=== PATIENT | female | born 1965 | race American Indian/Alaskan Native ===

== ENCOUNTER 2019-11-02 06:59 | Inpatient (IN) | payer MEDICARE ==
[2019-11-02] MEDS ORDERED: ASPIRIN 325 MG TAB PO ONE (07:49)
[2019-11-02] MEDS ORDERED: NITROGLYCERIN 2% OINT 1 GM TP ONE ×3 (07:51→11:44)
[2019-11-02] MEDS ORDERED: MORPHINE 2 MG/1 ML INJ IV ONE (07:51)
[2019-11-02] MEDS ORDERED: hydrALAZINE 20 MG/1 ML INJ IV ONE ×2 (07:51→09:39)
[2019-11-02] MEDS ORDERED: ONDANSETRON 4 MG/2 ML INJ IV ONE (07:51)
--- NOTE | 2019-11-02 08:09 | Emergency Department Report ---
ED Chest Pain HPI - General Chief Complaint: Upper Respiratory Infection Stated Complaint: CHEST PAIN Time Seen by Provider: 11/02/19 07:40 Source: EMS Mode of arrival: Stretcher Limitations: No Limitations - History of Present Illness Initial Comments: This is a 53-year-old female with Vas-Cath and chronic dialysis in [place]. She presents for chest pain which she states has been present for over 2 weeks. She states it got worse yesterday and she decided to be evaluated here. She seems very reticent to provide a detailed history. She does admit to not taking her blood pressure medicine this morning. She presents with accelerated hypertension. She denies any problems with her heart. However later she does seem to indicate that she has been treated in the hospital for accelerated hypertension associated with CHF it would appear. She denies any history of known myocardial infarction or coronary artery disease. Patient describes her chest pain as a pressure in the substernal region. She states somewhat radiates to the right shoulder. She has a right chest Vas-Cath. MD Complaint: chest pain -: week(s) Onset: during rest Pain Location: substernal Pain Radiation: RUE Severity: moderate, severe Quality: heaviness Consistency: intermittent Improves With: nothing Worsens With: nothing Context: other (Accelerated hypertension) re: nausea, dyspnea Other Symptoms: cough Treatments Prior to Arrival: none Aspirin use within the Past 7 Days: (0) No - Related Data Allergies Allergy/AdvReac Type Severity Reaction Status Date / Time No Known Allergies Allergy Unverified 11/02/19 07:29 Heart Score - HEART Score History: Moderately suspicious EKG: Non-specific Age: 45-65 Risk factors: 1-2 risk factors Troponin: 1-3x normal limit HEART Score: 5 - Critical Actions Critical Actions: 4-6 pts:12-16.6% risk of adverse cardiac event. Should be admitted ED Review of Systems ROS: Stated complaint: CHEST PAIN Other details as noted in HPI Constitutional: denies: chills, fever Eyes: denies: eye pain, vision change ENT: denies: ear pain, throat pain Respiratory: cough, shortness of breath. denies: wheezing Cardiovascular: chest pain. denies: palpitations Endocrine: no symptoms reported Gastrointestinal: denies: abdominal pain, nausea Genitourinary: as per HPI (End-stage renal) Musculoskeletal: denies: back pain, arthralgia Skin: denies: rash, lesions Neurological: denies: headache, weakness, paresthesias Psychiatric: denies: anxiety, depression Hematological/Lymphatic: denies: easy bleeding, easy bruising ED Past Medical Hx - Past Medical History Previous Medical History?: Yes Hx Hypertension: Yes Hx Diabetes: No Hx Renal Disease: Yes Hx Arthritis: Yes Additional medical history: Dialysis in [facility] - Surgical History Past Surgical History?: Yes Additional Surgical History: L fistula - Social History Smoking Status: Never Smoker Substance Use Type: None ED Physical Exam - General Limitations: Physical Limitation General appearance: alert, in no apparent distress - Head Head exam: Present: atraumatic, normocephalic - Eye Eye exam: Present: normal appearance, EOMI. Absent: scleral icterus - ENT ENT exam: Present: mucous membranes moist - Neck Neck exam: Present: normal inspection. Absent: tenderness, meningismus - Respiratory Respiratory exam: Present: normal lung sounds bilaterally, other (Permacath right chest). Absent: respiratory distress - Cardiovascular Cardiovascular Exam: Present: regular rate, normal rhythm. Absent: systolic murmur, diastolic murmur, rubs, gallop - GI/Abdominal GI/Abdominal exam: Present: soft, normal bowel sounds. Absent: distended, tenderness - Extremities Exam Extremities exam: Present: normal inspection, normal capillary refill. Absent: calf tenderness - Back Exam Back exam: Present: normal inspection - Neurological Exam Neurological exam: Present: alert, oriented X3, CN II-XII intact. Absent: motor sensory deficit - Psychiatric Psychiatric exam: Present: normal affect, normal mood - Skin Skin exam: Present: warm, dry, intact, normal color. Absent: rash ED Course Vital Signs 11/02/19 11/02/19 11/02/19 07:45 07:47 08:41 Temperature 98.5 F Pulse Rate 68 61 Respiratory 24 Rate Blood Pressure 210/95 Blood Pressure 216/112 [Right] O2 Sat by Pulse 97 98 Oximetry - Reevaluation(s) Reevaluation #1: Chest x-ray interpretation as per radiologist CHF pleural fluid right lower lobe pneumonia. I do not know how definitive the reading of the right lower lobe pneumonia is. In any case the patient has a slightly elevated d-dimer. I believe CT angiogram will help us elucidate the differential diagnosis. Patient does need dialysis within 24 hours. I do believe she is stable to have a CTA. I have discussed the case with Dr. Hickman who will be seeing the patient in the emergency department. Further recommendations per Dr. Hickman. 11/02/19 09:49 11/02/19 09:53 KIRSTEN score - Kirsten Score Age > 65: (0) No Aspirin use within the Past 7 Days: (0) No 3 or more CAD Risk Factors: (0) No 2 or more Angina events in past 24 hrs: (0) No Known CAD with more than 50% Stenosis: (0) No Elevated Cardiac Markers: (1) Yes ST Deviation Greater than 0.5mm: (0) No KIRSTEN Score: 1 ED Medical Decision Making - Lab Data Result diagrams: 11/02/19 07:59 11/02/19 07:59 Laboratory Results - last 24 hr 11/02/19 11/02/19 11/02/19 07:59 07:59 07:59 WBC 7.0 RBC 3.10 L Hgb 10.1 Hct 30.8 MCV 99 H MCH 33 H MCHC 33 RDW 15.3 H Plt Count 262 Lymph % (Auto) 24.9 Burnett % (Auto) 9.1 H Eos % (Auto) 5.0 H Baso % (Auto) 1.8 Lymph # 1.7 Burnett # 0.6 Eos # 0.3 Baso # 0.1 Seg Neutrophils % 59.2 Seg Neutrophils # 4.2 PT 15.6 H INR 1.22 H APTT 35.2 D-Dimer 319.95 H Sodium 138 Potassium 4.0 Chloride 94.1 L Carbon Dioxide 27 Anion Gap 21 BUN 29 H Creatinine 8.2 H Estimated GFR 6 BUN/Creatinine Ratio 4 Glucose 87 Calcium 9.1 Phosphorus Magnesium Total Bilirubin Direct Bilirubin Indirect Bilirubin AST ALT Alkaline Phosphatase Total Creatine Kinase CK-MB (CK-2) CK-MB (CK-2) Rel Index Troponin T 0.071 H NT-Pro-B Natriuret Pep Total Protein Albumin Albumin/Globulin Ratio Triglycerides 83 Cholesterol 198 LDL Cholesterol Direct 64 11/02/19 07:59 WBC RBC Hgb Hct MCV MCH MCHC RDW Plt Count Lymph % (Auto) Burnett % (Auto) Eos % (Auto) Baso % (Auto) Lymph # Burnett # Eos # Baso # Seg Neutrophils % Seg Neutrophils # PT INR APTT D-Dimer Sodium Potassium Chloride Carbon Dioxide Anion Gap BUN Creatinine Estimated GFR BUN/Creatinine Ratio Glucose Calcium Phosphorus 5.60 H Magnesium 2.50 H Total Bilirubin 0.20 Direct Bilirubin < 0.2 Indirect Bilirubin 0.0 AST 18 ALT 8 Alkaline Phosphatase 101 Total Creatine Kinase 86 CK-MB (CK-2) 2.0 CK-MB (CK-2) Rel Index 2.3 Troponin T NT-Pro-B Natriuret Pep > 83074 H Total Protein 7.3 Albumin 4.2 Albumin/Globulin Ratio 1.4 Triglycerides Cholesterol LDL Cholesterol Direct Laboratory Results - last 24 hr 11/02/19 11/02/19 11/02/19 07:59 07:59 07:59 WBC 7.0 RBC 3.10 L Hgb 10.1 Hct 30.8 MCV 99 H MCH 33 H MCHC 33 RDW 15.3 H Plt Count 262 Lymph % (Auto) 24.9 Burnett % (Auto) 9.1 H Eos % (Auto) 5.0 H Baso % (Auto) 1.8 Lymph # 1.7 Burnett # 0.6 Eos # 0.3 Baso # 0.1 Seg Neutrophils % 59.2 Seg Neutrophils # 4.2 PT 15.6 H INR 1.22 H APTT 35.2 D-Dimer 319.95 H Sodium 138 Potassium 4.0 Chloride 94.1 L Carbon Dioxide 27 Anion Gap 21 BUN 29 H Creatinine 8.2 H Estimated GFR 6 BUN/Creatinine Ratio 4 Glucose 87 Calcium 9.1 Phosphorus Magnesium Total Bilirubin Direct Bilirubin Indirect Bilirubin AST ALT Alkaline Phosphatase Total Creatine Kinase CK-MB (CK-2) CK-MB (CK-2) Rel Index Troponin T 0.071 H NT-Pro-B Natriuret Pep Total Protein Albumin Albumin/Globulin Ratio Triglycerides 83 Cholesterol 198 LDL Cholesterol Direct 64 HDL Cholesterol 144 H Cholesterol/HDL Ratio 1.37 11/02/19 07:59 WBC RBC Hgb Hct MCV MCH MCHC RDW Plt Count Lymph % (Auto) Burnett % (Auto) Eos % (Auto) Baso % (Auto) Lymph # Burnett # Eos # Baso # Seg Neutrophils % Seg Neutrophils # PT INR APTT D-Dimer Sodium Potassium Chloride Carbon Dioxide Anion Gap BUN Creatinine Estimated GFR BUN/Creatinine Ratio Glucose Calcium Phosphorus 5.60 H Magnesium 2.50 H Total Bilirubin 0.20 Direct Bilirubin < 0.2 Indirect Bilirubin 0.0 AST 18 ALT 8 Alkaline Phosphatase 101 Total Creatine Kinase 86 CK-MB (CK-2) 2.0 CK-MB (CK-2) Rel Index 2.3 Troponin T NT-Pro-B Natriuret Pep > 05767 H Total Protein 7.3 Albumin 4.2 Albumin/Globulin Ratio 1.4 Triglycerides Cholesterol LDL Cholesterol Direct HDL Cholesterol Cholesterol/HDL Ratio - EKG Data -: EKG Interpreted by Me EKG shows normal: sinus rhythm Rate: normal - EKG Data Interpretation: no acute changes, nonspecific ST-T wave lis, LVH, other (Consider old anteroseptal/ant zone, left anterior fascicular block) - Radiology Data Radiology results: report reviewed Critical care attestation.: If time is entered above; I have spent that time in minutes in the direct care of this critically ill patient, excluding procedure time. ED Disposition Clinical Impression: Malignant hypertension, ESRD needing dialysis, Pulmonary infiltrate in right lung on CXR Congestive heart failure Qualifiers: Heart failure type: unspecified Heart failure chronicity: acute on chronic Qualified Code(s): I50.9 - Heart failure, unspecified Disposition: -09 OP ADMIT IP TO THIS HOSP Is pt being admited?: Yes Does the pt Need Aspirin: Yes Instructions: Hypertension (ED) Referrals: ARLYN SRIVASTAVA MD [Primary Care Provider] - 3-5 Days Time of Disposition: 09:55
[2019-11-02 08:17] LABS: Basophils # (Auto) 0.1 K/mm3 (0.0-0.1); Basophils % (Auto) 1.8 % (0.0-1.8); Eosinophils # (Auto) 0.3 K/mm3 (0.0-0.4); Hematocrit 30.8 % (30.3-42.9); Hemoglobin 10.1 gm/dl (10.1-14.3); Lymphocytes # (Auto) 1.7 K/mm3 (1.2-5.4); Lymphocytes % (Auto) 24.9 % (13.4-35.0); Mean Corpuscular HGB Conc 33 % (30-34); Mean Corpuscular Volume 99 fl (79-97); Monocytes # (Auto) 0.6 K/mm3 (0.0-0.8); Monocytes % (Auto) 9.1 % (0.0-7.3); Platelet Count 262 K/mm3 (140-440); Red Cell Distribution Width 15.3 % (13.2-15.2)
--- NOTE | 2019-11-02 08:30 | XRay Report ---
CHEST 1 VIEW INDICATION: Chest Pain. COMPARISON: None. FINDINGS: Support devices: Right IJ dialysis catheter in satisfactory position. Heart: Moderate cardiomegaly. Lungs/Pleura: Small left basilar effusion with associated volume loss and mild edema. Patchy right-si ded infiltrate greatest at the right base. Additional findings: None. IMPRESSION: Suspected combination of right-sided pneumonia and mild congestive changes. Signer Name: Tereso Agee MD Signed: 11/02/2019 8:26 AM Workstation Name: [id number]
[2019-11-02 08:35] LABS: INR 1.22 (0.87-1.13); Partial Thromboplastin Time 35.2 Sec. (24.2-36.6)
[2019-11-02 09:00] LABS: Calcium 9.1 mg/dL (8.4-10.2)
[2019-11-02 09:04] LABS: Alanine Aminotransferase 8 units/L (7-56); Albumin 4.2 g/dL (3.9-5)
[2019-11-02 09:13] LABS: Bilirubin,Direct < 0.2 mg/dL (0-0.2)
[2019-11-02] MEDS ORDERED: FUROSEMIDE 40 MG/4 ML INJ IV ONE (09:39)
[2019-11-02] MEDS ORDERED: CEFEPIME/NS 1 GM/100 ML 1 GM/100 ML BAG IV ONE ×3 (09:40→22:00)
[2019-11-02 09:44] LABS: Chol/HDL Ratio 1.37 %
--- NOTE | 2019-11-02 10:37 | Cat Scan Report ---
CT angio chest INDICATION / CLINICAL INFORMATION: Chest pain. Shortness of breath. TECHNIQUE: Axial CT images were obtained after injection of Omnipaque 350, 100 cc IV contrast using CTA protocol . 3 plane MIP / 3D reconstructions were produced. All CT scans at this location are performed using C T dose reduction for ALARA by means of automated exposure control. COMPARISON: Chest x-ray earlier the same day. FINDINGS: Small basilar effusions right greater than left. Both lungs demonstrate patchy infiltrates/groundglas s opacity. Negative for mediastinal mass or adenopathy. The heart is moderately enlarged. Imaging the upper abdomen demonstrates no significant abnormality. Soft tissue anasarca is noted. A small left lower lobe pulmonary embolus is seen medially. IMPRESSION: 1. Small left lower lobe pulmonary embolus. 2. Small pleural effusions. 3. Multifocal pneumonia. 4. Suspect mild edema. CRITICAL RESULT: Time of Discovery: 929 AM. Time of Communication: 931 AM Licensed Practitioner Receiving Report: Dr. eKndrick Read Back Performed: Yes. Signer Name: Tereso Agee MD Signed: 11/02/2019 10:33 AM Workstation Name: [id number]
--- NOTE | 2019-11-02 11:16 | Consultation ---
History of Present Illness - Reason for Consult Consult date: 11/02/19 end stage renal disease Requesting physician: MATTHEW PANDYA - History of Present Illness This is a 53-year-old female with Vas-Cath and chronic dialysis in [place]. She presents for chest pain which she states has been present for over 2 weeks. She states it got worse yesterday and she decided to be evaluated here. She seems very reticent to provide a detailed history. She does admit to not taking her blood pressure medicine this morning. She presents with accelerated hypertension. She denies any problems with her heart. However later she does seem to indicate that she has been treated in the hospital for accelerated hypertension associated with CHF it would appear. She denies any history of known myocardial infarction or coronary artery disease. Patient also does complain of some shortness of breath and a dry cough. She is also being ruled out for PE and just had a CT angiogram done. Past History Past Medical History: dialysis, hypertension Past Surgical History: Other (History of AV access placement.) Social history: no significant social history Family history: no significant family history Medications and Allergies Allergies Allergy/AdvReac Type Severity Reaction Status Date / Time No Known Allergies Allergy Unverified 11/02/19 07:29 Review of Systems All systems: negative (Except as noted above) Exam - Vital Signs Vital signs: Vital Signs Temp Pulse Resp BP Pulse Ox 98.5 F 68 24 216/112 97 11/02/19 07:45 11/02/19 07:45 11/02/19 07:45 11/02/19 07:45 11/02/19 07:45 - General Appearance General appearance: well-developed, well-nourished, appears stated age EENT: PERRL, mucous membranes moist Neck: Present: neck supple, trachea midline, Other (Right IJ PermCath in place). Absent: JVD/HJR, Masses Respiratory: Ronchi (Few scattered rhonchi) Heart: regular, normal heart rate, S1S2, no murmurs Gastrointestinal: Present: normal, normoactive bowel sounds Integumentary: no rash, other (No edema) Results - Lab Results 11/02/19 07:59 11/02/19 07:59 Most recent lab results Calcium 9.1 mg/dL (8.4-10.2) 03/15/20 07:59 Phosphorus 5.60 mg/dL (2.5-4.5) H 11/02/19 07:59 Magnesium 2.50 mg/dL (1.7-2.3) H 11/02/19 07:59 Assessment and Plan Impression * End-stage renal disease on maintenance hemodialysis * Shortness of breath * Accelerated hypertension * Volume overload Recommendations * Patient is clinically slightly volume overloaded and she also has accelerated hypertension * Patient just had a CT angiogram done as well. She would benefit from an addit ional dialysis treatment today * Spoke with on-call dialysis nurse * Avoid nephrotoxins * Adjust diet and meds for ESRD state * Binders with meals * Epogen after better blood pressure control * Patient undergoes dialysis under the care of Dr. Brandy Soler in [place] on [facility] schedule * Thank you very much for the consultation. Shall follow along with you
[2019-11-02] MEDS ORDERED: SODIUM CHLORIDE 0.9% 100 ML IV PRN ×2 (11:22→12:04)
[2019-11-02] MEDS ORDERED: FUROSEMIDE 20 MG/2 ML INJ ONE (11:43)
[2019-11-02] MEDS ORDERED: hydrALAZINE 20 MG/1 ML INJ ONE (11:45)
[2019-11-02] MEDS: hydrALAZINE 20 MG/1 ML INJ IV PRN (11:52)
[2019-11-02] MEDS ORDERED: LINACLOTIDE 72 MG PO PRN (12:38)
[2019-11-02] MEDS ORDERED: NON-FORMULARY EACH (Losartan [Cozaar] 100 MG) PO SCH (12:45)
[2019-11-02] MEDS ORDERED: NON-FORMULARY EACH (Omeprazole [Omeprazole] 40 MG) PO SCH (12:45)
[2019-11-02] MEDS ORDERED: HYDROcodone/ACETAMINOPHEN 5-325 MG TAB PO PRN (13:07)
--- NOTE | 2019-11-02 13:53 | History and Physical Report ---
History of Present Illness Date of examination: 11/02/19 Date of admission: 11/02/19 09:55 Chief complaint: Shortness of breath, Cough History of present illness: patient is 53 yo with ESRD on dialysis, hypertension, chronic resp failure on home Oxygen prn. She presents with chest pain x 2 weeks. Chest pain left sided, worse on exertion. workup revealed left pulmonary embolism, bilateral multifocal pneumonia. because of this, ED Physician considered COVID-19. This was discussed with OR Physician and survey form sent to [facility]. No known contact to patient with COVID 19. No travel to [place]. Past History Past Medical History: dialysis, ESRD, hypertension, other (Chronic resp failure on home oxygen) Past Surgical History: Other (History of AV access placement.) Social history: full code. denies: smoking Family history: no significant family history Medications and Allergies Allergies Allergy/AdvReac Type Severity Reaction Status Date / Time No Known Allergies Allergy Unverified 11/02/19 07:29 Home Medications Medication Instructions Recorded Confirmed Last Taken Type Cinacalcet HCl [Sensipar] 30 mg PO QDAY 11/02/19 11/02/19 11/01/19 History HYDROcodone/APAP 5-325 5 - 325 mg PO Q6H PRN 11/02/19 11/02/19 11/01/19 History Isosorbide Dinitrate [Isordil 20 mg PO BID 11/02/19 11/02/19 11/01/19 History Titradose] Linaclotide [Linzess] 72 mg PO PRN PRN 11/02/19 11/02/19 11/01/19 History Losartan [Cozaar] 100 mg PO QDAY 11/02/19 11/02/19 11/01/19 History Omeprazole 40 mg PO QDAY 11/02/19 11/02/19 11/01/19 History Temazepam [Restoril] 15 mg PO QHS 11/02/19 11/02/19 11/01/19 History Vit B Complx C/Folic Acid/Zinc 0.8 mg PO QDAY 11/02/19 11/02/19 11/01/19 History [Dialyvite 800-Zinc 15 mg Tab] allopurinoL [Zyloprim] 100 mg PO QDAY 11/02/19 11/02/19 11/01/19 History carvediloL [Coreg] 25 mg PO BID 11/02/19 11/02/19 11/01/19 History hydrALAZINE [Apresoline TAB] 100 mg PO TID 11/02/19 11/02/19 11/01/19 History rifAMPin [Rifadin] 300 mg PO BID 11/02/19 11/02/19 11/01/19 History Active Meds: Active Medications Acetaminophen/Hydrocodone Bitart (Jaffrey 5/325) 1 each PO Q6H PRN PRN Reason: Pain, Moderate (4-6) Allopurinol (Zyloprim) 100 mg PO QDAY [facility] Carvedilol (Coreg) 25 mg PO BID ELI Cinacalcet (Sensipar) 30 mg PO QDAY ELI Hydralazine HCl (Apresoline) 10 mg IV Q4HR PRN PRN Reason: SBP>170 or DBP>110 Last Admin: 11/02/19 11:52 Dose: 10 mg Documented by: Hydralazine HCl (Apresoline) 100 mg PO TID [facility] Sodium Chloride (Nacl 0.9%) 100 mls @ 999 mls/hr IV STEVIE PRN PRN Reason: Hypotension Sodium Chloride (Nacl 0.9%) 100 mls @ 999 mls/hr IV STEVIE PRN PRN Reason: Hypotension Isosorbide Dinitrate (Isordil Titradose) 20 mg PO BID [facility] Losartan Potassium (Cozaar) 100 mg PO QDAY [facility] Miscellaneous Medication (Vit B Complx C/Folic Acid/Zinc [Dialyvite 800-Zinc 15 Mg Tab]) 0.8 mg PO QDAY [facility] Miscellaneous Medication (Linaclotide [Linzess]) 72 mg PO PRN PRN PRN Reason: Constipation Pantoprazole Sodium (Protonix) 40 mg PO DAILY [facility] Rifampin (Rifadin) 300 mg PO BID ELI Temazepam (Restoril) 15 mg PO QHS [facility] Review of Systems All systems: negative (No fever, no diarrhea, no headache. All other systems reviewed and are negative.) Exam - Physical Exam Narrative exam: GEN: Not in acute distress, lying in bed HEENT: Normocephalic, atraumatic, Neck: supple, No JVD Lungs: Bilateral basal crackles, heart;S1 and S2 reg, tachy, no murmurs, rubs or gallop Abd:soft, non tender, non distended, normal bowel sounds Ext: No edema, no clubbing, no cyanosis, Neuro: AAO x 3. No focal neuro signs - Constitutional Vitals: Temp Pulse Resp BP Pulse Ox 98.5 F 69 14 197/104 100 11/02/19 07:45 11/02/19 12:30 11/02/19 12:30 11/02/19 12:30 11/02/19 12:30 Results - Labs CBC & Chem 7: 11/03/19 Unknown 11/03/19 Unknown Labs: Abnormal lab results 11/02/19 11/02/19 11/02/19 Range/Units 07:59 07:59 07:59 RBC 3.10 L (3.65-5.03) M/mm3 MCV 99 H (79-97) fl MCH 33 H (28-32) pg RDW 15.3 H (13.2-15.2) % Monroe % (Auto) 9.1 H (0.0-7.3) % Eos % (Auto) 5.0 H (0.0-4.3) % PT 15.6 H (12.2-14.9) Sec. INR 1.22 H (0.87-1.13) D-Dimer 319.95 H (0-234) ng/mlDDU Chloride 94.1 L (98-107) mmol/L BUN 29 H (7-17) mg/dL Creatinine 8.2 H (0.7-1.2) mg/dL Phosphorus (2.5-4.5) mg/dL Magnesium (1.7-2.3) mg/dL Troponin T 0.071 H (0.00-0.029) ng/mL NT-Pro-B Natriuret Pep (0-900) pg/mL HDL Cholesterol 144 H (40-59) mg/dL 11/02/19 Range/Units 07:59 RBC (3.65-5.03) M/mm3 MCV (79-97) fl MCH (28-32) pg RDW (13.2-15.2) % Monroe % (Auto) (0.0-7.3) % Eos % (Auto) (0.0-4.3) % PT (12.2-14.9) Sec. INR (0.87-1.13) D-Dimer (0-234) ng/mlDDU Chloride (98-107) mmol/L BUN (7-17) mg/dL Creatinine (0.7-1.2) mg/dL Phosphorus 5.60 H (2.5-4.5) mg/dL Magnesium 2.50 H (1.7-2.3) mg/dL Troponin T (0.00-0.029) ng/mL NT-Pro-B Natriuret Pep > 60087 H (0-900) pg/mL HDL Cholesterol (40-59) mg/dL Assessment and Plan Pulmonary embolism Admit to telemetry Start heparin drip consult Pulm Discussed with Dr. Hickman and he recommends Coumadin as best choice for ESRD dialysis pt. halfway Bilateral pneumonia To r/o COVID-[address] Kendrick and Dr. Franklin Will also consult Pulmonology ESRD on dialysis Dr. Hickman, Nephrology Hypertensive emergency BP 216/112mmhg Hydralazine iv Resume home meds Coreg, Cozaar, Nitrates Full code status Chronic resp failure Was on home Oxygen prn Full code status.
[2019-11-02] MEDS ORDERED: ONDANSETRON 4 MG/2 ML INJ IV PRN (14:31)
[2019-11-02] MEDS ORDERED: ACETAMINOPHEN 325 MG TAB PO PRN (14:31)
[2019-11-02] MEDS ORDERED: MORPHINE 2 MG/1 ML INJ IV PRN (14:31)
[2019-11-02 14:51] LABS: Hepatitis B Surface Antigen Non-Reactive (Negative); Hepatitis C Virus Antibody Non-Reactive (NonReactive)
[2019-11-02 14:56] LABS: Hematocrit 31.3 % (30.3-42.9); Hemoglobin 10.1 gm/dl (10.1-14.3)
[2019-11-02 15:15] LABS: INR 1.26 (0.87-1.13); Partial Thromboplastin Time 34.8 Sec. (24.2-36.6)
--- NOTE | 2019-11-02 15:29 | Consultation ---
History of Present Illness Consult date: 11/02/19 Requesting physician: TAMICA MATHUR Reason for consult: other (Acute Respiratory Failure; R/O COVID-19) History of present illness: PULMONARY/CCM CONSULT NOTE (Full dictation # [id number]) Please see dictated notes for full details Past History Past Medical History: dialysis, hypertension Past Surgical History: Other (History of AV access placement.) Social history: no significant social history Family history: no significant family history Medications and Allergies Allergies Allergy/AdvReac Type Severity Reaction Status Date / Time No Known Allergies Allergy Unverified 11/02/19 07:29 Home Medications Medication Instructions Recorded Confirmed Last Taken Type Cinacalcet HCl [Sensipar] 30 mg PO QDAY 11/02/19 11/02/19 11/01/19 History HYDROcodone/APAP 5-325 5 - 325 mg PO Q6H PRN 11/02/19 11/02/19 11/01/19 History Isosorbide Dinitrate [Isordil 20 mg PO BID 11/02/19 11/02/19 11/01/19 History Titradose] Linaclotide [Linzess] 72 mg PO PRN PRN 11/02/19 11/02/19 11/01/19 History Losartan [Cozaar] 100 mg PO QDAY 11/02/19 11/02/19 11/01/19 History Omeprazole 40 mg PO QDAY 11/02/19 11/02/19 11/01/19 History Temazepam [Restoril] 15 mg PO QHS 11/02/19 11/02/19 11/01/19 History Vit B Complx C/Folic Acid/Zinc 0.8 mg PO QDAY 11/02/19 11/02/19 11/01/19 History [Dialyvite 800-Zinc 15 mg Tab] allopurinoL [Zyloprim] 100 mg PO QDAY 11/02/19 11/02/19 11/01/19 History carvediloL [Coreg] 25 mg PO BID 11/02/19 11/02/19 11/01/19 History hydrALAZINE [Apresoline TAB] 100 mg PO TID 11/02/19 11/02/19 11/01/19 History rifAMPin [Rifadin] 300 mg PO BID 11/02/19 11/02/19 11/01/19 History Active Meds: Active Medications Acetaminophen (Tylenol) 650 mg PO Q4H PRN PRN Reason: Pain MILD(1-3)/Fever >100.5/TAVERA Acetaminophen/Hydrocodone Bitart ([place] 5/325) 1 each PO Q6H PRN PRN Reason: Pain, Moderate (4-6) Allopurinol (Zyloprim) 100 mg PO QDAY [facility] Carvedilol (Coreg) 25 mg PO BID [facility] Cinacalcet (Sensipar) 30 mg PO QDAY [facility] Hydralazine HCl (Apresoline) 10 mg IV Q4HR PRN PRN Reason: SBP>170 or DBP>110 Last Admin: 11/02/19 11:52 Dose: 10 mg Documented by: Hydralazine HCl (Apresoline) 100 mg PO TID [facility] Sodium Chloride (Nacl 0.9%) 100 mls @ 999 mls/hr IV STEVIE PRN PRN Reason: Hypotension Sodium Chloride (Nacl 0.9%) 100 mls @ 999 mls/hr IV STEVIE PRN PRN Reason: Hypotension Heparin Sodium/Sodium Chloride (Heparin/ 0.45% Nacl-25,000 Unit/500 Ml) 25,000 unit in 500 mls @ 24 mls/hr IV TITR ELI; Protocol Cefepime HCl (Cefepime/Ns 1 Gm/100 Ml) 1 gm in 100 mls @ 200 mls/hr IV Q8HR ELI; Protocol Isosorbide Dinitrate (Isordil Titradose) 20 mg PO BID [facility] Losartan Potassium (Cozaar) 100 mg PO QDAY [facility] Miscellaneous Medication (Vit B Complx C/Folic Acid/Zinc [Dialyvite 800-Zinc 15 Mg Tab]) 0.8 mg PO QDAY [facility] Miscellaneous Medication (Linaclotide [Linzess]) 72 mg PO PRN PRN PRN Reason: Constipation Morphine Sulfate (Morphine) 2 mg IV Q4H PRN PRN Reason: Pain, Moderate (4-6) Ondansetron HCl (Zofran) 4 mg IV Q8H PRN PRN Reason: Nausea And Vomiting Pantoprazole Sodium (Protonix) 40 mg PO DAILY [facility] Rifampin (Rifadin) 300 mg PO BID [facility] Sodium Chloride (Sodium Chloride Flush Syringe 10 Ml) 10 ml IV BID [facility] Sodium Chloride (Sodium Chloride Flush Syringe 10 Ml) 10 ml IV PRN PRN PRN Reason: LINE FLUSH Temazepam (Restoril) 15 mg PO QHS ELI Physical Examination Vital signs: Vital Signs BP 216/112 11/02/19 07:28 Results - Laboratory Findings CBC and BMP: 11/03/19 Unknown 11/03/19 Unknown PT/INR, D-dimer PT 16.0 Sec. (12.2-14.9) H 11/02/19 14:46 INR 1.26 (0.87-1.13) H 11/02/19 14:46 D-Dimer 319.95 ng/mlDDU (0-234) H 11/02/19 07:59 Abnormal lab findings: Abnormal Labs 11/02/19 11/02/19 11/02/19 07:59 07:59 07:59 RBC 3.10 L MCV 99 H MCH 33 H RDW 15.3 H [place] % (Auto) 9.1 H Eos % (Auto) 5.0 H PT 15.6 H INR 1.22 H D-Dimer 319.95 H Chloride 94.1 L BUN 29 H Creatinine 8.2 H Phosphorus Magnesium Troponin T 0.071 H NT-Pro-B Natriuret Pep HDL Cholesterol 144 H 11/02/19 11/02/19 11/02/19 07:59 14:09 14:46 RBC MCV MCH RDW [place] % (Auto) Eos % (Auto) PT 16.0 H INR 1.26 H D-Dimer Chloride BUN Creatinine Phosphorus 5.60 H Magnesium 2.50 H Troponin T 0.070 H NT-Pro-B Natriuret Pep > 68685 H HDL Cholesterol
[2019-11-02] MEDS: allopurinoL 100 MG TAB PO SCH (15:39)
[2019-11-02] MEDS: hydrALAZINE 100 MG TAB PO SCH ×2 (15:40→22:06)
[2019-11-02] MEDS: PANTOPRAZOLE 40 MG TAB PO SCH (15:40)
[2019-11-02] MEDS: LOSARTAN 50 MG TAB PO SCH (15:40)
[2019-11-02] MEDS: HEPARIN/ 0.45% NACL DRIP 25,000 UNIT/500 ML BAG IV SCH (15:41)
[2019-11-02] MEDS: carvediloL 25 MG TAB PO SCH (22:05)
[2019-11-02] MEDS: HYDROcodone/ACETAMINOPHEN 5-325 MG TAB PO PRN (22:05)
[2019-11-02] MEDS: TEMAZEPAM 15 MG CAP PO SCH (22:05)
[2019-11-02] MEDS: ISOSORBIDE DINITRATE 20 MG TAB PO SCH (22:06)
[2019-11-02] MEDS: rifAMPin 300 MG CAP PO SCH (22:08)
[2019-11-03 05:29] LABS: Basophils # (Auto) 0.1 K/mm3 (0.0-0.1); Basophils % (Auto) 1.2 % (0.0-1.8); Eosinophils # (Auto) 0.4 K/mm3 (0.0-0.4); Eosinophils % (Auto) 4.4 % (0.0-4.3); Hematocrit 30.6 % (30.3-42.9); Lymphocytes # (Auto) 1.4 K/mm3 (1.2-5.4); Lymphocytes % (Auto) 17.4 % (13.4-35.0); Mean Corpuscular HGB Conc 33 % (30-34); Mean Corpuscular Volume 99 fl (79-97); Monocytes # (Auto) 0.7 K/mm3 (0.0-0.8); Platelet Count 233 K/mm3 (140-440); Red Cell Distribution Width 14.8 % (13.2-15.2)
[2019-11-03 05:53] LABS: Calcium 9.4 mg/dL (8.4-10.2)
[2019-11-03] MEDS: carvediloL 25 MG TAB PO SCH ×2 (09:03→23:03)
[2019-11-03] MEDS: ISOSORBIDE DINITRATE 20 MG TAB PO SCH ×2 (09:04→23:03)
[2019-11-03] MEDS: hydrALAZINE 100 MG TAB PO SCH ×3 (09:05→20:56)
[2019-11-03] MEDS: PANTOPRAZOLE 40 MG TAB PO SCH (09:05)
[2019-11-03] MEDS: FOLIC ACID/VIT B COMP W-C 1 MG (RENAL CAPS) PO SCH (09:06)
[2019-11-03] MEDS: rifAMPin 300 MG CAP PO SCH ×2 (09:06→23:05)
[2019-11-03] MEDS: CINACALCET 30 MG TAB PO SCH (09:06)
[2019-11-03] MEDS: allopurinoL 100 MG TAB PO SCH (09:07)
[2019-11-03] MEDS: LOSARTAN 50 MG TAB PO SCH (09:32)
[2019-11-03] MEDS ORDERED: [UNRECOGNIZED DRUG - OTHER] PO SCH (10:00)
[2019-11-03] MEDS ORDERED: VIT B COMPLX C PO SCH (10:00)
[2019-11-03] MEDS ORDERED: FOLIC ACID PO SCH (10:00)
[2019-11-03] MEDS ORDERED: ZINC PO SCH (10:00)
--- NOTE | 2019-11-03 13:47 | Progress Note ---
Assessment and Plan Acute hypoxemic respiratory failure. Bilateral pneumonia r/om COVID-19 Acute pulmonary embolus involving the left lower lobe branches. End-stage renal disease, on dialysis. Hypertension with hypertensive emergency at presentation. Obesity. Gout. Cardiomegaly. Elevated serum D-dimer. Elevated serum troponins, probably secondary to demand. - supplemental oxygen to keep O2 sats > 90% - continue full antocoagulation witrh IV heparin - prn Bronchodilators (HERNESTO) with pulm hygiene per RT - follow COVID-19 results - continue airborne and contact precautions - continue to avoid nephrotoxins, renally dose all medications - continue HD/UF for toxin and volume control - continue mobility protocols to prevent pressure ulcers - prn analgesia per pain score - PT/OT as tolerated - accuchecks with glycemic control per SSI for target blood glucose < 180 mg/dL - home oxygen evaluation at discharge - GI & VTE prophylaxis - Flu & pneumovax per protocol - continue other care per attending / other consultants ... re-evaluate in am & prn Subjective Date of service: 11/03/19 Principal diagnosis: Ac hypoxemic resp failure; Perfecto PNA r/o COVID-19; Ac P.E.; HTNsive emergency Interval history: Patient is seen today for: Ac hypoxemic resp failure; Perfecto PNA r/o COVID-19; Acute pulmonary embolus involving the left lower lobe branches; End-stage renal disease, on dialysis; Hypertension with hypertensive emergency at presentation. Seen and examined at bedside; 24hour events reviewed; nursing and respiratory care staff consulted; no adverse overnight events reported to me; resting peacefylly in bed; awaiting COVID-19 results; denies acute chest pains; feels better post dialysis Objective Vital Signs - 12hr 11/03/19 11/03/19 11/03/19 04:00 07:31 09:03 Temperature 97.7 F Pulse Rate 82 63 63 Respiratory 18 Rate Blood Pressure 207/95 Blood Pressure 207/95 [Right] O2 Sat by Pulse 100 Oximetry 11/03/19 11/03/19 11/03/19 09:04 09:32 10:00 Temperature Pulse Rate 63 63 Respiratory Rate Blood Pressure 207/95 207/95 Blood Pressure [Right] O2 Sat by Pulse 96 Oximetry Constitutional: appears uncomfortable, other (middle aged obese AAF, normocephal;ic with mildly increased resp effort at rest) Eyes: non-icteric ENT: oropharynx moist, other (Mallampati 3) Neck: supple, no lymphadenopathy, no JVD Effort: mildly labored Ascultation: Bilateral: rhonchi Percussion: Bilateral: not dull Cardiovascular: regular rate and rhythm Gastrointestinal: normoactive bowel sounds, soft, non-tender, non-distended (protuberant) Integumentary: normal Extremities: no cyanosis, no edema, pulses normal, no ischemia or petechiae Neurologic: normal mental status, non-focal exam, pupils equal and round, CN II- XII normal Psychiatric: mood appropriate, affect normal CBC and BMP: 11/04/19 07:43 11/03/19 Unknown ABG, PT/INR, D-dimer: PT/INR, D-dimer PT 16.0 Sec. (12.2-14.9) H 11/02/19 14:46 INR 1.26 (0.87-1.13) H 11/02/19 14:46 D-Dimer 319.95 ng/mlDDU (0-234) H 11/02/19 07:59 Abnormal lab findings: Abnormal Labs 11/02/19 11/02/19 11/02/19 07:59 07:59 07:59 RBC 3.10 L Hgb MCV 99 H MCH 33 H RDW 15.3 H [place] % (Auto) 9.1 H Eos % (Auto) 5.0 H PT 15.6 H INR 1.22 H D-Dimer 319.95 H Heparin Anti-Xa Level Chloride 94.1 L Carbon Dioxide BUN 29 H Creatinine 8.2 H Phosphorus Magnesium Troponin T 0.071 H NT-Pro-B Natriuret Pep HDL Cholesterol 144 H 11/02/19 11/02/19 11/02/19 07:59 14:09 14:46 RBC Hgb MCV MCH RDW [place] % (Auto) Eos % (Auto) PT 16.0 H INR 1.26 H D-Dimer Heparin Anti-Xa Level Chloride Carbon Dioxide BUN Creatinine Phosphorus 5.60 H Magnesium 2.50 H Troponin T 0.070 H NT-Pro-B Natriuret Pep > 27990 H HDL Cholesterol 11/03/19 11/03/19 11/03/19 Unknown Unknown Unknown RBC 3.10 L Hgb 10.0 L MCV 99 H MCH RDW [place] % (Auto) 9.0 H Eos % (Auto) 4.4 H PT INR D-Dimer Heparin Anti-Xa Level 0.10 L Chloride 97.5 L Carbon Dioxide 31 H BUN Creatinine 5.4 H Phosphorus Magnesium Troponin T NT-Pro-B Natriuret Pep HDL Cholesterol Chest x-ray: other (none today) Allied health notes reviewed: nursing
--- NOTE | 2019-11-03 14:27 | Consultation ---
PULMONARY CONSULTATION CONSULTING PHYSICIAN: Dr. Kumari. REASON FOR CONSULTATION: Acute hypoxemic respiratory failure, rule out COVID-19 with bilateral pneumonia and pulmonary embolus. CHIEF COMPLAINT AND HISTORY OF PRESENT ILLNESS: As follows: The patient is a 53-year-old -[place] female with past medical history significant for diagnosis of end-stage renal disease, on chronic dialysis, came into the Emergency Room complaining of chest pain that have been going on for a couple of weeks. It got worse on the day of presentation and so she came in. She denies missing any dialysis sessions. She denies any gross or streaky hemoptysis. She denies fevers or chills. She denies any travel out of the country. Denies any contact with any known individual with COVID-19 of severe upper respiratory type symptoms. She denied rhinorrhea. She denied a sore throat. She denied any new rash on her body. She denied any new leg pain or swelling either unilaterally or bilaterally. She has been compliant with her medications. She was evaluated in the Emergency Room for chest pain and as part of the workup, CT angiogram of her chest was done. It did show filling defects in the left pulmonary artery trunk and I should say the basilar divisions and she was admitted for further treatment. We are asked to evaluate her further respiratory failure as well as the bilateral infiltrates, possible COVID-19 and the pulmonary emboli. When I stopped by to see her, she was getting dialyzed. She was feeling a little bit better, wondering when she will be allowed to go home. She denies any prior history of venous thromboembolic phenomenon. Denies any night sweats. This really is as much of the history of presentation as I have. I should say she denies tobacco use or abuse history, whatsoever. PAST MEDICAL HISTORY: End-stage renal disease, on dialysis. She is obese, history of hypertension. PAST SURGICAL HISTORY: She has had AV fistula placed in the past. MEDICATIONS: She was on at the time I stopped by to see her were reviewed. Pertinent medications included the following: Tylenol 650 mg p.o. q. 4 hours p.r.n. mild pain or fevers, Percocet 5/325 one tablet p.o. q. 6 hours p.r.n. moderate pain, allopurinol 100 mg p.o. daily, carvedilol 25 mg p.o. b.i.d., Sensipar 30 mg p.o. daily, p.r.n. hydralazine 10 mg IV q. 4 hours p.r.n. blood pressure greater than 170/110. She is also on hydralazine 100 mg p.o. t.i.d., IV heparin drip was going per PE protocol, cefepime 1 gram IV q. 8 hours, Imdur 20 mg p.o. b.i.d., Cozaar 100 mg p.o. daily, daily multivitamin. Morphine 2 mg IV q. 4 hours p.r.n. moderate pain, Zofran 4 mg IV q. 8 hours p.r.n. nausea and vomiting, Protonix 40 mg p.o. daily, rifampin 300 mg p.o. b.i.d. and temazepam 15 mg p.o. at bedtime. ALLERGIES: No known drug allergies. DIET: Obese lady. Denies acute weight loss or gain in the preceding few weeks to months. FAMILY AND SOCIAL HISTORY: Lives in the community. Denies alcohol, tobacco or illicit drug use or abuse. Denies any other significant family history. REVIEW OF SYSTEMS: No loss of consciousness. No new onset seizures. No new onset focal weakness. No gross hematochezia or melena. No gross hematuria or dysuria. She had the chest pain. She denies any hemoptysis. She denies orthopnea. Denies periods of unexplained sadness and/or elation as may be consistent with psychiatric type disorders. Denies polydipsia or polyuria. Denies heat or cold intolerance. Denies any arthralgias. Complete 13-system review of systems obtained. Pertinent positives and/or negatives as in body of history above, otherwise are noncontributory. PHYSICAL EXAMINATION: VITAL SIGNS: At presentation, she was afebrile, temperature 98.5 degrees Fahrenheit with a pulse of 68, respiratory rate was 24, blood pressure was 216/112, O2 sats were 99%, inspired oxygen concentration at that time was not recorded. Since she has been admitted, she has had a T-max of 99.8. When I saw her, O2 sats were 98% that was on 3 liters nasal cannula. GENERAL: She is a middle-aged obese -[place] female, normocephalic, atraumatic, talking to me in mostly full sentences, but with mildly increased respiratory effort at rest. HEAD, EYES, EARS, NOSE AND THROAT: She is anicteric. No conjunctival erythema. Oropharynx is moist. No gross jugular venous distention. No thyromegaly. Grossly, there were no palpable lymph nodes in the supraclavicular or submandibular lymph node chains. She has a right anterior chest wall Vas-Cath in place. No significant bleeding around the stoma site. LUNGS: Auscultation of both lung grubbs revealed bibasilar crackles. Diminished breath sounds. No wheezing. HEART: Heart sounds 1 and 2 are heard, regular rate and rhythm at the time of my evaluation without overt rubs or murmurs. ABDOMEN: Soft, full, protuberant. Bowel sounds are positive, nontender, no palpable hepatosplenomegaly. EXTREMITIES: Without overt digital clubbing or cyanosis and no pedal edema. Pedal pulses were 2+ bilaterally. NEUROLOGIC: Pupils are equal, round, about 4 mm, reactive to light. Extraocular muscle movements were intact. She moves all 4 extremities spontaneously. SKIN: Normal turgor without overt cellulitis or rash. Please see the wound care notes for full documentation of her skin. PSYCHIATRIC: Mood was normal. Affect was appropriate. LABORATORY DATA: From my review are as follows: Admission white cell count 7000, hemoglobin 10.1, hematocrit 30.8, platelet count 262. D-dimer 319, elevated. INR was 1.22. Serum sodium was 138, potassium 4.0, chloride 94, bicarbonate 27, BUN was 29, creatinine 8.2, glucose was 87. Liver function tests essentially within normal limits. Troponin was up at 0.071. Rapid influenza screens were negative. Hepatitis screen is negative. Two sets of blood cultures, no growth to date. Chest x-ray shows gross cardiomegaly, bilateral pulmonary infiltrates, right lung greater than left lung, right subclavian Vas-Cath tip is in the distal SVC/right atrial junction. There is mild hilar enlargement. The CT angio of the chest has also been reviewed. I have also reviewed the radiologist's interpretation. I do see a small filling defect in the basilar segment of the left lower lobe medially. The long windows on the CT scan do show patchy somewhat peripheral based infiltrates, some of them at the tip of blood vessels and involving the upper lobes almost metastatic in distribution. ASSESSMENT: 1. Acute hypoxemic respiratory failure. 2. Bilateral pneumonia. 3. End-stage renal disease, on dialysis. 4. Hypertension with hypertensive emergency at presentation. 5. Obesity. 6. Gout. 7. Cardiomegaly. 8. Elevated serum D-dimer. 9. Acute pulmonary embolus involving the left lower lobe branches. 10. Elevated serum troponins, probably secondary to demand. PLAN: She has been febrile. She has bilateral infiltrates. She has tested negative for the flu. Pulmonary emboli while it explains the chest pain does not explain the bilateral pulmonary infiltrates, especially which some of them seemingly at the tip of blood vessels. I think that one certainly does need to also evaluate for metastatic infectious dissemination. To watch this route, a 2D echocardiogram will be ordered to evaluate valvular structure and rule out bacterial endocarditis. Oxygen will be weaned to keep sats greater than or equal to about 90%. Blood cultures will be followed. We will continue empiric broad-spectrum antibiotic therapy as ordered. I will defer to the Infectious Disease physician who she will be consulted on this rule out COVID case for management of anti-infectives. Bilevel positive airway pressure ventilation therapy will be offered for increased work of breathing and shortness of breath. We will look to dialysis and ultrafiltration for toxin and volume clearance. She is on full anticoagulation. She will ultimately be converted to oral agent. She is also appropriately on GI prophylaxis. Flu and pneumonia vaccination will be addressed per protocol. Thank you very much for the consult Dr. Kumari. We will follow along and make further recommendations as picture progresses/becomes clearer. We await the COVID-19 test result. JOB# [id number] WILD/RUSTY TOM
--- NOTE | 2019-11-03 15:58 | Progress Note ---
Assessment and Plan Impression * End-stage renal disease on maintenance hemodialysis (Dr. Brandy Soler) * Accelerated hypertension * Shortness of breath * Volume overload * Anemia secondary to ESRD * Secondary hyperparathyroidism Recommendations * Patient is s/p HD yesterday - accelerated hypertension, SOB, fluid overload * Resume MWF schedule today * UF as tolerated * ID following. COVID 19 pending * BP remains uncontrolled - note order for Clonidine 0.2mg TID * Avoid nephrotoxins * Adjust diet and meds for ESRD state * Binders with meals * Epogen once BP controlled Subjective Date of service: 11/03/19 Interval history: Patient reports SOB improved. Continues to have dry cough. Objective - Vital Signs Vital signs: Vital Signs - 12hr 11/03/19 11/03/19 11/03/19 04:00 07:31 09:03 Temperature 97.7 F Pulse Rate 82 63 63 Respiratory 18 Rate Blood Pressure 207/95 Blood Pressure 207/95 [Right] O2 Sat by Pulse 100 Oximetry 11/03/19 11/03/19 11/03/19 09:04 09:32 10:00 Temperature Pulse Rate 63 63 Respiratory Rate Blood Pressure 207/95 207/95 Blood Pressure [Right] O2 Sat by Pulse 96 Oximetry - General Appearance General appearance: well-developed, well-nourished EENT: ATNC Respiratory: Present: Other (inspiratory crackles - left greater than right) Cardiology: regular, S1S2 Gastrointestinal: normal, no tenderness, no distended Integumentary: no rash, warm and dry Neurologic: alert and oriented x3 Musculoskeletal: other (no edema) Psychiatric: cooperative - Lab 11/03/19 Unknown 11/03/19 Unknown Most recent lab results Calcium 9.4 mg/dL (8.4-10.2) 11/03/19 Unknown Phosphorus 5.60 mg/dL (2.5-4.5) H 11/02/19 07:59 Magnesium 2.50 mg/dL (1.7-2.3) H 11/02/19 07:59 Medications & Allergies - Medications Allergies/Adverse Reactions: Allergies No Known Allergies Allergy (Unverified 11/02/19 07:29) Home Medications: Home Medications Medication Instructions Recorded Confirmed Last Taken Type Cinacalcet HCl [Sensipar] 30 mg PO QDAY 11/02/19 11/02/19 11/01/19 History HYDROcodone/APAP 5-325 5 - 325 mg PO Q6H PRN 11/02/19 11/02/19 11/01/19 History Isosorbide Dinitrate [Isordil 20 mg PO BID 11/02/19 11/02/19 11/01/19 History Titradose] Linaclotide [Linzess] 72 mg PO PRN PRN 11/02/19 11/02/19 11/01/19 History Losartan [Cozaar] 100 mg PO QDAY 11/02/19 11/02/19 11/01/19 History Omeprazole 40 mg PO QDAY 11/02/19 11/02/19 11/01/19 History Temazepam [Restoril] 15 mg PO QHS 11/02/19 11/02/19 11/01/19 History Vit B Complx C/Folic Acid/Zinc 0.8 mg PO QDAY 11/02/19 11/02/19 11/01/19 History [Dialyvite 800-Zinc 15 mg Tab] allopurinoL [Zyloprim] 100 mg PO QDAY 11/02/19 11/02/19 11/01/19 History carvediloL [Coreg] 25 mg PO BID 11/02/19 11/02/19 11/01/19 History hydrALAZINE [Apresoline TAB] 100 mg PO TID 11/02/19 11/02/19 11/01/19 History rifAMPin [Rifadin] 300 mg PO BID 11/02/19 11/02/19 11/01/19 History Active Medications: Generic Name Dose Route Start Last Admin Trade Name Freq PRN Reason Stop Dose Admin Acetaminophen 650 mg 11/02/19 14:31 Tylenol PO Q4H PRN Pain MILD(1-3)/Fever >100.5/TAVERA Acetaminophen/Hydrocodone Bitart 1 each 11/02/19 14:00 11/02/19 22:05 [place] 5/325 PO 1 each Q6H PRN Administration Pain, Moderate (4-6) Allopurinol 100 mg 11/02/19 13:00 11/03/19 09:07 Zyloprim PO 100 mg QDAY ELI Administration Carvedilol 25 mg 11/02/19 13:00 11/03/19 09:03 Coreg PO 25 mg BID ELI Administration Cinacalcet 30 mg 11/03/19 10:00 11/03/19 09:06 Sensipar PO 30 mg QDAY ELI Administration Hydralazine HCl 10 mg 11/02/19 11:43 11/02/19 11:52 Apresoline IV 10 mg Q4HR PRN Administration SBP>170 or DBP>110 Hydralazine HCl 100 mg 11/02/19 14:00 11/03/19 09:05 Apresoline PO 100 mg TID ELI Administration Sodium Chloride 100 mls @ 999 mls/hr 11/02/19 12:04 Nacl 0.9% IV STEVIE PRN Hypotension Heparin Sodium/Sodium Chloride 25,000 unit in 500 mls @ 24 mls/hr 11/02/19 15:00 11/03/19 06:45 Heparin/ 0.45% Nacl-25,000 Unit/500 Ml IV 1,350 units/hr TITR ELI 27 mls/hr Titration Protocol 1,200 UNITS/HR Cefepime HCl 1 gm in 100 mls @ 200 mls/hr 11/03/19 22:00 Cefepime/Ns 1 Gm/100 Ml IV Q24H ELI Sodium Chloride 100 mls @ 999 mls/hr 11/03/19 16:00 Nacl 0.9% IV STEVIE PRN Hypotension Isosorbide Dinitrate 20 mg 11/02/19 13:00 11/03/19 09:04 Isordil Titradose PO 20 mg BID ELI Administration Losartan Potassium 100 mg 11/02/19 14:00 11/03/19 09:32 Cozaar PO 100 mg QDAY ELI Administration Miscellaneous Medication 72 mg 11/02/19 12:38 Linaclotide [Linzess] PO PRN PRN Constipation Morphine Sulfate 2 mg 11/02/19 14:31 Morphine IV Q4H PRN Pain, Moderate (4-6) Multivit/Ca Carb/B Cmplx/FA/Prenat 1 cap 11/03/19 10:00 11/03/19 09:06 Renal Caps PO 1 cap QDAY ELI Administration Ondansetron HCl 4 mg 11/02/19 14:31 Zofran IV Q8H PRN Nausea And Vomiting Pantoprazole Sodium 40 mg 11/02/19 14:00 11/03/19 09:05 Protonix PO 40 mg DAILY ELI Administration Rifampin 300 mg 11/02/19 22:00 11/03/19 09:06 Rifadin PO 300 mg BID ELI Administration Sodium Chloride 10 ml 11/02/19 22:00 11/03/19 09:07 Sodium Chloride Flush Syringe 10 Ml IV 10 ml BID ELI Administration Sodium Chloride 10 ml 11/02/19 14:31 Sodium Chloride Flush Syringe 10 Ml IV PRN PRN LINE FLUSH Temazepam 15 mg 11/02/19 22:00 11/02/19 22:05 Restoril PO 15 mg QHS ELI Administration
[2019-11-03] MEDS ORDERED: SODIUM CHLORIDE 0.9% 100 ML IV PRN (16:00)
--- NOTE | 2019-11-03 16:08 | Progress Note ---
Assessment and Plan Assessment and plan: Pulmonary embolism Admitted to telemetry Cont heparin drip Pulmonology following Discussed with Dr. Hickman and he recommends Coumadin as best choice for ESRD dialysis pt. assisted Bilateral pneumonia To r/o COVID-[address] Kendrick and Dr. Franklin Pulmonology consulted Contact and Droplet precautions ESRD on dialysis Dr. Hickman, Nephrology Hypertensive emergency BP 216/112mmhg Hydralazine iv Resumed home meds Coreg, Cozaar, Nitrates BP still high . so add Clonidine Full code status Chronic resp failure Was on home Oxygen prn Full code status. History Interval history: Less chest pain No shortness of breath currently Hospitalist Physical - Physical exam Narrative exam: GEN: Not in acute distress, lying in bed HEENT: Normocephalic, atraumatic, Neck: supple, No JVD Lungs: Bilateral basal crackles, heart;S1 and S2 reg, tachy, no murmurs, rubs or gallop Abd:soft, non tender, non distended, normal bowel sounds Ext: No edema, no clubbing, no cyanosis, Neuro: AAO x 3. No focal neuro signs - Constitutional Vitals: Temp Pulse Resp BP Pulse Ox 97.7 F 63 18 207/95 96 11/03/19 07:31 11/03/19 09:32 11/03/19 07:31 11/03/19 09:32 11/03/19 10:00 KIRSTEN score - Kirsten Score Age > 65: (0) No Aspirin use within the Past 7 Days: (0) No 3 or more CAD Risk Factors: (0) No 2 or more Angina events in past 24 hrs: (0) No Known CAD with more than 50% Stenosis: (0) No Elevated Cardiac Markers: (1) Yes ST Deviation Greater than 0.5mm: (0) No KIRSTEN Score: 1 Results - Labs CBC & Chem 7: 11/03/19 Unknown 11/03/19 Unknown Labs: Laboratory Last Values WBC 8.0 K/mm3 (4.5-11.0) 11/03/19 Unknown RBC 3.10 M/mm3 (3.65-5.03) L 11/03/19 Unknown Hgb 10.0 gm/dl (10.1-14.3) L 11/03/19 Unknown Hct 30.6 % (30.3-42.9) 11/03/19 Unknown MCV 99 fl (79-97) H 11/03/19 Unknown MCH 32 pg (28-32) 11/03/19 Unknown MCHC 33 % (30-34) 11/03/19 Unknown RDW 14.8 % (13.2-15.2) 11/03/19 Unknown Plt Count 233 K/mm3 (140-440) 11/03/19 Unknown Lymph % (Auto) 17.4 % (13.4-35.0) 11/03/[address] [place] % (Auto) 9.0 % (0.0-7.3) H 11/03/19 Unknown Eos % (Auto) 4.4 % (0.0-4.3) H 11/03/19 Unknown Baso % (Auto) 1.2 % (0.0-1.8) 11/03/19 Unknown Lymph # 1.4 K/mm3 (1.2-5.4) 11/03/[address] [place] # 0.7 K/mm3 (0.0-0.8) 11/03/19 Unknown Eos # 0.4 K/mm3 (0.0-0.4) 11/03/19 Unknown Baso # 0.1 K/mm3 (0.0-0.1) 11/03/19 Unknown Seg Neutrophils % 68.0 % (40.0-70.0) 11/03/19 Unknown Seg Neutrophils # 5.5 K/mm3 (1.8-7.7) 11/03/19 Unknown PT 16.0 Sec. (12.2-14.9) H 11/02/19 14:46 INR 1.26 (0.87-1.13) H 11/02/19 14:46 APTT 34.8 Sec. (24.2-36.6) 11/02/19 14:46 D-Dimer 319.95 ng/mlDDU (0-234) H 11/02/19 07:59 Heparin Anti-Xa Level 0.10 U.I./ml (0.3-0.7) L 11/03/19 Unknown Sodium 143 mmol/L (137-145) 11/03/19 Unknown Potassium 3.9 mmol/L (3.6-5.0) 11/03/19 Unknown Chloride 97.5 mmol/L (98-107) L 11/03/19 Unknown Carbon Dioxide 31 mmol/L (22-30) H 11/03/19 Unknown Anion Gap 18 mmol/L 11/03/19 Unknown BUN 15 mg/dL (7-17) 11/03/19 Unknown Creatinine 5.4 mg/dL (0.7-1.2) H 11/03/19 Unknown Estimated GFR 10 ml/min 11/03/19 Unknown BUN/Creatinine Ratio 3 % 11/03/19 Unknown Glucose 91 mg/dL (65-100) 11/03/19 Unknown Calcium 9.4 mg/dL (8.4-10.2) 11/03/19 Unknown Phosphorus 5.60 mg/dL (2.5-4.5) H 11/02/19 07:59 Magnesium 2.50 mg/dL (1.7-2.3) H 11/02/19 07:59 Total Bilirubin 0.20 mg/dL (0.1-1.2) 11/02/19 07:59 Direct Bilirubin < 0.2 mg/dL (0-0.2) 11/02/19 07:59 Indirect Bilirubin 0.0 mg/dL 11/02/19 07:59 AST 18 units/L (5-40) 11/02/19 07:59 ALT 8 units/L (7-56) 11/02/19 07:59 Alkaline Phosphatase 101 units/L (35-129) 11/02/19 07:59 Total Creatine Kinase 86 units/L (30-135) 11/02/19 07:59 CK-MB (CK-2) 2.0 ng/mL (0.0-4.0) 11/02/19 07:59 CK-MB (CK-2) Rel Index 2.3 (0-4) 11/02/19 07:59 Troponin T 0.070 ng/mL (0.00-0.029) H 11/02/19 14:09 NT-Pro-B Natriuret Pep > 93835 pg/mL (0-900) H 11/02/19 07:59 Total Protein 7.3 g/dL (6.3-8.2) 11/02/19 07:59 Albumin 4.2 g/dL (3.9-5) 11/02/19 07:59 Albumin/Globulin Ratio 1.4 % 11/02/19 07:59 Triglycerides 83 mg/dL (2-149) 11/02/19 07:59 Cholesterol 198 mg/dL (50-199) 11/02/19 07:59 LDL Cholesterol Direct 64 mg/dL (50-130) 11/02/19 07:59 HDL Cholesterol 144 mg/dL (40-59) H 11/02/19 07:59 Cholesterol/HDL Ratio 1.37 % 11/02/19 07:59 Hepatitis A IgM Ab Non-reactive (NonReactive) 11/02/19 14:09 Hep Bs Antigen Non-reactive (Negative) 11/02/19 14:09 Hep B Core IgM Ab Non-reactive (NonReactive) 11/02/19 14:09 Hepatitis C Antibody Non-reactive (NonReactive) 11/02/19 14:09 Influenza A (Rapid) Negative (Negative) 11/02/19 11:03 Influenza B (Rapid) Negative (Negative) 11/02/19 11:03 [place]/IV: IV Catheter Type [Right INT / Saline Lock Internal Jugular] IV Catheter Type [Right INT / Saline Lock Antecubital] Active Medications - Current Medications Current Medications: Generic Name Dose Route Start Last Admin Trade Name Freq PRN Reason Stop Dose Admin Acetaminophen 650 mg 11/02/19 14:31 Tylenol PO Q4H PRN Pain MILD(1-3)/Fever >100.5/TAVERA Acetaminophen/Hydrocodone Bitart 1 each 11/02/19 14:00 11/02/19 22:05 [place] 5/325 PO 1 each Q6H PRN Administration Pain, Moderate (4-6) Allopurinol 100 mg 11/02/19 13:00 11/03/19 09:07 Zyloprim PO 100 mg QDAY ELI Administration Carvedilol 25 mg 11/02/19 13:00 11/03/19 09:03 Coreg PO 25 mg BID ELI Administration Cinacalcet 30 mg 11/03/19 10:00 11/03/19 09:06 Sensipar PO 30 mg QDAY ELI Administration Hydralazine HCl 10 mg 11/02/19 11:43 11/02/19 11:52 Apresoline IV 10 mg Q4HR PRN Administration SBP>170 or DBP>110 Hydralazine HCl 100 mg 11/02/19 14:00 11/03/19 09:05 Apresoline PO 100 mg TID ELI Administration Sodium Chloride 100 mls @ 999 mls/hr 11/02/19 12:04 Nacl 0.9% IV STEVIE PRN Hypotension Heparin Sodium/Sodium Chloride 25,000 unit in 500 mls @ 24 mls/hr 11/02/19 15:00 11/03/19 06:45 Heparin/ 0.45% Nacl-25,000 Unit/500 Ml IV 1,350 units/hr TITR ELI 27 mls/hr Titration Protocol 1,200 UNITS/HR Cefepime HCl 1 gm in 100 mls @ 200 mls/hr 11/03/19 22:00 Cefepime/Ns 1 Gm/100 Ml IV Q24H ELI Sodium Chloride 100 mls @ 999 mls/hr 11/03/19 16:00 Nacl 0.9% IV STEVIE PRN Hypotension Isosorbide Dinitrate 20 mg 11/02/19 13:00 11/03/19 09:04 Isordil Titradose PO 20 mg BID ELI Administration Losartan Potassium 100 mg 11/02/19 14:00 11/03/19 09:32 Cozaar PO 100 mg QDAY ELI Administration Miscellaneous Medication 72 mg 11/02/19 12:38 Linaclotide [Linzess] PO PRN PRN Constipation Morphine Sulfate 2 mg 11/02/19 14:31 Morphine IV Q4H PRN Pain, Moderate (4-6) Multivit/Ca Carb/B Cmplx/FA/Prenat 1 cap 11/03/19 10:00 11/03/19 09:06 Renal Caps PO 1 cap QDAY ELI Administration Ondansetron HCl 4 mg 11/02/19 14:31 Zofran IV Q8H PRN Nausea And Vomiting Pantoprazole Sodium 40 mg 11/02/19 14:00 11/03/19 09:05 Protonix PO 40 mg DAILY ELI Administration Rifampin 300 mg 11/02/19 22:00 11/03/19 09:06 Rifadin PO 300 mg BID ELI Administration Sodium Chloride 10 ml 11/02/19 22:00 11/03/19 09:07 Sodium Chloride Flush Syringe 10 Ml IV 10 ml BID ELI Administration Sodium Chloride 10 ml 11/02/19 14:31 Sodium Chloride Flush Syringe 10 Ml IV PRN PRN LINE FLUSH Temazepam 15 mg 11/02/19 22:00 11/02/19 22:05 Restoril PO 15 mg QHS ELI Administration
--- NOTE | 2019-11-03 16:23 | Vascular Lab Report ---
DUPLEX DOPPLER LOWER EXTREMITY VEINS, BILATERAL INDICATION: Pulmonary embolism. TECHNIQUE: Duplex doppler imaging was performed through the veins of both lower extremities using venous regulo [place] and other maneuvers. COMPARISON: No relevant prior imaging study available. FINDINGS: Right Common femoral vein: Negative. Right Superficial femoral vein: Negative. Right Popliteal vein: Negative. Right Calf veins: Negative. Left Common femoral vein: Negative. Left Superficial femoral vein: Negative. Left Popliteal vein: Negative. Left Calf veins: Negative. Additional findings: None.. IMPRESSION: 1. No sonographic evidence for DVT in either lower extremity. Signer Name: Duong Karimi MD Signed: 11/03/2019 4:19 PM Workstation Name: [id number]
--- NOTE | 2019-11-03 17:16 | Consultation ---
History of Present Illness - Reason for Consult Consult date: 11/03/19 - History of Present Illness 53-year-old female past medical history ESRD on HD, CHF, hypertension admitted to the hospital with chest pain. She notes her symptoms began approximately 2 weeks prior to admission, however she had acute worsening the day before admission. These complaints are well with her presentation to the hospital. She is a poor historian. Afebrile since admission with a normal white count of 8. She is currently receiving cefepime. Her blood cultures are no growth to date and her influenza is negative she has a right-sided Vas-Cath for her dialysis. Imaging personally reviewed: CT chest: Pulmonary embolism and multifocal pneumonia Review of Systems: Bold if positive, otherwise negative General: fevers, chills, rigors HEENT: visual disturbance, diplopia, eye pain Respiratory: cough, sputum, hemoptysis, shortness of breath Cardiovascular: chest pain, syncope Gastrointestinal: nausea, vomiting, diarrhea, abdominal pain Genitourinary: dysuria, hematuria, flank pain Musculoskeletal: neck pain, back pain, joint pain, edema Neurologic: headaches, seizures Hematologic: easy bruising or bleeding Endocrine: night sweats, acute weight loss Skin: rash, jaundice, redness Psychiatric: suicidal, homicidal ideation Past History Past Medical History: dialysis, hypertension Past Surgical History: Other (History of AV access placement.) Social history: no significant social history Family history: no significant family history Medications and Allergies Allergies Allergy/AdvReac Type Severity Reaction Status Date / Time No Known Allergies Allergy Unverified 11/02/19 07:29 Home Medications Medication Instructions Recorded Confirmed Last Taken Type Cinacalcet HCl [Sensipar] 30 mg PO QDAY 11/02/19 11/02/19 11/01/19 History HYDROcodone/APAP 5-325 5 - 325 mg PO Q6H PRN 11/02/19 11/02/19 11/01/19 History Isosorbide Dinitrate [Isordil 20 mg PO BID 11/02/19 11/02/19 11/01/19 History Titradose] Linaclotide [Linzess] 72 mg PO PRN PRN 11/02/19 11/02/19 11/01/19 History Losartan [Cozaar] 100 mg PO QDAY 11/02/19 11/02/19 11/01/19 History Omeprazole 40 mg PO QDAY 11/02/19 11/02/19 11/01/19 History Temazepam [Restoril] 15 mg PO QHS 11/02/19 11/02/19 11/01/19 History Vit B Complx C/Folic Acid/Zinc 0.8 mg PO QDAY 11/02/19 11/02/19 11/01/19 History [Dialyvite 800-Zinc 15 mg Tab] allopurinoL [Zyloprim] 100 mg PO QDAY 11/02/19 11/02/19 11/01/19 History carvediloL [Coreg] 25 mg PO BID 11/02/19 11/02/19 11/01/19 History hydrALAZINE [Apresoline TAB] 100 mg PO TID 11/02/19 11/02/19 11/01/19 History rifAMPin [Rifadin] 300 mg PO BID 11/02/19 11/02/19 11/01/19 History Active Meds: Active Medications Acetaminophen (Tylenol) 650 mg PO Q4H PRN PRN Reason: Pain MILD(1-3)/Fever >100.5/TAVERA Acetaminophen/Hydrocodone Bitart ([place] 5/325) 1 each PO Q6H PRN PRN Reason: Pain, Moderate (4-6) Last Admin: 11/02/19 22:05 Dose: 1 each Documented by: Allopurinol (Zyloprim) 100 mg PO QDAY [facility] Last Admin: 11/03/19 09:07 Dose: 100 mg Documented by: Carvedilol (Coreg) 25 mg PO BID [facility] Last Admin: 11/03/19 09:03 Dose: 25 mg Documented by: Cinacalcet (Sensipar) 30 mg PO QDAY [facility] Last Admin: 11/03/19 09:06 Dose: 30 mg Documented by: Hydralazine HCl (Apresoline) 10 mg IV Q4HR PRN PRN Reason: SBP>170 or DBP>110 Last Admin: 11/02/19 11:52 Dose: 10 mg Documented by: Hydralazine HCl (Apresoline) 100 mg PO TID [facility] Last Admin: 11/03/19 09:05 Dose: 100 mg Documented by: Sodium Chloride (Nacl 0.9%) 100 mls @ 999 mls/hr IV STEVIE PRN PRN Reason: Hypotension Heparin Sodium/Sodium Chloride (Heparin/ 0.45% Nacl-25,000 Unit/500 Ml) 25,000 unit in 500 mls @ 24 mls/hr IV TITR [facility]; Protocol Last Titration: 11/03/19 16:12 Dose: Infused Documented by: Cefepime HCl (Cefepime/Ns 1 Gm/100 Ml) 1 gm in 100 mls @ 200 mls/hr IV Q24H [facility] Sodium Chloride (Nacl 0.9%) 100 mls @ 999 mls/hr IV STEVIE PRN PRN Reason: Hypotension Isosorbide Dinitrate (Isordil Titradose) 20 mg PO BID [facility] Last Admin: 11/03/19 09:04 Dose: 20 mg Documented by: Losartan Potassium (Cozaar) 100 mg PO QDAY [facility] Last Admin: 11/03/19 09:32 Dose: 100 mg Documented by: Miscellaneous Medication (Linaclotide [Linzess]) 72 mg PO PRN PRN PRN Reason: Constipation Morphine Sulfate (Morphine) 2 mg IV Q4H PRN PRN Reason: Pain, Moderate (4-6) Multivit/Ca Carb/B Cmplx/FA/Prenat (Renal Caps) 1 cap PO QDAY [facility] Last Admin: 11/03/19 09:06 Dose: 1 cap Documented by: Ondansetron HCl (Zofran) 4 mg IV Q8H PRN PRN Reason: Nausea And Vomiting Pantoprazole Sodium (Protonix) 40 mg PO DAILY [facility] Last Admin: 11/03/19 09:05 Dose: 40 mg Documented by: Rifampin (Rifadin) 300 mg PO BID [facility] Last Admin: 11/03/19 09:06 Dose: 300 mg Documented by: Sodium Chloride (Sodium Chloride Flush Syringe 10 Ml) 10 ml IV BID [facility] Last Admin: 11/03/19 09:07 Dose: 10 ml Documented by: Sodium Chloride (Sodium Chloride Flush Syringe 10 Ml) 10 ml IV PRN PRN PRN Reason: LINE FLUSH Temazepam (Restoril) 15 mg PO QHS [facility] Last Admin: 11/02/19 22:05 Dose: 15 mg Documented by: Physical Examination - Physical Exam Narrative exam: Physical Exam: Constitutional: Alert, cooperative. No acute distress Head, Ears, Nose: Normocephalic, atraumatic. External ears, nose normal Eyes: Conjunctivae/corneas clear. No icterus. No ptosis. Neck: Supple, no meningeal signs Oral: dentition fair, no thrush Cardiovascular: S1, S2 normal. Right-sided Vas-Cath Respiratory: Good air entry, clear to auscultation bilaterally GI: Soft, non-tender; bowel sounds normal. No peritoneal signs. Musculoskeletal: 1 edema Skin: No rash or abscess Hem/Lymphatic: No palpable cervical or supraclavicular nodes. No lymphangitis Psych: Mood ok. Affect normal Neurological: Awake, alert, oriented. No gross abnormality - Constitutional Vitals: Vital Signs Temp Pulse Resp BP Pulse Ox 98.9 F 65 18 195/99 100 11/03/19 15:50 11/03/19 16:00 11/03/19 15:50 11/03/19 16:00 11/03/19 13:00 Temperature -Last 24 Hours Temperature 98.9 F Temperature 97.7 F Temperature 98.7 F Temperature 98.2 F Temperature 99.8 F Results - Labs CBC & Chem 7: 11/03/19 Unknown 11/03/19 Unknown Labs: Abnormal lab results 11/03/19 11/03/19 11/03/19 Range/Units 13:43 Unknown Unknown RBC 3.10 L (3.65-5.03) M/mm3 Hgb 10.0 L (10.1-14.3) gm/dl MCV 99 H (79-97) fl [place] % (Auto) 9.0 H (0.0-7.3) % Eos % (Auto) 4.4 H (0.0-4.3) % Heparin Anti-Xa Level < 0.10 L (0.3-0.7) U.I./ml Chloride 97.5 L (98-107) mmol/L Carbon Dioxide 31 H (22-30) mmol/L Creatinine 5.4 H (0.7-1.2) mg/dL 11/03/19 Range/Units Unknown RBC (3.65-5.03) M/mm3 Hgb (10.1-14.3) gm/dl MCV (79-97) fl [place] % (Auto) (0.0-7.3) % Eos % (Auto) (0.0-4.3) % Heparin Anti-Xa Level 0.10 L (0.3-0.7) U.I./ml Chloride (98-107) mmol/L Carbon Dioxide (22-30) mmol/L Creatinine (0.7-1.2) mg/dL Assessment and Plan Cultures: Blood culture 11/02/2019 no growth to date A/P: 53-year-old female past medical history hypertension, ESRD on HD, CHF admitted with complaints of chest pain, found to have pulmonary embolism and multifocal pneumonia #COVID-19 19 rule out: She has a bilateral pneumonia with a normal white count which makes me concerned for COVID-19. The survey form was filled out by the [facility] physician Dr. Kendrick, which I greatly appreciate. Awaiting test results regarding public health. Continue droplet and contact precautions. If patient leaves her room, she needs a mask. Will order procalcitonin for morning labs to better delineate viral versus bacterial etiology of multifocal pneumonia, though it can be falsely elevated in end-stage renal disease. #Multifocal pneumonia: Continue empiric cefepime for now, monitor for improvement. As frequent healthcare contact with her thrice weekly hemodialysis sessions #ESRD on HD: Renally dose antibiotics as appropriate #Pulmonary embolism: Anticoagulation as per primary team Recs: -Continue cefepime HD dosing -Follow-up [facility] test results for COVID-19 -Continue contact and droplet isolation -Ordered procalcitonin for morning labs Thank you for the consult, will continue to follow MD [facility] M: [phone] O: [phone] F: [phone]
[2019-11-03] MEDS: hydrALAZINE 20 MG/1 ML INJ IV PRN (18:04)
[2019-11-03] MEDS: cloNIDine 0.2 MG TAB PO SCH (19:49)
[2019-11-03] MEDS ORDERED: CEFEPIME/NS 1 GM/100 ML 1 GM/100 ML BAG IV SCH (22:00)
[2019-11-03] MEDS: HYDROcodone/ACETAMINOPHEN 5-325 MG TAB PO PRN (22:10)
[2019-11-03] MEDS: TEMAZEPAM 15 MG CAP PO SCH (23:05)
[2019-11-03] MEDS: HEPARIN/ 0.45% NACL DRIP 25,000 UNIT/500 ML BAG IV SCH (23:56)
[2019-11-04 07:59] LABS: Hematocrit 29.6 % (30.3-42.9); Hemoglobin 9.5 gm/dl (10.1-14.3)
[2019-11-04] MEDS: CINACALCET 30 MG TAB PO SCH (09:21)
[2019-11-04] MEDS: carvediloL 25 MG TAB PO SCH (09:30)
[2019-11-04] MEDS: ISOSORBIDE DINITRATE 20 MG TAB PO SCH (09:31)
[2019-11-04] MEDS: cloNIDine 0.2 MG TAB PO SCH (09:33)
[2019-11-04] MEDS: hydrALAZINE 100 MG TAB PO SCH ×2 (09:33→15:47)
[2019-11-04] MEDS: FOLIC ACID/VIT B COMP W-C 1 MG (RENAL CAPS) PO SCH (09:34)
[2019-11-04] MEDS: PANTOPRAZOLE 40 MG TAB PO SCH (09:34)
[2019-11-04] MEDS: allopurinoL 100 MG TAB PO SCH (09:35)
[2019-11-04] MEDS: rifAMPin 300 MG CAP PO SCH (09:35)
--- NOTE | 2019-11-04 10:05 | Progress Note ---
Assessment and Plan Impression * End-stage renal disease on maintenance hemodialysis (Dr. Brandy Soler) * Accelerated hypertension * Shortness of breath * Volume overload * Anemia secondary to ESRD * Secondary hyperparathyroidism Recommendations * Patient is s/p HD on Sunday and Sunday - accelerated hypertension, SOB, fluid overload * No acute need for HD today. Continue MWF schedule * UF as tolerated * BP remains uncontrolled - Increase clonidine to 0.3mg TID * ID following. COVID 19 pending * Avoid nephrotoxins * Adjust diet and meds for ESRD state * Binders with meals * Epogen once BP controlled Subjective Date of service: 11/04/19 Interval history: Patient reports that she is feeling better. Objective - Vital Signs Vital signs: Vital Signs - 12hr 11/04/19 11/04/19 11/04/19 01:00 04:00 07:27 Temperature 98.4 F Pulse Rate 66 63 Pulse Rate [ 66 From Monitor] Respiratory 20 18 Rate Blood Pressure Blood Pressure 195/95 [Right] O2 Sat by Pulse 97 97 Oximetry 11/04/19 11/04/19 11/04/19 09:20 09:30 09:31 Temperature Pulse Rate 63 64 Pulse Rate [ From Monitor] Respiratory Rate Blood Pressure 195/95 195/95 Blood Pressure [Right] O2 Sat by Pulse 99 Oximetry 11/04/19 09:33 Temperature Pulse Rate 64 Pulse Rate [ From Monitor] Respiratory Rate Blood Pressure 195/95 Blood Pressure [Right] O2 Sat by Pulse Oximetry - General Appearance General appearance: well-developed, well-nourished EENT: ATNC Respiratory: Present: Clear to Ascultation Cardiology: regular, S1S2 Gastrointestinal: normal, no tenderness, no distended Integumentary: no rash, warm and dry Neurologic: no focal deficit, alert and oriented x3 Psychiatric: cooperative - Lab 11/04/19 07:43 11/03/19 Unknown Most recent lab results Calcium 9.4 mg/dL (8.4-10.2) 11/03/19 Unknown Phosphorus 5.60 mg/dL (2.5-4.5) H 11/02/19 07:59 Magnesium 2.50 mg/dL (1.7-2.3) H 11/02/19 07:59 Medications & Allergies - Medications Allergies/Adverse Reactions: Allergies No Known Allergies Allergy (Unverified 11/02/19 07:29) Home Medications: Home Medications Medication Instructions Recorded Confirmed Last Taken Type Cinacalcet HCl [Sensipar] 30 mg PO QDAY 11/02/19 11/02/19 11/01/19 History HYDROcodone/APAP 5-325 5 - 325 mg PO Q6H PRN 11/02/19 11/02/19 11/01/19 History Isosorbide Dinitrate [Isordil 20 mg PO BID 11/02/19 11/02/19 11/01/19 History Titradose] Linaclotide [Linzess] 72 mg PO PRN PRN 11/02/19 11/02/19 11/01/19 History Losartan [Cozaar] 100 mg PO QDAY 11/02/19 11/02/19 11/01/19 History Omeprazole 40 mg PO QDAY 11/02/19 11/02/19 11/01/19 History Temazepam [Restoril] 15 mg PO QHS 11/02/19 11/02/19 11/01/19 History Vit B Complx C/Folic Acid/Zinc 0.8 mg PO QDAY 11/02/19 11/02/19 11/01/19 History [Dialyvite 800-Zinc 15 mg Tab] allopurinoL [Zyloprim] 100 mg PO QDAY 11/02/19 11/02/19 11/01/19 History carvediloL [Coreg] 25 mg PO BID 11/02/19 11/02/19 11/01/19 History hydrALAZINE [Apresoline TAB] 100 mg PO TID 11/02/19 11/02/19 11/01/19 History rifAMPin [Rifadin] 300 mg PO BID 11/02/19 11/02/19 11/01/19 History Active Medications: Generic Name Dose Route Start Last Admin Trade Name Freq PRN Reason Stop Dose Admin Acetaminophen 650 mg 11/02/19 14:31 Tylenol PO Q4H PRN Pain MILD(1-3)/Fever >100.5/TAVERA Acetaminophen/Hydrocodone Bitart 1 each 11/02/19 14:00 11/03/19 22:10 [place] 5/325 PO 1 each Q6H PRN Administration Pain, Moderate (4-6) Allopurinol 100 mg 11/02/19 13:00 11/04/19 09:35 Zyloprim PO 100 mg QDAY ELI Administration Carvedilol 25 mg 11/02/19 13:00 11/04/19 09:30 Coreg PO 25 mg BID ELI Administration Cinacalcet 30 mg 11/03/19 10:00 11/04/19 09:21 Sensipar PO 30 mg QDAY ELI Administration Clonidine HCl 0.2 mg 11/03/19 19:00 11/04/19 09:33 Catapres PO 0.2 mg Q12HR ELI Administration Hydralazine HCl 10 mg 11/02/19 11:43 11/03/19 18:04 Apresoline IV 10 mg Q4HR PRN Administration SBP>170 or DBP>110 Hydralazine HCl 100 mg 11/02/19 14:00 11/04/19 09:33 Apresoline PO 100 mg TID ELI Administration Heparin Sodium/Sodium Chloride 25,000 unit in 500 mls @ 24 mls/hr 11/02/19 15:00 11/03/19 23:56 Heparin/ 0.45% Nacl-25,000 Unit/500 Ml IV 1,550 units/hr TITR ELI 31 mls/hr Administration Protocol 1,200 UNITS/HR Cefepime HCl 1 gm in 100 mls @ 200 mls/hr 11/03/19 22:00 11/03/19 23:04 Cefepime/Ns 1 Gm/100 Ml IV 200 mls/hr Q24H ELI Administration Sodium Chloride 100 mls @ 999 mls/hr 11/03/19 16:00 Nacl 0.9% IV STEVIE PRN Hypotension Isosorbide Dinitrate 20 mg 11/02/19 13:00 11/04/19 09:31 Isordil Titradose PO 20 mg BID ELI Administration Losartan Potassium 100 mg 11/02/19 14:00 11/03/19 09:32 Cozaar PO 100 mg QDAY ELI Administration Miscellaneous Medication 72 mg 11/02/19 12:38 Linaclotide [Linzess] PO PRN PRN Constipation Morphine Sulfate 2 mg 11/02/19 14:31 Morphine IV Q4H PRN Pain, Moderate (4-6) Multivit/Ca Carb/B Cmplx/FA/Prenat 1 cap 11/03/19 10:00 11/04/19 09:34 Renal Caps PO 1 cap QDAY ELI Administration Ondansetron HCl 4 mg 11/02/19 14:31 Zofran IV Q8H PRN Nausea And Vomiting Pantoprazole Sodium 40 mg 11/02/19 14:00 11/04/19 09:34 Protonix PO 40 mg DAILY ELI Administration Rifampin 300 mg 11/02/19 22:00 11/04/19 09:35 Rifadin PO 300 mg BID ELI Administration Sodium Chloride 10 ml 11/02/19 22:00 11/04/19 09:37 Sodium Chloride Flush Syringe 10 Ml IV 10 ml BID ELI Administration Sodium Chloride 10 ml 11/02/19 14:31 Sodium Chloride Flush Syringe 10 Ml IV PRN PRN LINE FLUSH Temazepam 15 mg 11/02/19 22:00 11/03/19 23:05 Restoril PO 15 mg QHS ELI Administration
[2019-11-04] MEDS: LOSARTAN 50 MG TAB PO SCH (12:15)
[2019-11-04] MEDS: HEPARIN/ 0.45% NACL DRIP 25,000 UNIT/500 ML BAG IV SCH (12:19)
[2019-11-04] MEDS ORDERED: cloNIDine 0.2 MG TAB PO SCH (14:00)
--- NOTE | 2019-11-04 14:08 | Progress Note ---
Assessment and Plan Cultures: Blood culture 11/02/2019 no growth to date A/P: 53-year-old female past medical history hypertension, ESRD on HD, CHF admitted with complaints of chest pain, found to have pulmonary embolism and multifocal pneumonia #COVID-19 19 rule out: She has a bilateral pneumonia with a normal white count which makes me concerned for COVID-19. The survey form was filled out by the emergency room physician Dr. Kendrick, which I greatly appreciate. Awaiting test results regarding public health. Continue droplet and contact precautions. If patient leaves her room, she needs a mask. Will order procalcitonin for morning labs to better delineate viral versus bacterial etiology of multifocal pneumonia, though it can be falsely elevated in end-stage renal disease. #Multifocal pneumonia: Continue empiric cefepime for now, monitor for improvement. As frequent healthcare contact with her thrice weekly hemodialysis sessions #ESRD on HD: Renally dose antibiotics as appropriate #Pulmonary embolism: Anticoagulation as per primary team Recs: -Continue cefepime HD dosing -Follow-up Megan public health test results for COVID-19 -Continue contact and droplet isolation - Patient may be discharged when medically stable if testing swabs have been obtained. Upon discharge patient should self-quarantine at home until COVID testing returns. If negative, self-quarantine may end. If positive patient should self-quarantine for 14 days from symptom beginning. Public health and infection prevention will follow up with patients to notify them of their test results. Patients should return to hospital regardless if they have worsening fevers or respiratory status. -She is high risk for decompensation given her medical comorbidities and age. Would give careful thought to discharge prior to test returning. Thank you for the consult, will continue to follow Hayden Alexandre MD [facility] ([facility]) M: [phone] O: [phone] F: [phone] Subjective Date of service: 11/04/19 Interval history: Reports feeling better. Afebrile with a white count of 8. Receiving cefepime. Objective - Exam Narrative Exam: Physical Exam: Constitutional: Alert, cooperative. No acute distress Head, Ears, Nose: Normocephalic, atraumatic. External ears, nose normal Eyes: Conjunctivae/corneas clear. Neck: Supple, no meningeal signs Oral: dentition fair, no thrush Cardiovascular: S1, S2 normal. Right-sided Vas-Cath Respiratory: Good air entry, clear to auscultation bilaterally GI: Soft, non-tender; bowel sounds normal. No peritoneal signs. Musculoskeletal: 1 edema Skin: No rash or abscess Hem/Lymphatic: No palpable cervical or supraclavicular nodes. No lymphangitis Psych: Mood ok. Affect normal Neurological: Awake, alert, oriented. No gross abnormality - Constitutional Vitals: Vital Signs Temp Pulse Resp BP Pulse Ox 98.4 F 66 20 149/60 97 11/04/19 07:27 11/04/19 13:00 11/04/19 13:00 11/04/19 12:15 11/04/19 13:00 Temperature -Last 24 Hours Temperature 98.4 F Temperature 98.9 F Temperature 97.9 F Temperature 99.1 F Temperature 98.9 F - Labs CBC & Chem 7: 11/04/19 07:43 11/03/19 Unknown Labs: Abnormal lab results 11/03/19 11/03/19 11/04/19 Range/Units 13:43 Unknown 07:43 Hgb 9.5 L (10.1-14.3) gm/dl Hct 29.6 L (30.3-42.9) % Heparin Anti-Xa Level < 0.10 L 0.17 L (0.3-0.7) U.I./ml 11/04/19 Range/Units 07:43 Hgb (10.1-14.3) gm/dl Hct (30.3-42.9) % Heparin Anti-Xa Level 2.00 H (0.3-0.7) U.I./ml
--- NOTE | 2019-11-04 15:04 | Progress Note ---
Assessment and Plan Acute hypoxemic respiratory failure. Bilateral pneumonia r/om COVID-19 Acute pulmonary embolus involving the left lower lobe branches. End-stage renal disease, on dialysis. Hypertension with hypertensive emergency at presentation. Obesity. Gout. Cardiomegaly. Elevated serum D-dimer. Elevated serum troponins, probably secondary to demand. - supplemental oxygen to keep O2 sats > 90% - continue full antocoagulation witrh IV heparin - prn Bronchodilators (HERNESTO) with pulm hygiene per RT - follow COVID-19 results - continue airborne and contact precautions - continue to avoid nephrotoxins, renally dose all medications - continue HD/UF for toxin and volume control - continue mobility protocols to prevent pressure ulcers - prn analgesia per pain score - PT/OT as tolerated - accuchecks with glycemic control per SSI for target blood glucose < 180 mg/dL - home oxygen evaluation at discharge - GI & VTE prophylaxis - Flu & pneumovax per protocol - continue other care per attending / other consultants ... re-evaluate in am & prn Subjective Date of service: 11/04/19 Principal diagnosis: Ac hypoxemic resp failure; Perfecto PNA r/o COVID-19; Ac P.E.; HTNsive emergency Interval history: Patient is seen today for: Ac hypoxemic resp failure; Perfecto PNA r/o COVID-19; Acute pulmonary embolus involving the left lower lobe branches; End-stage renal disease, on dialysis; Hypertension with hypertensive emergency at presentation. Seen and examined at bedside; 24hour events reviewed; nursing and respiratory care staff consulted; no adverse overnight events reported to me; resting peacefylly in bed; Objective Vital Signs - 12hr 11/04/19 11/04/19 11/04/19 04:00 07:27 09:20 Temperature 98.4 F Pulse Rate 66 63 Pulse Rate [ From Monitor] Respiratory 18 Rate Blood Pressure Blood Pressure 195/95 [Right] O2 Sat by Pulse 97 99 Oximetry 11/04/19 11/04/19 11/04/19 09:30 09:31 09:33 Temperature Pulse Rate 63 64 64 Pulse Rate [ From Monitor] Respiratory Rate Blood Pressure 195/95 195/95 195/95 Blood Pressure [Right] O2 Sat by Pulse Oximetry 11/04/19 11/04/19 11/04/19 12:00 12:15 13:00 Temperature Pulse Rate 58 L 64 Pulse Rate [ 66 From Monitor] Respiratory 20 Rate Blood Pressure 149/60 Blood Pressure [Right] O2 Sat by Pulse 97 Oximetry Constitutional: appears uncomfortable, other (middle aged obese AAF, normocephal;ic with mildly increased resp effort at rest) Eyes: non-icteric ENT: oropharynx moist, other (Mallampati 3) Neck: supple, no lymphadenopathy, no JVD Effort: mildly labored Ascultation: Bilateral: rhonchi Percussion: Bilateral: not dull Cardiovascular: regular rate and rhythm Gastrointestinal: normoactive bowel sounds, soft, non-tender, non-distended (protuberant) Integumentary: normal Extremities: no cyanosis, no edema, pulses normal, no ischemia or petechiae Neurologic: normal mental status, non-focal exam, pupils equal and round, CN II- XII normal Psychiatric: mood appropriate, affect normal CBC and BMP: 11/04/19 07:43 11/03/19 Unknown ABG, PT/INR, D-dimer: PT/INR, D-dimer PT 16.0 Sec. (12.2-14.9) H 11/02/19 14:46 INR 1.26 (0.87-1.13) H 11/02/19 14:46 D-Dimer 319.95 ng/mlDDU (0-234) H 11/02/19 07:59 Abnormal lab findings: Abnormal Labs 11/02/19 11/02/19 11/02/19 07:59 07:59 07:59 RBC 3.10 L Hgb Hct MCV 99 H MCH 33 H RDW 15.3 H [place] % (Auto) 9.1 H Eos % (Auto) 5.0 H PT 15.6 H INR 1.22 H D-Dimer 319.95 H Heparin Anti-Xa Level Chloride 94.1 L Carbon Dioxide BUN 29 H Creatinine 8.2 H Phosphorus Magnesium Troponin T 0.071 H NT-Pro-B Natriuret Pep HDL Cholesterol 144 H 11/02/19 11/02/19 11/02/19 07:59 14:09 14:46 RBC Hgb Hct MCV MCH RDW [place] % (Auto) Eos % (Auto) PT 16.0 H INR 1.26 H D-Dimer Heparin Anti-Xa Level Chloride Carbon Dioxide BUN Creatinine Phosphorus 5.60 H Magnesium 2.50 H Troponin T 0.070 H NT-Pro-B Natriuret Pep > 24356 H HDL Cholesterol 11/03/19 11/03/19 11/03/19 13:43 Unknown Unknown RBC 3.10 L Hgb 10.0 L Hct MCV 99 H MCH RDW [place] % (Auto) 9.0 H Eos % (Auto) 4.4 H PT INR D-Dimer Heparin Anti-Xa Level < 0.10 L Chloride 97.5 L Carbon Dioxide 31 H BUN Creatinine 5.4 H Phosphorus Magnesium Troponin T NT-Pro-B Natriuret Pep HDL Cholesterol 11/03/19 11/03/19 11/04/19 Unknown Unknown 07:43 RBC Hgb 9.5 L Hct 29.6 L MCV MCH RDW [place] % (Auto) Eos % (Auto) PT INR D-Dimer Heparin Anti-Xa Level 0.10 L 0.17 L Chloride Carbon Dioxide BUN Creatinine Phosphorus Magnesium Troponin T NT-Pro-B Natriuret Pep HDL Cholesterol 11/04/19 07:43 RBC Hgb Hct MCV MCH RDW [place] % (Auto) Eos % (Auto) PT INR D-Dimer Heparin Anti-Xa Level 2.00 H Chloride Carbon Dioxide BUN Creatinine Phosphorus Magnesium Troponin T NT-Pro-B Natriuret Pep HDL Cholesterol Allied health notes reviewed: nursing
--- NOTE | 2019-11-04 15:35 | Discharge Summary ---
Providers - Providers Date of Admission: 11/02/19 09:55 Date of discharge: 11/04/19 Attending physician: STEFFANIE EASTON 11/02/19 09:43 Consult to Physician [CONS] Urgent Comment: Dr. Hickman saw patient @ 10:00am- [facility] Consulting Provider: DUDLEY MATSON Physician Instructions: Reason For Exam: ESRD needs D, etc 11/02/19 10:34 Consult to Physician [CONS] Urgent Comment: notified @ 10:34am- [facility] Consulting Provider: RAMON GILES Physician Instructions: Reason For Exam: multifocal pneumonia, small PE, dialysis 11/02/19 11:47 Consult to Physician [CONS] Routine Comment: Consulting Provider: HARPAL PÉREZ Physician Instructions: Reason For Exam: acute resp failure, r/o COVID-19, pulm embolism Primary care physician: ARLYN SRIVASTAVA Hospitalization Condition: Stable Hospital course: 53-year-old female past medical history ESRD on HD, CHF, hypertension admitted to the hospital with chest pain. She notes her symptoms began approximately 2 weeks prior to admission, however she had acute worsening the day before admission. Afebrile since admission with a normal white count of 8. She is currently receiving cefepime. Her blood cultures are no growth to date and her influenza is negative. CT chest obtained and showed Pulmonary embolism and multifocal pneumonia. She was placed on IV heparin drip, IV antibiotics and consulted ID. She was also tested to rule out COVID 19. Her test result was pending on discharge. As she was clinically improved she was discharged home in stable condition. She was given instruction to self-quarantine for 14 days from symptom beginning. Public health and infection prevention will follow up with patients to notify them of their test results. Patients should return to hospital regardless if they have worsening fevers or respiratory status. She was also placed on Eliquis and she was told to follow-up as an outpatient. Discharge diagnosis: / Acute Pulmonary embolism Admitted to telemetry, placed on heparin drip Pulmonology was following, Patient was discharged with eliquis BID / Bilateral pneumonia To r/o COVID-19- Contact and Droplet precautions provided Discussed with Dr. Kendrick and Dr. Franklin Test result was pending on discharge, she was tole to f/u outpt, informatiuon given. Patient was discharged home with Levaquin to complete total 7-day course. Upon discharge patient should self-quarantine at home until COVID testing returns. If negative, self-quarantine may end. If positive patient should self- quarantine for 14 days from symptom beginning. Public health and infection prevention will follow up with patients to notify them of their test results. Patients should return to hospital regardless if they have worsening fevers or respiratory status. /ESRD on dialysis Nephrology consulted /Hypertensive emergency BP 216/112mmhg on admission Resumed home meds Coreg, Cozaar, Nitrates, also added Clonidine /Chronic resp failure Was on home Oxygen prn /Chest pain due to pulmonary embolism and multifocal pneumonia Disposition: DC/TX-06 HOME UNDER HOME HL Time spent for discharge: 34 minutes Core Measure Documentation - Palliative Care Palliative Care/ Comfort Measures: Not Applicable - Core Measures Any of the following diagnoses?: none Exam - Physical Exam Narrative exam: GEN: Not in acute distress, lying in bed HEENT: Normocephalic, atraumatic, Neck: supple, No JVD Lungs: Bilateral basal crackles, heart;S1 and S2 reg, tachy, no murmurs, rubs or gallop Abd:soft, non tender, non distended, normal bowel sounds Ext: No edema, no clubbing, no cyanosis, Neuro: AAO x 3. No focal neuro signs - Constitutional Vitals: Temp Pulse Resp BP Pulse Ox 98.4 F 66 20 149/60 97 11/04/19 07:27 11/04/19 13:00 11/04/19 13:00 11/04/19 12:15 11/04/19 13:00 Plan Activity: advance as tolerated, fall precautions Weight Bearing Status: Weight Bear as Tolerated Diet: renal Special Instructions: restrict fluid intake to (1.2 L daily) Additional Inst[facility] [phone] for pending COVID19 result. Upon discharge patient should self-quarantine at home until COVID testing returns. If negative, self-quarantine may end. If positive patient should self-quarantine for 14 days from symptom beginning. Public health and infection prevention will follow up with patients to notify them of their test results. Patients should return to hospital regardless if they have worsening fevers or respiratory status. Follow up with: ARLYN SRIVASTAVA MD [Primary Care Provider] - 3-5 Days Prescriptions: cloNIDine [Catapres] 0.3 mg PO TID #90 tablet Apixaban [Eliquis] 5 mg PO Q12HR #60 tablet levoFLOXacin [Levaquin TAB] 250 mg PO Q24HR #4 tablet
[2019-11-04 15:43] VITALS: BP 172/92
[2019-11-04] MEDS: HYDROcodone/ACETAMINOPHEN 5-325 MG TAB PO PRN (15:48)
[2019-11-04] MEDS ORDERED: levoFLOXacin 750 MG TAB PO ONE (17:00)
[2019-11-04] MEDS ORDERED: APIXABAN 5 MG TAB PO SCH (17:00)
[2019-11-05] MEDS ORDERED: levoFLOXacin 500 MG TAB PO SCH (10:00)
[2019-11-06] MEDS ORDERED: levoFLOXacin 250 MG TAB PO SCH (10:00)
[2019-11-11] MEDS ORDERED: APIXABAN 5 MG TAB PO SCH (22:00)
== END 2019-11-04 17:40 | disposition home or self-care (01) | DRG 175 ==
LOC: ED 06:59 → 4A 09:55
PROVIDERS: ADMIT Internal Medicine; ATTEND Internal Medicine
PROC: 5A1D70Z Performance of Urinary Filtration, Intermittent, Less than 6 Hours Per Day (ICD-10-PCS; principal; 2019-11-02)
PROC: 5A1D70Z Performance of Urinary Filtration, Intermittent, Less than 6 Hours Per Day (ICD-10-PCS; 2019-11-03)
DX: I26.99 Other pulmonary embolism without acute cor pulmonale (principal); N18.6 End stage renal disease; J18.9 Pneumonia, unspecified organism; J96.21 Acute and chronic respiratory failure with hypoxia; I16.1 Hypertensive emergency; I13.2 Hypertensive heart and chronic kidney disease with heart failure and with stage 5 chronic kidney disease, or end stage renal disease; N25.81 Secondary hyperparathyroidism of renal origin; M10.9 Gout, unspecified; D63.1 Anemia in chronic kidney disease; E66.9 Obesity, unspecified; R91.8 Other nonspecific abnormal finding of lung field; I50.9 Heart failure, unspecified; E11.22 Type 2 diabetes mellitus with diabetic chronic kidney disease; Z99.81 Dependence on supplemental oxygen; Z79.899 Other long term (current) drug therapy; Z68.28 Body mass index [BMI] 28.0-28.9, adult; Z79.84 Long term (current) use of oral hypoglycemic drugs
CPT/HCPCS: 36415; 71045; 71275; 80048; 80061; 80074; 80076; 82550; 82553; 83735; 83880; 84100; 84145; 84484; 85014; 85018; 85025; 85049; 85379; 85520; 85610; 85730; 87040; 87400; 93005; 93010; 93306; 93970; 94760; 96374; 96375; G0378; J0360; J0692; J1644; J1940; J2270; J2405; Q9967

== ENCOUNTER 2019-11-19 04:10 | Emergency (ER) | payer MEDICARE ==
[2019-11-19] MEDS ORDERED: ACETAMINOPHEN 325 MG TAB ONE (04:32)
[2019-11-19] MEDS ORDERED: ACETAMINOPHEN 325 MG TAB PO ONE (04:45)
[2019-11-19 04:59] VITALS: BP 162/105
--- NOTE | 2019-11-19 05:11 | XRay Report ---
CHEST 1 VIEW INDICATION / CLINICAL INFORMATION: SOB. COMPARISON: 11/06/2019 FINDINGS: SUPPORT DEVICES: Right central venous line HEART / MEDIASTINUM: Cardiomegaly LUNGS / PLEURA: Diffuse interstitial pulmonary edema No pneumothorax. ADDITIONAL FINDINGS: No significant additional findings. IMPRESSION: Cardiomegaly with diffuse interstitial pulmonary edema Signer Name: Urban Bower MD FACR Signed: 11/19/2019 5:07 AM Workstation Name: [id number]
[2019-11-19 08:11] LABS: Basophils # (Auto) 0.1 K/mm3 (0.0-0.1); Basophils % (Auto) 1.9 % (0.0-1.8); Eosinophils # (Auto) 0.3 K/mm3 (0.0-0.4); Eosinophils % (Auto) 4.6 % (0.0-4.3); Hematocrit 35.8 % (30.3-42.9); Hemoglobin 11.8 gm/dl (10.1-14.3); Lymphocytes # (Auto) 1.5 K/mm3 (1.2-5.4); Lymphocytes % (Auto) 21.3 % (13.4-35.0); Mean Corpuscular HGB Conc 33 % (30-34); Mean Corpuscular Volume 98 fl (79-97); Monocytes # (Auto) 0.8 K/mm3 (0.0-0.8); Monocytes % (Auto) 11.2 % (0.0-7.3); Platelet Count 276 K/mm3 (140-440); Red Blood Count 3.66 M/mm3 (3.65-5.03); Red Cell Distribution Width 14.9 % (13.2-15.2)
[2019-11-19 08:21] LABS: INR 1.67 (0.87-1.13)
[2019-11-19 08:22] LABS: Partial Thromboplastin Time 44.9 Sec. (24.2-36.6)
[2019-11-19 08:34] LABS: Albumin 3.8 g/dL (3.9-5); Calcium 8.6 mg/dL (8.4-10.2)
== END 2019-11-19 10:00 ==
LOC: ED 04:10
DX: R06.02 Shortness of breath (principal); Z53.21 Procedure and treatment not carried out due to patient leaving prior to being seen by health care provider
CPT/HCPCS: 36415; 71045; 80053; 85025; 85610; 85730; 93005; 93010

== ENCOUNTER 2021-01-13 12:19 | Emergency (ER) | payer MEDICARE ==
[2021-01-13 12:30] VITALS: BP 172/88
--- NOTE | 2021-01-13 12:37 | Event Note ---
ED Screening Note Date of service: 01/13/21 Time: 12:37 ED Screening Note: Patient diagnosed with pneumonia yesterday at a different hospital and discharged with outpatient treatment Dialysis patient States chest pain or shortness of breath worsening This initial assessment/diagnostic orders/clinical plan/treatment(s) is/are subject to change based on patients health status, clinical progression and re- assessment by fellow clinical providers in the ED. Further treatment and workup at subsequent clinical providers discretion. Patient/guardian urged not to elope from the ED as their condition may be serious if not clinically assessed and managed. Initial orders include: Labs Chest x-ray
--- NOTE | 2021-01-13 13:07 | XRay Report ---
CHEST 2 VIEWS INDICATION / CLINICAL INFORMATION: shortness of breath, recent dx w/pneumonia. COMPARISON: 11/15/2020 FINDINGS: SUPPORT DEVICES: Stable position of right IJ central venous catheter. HEART / MEDIASTINUM: Stable moderate cardiomegaly. LUNGS / PLEURA: Stable small right pleural effusion and right lung base atelectasis. ADDITIONAL FINDINGS: No significant additional findings. IMPRESSION: 1. Appearance of the lungs is not significantly changed from 11/16/2020. Signer Name: Cezar Beckford MD Signed: 01/13/2021 1:02 PM Workstation Name: [id number]
[2021-01-13 13:25] LABS: Basophils # (Auto) 0.1 K/mm3 (0.0-0.1); Basophils % (Auto) 0.5 % (0.0-1.8); Eosinophils # (Auto) 0.1 K/mm3 (0.0-0.4); Eosinophils % (Auto) 1.1 % (0.0-4.3); Hematocrit 25.8 % (30.3-42.9); Hemoglobin 8.4 gm/dl (10.1-14.3); Lymphocytes # (Auto) 0.5 K/mm3 (1.2-5.4); Lymphocytes % (Auto) 4.9 % (13.4-35.0); Mean Corpuscular HGB Conc 33 % (30-34); Mean Corpuscular Volume 94 fl (79-97); Monocytes # (Auto) 0.8 K/mm3 (0.0-0.8); Monocytes % (Auto) 7.7 % (0.0-7.3); Platelet Count 326 K/mm3 (140-440); Red Blood Count 2.74 M/mm3 (3.65-5.03); Red Cell Distribution Width 17.2 % (13.2-15.2)
[2021-01-13 13:39] LABS: Calcium 8.9 mg/dL (8.4-10.2)
--- NOTE | 2021-01-14 13:33 | Electrocardiograph Report ---
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
== END 2021-01-13 14:00 ==
LOC: ED 12:19
DX: R07.89 Other chest pain (principal); R06.02 Shortness of breath; Z53.21 Procedure and treatment not carried out due to patient leaving prior to being seen by health care provider
CPT/HCPCS: 36415; 71046; 80053; 85025; 93005

== ENCOUNTER 2021-01-18 04:07 | Inpatient (IN) | payer MEDICARE ==
[2021-01-18] MEDS ORDERED: ALBUTEROL 2.5 MG/3 ML NEBU IH ONE (04:27)
[2021-01-18] MEDS ORDERED: ACETAMINOPHEN 325 MG TAB PO STA (04:27)
--- NOTE | 2021-01-18 04:29 | Emergency Department Report ---
ED General Adult HPI - General Chief complaint: Weakness Stated complaint: weakness PUI?: No Time Seen by Provider: 01/18/21 04:18 Source: patient, EMS, RN notes reviewed, old records reviewed Limitations: Physical Limitation - History of Present Illness Initial comments: The patient was evaluated in the emergency department for symptoms described in the history of present illness. He/she was evaluated in the context of the global COVID-19 pandemic, which necessitated consideration that the patient might be at risk for infection with the virus that causes COVID-19. Institutional protocols and algorithms that pertain to the evaluation of patients at risk for COVID-19 are in a state of rapid change based on information released by regulatory bodies including the CDC and federal and state organizations. These policies and algorithms were followed during the patient's care in the emergency department. Please note that these policies, procedures and recommendations changed on a rapid basis. Nephrology: Dr. Ilana Soler This is a 55-year-old female. This patient has a past medical history of esophageal cancer, status post resection, with stent placement, hypertension, with end-stage renal disease. She was recently admitted to this hospital for shortness of breath with hypoxemia. While in the hospital, it was felt that her shortness of breath was secondary to fluid overload. As she is on home oxygen, at 2 L. She presents today via EMS, with a complaint of cough, chest wall tightness, shortness of breath, mucus production, fatigue. No loss of taste or smell. Has completed her COVID-19 vaccination series. Patient missed her last hemodialysis session; she was last dialyzed on Sunday, it is currently Sunday morning. She complains of generalized malaise and weakness, as well as body aches. -: Gradual, days(s) Location: chest, back, left, right, lower extremity Quality: aching Consistency: constant Improves with: rest Worsens with: movement - Related Data Home Medications Medication Instructions Recorded Confirmed Last Taken rifAMPin [Rifadin] 300 mg PO BID 11/02/19 01/19/21 11/01/19 Previous Rx's Medication Instructions Recorded Last Taken Type levoFLOXacin [Levaquin TAB] 750 mg PO QDAY #3 tablet 04/24/20 Unknown Rx oxyCODONE /ACETAMINOPHEN [Percocet 1 tab PO Q8HR PRN #15 tablet 04/24/20 Unknown Rx 5/325 mg] Apixaban [Eliquis] 2.5 mg PO BID #60 tablet 11/16/20 Unknown Rx Cinacalcet HCl [Sensipar] 30 mg PO QDAY #60 11/16/20 Unknown Rx Isosorbide Dinitrate [Isordil] 20 mg PO BID #60 11/16/20 Unknown Rx Linaclotide [Linzess] 72 mg PO PRN PRN #10 cap 11/16/20 Unknown Rx Omeprazole 40 mg PO QDAY #30 11/16/20 Unknown Rx Temazepam [Restoril] 15 mg PO QHS #30 cap 11/16/20 Unknown Rx Vit B Complx C/Folic Acid/Zinc 0.8 mg PO QDAY #30 11/16/20 Unknown Rx [Dialyvite 800-Zinc 15 mg Tab] allopurinoL [Zyloprim] 100 mg PO QDAY #30 11/16/20 Unknown Rx carvediloL [Coreg] 25 mg PO BID #60 11/16/20 Unknown Rx cloNIDine [Catapres] 0.3 mg PO TID #90 tablet 11/16/20 Unknown Rx guaiFENesin DM [Guaifenesin Dm 10 ml PO Q4H PRN 10 Days oral.liqd 11/16/20 Unknown Rx Syrup] hydrALAZINE [Apresoline TAB] 100 mg PO TID #90 tab 11/16/20 Unknown Rx Allergies Allergy/AdvReac Type Severity Reaction Status Date / Time No Known Allergies Allergy Verified 01/18/21 04:31 ED Review of Systems ROS: Stated complaint: JOSEF Other details as noted in HPI Constitutional: malaise, weakness Eyes: denies: eye discharge ENT: congestion Respiratory: cough, shortness of breath Cardiovascular: chest pain (Chest wall pain) Gastrointestinal: denies: nausea Musculoskeletal: back pain, arthralgia, myalgia Neurological: weakness ED Past Medical Hx - Past Medical History Hx Hypertension: Yes Hx Congestive Heart Failure: Yes Hx Diabetes: No Hx Renal Disease: Yes (dialysis --) Hx Arthritis: Yes Hx Asthma: Yes Hx COPD: Yes (home O2) Additional medical history: Dialysis in [facility] - Surgical History Additional Surgical History: L fistula, vas cath to right chest wall - Social History Smoking Status: Never Smoker - Medications Home Medications: Home Medications Medication Instructions Recorded Confirmed Last Taken Type rifAMPin [Rifadin] 300 mg PO BID 03/15/20 06/02/21 03/14/20 History levoFLOXacin [Levaquin TAB] 750 mg PO QDAY #3 tablet 04/24/20 01/19/21 Unknown Rx oxyCODONE /ACETAMINOPHEN [Percocet 1 tab PO Q8HR PRN #15 tablet 04/24/20 01/19/21 Unknown Rx 5/325 mg] Apixaban [Eliquis] 2.5 mg PO BID #60 tablet 11/16/20 01/19/21 Unknown Rx Cinacalcet HCl [Sensipar] 30 mg PO QDAY #60 11/16/20 01/19/21 Unknown Rx Isosorbide Dinitrate [Isordil] 20 mg PO BID #60 11/16/20 01/19/21 Unknown Rx Linaclotide [Linzess] 72 mg PO PRN PRN #10 cap 11/16/20 01/19/21 Unknown Rx Omeprazole 40 mg PO QDAY #30 11/16/20 01/19/21 Unknown Rx Temazepam [Restoril] 15 mg PO QHS #30 cap 11/16/20 01/19/21 Unknown Rx Vit B Complx C/Folic Acid/Zinc 0.8 mg PO QDAY #30 11/16/20 01/19/21 Unknown Rx [Dialyvite 800-Zinc 15 mg Tab] allopurinoL [Zyloprim] 100 mg PO QDAY #30 11/16/20 01/19/21 Unknown Rx carvediloL [Coreg] 25 mg PO BID #60 11/16/20 01/19/21 Unknown Rx cloNIDine [Catapres] 0.3 mg PO TID #90 tablet 11/16/20 01/19/21 Unknown Rx guaiFENesin DM [Guaifenesin Dm 10 ml PO Q4H PRN 10 Days oral.liqd 11/16/20 01/19/21 Unknown Rx Syrup] hydrALAZINE [Apresoline TAB] 100 mg PO TID #90 tab 11/16/20 01/19/21 Unknown Rx ED Physical Exam - General Limitations: Physical Limitation General appearance: alert, anxious, in distress - Head Head exam: Present: atraumatic, normocephalic - Eye Eye exam: Present: normal appearance, EOMI, nystagmus - ENT ENT exam: Present: normal exam, normal orophraynx, mucous membranes moist, normal external ear exam - Neck Neck exam: Present: normal inspection, full ROM. Absent: tenderness, meningismus - Respiratory Respiratory exam: Present: respiratory distress, wheezes, rhonchi, chest wall tenderness, accessory muscle use - Cardiovascular Cardiovascular Exam: Present: regular rate, normal rhythm, normal heart sounds. Absent: bradycardia, tachycardia, irregular rhythm, systolic murmur, diastolic murmur, rubs, gallop - GI/Abdominal GI/Abdominal exam: Present: soft. Absent: distended, tenderness, guarding, rebound, rigid, pulsatile mass - Extremities Exam Extremities exam: Present: full ROM, tenderness, pedal edema (1+ edema in the bilateral lower extremities), other (2+ pulses noted in the bilateral upper and lower extremities. There is diffuse bony tenderness. The muscular compartments are soft.) - Back Exam Back exam: Present: normal inspection. Absent: tenderness, CVA tenderness (R), CVA tenderness (L), paraspinal tenderness, vertebral tenderness - Neurological Exam Neurological exam: Present: alert, other (No facial droop. Tongue midline. E xtraocular movements intact bilaterally. Facial sensation intact to light touch in V1, V2, V3 distribution bilaterally. 5 and a 5 strength in 4 extremities. Sensation intact to light touch in 4 extremities.) - Psychiatric Psychiatric exam: Present: anxious - Skin Skin exam: Present: warm, dry, intact, normal color. Absent: rash ED Course Vital Signs 01/18/21 01/18/21 01/18/21 04:20 04:44 04:46 Temperature 97.8 F Pulse Rate 85 102 H Pulse Rate [ 91 H Anterior Bilateral Throughout] Pulse Rate [ Apical] Respiratory 15 17 Rate Respiratory 19 Rate [Anterior Bilateral Throughout] Blood Pressure 171/93 Blood Pressure 178/102 [Left] O2 Sat by Pulse 97 98 Oximetry O2 Sat by Pulse Oximetry [ Anterior Bilateral Throughout] 01/18/21 01/18/21 01/18/21 05:00 05:16 05:30 Temperature Pulse Rate 86 85 83 Pulse Rate [ Anterior Bilateral Throughout] Pulse Rate [ Apical] Respiratory 18 18 17 Rate Respiratory Rate [Anterior Bilateral Throughout] Blood Pressure 174/99 169/89 162/89 Blood Pressure [Left] O2 Sat by Pulse 96 99 96 Oximetry O2 Sat by Pulse Oximetry [ Anterior Bilateral Throughout] 01/18/21 01/18/21 01/18/21 05:44 05:46 06:00 Temperature Pulse Rate 87 86 Pulse Rate [ Anterior Bilateral Throughout] Pulse Rate [ Apical] Respiratory 18 13 18 Rate Respiratory Rate [Anterior Bilateral Throughout] Blood Pressure 170/95 171/89 Blood Pressure [Left] O2 Sat by Pulse 97 98 Oximetry O2 Sat by Pulse Oximetry [ Anterior Bilateral Throughout] 01/18/21 01/18/21 01/18/21 06:16 06:30 06:44 Temperature Pulse Rate 85 86 Pulse Rate [ Anterior Bilateral Throughout] Pulse Rate [ Apical] Respiratory 17 10 L 18 Rate Respiratory Rate [Anterior Bilateral Throughout] Blood Pressure 169/90 161/83 Blood Pressure [Left] O2 Sat by Pulse 98 98 Oximetry O2 Sat by Pulse Oximetry [ Anterior Bilateral Throughout] 01/18/21 01/18/21 01/18/21 06:46 07:00 07:04 Temperature Pulse Rate 90 90 89 Pulse Rate [ Anterior Bilateral Throughout] Pulse Rate [ Apical] Respiratory 16 18 18 Rate Respiratory Rate [Anterior Bilateral Throughout] Blood Pressure 172/82 179/93 179/93 Blood Pressure [Left] O2 Sat by Pulse 98 97 Oximetry O2 Sat by Pulse Oximetry [ Anterior Bilateral Throughout] 01/18/21 01/18/21 01/18/21 07:16 07:30 07:45 Temperature Pulse Rate 88 88 89 Pulse Rate [ Anterior Bilateral Throughout] Pulse Rate [ Apical] Respiratory 15 15 16 Rate Respiratory Rate [Anterior Bilateral Throughout] Blood Pressure 168/90 163/81 161/81 Blood Pressure [Left] O2 Sat by Pulse 96 97 97 Oximetry O2 Sat by Pulse Oximetry [ Anterior Bilateral Throughout] 01/18/21 01/18/21 01/18/21 08:00 08:15 08:30 Temperature Pulse Rate 89 90 91 H Pulse Rate [ Anterior Bilateral Throughout] Pulse Rate [ Apical] Respiratory 15 14 20 Rate Respiratory Rate [Anterior Bilateral Throughout] Blood Pressure 155/89 158/87 166/83 Blood Pressure [Left] O2 Sat by Pulse 96 97 97 Oximetry O2 Sat by Pulse Oximetry [ Anterior Bilateral Throughout] 01/18/21 01/18/21 01/18/21 08:46 09:00 09:25 Temperature 97.9 F Pulse Rate 92 H 90 88 Pulse Rate [ Anterior Bilateral Throughout] Pulse Rate [ Apical] Respiratory 13 21 22 Rate Respiratory Rate [Anterior Bilateral Throughout] Blood Pressure 158/87 150/81 174/86 Blood Pressure [Left] O2 Sat by Pulse 97 96 Oximetry O2 Sat by Pulse 100 Oximetry [ Anterior Bilateral Throughout] 01/18/21 01/18/21 01/18/21 09:30 09:45 10:00 Temperature Pulse Rate 90 86 88 Pulse Rate [ Anterior Bilateral Throughout] Pulse Rate [ Apical] Respiratory Rate Respiratory Rate [Anterior Bilateral Throughout] Blood Pressure 160/90 167/88 176/90 Blood Pressure [Left] O2 Sat by Pulse Oximetry O2 Sat by Pulse Oximetry [ Anterior Bilateral Throughout] 01/18/21 01/18/21 01/18/21 10:15 10:30 10:45 Temperature Pulse Rate 88 87 86 Pulse Rate [ Anterior Bilateral Throughout] Pulse Rate [ Apical] Respiratory Rate Respiratory Rate [Anterior Bilateral Throughout] Blood Pressure 164/93 167/94 171/96 Blood Pressure [Left] O2 Sat by Pulse Oximetry O2 Sat by Pulse Oximetry [ Anterior Bilateral Throughout] 01/18/21 01/18/21 01/18/21 11:00 11:15 11:30 Temperature Pulse Rate 87 87 84 Pulse Rate [ Anterior Bilateral Throughout] Pulse Rate [ Apical] Respiratory Rate Respiratory Rate [Anterior Bilateral Throughout] Blood Pressure 175/101 178/96 167/90 Blood Pressure [Left] O2 Sat by Pulse Oximetry O2 Sat by Pulse Oximetry [ Anterior Bilateral Throughout] 01/18/21 01/18/21 01/18/21 11:45 12:00 12:15 Temperature Pulse Rate 85 86 87 Pulse Rate [ Anterior Bilateral Throughout] Pulse Rate [ Apical] Respiratory Rate Respiratory Rate [Anterior Bilateral Throughout] Blood Pressure 178/99 172/93 166/90 Blood Pressure [Left] O2 Sat by Pulse Oximetry O2 Sat by Pulse Oximetry [ Anterior Bilateral Throughout] 01/18/21 01/18/21 01/18/21 12:30 12:45 12:57 Temperature Pulse Rate 87 86 86 Pulse Rate [ Anterior Bilateral Throughout] Pulse Rate [ Apical] Respiratory Rate Respiratory Rate [Anterior Bilateral Throughout] Blood Pressure 167/94 170/88 167/92 Blood Pressure [Left] O2 Sat by Pulse Oximetry O2 Sat by Pulse Oximetry [ Anterior Bilateral Throughout] 01/18/21 01/18/21 01/18/21 13:05 13:36 14:00 Temperature 97.9 F Pulse Rate 87 89 Pulse Rate [ Anterior Bilateral Throughout] Pulse Rate [ 89 Apical] Respiratory 20 20 20 Rate Respiratory Rate [Anterior Bilateral Throughout] Blood Pressure 168/94 159/89 Blood Pressure [Left] O2 Sat by Pulse 99 99 Oximetry O2 Sat by Pulse Oximetry [ Anterior Bilateral Throughout] 01/18/21 14:12 Temperature Pulse Rate 89 Pulse Rate [ Anterior Bilateral Throughout] Pulse Rate [ Apical] Respiratory Rate Respiratory Rate [Anterior Bilateral Throughout] Blood Pressure Blood Pressure [Left] O2 Sat by Pulse Oximetry O2 Sat by Pulse Oximetry [ Anterior Bilateral Throughout] - Reevaluation(s) Reevaluation #1: 01/18/21 04:50 Differential diagnosis, including but not limited to: CHF, fluid overload, bronchitis, pneumonia, costochondritis, pneumothorax Assessment and plan: 55-year-old female, with probable CHF/fluid overload exacerbation, up-to-date with COVID-19 vaccination series. She does have reproducible chest wall tenderness and muscular tenderness. Place patient on cardiac technician, obtain x-ray of the chest, EKG, and appropriate laboratory studies. Patient offered acetaminophen for pain. So far, she has declined it. Because of her complex past medical history, chronic respiratory failure, overall clinical picture, risks of narcotics are outweighed by benefits. Would not administer narcotic therapy at this time. 01/18/21 06:07 Laboratory studies reviewed and appreciated. Contacted nephrology on-call, Dr. Hurtado. He will arrange for dialysis. Antibiotics, antihypertensive therapy ordered. Care to be transferred to the oncoming ER physician, Dr Colt Maldonado, to contact morning hospitalist, to arrange admission, as the current nocturnal hospitalist is no longer accepting admissions as he is capped. ED Medical Decision Making - Lab Data Result diagrams: 01/18/21 04:58 01/18/21 04:58 Vital Signs 01/18/21 01/18/21 04:20 04:44 Temperature 97.8 F Pulse Rate 85 Pulse Rate [ 91 H Anterior Bilateral Throughout] Respiratory 15 Rate Respiratory 19 Rate [Anterior Bilateral Throughout] Blood Pressure 178/102 [Left] O2 Sat by Pulse 97 Oximetry Lab Results 01/18/21 Range/Units 04:58 WBC 12.7 H (4.5-11.0) K/mm3 RBC 2.60 L (3.65-5.03) M/mm3 Hgb 8.0 L (10.1-14.3) gm/dl Hct 25.2 L (30.3-42.9) % MCV 97 (79-97) fl MCH 31 (28-32) pg MCHC 32 (30-34) % RDW 17.6 H (13.2-15.2) % Plt Count 372 (140-440) K/mm3 Lymph % (Auto) 7.1 L (13.4-35.0) % [place] % (Auto) 8.8 H (0.0-7.3) % Eos % (Auto) 1.6 (0.0-4.3) % Baso % (Auto) 0.8 (0.0-1.8) % Lymph # (Auto) 0.9 L (1.2-5.4) K/mm3 [place] # (Auto) 1.1 H (0.0-0.8) K/mm3 Eos # (Auto) 0.2 (0.0-0.4) K/mm3 Baso # (Auto) 0.1 (0.0-0.1) K/mm3 Seg Neutrophils % 81.7 H (40.0-70.0) % Seg Neutrophils # 10.4 H (1.8-7.7) K/mm3 - EKG Data -: EKG Interpreted by Ak EKG shows normal: sinus rhythm Rate: normal - EKG Data When compared to previous EKG there are: no significant change 01/18/21 04:51 EKG interpreted at 04: 44 EKG today is unchanged from prior EKG from 05: 27: 21 Sinus rhythm, 84 bpm. Left axis deviation. Poor R wave progression. First- degree AV block. QTC is prolonged. This is an abnormal EKG. This is not a STEMI. - Radiology Data Radiology results: pending, report reviewed, image reviewed [facility] [address] [place] [address] XRay Report Signed Patient: JAKE COLLINS MR#: [id number] : 1965 Acct:[id number] Age/Sex: 55 / F ADM Date: 01/18/21 Loc: ED Attending Dr: Ordering Physician: TAMICA WALLS MD Date of Service: 01/18/21 Procedure(s): XR chest 1V ap Accession Number(s): [id number] cc: TAMICA WALLS MD Fluoro Time In Minutes: CHEST 1 VIEW INDICATION: Dyspnea COMPARISON: 01/13/2021 FINDINGS: SUPPORT DEVICES: Central venous lines tip in superior vena cava. HEART / MEDIASTINUM: No significant abnormality. LUNGS / PLEURA: Again identified is diffuse increased interstitium throughout both lungs. Patchy airspace process noted right lower lobe with a small right pleural effusion. No pneumothorax. ADDITIONAL FINDINGS: IMPRESSION: 1. No interval changes compared to previous exam Signer Name: Robert Nieves MD Signed: 01/18/2021 5:09 AM Workstation Name: [id number] Transcribed By: RENY Dictated By: Robert Nieves MD Electronically Authenticated By: Robert Nieves MD Signed Date/Time: 01/18/21508 DD/ 7 Critical care attestation.: If time is entered above; I have spent that time in minutes in the direct care of this critically ill patient, excluding procedure time. ED Disposition Clinical Impression: ESRD needing dialysis, Pulmonary infiltrate in right lung on CXR, Congestive heart failure Disposition: OP ADMIT IP TO THIS HOSP Is pt being admited?: Yes Does the pt Need Aspirin: Yes Condition: Good
--- NOTE | 2021-01-18 05:13 | XRay Report ---
CHEST 1 VIEW INDICATION: Dyspnea COMPARISON: 01/13/2021 FINDINGS: SUPPORT DEVICES: Central venous lines tip in superior vena cava. HEART / MEDIASTINUM: No significant abnormality. LUNGS / PLEURA: Again identified is diffuse increased interstitium throughout both lungs. Patchy airs pace process noted right lower lobe with a small right pleural effusion. No pneumothorax. ADDITIONAL FINDINGS: IMPRESSION: 1. No interval changes compared to previous exam Signer Name: Robert Nieves MD Signed: 01/18/2021 5:09 AM Workstation Name: [id number]
[2021-01-18 05:28] LABS: Basophils # (Auto) 0.1 K/mm3 (0.0-0.1); Basophils % (Auto) 0.8 % (0.0-1.8); Eosinophils # (Auto) 0.2 K/mm3 (0.0-0.4); Eosinophils % (Auto) 1.6 % (0.0-4.3); Hematocrit 25.2 % (30.3-42.9); Lymphocytes # (Auto) 0.9 K/mm3 (1.2-5.4); Lymphocytes % (Auto) 7.1 % (13.4-35.0); Mean Corpuscular HGB Conc 32 % (30-34); Mean Corpuscular Volume 97 fl (79-97); Monocytes # (Auto) 1.1 K/mm3 (0.0-0.8); Platelet Count 372 K/mm3 (140-440); Red Cell Distribution Width 17.6 % (13.2-15.2)
[2021-01-18 05:30] LABS: Monocytes % (Auto) 8.8 % (0.0-7.3)
[2021-01-18 05:35] LABS: INR 1.26 (0.87-1.13)
[2021-01-18 05:44] LABS: Albumin 3.2 g/dL (3.9-5); Calcium 8.1 mg/dL (8.4-10.2)
[2021-01-18] MEDS ORDERED: hydrALAZINE 20 MG/1 ML INJ IV ONE (06:03)
[2021-01-18] MEDS ORDERED: cefTRIAXone/NS 1 GM/50 ML 1 GM/50 ML BAG IV ONE (06:03)
[2021-01-18] MEDS ORDERED: AZITHROMYCIN/NS 500 MG/250 ML 500 MG/250 ML BAG IV ONE (06:03)
[2021-01-18] MEDS ORDERED: fentaNYL 100 MCG/2 ML INJ IV ONE (06:03)
[2021-01-18] MEDS ORDERED: ASPIRIN 81 MG TAB CHEW PO ONE (06:09)
[2021-01-18 06:25] LABS: Chol/HDL Ratio 1.65 %
[2021-01-18] MEDS ORDERED: SODIUM CHLORIDE 0.9% 100 ML IV PRN (08:00)
[2021-01-18 10:12] LABS: Hepatitis B Surface Antigen Non-Reactive (Negative); Hepatitis C Virus Antibody Non-Reactive (NonReactive)
[2021-01-18] MEDS ORDERED: oxyCODONE /ACETAMINOPHEN 5-325MG TAB PO PRN (10:45)
--- NOTE | 2021-01-18 10:45 | History and Physical Report ---
History of Present Illness Date of examination: 01/18/21 Date of admission: 01/18/21 07:29 Chief complaint: Worsening shortness of breath/fluid overload History of present illness: 55-year-old -[place] female patient with significant past medical history of esophageal cancer s/p resection, with stent placement, hypertension, end-stage renal disease on hemodialysis, chronic pain syndrome presented to the emergency room with worsening shortness of breath cough chest tightness and generalized weakness of 3 to 4 days duration. Patient has had dialysis MWF her last diagnosis was on Sunday 4 days ago Patient missed 1 dialysis, patient pro BNP is 78,000 Patient denies any chest pain or palpitation, complains of shortness of breath and cough productive No history of fever, patient reports that she felt sick and was admitted briefly at [facility]. Denies headache dizziness weakness or numbness Patient has 2 L of nasal cannula home oxygen. Patient denies any history of COVID-19 infection or close contacts with infected people Patient reports that she has finished vaccination series recently Past History Past Medical History: arthritis, COPD, ESRD, heart failure, hypertension, hyperlipidemia, renal failure, other (PE) Past Surgical History: Other Social history: denies: smoking, alcohol abuse, prescription drug abuse Family history: no significant family history Medications and Allergies Allergies Allergy/AdvReac Type Severity Reaction Status Date / Time No Known Allergies Allergy Verified 01/18/21 04:31 Home Medications Medication Instructions Recorded Confirmed Last Taken Type rifAMPin [Rifadin] 300 mg PO BID 11/02/19 11/13/20 11/01/19 History levoFLOXacin [Levaquin TAB] 750 mg PO QDAY #3 tablet 04/24/20 11/13/20 Unknown Rx oxyCODONE /ACETAMINOPHEN [Percocet 1 tab PO Q8HR PRN #15 tablet 04/24/20 11/13/20 Unknown Rx 5/325 mg] Apixaban [Eliquis] 2.5 mg PO BID #60 tablet 11/16/20 Unknown Rx Cinacalcet HCl [Sensipar] 30 mg PO QDAY #60 11/16/20 Unknown Rx Isosorbide Dinitrate [Isordil] 20 mg PO BID #60 11/16/20 Unknown Rx Linaclotide [Linzess] 72 mg PO PRN PRN #10 cap 11/16/20 Unknown Rx Omeprazole 40 mg PO QDAY #30 11/16/20 Unknown Rx Temazepam [Restoril] 15 mg PO QHS #30 cap 11/16/20 Unknown Rx Vit B Complx C/Folic Acid/Zinc 0.8 mg PO QDAY #30 11/16/20 Unknown Rx [Dialyvite 800-Zinc 15 mg Tab] allopurinoL [Zyloprim] 100 mg PO QDAY #30 11/16/20 Unknown Rx carvediloL [Coreg] 25 mg PO BID #60 11/16/20 Unknown Rx cloNIDine [Catapres] 0.3 mg PO TID #90 tablet 11/16/20 Unknown Rx guaiFENesin DM [Guaifenesin Dm 10 ml PO Q4H PRN 10 Days oral.liqd 11/16/20 Unk nown Rx Syrup] hydrALAZINE [Apresoline TAB] 100 mg PO TID #90 tab 11/16/20 Unknown Rx Active Meds: Active Medications Sodium Chloride (Nacl 0.9%) 100 mls @ 999 mls/hr IV STEVIE PRN PRN Reason: Hypotension Review of Systems Constitutional: fatigue, weakness, no weight loss, no weight gain Ears, nose, mouth and throat: no nasal congestion, no nasal discharge Cardiovascular: no chest pain, no orthopnea, no palpitations, no syncope Respiratory: no cough with sputum, no dyspnea on exertion Gastrointestinal: no nausea, no vomiting, no diarrhea Genitourinary Female: no dysuria, no hematuria Musculoskeletal: no myalgias, no arthritis Integumentary: no rash, no lesions Neurological: no seizures, no syncope Psychiatric: no anxiety, no depression Endocrine: no cold intolerance, no heat intolerance, no polyphagia, no excessive thirst Hematologic/Lymphatic: no easy bruising, no easy bleeding Allergic/Immunologic: no urticaria, no allergic rhinitis Exam - Constitutional Vitals: Temp Pulse Resp BP Pulse Ox 97.9 F 87 22 167/94 100 01/18/21 09:25 01/18/21 10:30 01/18/21 09:25 01/18/21 10:30 01/18/21 09:25 General appearance: Present: no acute distress, well-nourished - EENT Eyes: Present: PERRL, EOM intact - Neck Neck: Present: supple, normal ROM - Respiratory Respiratory effort: normal Respiratory: bilateral: diminished, rales, negative: rhonchi, wheezing - Cardiovascular Rhythm: regular Heart Sounds: Present: S1 & S2 - Extremities Extremities: no ischemia, No edema - Abdominal General gastrointestinal: Present: soft, non-tender, non-distended, normal bowel sounds - Integumentary Integumentary: Present: clear, warm - Musculoskeletal Musculoskeletal: strength equal bilaterally, generalized weakness - Psychiatric Psychiatric: appropriate mood/affect, memory intact - Neurologic Neurologic: CNII-XII intact, moves all extremities HEART Score - HEART Score Troponin: Troponin T 0.081 ng/mL (0.00-0.029) H 01/18/21 04:58 Results - Labs CBC & Chem 7: 01/18/21 04:58 01/18/21 04:58 Labs: Abnormal lab results 01/18/21 01/18/21 01/18/21 Range/Units 04:58 04:58 04:58 WBC 12.7 H (4.5-11.0) K/mm3 RBC 2.60 L (3.65-5.03) M/mm3 Hgb 8.0 L (10.1-14.3) gm/dl Hct 25.2 L (30.3-42.9) % RDW 17.6 H (13.2-15.2) % Lymph % (Auto) 7.1 L (13.4-35.0) % Carbon % (Auto) 8.8 H (0.0-7.3) % Lymph # (Auto) 0.9 L (1.2-5.4) K/mm3 Carbon # (Auto) 1.1 H (0.0-0.8) K/mm3 Seg Neutrophils % 81.7 H (40.0-70.0) % Seg Neutrophils # 10.4 H (1.8-7.7) K/mm3 PT 15.8 H (12.2-14.9) Sec. INR 1.26 H (0.87-1.13) Chloride 97.4 L (98-107) mmol/L BUN 57 H (7-17) mg/dL Creatinine 8.3 H (0.6-1.2) mg/dL Calcium 8.1 L (8.4-10.2) mg/dL ALT 6 L (7-56) units/L Alkaline Phosphatase 132 H (35-129) units/L Troponin T 0.081 H (0.00-0.029) ng/mL NT-Pro-B Natriuret Pep (0-900) pg/mL Albumin 3.2 L (3.9-5) g/dL HDL Cholesterol 90 H (40-59) mg/dL 01/18/21 Range/Units 04:58 WBC (4.5-11.0) K/mm3 RBC (3.65-5.03) M/mm3 Hgb (10.1-14.3) gm/dl Hct (30.3-42.9) % RDW (13.2-15.2) % Lymph % (Auto) (13.4-35.0) % Carbon % (Auto) (0.0-7.3) % Lymph # (Auto) (1.2-5.4) K/mm3 Carbon # (Auto) (0.0-0.8) K/mm3 Seg Neutrophils % (40.0-70.0) % Seg Neutrophils # (1.8-7.7) K/mm3 PT (12.2-14.9) Sec. INR (0.87-1.13) Chloride (98-107) mmol/L BUN (7-17) mg/dL Creatinine (0.6-1.2) mg/dL Calcium (8.4-10.2) mg/dL ALT (7-56) units/L Alkaline Phosphatase (35-129) units/L Troponin T (0.00-0.029) ng/mL NT-Pro-B Natriuret Pep 35991 H (0-900) pg/mL Albumin (3.9-5) g/dL HDL Cholesterol (40-59) mg/dL Assessment and Plan --Acute respiratory distress; secondary to fluid overload Due to end-stage renal disease on hemodialysis HD per schedule, fluid restriction, low-sodium diet --End-stage renal disease on hemodialysis Nephrology evaluated the patient HD per schedule MWF Procrit during dialysis --Hypertension; moderate control Continue current antihypertensives, as needed medications --Leukocytosis; SIRS --Acute bronchitis/URI Empiric antibiotics Rocephin and Zithromax Follow cultures, cough medicine as needed --Anemia of ESRD; closely monitor H&H Procrit during dialysis, transfuse as needed --DVT prophylaxis; Lovenox We will closely monitor patient and adjust management as needed Plan of care reviewed with the patient and her nurse Nephrology consult and recommendations noted and appreciated DC planning per case management Confirmed with outpatient HD dialysis center and scheduled prior to DC
[2021-01-18] MEDS ORDERED: ONDANSETRON 4 MG/2 ML INJ IV ONE (12:24)
[2021-01-18] MEDS ORDERED: MORPHINE 2 MG/1 ML INJ IV ONE (15:08)
--- NOTE | 2021-01-18 15:23 | Consultation ---
History of Present Illness - Reason for Consult Consult date: 01/18/21 end stage renal disease - History of Present Illness This is a 55-year-old woman with end-stage renal disease on hemodialysis, hypertension, history of esophageal cancer, status post resection and stent placement who presented with shortness of breath, fatigue, malaise, cough and "chest tightness". She is on MWF schedule and last had dialysis on Sunday. She missed her last session. Nephrology was consulted for ESRD management. Patient denies fever, chills, presyncope and syncope. Medications and Allergies Allergies Allergy/AdvReac Type Severity Reaction Status Date / Time No Known Allergies Allergy Verified 01/18/21 04:31 Home Medications Medication Instructions Recorded Confirmed Last Taken Type rifAMPin [Rifadin] 300 mg PO BID 11/02/19 11/13/20 11/01/19 History levoFLOXacin [Levaquin TAB] 750 mg PO QDAY #3 tablet 04/24/20 11/13/20 Unknown Rx oxyCODONE /ACETAMINOPHEN [Percocet 1 tab PO Q8HR PRN #15 tablet 04/24/20 11/13/20 Unknown Rx 5/325 mg] Apixaban [Eliquis] 2.5 mg PO BID #60 tablet 11/16/20 Unknown Rx Cinacalcet HCl [Sensipar] 30 mg PO QDAY #60 11/16/20 Unknown Rx Isosorbide Dinitrate [Isordil] 20 mg PO BID #60 11/16/20 Unknown Rx Linaclotide [Linzess] 72 mg PO PRN PRN #10 cap 11/16/20 Unknown Rx Omeprazole 40 mg PO QDAY #30 11/16/20 Unknown Rx Temazepam [Restoril] 15 mg PO QHS #30 cap 11/16/20 Unknown Rx Vit B Complx C/Folic Acid/Zinc 0.8 mg PO QDAY #30 11/16/20 Unknown Rx [Dialyvite 800-Zinc 15 mg Tab] allopurinoL [Zyloprim] 100 mg PO QDAY #30 11/16/20 Unknown Rx carvediloL [Coreg] 25 mg PO BID #60 11/16/20 Unknown Rx cloNIDine [Catapres] 0.3 mg PO TID #90 tablet 11/16/20 Unknown Rx guaiFENesin DM [Guaifenesin Dm 10 ml PO Q4H PRN 10 Days oral.liqd 11/16/20 Unknown Rx Syrup] hydrALAZINE [Apresoline TAB] 100 mg PO TID #90 tab 11/16/20 Unknown Rx Active Meds: Active Medications Allopurinol (Allopurinol 100 Mg Tab) 100 mg PO QDAY ELI Apixaban (Apixaban 2.5 Mg Tab) 2.5 mg PO BID ELI Carvedilol (Carvedilol 25 Mg Tab) 25 mg PO BID ELI Cinacalcet (Cinacalcet 30 Mg Tab) 30 mg PO QDAY ELI Clonidine HCl (Clonidine 0.1 Mg Tab) 0.3 mg PO Q8HR ELI Hydralazine HCl (Hydralazine 100 Mg Tab) 100 mg PO TID ELI Sodium Chloride (Nacl 0.9%) 100 mls @ 999 mls/hr IV STEVIE PRN PRN Reason: Hypotension Isosorbide Dinitrate (Isosorbide Dinitrate 20 Mg Tab) 20 mg PO BID [facility] Oxycodone/Acetaminophen (Oxycodone /Acetaminophen 5-325mg Tab) 1 tab PO Q8HR PRN PRN Reason: Pain, Moderate (4-6) Last Admin: 01/18/21 14:15 Dose: 1 tab Documented by: Rifampin (Rifampin 300 Mg Cap) 300 mg PO BID [facility] Review of Systems Constitutional: fatigue, weakness, no fever, no chills Ears, nose, mouth and throat: no nasal congestion, no nasal discharge Cardiovascular: edema, shortness of breath Respiratory: cough Gastrointestinal: no nausea, no vomiting Musculoskeletal: no muscle weakness, no muscle cramps Integumentary: no rash, no redness Neurological: no parathesias, no numbness Psychiatric: no confusion, no irritability Endocrine: no excessive thirst, no excessive sweating, no flushing Hematologic/Lymphatic: no easy bruising, no easy bleeding Allergic/Immunologic: no urticaria Exam - Vital Signs Vital signs: Vital Signs Temp Pulse Resp BP Pulse Ox 97.8 F 85 15 178/102 97 01/18/21 04:20 01/18/21 04:20 01/18/21 04:20 01/18/21 04:20 01/18/21 04:20 - Physical Exam Narrative exam: General: No acute distress HEENT: Oral mucosa moist Neck: Supple, no JVD Chest: Decreased bibasilar breath sounds Heart: RRR, S1 and S2, no pericardial rub Abdomen: Soft, nontender, no renal bruit Extremity: No peripheral cyanosis, b/l LE edema Neurological: Alert, awake, no asterixis Dermatology: No skin rash Psych: No agitation Musculoskeletal: No joint effusion Results - Lab Results 01/18/21 04:58 01/18/21 04:58 Most recent lab results Calcium 8.1 mg/dL (8.4-10.2) L 01/18/21 04:58 Magnesium 2.20 mg/dL (1.7-2.3) 01/18/21 04:58 Assessment and Plan Assessment - End-stage renal disease on hemodialysis - Hypertension - Anemia of ESRD - Hyperparathyroidism - Leukocytosis Recommendations - Plan for HD today - Monitor labs and volume status daily and assess need for additional dialysis session - Consider sepsis w/u given leukocytosis - Continue home antihypertensives - Hold antihypertensives on hemodialysis days for systolics less than 160 - Epogen with HD once bp is better controlled - Continue sensipar - Continue phosphorus binders - ESRD diet with 1.4 g/kg per day protein - Renally dose medication for creatinine clearance less than 15 cc/min
[2021-01-18] MEDS: cloNIDine 0.1 MG TAB PO SCH ×2 (15:48→21:56)
[2021-01-18] MEDS: hydrALAZINE 100 MG TAB PO SCH ×2 (15:49→21:57)
[2021-01-18] MEDS ORDERED: AZITHROMYCIN/NS 500 MG/250 ML 500 MG/250 ML BAG IV SCH (18:30)
[2021-01-18] MEDS: APIXABAN 2.5 MG TAB PO SCH (21:56)
[2021-01-18] MEDS: rifAMPin 300 MG CAP PO SCH (21:57)
[2021-01-18] MEDS: ISOSORBIDE DINITRATE 20 MG TAB PO SCH (21:57)
[2021-01-18] MEDS: carvediloL 25 MG TAB PO SCH (21:58)
[2021-01-18] MEDS ORDERED: NON-FORMULARY EACH (Apixaban 2.5 MG Tablet) PO SCH (22:00)
[2021-01-18] MEDS: oxyCODONE /ACETAMINOPHEN 5-325MG TAB PO PRN (22:52)
[2021-01-19] MEDS: cloNIDine 0.1 MG TAB PO SCH ×3 (05:32→21:37)
[2021-01-19] MEDS: guaiFENesin DM 200/20 MG ORAL LIQD 10 ML PO PRN ×3 (05:33→23:53)
[2021-01-19] MEDS: oxyCODONE /ACETAMINOPHEN 5-325MG TAB PO PRN ×3 (08:46→21:37)
--- NOTE | 2021-01-19 10:13 | Electrocardiograph Report ---
[facility] Test Date: 2021-01-18 Test Time: 04:44:35 Pat Name: JAKE COLLINS Department: Room: A486 Gender: F Claim Auditor: BEENA : 1965 Requested By: TAMICA WALLS Order Number: [id number] Reading MD: Enio Jackson Measurements Intervals [place] Rate: 84 P: 22 MN: 209 QRS: -49 QRSD: 94 T: 34 QT: 378 QTc: 447 Interpretive Statements Sinus rhythm Borderline prolonged MN interval Inferior infarct, old Anterior infarct, old Compared to ECG 01/13/2021 12:35:24 Left-axis deviation no longer present Myocardial infarct finding still present Electronically Signed On 01-19-2021 10:13:14 EDT by Enio Jackson
[2021-01-19] MEDS: APIXABAN 2.5 MG TAB PO SCH ×2 (10:56→21:36)
[2021-01-19] MEDS: AZITHROMYCIN 250 MG TAB PO SCH (10:56)
[2021-01-19] MEDS: rifAMPin 300 MG CAP PO SCH ×2 (10:56→21:36)
[2021-01-19] MEDS: carvediloL 25 MG TAB PO SCH ×2 (10:56→21:36)
[2021-01-19] MEDS: ISOSORBIDE DINITRATE 20 MG TAB PO SCH ×2 (10:56→21:36)
[2021-01-19] MEDS: allopurinoL 100 MG TAB PO SCH (10:56)
[2021-01-19] MEDS: CINACALCET 30 MG TAB PO SCH (10:56)
[2021-01-19] MEDS: cefTRIAXone/NS 1 GM/50 ML 1 GM/50 ML BAG IV SCH (11:00)
[2021-01-19] MEDS: hydrALAZINE 100 MG TAB PO SCH ×3 (11:00→21:36)
--- NOTE | 2021-01-19 15:47 | Progress Note ---
Assessment and Plan Assessment and plan: --Brief episode of severe nausea vomiting this morning; Resolved with antiemetics and supportive care Closely monitor --Acute respiratory distress; secondary to fluid overload Due to end-stage renal disease on hemodialysis HD per schedule, fluid restriction, low-sodium diet --End-stage renal disease on hemodialysis Nephrology evaluated the patient HD per schedule MWF , Procrit during dialysis --Hypertension; moderate control Continue current antihypertensives, as needed medications --Leukocytosis; SIRS --Acute bronchitis/URI Empiric antibiotics Rocephin and Zithromax Follow cultures, cough medicine as needed --Anemia of ESRD; closely monitor H&H Procrit during dialysis, transfuse as needed --DVT prophylaxis; Lovenox We will closely monitor patient and adjust management as needed Plan of care reviewed with the patient and her nurse Nephrology consult and recommendations noted and appreciated DC planning per case management Confirmed with outpatient HD dialysis center and scheduled prior to DC Stable discharge home after dialysis tomorrow if stable 01/19/2021; patient had an episode of nausea vomiting which resolved after antiemetics and supportive care Close monitoring, receiving hemodialysis tomorrow, patient may be discharged if stable after HD History Interval history: I have seen and examined the patient at the bedside this afternoon Patient has intractable nausea vomiting and retching at the time of my evaluation Patient complains of some vague abdominal pain Patient is mild distress Vital signs noted Hospitalist Physical - Constitutional Vitals: Temp Pulse Resp BP Pulse Ox 98.2 F 76 20 112/69 97 01/19/21 08:12 01/19/21 14:00 01/19/21 08:12 01/19/21 08:12 01/19/21 08:12 General appearance: Present: no acute distress, well-nourished - EENT Eyes: Present: PERRL, EOM intact - Neck Neck: Present: supple, normal ROM - Respiratory Respiratory effort: normal Respiratory: bilateral: diminished, negative: rales, rhonchi, wheezing - Cardiovascular Rhythm: regular Heart Sounds: Present: S1 & S2 - Extremities Extremities: no ischemia, No edema - Abdominal General gastrointestinal: soft, non-tender, non-distended, normal bowel sounds - Integumentary Integumentary: Present: clear, warm - Psychiatric Psychiatric: appropriate mood/affect, cooperative - Neurologic Neurologic: CNII-XII intact, moves all extremities HEART Score - HEART Score Troponin: Troponin T 0.081 ng/mL (0.00-0.029) H 01/18/21 04:58 Results - Labs CBC & Chem 7: 01/18/21 04:58 01/18/21 04:58 Labs: Laboratory Last Values WBC 12.7 K/mm3 (4.5-11.0) H 01/18/21 04:58 RBC 2.60 M/mm3 (3.65-5.03) L 01/18/21 04:58 Hgb 8.0 gm/dl (10.1-14.3) L 01/18/21 04:58 Hct 25.2 % (30.3-42.9) L 01/18/21 04:58 MCV 97 fl (79-97) 01/18/21 04:58 MCH 31 pg (28-32) 01/18/21 04:58 MCHC 32 % (30-34) 01/18/21 04:58 RDW 17.6 % (13.2-15.2) H 01/18/21 04:58 Plt Count 372 K/mm3 (140-440) 01/18/21 04:58 Lymph % (Auto) 7.1 % (13.4-35.0) L 01/18/21 04:58 Ward % (Auto) 8.8 % (0.0-7.3) H 01/18/21 04:58 Eos % (Auto) 1.6 % (0.0-4.3) 01/18/21 04:58 Baso % (Auto) 0.8 % (0.0-1.8) 01/18/21 04:58 Lymph # (Auto) 0.9 K/mm3 (1.2-5.4) L 01/18/21 04:58 Ward # (Auto) 1.1 K/mm3 (0.0-0.8) H 01/18/21 04:58 Eos # (Auto) 0.2 K/mm3 (0.0-0.4) 01/18/21 04:58 Baso # (Auto) 0.1 K/mm3 (0.0-0.1) 01/18/21 04:58 Seg Neutrophils % 81.7 % (40.0-70.0) H 01/18/21 04:58 Seg Neutrophils # 10.4 K/mm3 (1.8-7.7) H 01/18/21 04:58 PT 15.8 Sec. (12.2-14.9) H 01/18/21 04:58 INR 1.26 (0.87-1.13) H 01/18/21 04:58 Sodium 140 mmol/L (137-145) 01/18/21 04:58 Potassium 4.4 mmol/L (3.6-5.0) 01/18/21 04:58 Chloride 97.4 mmol/L (98-107) L 01/18/21 04:58 Carbon Dioxide 26 mmol/L (22-30) 01/18/21 04:58 Anion Gap 21 mmol/L 01/18/21 04:58 BUN 57 mg/dL (7-17) H 01/18/21 04:58 Creatinine 8.3 mg/dL (0.6-1.2) H 01/18/21 04:58 Estimated GFR 6 ml/min 01/18/21 04:58 BUN/Creatinine Ratio 7 % 01/18/21 04:58 Glucose 88 mg/dL (65-100) 01/18/21 04:58 Lactic Acid 1.00 mmol/L (0.7-2.0) 01/18/21 04:58 Calcium 8.1 mg/dL (8.4-10.2) L 01/18/21 04:58 Magnesium 2.20 mg/dL (1.7-2.3) 01/18/21 04:58 Total Bilirubin 0.30 mg/dL (0.1-1.2) 01/18/21 04:58 AST 12 units/L (5-40) 01/18/21 04:58 ALT 6 units/L (7-56) L 01/18/21 04:58 Alkaline Phosphatase 132 units/L (35-129) H 01/18/21 04:58 Total Creatine Kinase 42 units/L (30-135) 01/18/21 04:58 Troponin T 0.081 ng/mL (0.00-0.029) H 01/18/21 04:58 NT-Pro-B Natriuret Pep 11454 pg/mL (0-900) H 01/18/21 04:58 Total Protein 7.7 g/dL (6.3-8.2) 01/18/21 04:58 Albumin 3.2 g/dL (3.9-5) L 01/18/21 04:58 Albumin/Globulin Ratio 0.7 % 01/18/21 04:58 Triglycerides 57 mg/dL (2-149) 01/18/21 04:58 Cholesterol 149 mg/dL (50-199) 01/18/21 04:58 LDL Cholesterol Direct 53 mg/dL (50-130) 01/18/21 04:58 HDL Cholesterol 90 mg/dL (40-59) H 01/18/21 04:58 Cholesterol/HDL Ratio 1.65 % 01/18/21 04:58 Hepatitis A IgM Ab Non-reactive (NonReactive) 01/18/21 09:27 Hep Bs Antigen Non-reactive (Negative) 01/18/21 09:27 Hep B Core IgM Ab Non-reactive (NonReactive) 01/18/21 09:27 Hepatitis C Antibody Non-reactive (NonReactive) 01/18/21 09:27 Microbiology: Microbiology 01/18/21 04:58 Peripheral/Venous Blood Culture - Preliminary NO GROWTH AFTER 24 HOURS 01/18/21 04:49 Peripheral/Venous Blood Culture - Preliminary NO GROWTH AFTER 24 HOURS Active Medications - Current Medications Current Medications: Generic Name Dose Route Start Last Admin Trade Name Cruz PRN Reason Stop Dose Admin Allopurinol 100 mg 01/19/21 10:00 01/19/21 10:56 Allopurinol 100 Mg Tab PO 100 mg QDAY ELI Administration Apixaban 2.5 mg 01/18/21 22:00 01/19/21 10:56 Apixaban 2.5 Mg Tab PO 2.5 mg BID ELI Administration Azithromycin 500 mg 01/19/21 10:00 01/19/21 10:56 Azithromycin 250 Mg Tab PO 01/22/21 10:01 500 mg QDAY ELI Administration Protocol Carvedilol 25 mg 01/18/21 22:00 01/19/21 10:56 Carvedilol 25 Mg Tab PO 25 mg BID ELI Administration Cinacalcet 30 mg 01/19/21 10:00 01/19/21 10:56 Cinacalcet 30 Mg Tab PO 30 mg QDAY ELI Administration Clonidine HCl 0.3 mg 01/18/21 14:00 01/19/21 14:40 Clonidine 0.1 Mg Tab PO 0.3 mg Q8HR ELI Administration Guaifenesin 10 ml 01/19/21 05:17 01/19/21 14:40 Guaifenesin Dm 200/20 Mg Oral Liqd 10 Ml PO 10 ml Q4H PRN Administration Cough Hydralazine HCl 100 mg 01/18/21 14:00 01/19/21 14:40 Hydralazine 100 Mg Tab PO 100 mg TID ELI Administration Sodium Chloride 100 mls @ 999 mls/hr 01/18/21 08:00 Nacl 0.9% IV STEVIE PRN Hypotension Ceftriaxone Sodium 1 gm in 50 mls @ 100 mls/hr 01/19/21 10:00 01/19/21 11:00 Rocephin/Ns 1 Gm/50 Ml IV 01/23/21 10:29 100 mls/hr Q24H ELI Administration Protocol Isosorbide Dinitrate 20 mg 01/18/21 22:00 01/19/21 10:56 Isosorbide Dinitrate 20 Mg Tab PO 20 mg BID ELI Administration Morphine Sulfate 2 mg 01/18/21 17:38 Morphine 2 Mg/1 Ml Inj IV Q8H PRN Pain, Moderate (4-6) Oxycodone/Acetaminophen 1 tab 01/18/21 17:27 01/19/21 14:40 Oxycodone /Acetaminophen 5-325mg Tab PO 1 tab Q6H PRN Administration Pain, Moderate (4-6) Rifampin 300 mg 01/18/21 22:00 01/19/21 10:56 Rifampin 300 Mg Cap PO 300 mg BID ELI Administration
--- NOTE | 2021-01-19 16:45 | Progress Note ---
Assessment and Plan Assessment - End-stage renal disease on hemodialysis - Hypertension - Anemia of ESRD - Hyperparathyroidism - Leukocytosis Recommendations - Plan for HD tomorrow - Monitor labs and volume status daily and assess need for additional dialysis session - Leukocytosis w/u as per primary - Agree with antibiotics - Continue home antihypertensives - Hold antihypertensives on hemodialysis days for systolics less than 160 - Epogen with HD - Continue sensipar - Continue phosphorus binders - ESRD diet with 1.4 g/kg per day protein - Renally dose medication for creatinine clearance less than 15 cc/min Subjective Date of service: 01/19/21 Principal diagnosis: Shortness of breath Interval history: Feels better this morning. On 2 L oxygen Objective - Exam Narrative Exam: General: No acute distress HEENT: Oral mucosa moist Neck: Supple, no JVD Chest: Decreased bibasilar breath sounds Heart: RRR, S1 and S2, no pericardial rub Abdomen: Soft, nontender, no renal bruit Extremity: No peripheral cyanosis, b/l LE edema Neurological: Alert, awake, no asterixis Dermatology: No skin rash Psych: No agitation Musculoskeletal: No joint effusion - Vital Signs Vital signs: Vital Signs - 12hr 01/19/21 01/19/21 01/19/21 05:32 08:12 14:00 Temperature 98.2 F Pulse Rate 85 76 76 Respiratory 20 Rate Blood Pressure 133/84 112/69 O2 Sat by Pulse 97 Oximetry 01/19/21 16:04 Temperature 97.9 F Pulse Rate 70 Respiratory 20 Rate Blood Pressure 108/63 O2 Sat by Pulse 97 Oximetry - Lab 01/18/21 04:58 01/18/21 04:58 Most recent lab results Calcium 8.1 mg/dL (8.4-10.2) L 01/18/21 04:58 Magnesium 2.20 mg/dL (1.7-2.3) 01/18/21 04:58 Medications & Allergies - Medications Allergies/Adverse Reactions: Allergies No Known Allergies Allergy (Verified 01/18/21 04:31) Home Medications: Home Medications Medication Instructions Recorded Confirmed Last Taken Type rifAMPin [Rifadin] 300 mg PO BID 11/02/19 01/19/21 11/01/19 History levoFLOXacin [Levaquin TAB] 750 mg PO QDAY #3 tablet 04/24/20 01/19/21 Unknown Rx oxyCODONE /ACETAMINOPHEN [Percocet 1 tab PO Q8HR PRN #15 tablet 04/24/20 01/19/21 Unknown Rx 5/325 mg] Apixaban [Eliquis] 2.5 mg PO BID #60 tablet 11/16/20 01/19/21 Unknown Rx Cinacalcet HCl [Sensipar] 30 mg PO QDAY #60 11/16/20 01/19/21 Unknown Rx Isosorbide Dinitrate [Isordil] 20 mg PO BID #60 11/16/20 01/19/21 Unknown Rx Linaclotide [Linzess] 72 mg PO PRN PRN #10 cap 11/16/20 01/19/21 Unknown Rx Omeprazole 40 mg PO QDAY #30 11/16/20 01/19/21 Unknown Rx Temazepam [Restoril] 15 mg PO QHS #30 cap 11/16/20 01/19/21 Unknown Rx Vit B Complx C/Folic Acid/Zinc 0.8 mg PO QDAY #30 11/16/20 01/19/21 Unknown Rx [Dialyvite 800-Zinc 15 mg Tab] allopurinoL [Zyloprim] 100 mg PO QDAY #30 11/16/20 01/19/21 Unknown Rx carvediloL [Coreg] 25 mg PO BID #60 11/16/20 01/19/21 Unknown Rx cloNIDine [Catapres] 0.3 mg PO TID #90 tablet 11/16/20 01/19/21 Unknown Rx guaiFENesin DM [Guaifenesin Dm 10 ml PO Q4H PRN 10 Days oral.liqd 11/16/20 01/19/21 Unknown Rx Syrup] hydrALAZINE [Apresoline TAB] 100 mg PO TID #90 tab 11/16/20 01/19/21 Unknown Rx Active Medications: Generic Name Dose Route Start Last Admin Trade Name Freq PRN Reason Stop Dose Admin Allopurinol 100 mg 01/19/21 10:01/19/21 10:56 Allopurinol 100 Mg Tab PO 100 mg QDAY ELI Administration Apixaban 2.5 mg 01/18/21 22:00 01/19/21 10:56 Apixaban 2.5 Mg Tab PO 2.5 mg BID ELI Administration Azithromycin 500 mg 01/19/21 10:00 01/19/21 10:56 Azithromycin 250 Mg Tab PO 01/22/21 10:01 500 mg QDAY ELI Administration Protocol Carvedilol 25 mg 01/18/21 22:00 01/19/21 10:56 Carvedilol 25 Mg Tab PO 25 mg BID ELI Administration Cinacalcet 30 mg 01/19/21 10:00 01/19/21 10:56 Cinacalcet 30 Mg Tab PO 30 mg QDAY ELI Administration Clonidine HCl 0.3 mg 01/18/21 14:00 01/19/21 14:40 Clonidine 0.1 Mg Tab PO 0.3 mg Q8HR ELI Administration Guaifenesin 10 ml 01/19/21 05:17 01/19/21 14:40 Guaifenesin Dm 200/20 Mg Oral Liqd 10 Ml PO 10 ml Q4H PRN Administration Cough Hydralazine HCl 100 mg 01/18/21 14:00 01/19/21 14:40 Hydralazine 100 Mg Tab PO 100 mg TID ELI Administration Sodium Chloride 100 mls @ 999 mls/hr 01/18/21 08:00 Nacl 0.9% IV STEVIE PRN Hypotension Ceftriaxone Sodium 1 gm in 50 mls @ 100 mls/hr 01/19/21 10:00 01/19/21 11:00 Rocephin/Ns 1 Gm/50 Ml IV 01/23/21 10:29 100 mls/hr Q24H ELI Administration Protocol Isosorbide Dinitrate 20 mg 01/18/21 22:00 01/19/21 10:56 Isosorbide Dinitrate 20 Mg Tab PO 20 mg BID ELI Administration Morphine Sulfate 2 mg 01/18/21 17:38 Morphine 2 Mg/1 Ml Inj IV Q8H PRN Pain, Moderate (4-6) Oxycodone/Acetaminophen 1 tab 01/18/21 17:27 01/19/21 14:40 Oxycodone /Acetaminophen 5-325mg Tab PO 1 tab Q6H PRN Administration Pain, Moderate (4-6) Rifampin 300 mg 01/18/21 22:00 01/19/21 10:56 Rifampin 300 Mg Cap PO 300 mg BID ELI Administration
[2021-01-20] MEDS ORDERED: ONDANSETRON 4 MG/2 ML INJ IV ONE (00:36)
[2021-01-20] MEDS: cloNIDine 0.1 MG TAB PO SCH ×2 (07:23→13:47)
[2021-01-20 07:45] LABS: Basophils % (Auto) 0.5 % (0.0-1.8); Eosinophils # (Auto) 0.1 K/mm3 (0.0-0.4); Eosinophils % (Auto) 1.2 % (0.0-4.3); Hematocrit 22.9 % (30.3-42.9); Hemoglobin 7.4 gm/dl (10.1-14.3); Lymphocytes # (Auto) 0.7 K/mm3 (1.2-5.4); Lymphocytes % (Auto) 8.2 % (13.4-35.0); Mean Corpuscular HGB Conc 33 % (30-34); Mean Corpuscular Volume 96 fl (79-97); Monocytes # (Auto) 0.8 K/mm3 (0.0-0.8); Monocytes % (Auto) 9.4 % (0.0-7.3); Platelet Count 323 K/mm3 (140-440); Red Blood Count 2.38 M/mm3 (3.65-5.03); Red Cell Distribution Width 17.6 % (13.2-15.2)
[2021-01-20 08:03] LABS: Calcium 7.6 mg/dL (8.4-10.2)
[2021-01-20] MEDS: hydrALAZINE 100 MG TAB PO SCH ×3 (08:22→22:49)
[2021-01-20] MEDS: CINACALCET 30 MG TAB PO SCH (10:01)
[2021-01-20] MEDS: AZITHROMYCIN 250 MG TAB PO SCH (10:01)
[2021-01-20] MEDS: allopurinoL 100 MG TAB PO SCH (10:01)
[2021-01-20] MEDS: APIXABAN 2.5 MG TAB PO SCH ×2 (10:02→22:49)
[2021-01-20] MEDS: rifAMPin 300 MG CAP PO SCH ×2 (10:02→22:49)
[2021-01-20] MEDS: MIDODRINE 5 MG TAB PO SCH ×3 (10:03→15:15)
[2021-01-20] MEDS: cefTRIAXone/NS 1 GM/50 ML 1 GM/50 ML BAG IV SCH (10:03)
[2021-01-20] MEDS: carvediloL 25 MG TAB PO SCH ×2 (10:13→22:50)
[2021-01-20] MEDS: ISOSORBIDE DINITRATE 20 MG TAB PO SCH (10:13)
[2021-01-20] MEDS: MORPHINE 2 MG/1 ML INJ IV PRN ×2 (12:24→20:30)
--- NOTE | 2021-01-20 12:29 | Progress Note ---
Assessment and Plan Assessment and plan: --Hypertension; patient has been having some low blood pressures this morning With systolic blood pressures 90s diastolic 50 to 60s; unable to give fluid bolus due to ESRD Start midodrine 5 mg 3 times a day with significant improvement Closely monitor blood pressures --Brief episode of severe nausea vomiting this morning; Resolved with antiemetics and supportive care No nausea vomiting today --Acute respiratory distress; secondary to fluid overload Due to end-stage renal disease on hemodialysis HD per schedule, fluid restriction, low-sodium diet --End-stage renal disease on hemodialysis Nephrology evaluated the patient HD per schedule MWF , Procrit during dialysis --Leukocytosis; SIRS --Acute bronchitis/URI Empiric antibiotics Rocephin and Zithromax Follow cultures, cough medicine as needed --Anemia of ESRD; closely monitor H&H Procrit during dialysis, transfuse as needed --DVT prophylaxis; Lovenox We will closely monitor patient and adjust management as needed Plan of care reviewed with the patient and her nurse Nephrology consult and recommendations noted and appreciated DC planning per case management Confirmed with outpatient HD dialysis center and scheduled prior to DC Possible discharge in 1 to 2 days if stable Brief history; 55-year-old -[place] female patient with multiple medical problems was admitted through emergency room with worsening shortness of breath Cough, patient missed her dialysis and initial work-up is consistent with fluid overload, nephrology evaluated received hemodialysis with significant improvement Patient continues to have mild cough, brief episode of hypotension today, continue current management. Possible discharge home tomorrow if stable 01/19/2021; patient had an episode of nausea vomiting which resolved after antiemetics and supportive care Close monitoring, receiving hemodialysis tomorrow, patient may be discharged if stable after HD 01/20/2021; added midodrine to the regimen, with significant improvement of blood pressures, patient received HD today Continue current management, monitor blood pressures Disposition; discharge when medically stable and cleared by nephrology History Interval history: I have seen and examined the patient at the bedside Patient's chart and medications reviewed Complains of mild cough, concerned about the low blood pressures Vital signs noted Hospitalist Physical - Constitutional Vitals: Temp Pulse Resp BP Pulse Ox 98.8 F 111 H 18 78/55 100 01/20/21 08:12 01/20/21 08:12 01/20/21 08:12 01/20/21 08:12 01/20/21 08:12 General appearance: Present: no acute distress, well-nourished - EENT Eyes: Present: PERRL, EOM intact - Neck Neck: Present: supple, normal ROM - Respiratory Respiratory effort: normal Respiratory: bilateral: diminished, rhonchi, negative: rales, wheezing - Cardiovascular Rhythm: regular Heart Sounds: Present: S1 & S2 - Extremities Extremities: no ischemia, No edema - Abdominal General gastrointestinal: soft, non-tender, non-distended, normal bowel sounds - Integumentary Integumentary: Present: clear, warm - Psychiatric Psychiatric: appropriate mood/affect, cooperative - Neurologic Neurologic: moves all extremities HEART Score - HEART Score Troponin: Troponin T 0.081 ng/mL (0.00-0.029) H 01/18/21 04:58 Results - Labs CBC & Chem 7: 01/20/21 06:59 01/20/21 06:59 Labs: Laboratory Last Values WBC 9.0 K/mm3 (4.5-11.0) 01/20/21 06:59 RBC 2.38 M/mm3 (3.65-5.03) L 01/20/21 06:59 Hgb 7.4 gm/dl (10.1-14.3) L 01/20/21 06:59 Hct 22.9 % (30.3-42.9) L 01/20/21 06:59 MCV 96 fl (79-97) 01/20/21 06:59 MCH 31 pg (28-32) 01/20/21 06:59 MCHC 33 % (30-34) 01/20/21 06:59 RDW 17.6 % (13.2-15.2) H 01/20/21 06:59 Plt Count 323 K/mm3 (140-440) 01/20/21 06:59 Lymph % (Auto) 8.2 % (13.4-35.0) L 01/20/21 06:59 [place] % (Auto) 9.4 % (0.0-7.3) H 01/20/21 06:59 Eos % (Auto) 1.2 % (0.0-4.3) 01/20/21 06:59 Baso % (Auto) 0.5 % (0.0-1.8) 01/20/21 06:59 Lymph # (Auto) 0.7 K/mm3 (1.2-5.4) L 01/20/21 06:59 [place] # (Auto) 0.8 K/mm3 (0.0-0.8) 01/20/21 06:59 Eos # (Auto) 0.1 K/mm3 (0.0-0.4) 01/20/21 06:59 Baso # (Auto) 0.0 K/mm3 (0.0-0.1) 01/20/21 06:59 Seg Neutrophils % 80.7 % (40.0-70.0) H 01/20/21 06:59 Seg Neutrophils # 7.3 K/mm3 (1.8-7.7) 01/20/21 06:59 PT 15.8 Sec. (12.2-14.9) H 01/18/21 04:58 INR 1.26 (0.87-1.13) H 01/18/21 04:58 Sodium 140 mmol/L (137-145) 01/20/21 06:59 Potassium 4.2 mmol/L (3.6-5.0) 01/20/21 06:59 Chloride 98.8 mmol/L (98-107) 01/20/21 06:59 Carbon Dioxide 26 mmol/L (22-30) 01/20/21 06:59 Anion Gap 19 mmol/L 01/20/21 06:59 BUN 45 mg/dL (7-17) H 01/20/21 06:59 Creatinine 7.2 mg/dL (0.6-1.2) H 01/20/21 06:59 Estimated GFR 7 ml/min 01/20/21 06:59 BUN/Creatinine Ratio 6 % 01/20/21 06:59 Glucose 96 mg/dL (65-100) 01/20/21 06:59 Lactic Acid 1.00 mmol/L (0.7-2.0) 01/18/21 04:58 Calcium 7.6 mg/dL (8.4-10.2) L 01/20/21 06:59 Magnesium 2.20 mg/dL (1.7-2.3) 01/18/21 04:58 Total Bilirubin 0.30 mg/dL (0.1-1.2) 01/18/21 04:58 AST 12 units/L (5-40) 01/18/21 04:58 ALT 6 units/L (7-56) L 01/18/21 04:58 Alkaline Phosphatase 132 units/L (35-129) H 01/18/21 04:58 Total Creatine Kinase 42 units/L (30-135) 01/18/21 04:58 Troponin T 0.081 ng/mL (0.00-0.029) H 01/18/21 04:58 NT-Pro-B Natriuret Pep 33051 pg/mL (0-900) H 01/18/21 04:58 Total Protein 7.7 g/dL (6.3-8.2) 01/18/21 04:58 Albumin 3.2 g/dL (3.9-5) L 01/18/21 04:58 Albumin/Globulin Ratio 0.7 % 01/18/21 04:58 Triglycerides 57 mg/dL (2-149) 01/18/21 04:58 Cholesterol 149 mg/dL (50-199) 01/18/21 04:58 LDL Cholesterol Direct 53 mg/dL (50-130) 01/18/21 04:58 HDL Cholesterol 90 mg/dL (40-59) H 01/18/21 04:58 Cholesterol/HDL Ratio 1.65 % 01/18/21 04:58 Nasal Screen MRSA (PCR) Negative (Negative) 01/18/21 Unknown Hepatitis A IgM Ab Non-reactive (NonReactive) 01/18/21 09:27 Hep Bs Antigen Non-reactive (Negative) 01/18/21 09:27 Hep B Core IgM Ab Non-reactive (NonReactive) 01/18/21 09:27 Hepatitis C Antibody Non-reactive (NonReactive) 01/18/21 09:27 Microbiology: Microbiology 01/18/21 04:58 Peripheral/Venous Blood Culture - Preliminary NO GROWTH AFTER 48 HOURS 01/18/21 04:49 Peripheral/Venous Blood Culture - Preliminary NO GROWTH AFTER 48 HOURS [place]/IV: Voiding Method Toilet Active Medications - Current Medications Current Medications: Generic Name Dose Route Start Last Admin Trade Name Freq PRN Reason Stop Dose Admin Allopurinol 100 mg 01/19/21 10:00 01/20/21 10:01 Allopurinol 100 Mg Tab PO 100 mg QDAY ELI Administration Apixaban 2.5 mg 01/18/21 22:00 01/20/21 10:02 Apixaban 2.5 Mg Tab PO 2.5 mg BID ELI Administration Azithromycin 500 mg 01/19/21 10:00 01/20/21 10:01 Azithromycin 250 Mg Tab PO 01/22/21 10:01 500 mg QDAY ELI Administration Protocol Carvedilol 25 mg 01/18/21 22:00 01/20/21 10:13 Carvedilol 25 Mg Tab PO Not Given BID ELI Cinacalcet 30 mg 01/19/21 10:00 01/20/21 10:01 Cinacalcet 30 Mg Tab PO 30 mg QDAY ELI Administration Clonidine HCl 0.3 mg 01/18/21 14:00 01/20/21 07:23 Clonidine 0.1 Mg Tab PO Not Given Q8HR ELI Guaifenesin 10 ml 01/19/21 05:17 01/19/21 23:53 Guaifenesin Dm 200/20 Mg Oral Liqd 10 Ml PO 10 ml Q4H PRN Administration Cough Hydralazine HCl 100 mg 01/18/21 14:00 01/20/21 08:22 Hydralazine 100 Mg Tab PO Not Given TID ELI Sodium Chloride 100 mls @ 999 mls/hr 01/18/21 08:00 Nacl 0.9% IV STEVIE PRN Hypotension Ceftriaxone Sodium 1 gm in 50 mls @ 100 mls/hr 01/19/21 10:00 01/20/21 10:03 Rocephin/Ns 1 Gm/50 Ml IV 01/23/21 10:29 100 mls/hr Q24H ELI Administration Protocol Isosorbide Dinitrate 20 mg 01/18/21 22:00 01/20/21 10:13 Isosorbide Dinitrate 20 Mg Tab PO Not Given BID ELI Midodrine 5 mg 01/20/21 09:30 01/20/21 10:03 Midodrine 5 Mg Tab PO 5 mg TID@0800,1200,1600 ELI Administration Morphine Sulfate 2 mg 01/18/21 17:38 01/20/21 12:24 Morphine 2 Mg/1 Ml Inj IV 2 mg Q8H PRN Administration Pain, Moderate (4-6) Oxycodone/Acetaminophen 1 tab 01/18/21 17:27 01/19/21 21:37 Oxycodone /Acetaminophen 5-325mg Tab PO 1 tab Q6H PRN Administration Pain, Moderate (4-6) Rifampin 300 mg 01/18/21 22:00 01/20/21 10:02 Rifampin 300 Mg Cap PO 300 mg BID ELI Administration
[2021-01-20] MEDS: oxyCODONE /ACETAMINOPHEN 5-325MG TAB PO PRN (13:51)
--- NOTE | 2021-01-20 14:59 | Progress Note ---
Assessment and Plan Assessment - End-stage renal disease on hemodialysis. Followed by Dr. Klaudia Soler in [place] outpatient on MWF schedule - Hypertension - Anemia of ESRD - Hyperparathyroidism - Leukocytosis - Pneumonia - Acute and chronic respiratory failure, on 2 L of oxygen at home - Substernal chest pain, tender to touch. Appears to be muscular in nature Recommendations - Plan for HD today, continue TTS - Monitor labs and volume status daily and assess need for additional dialysis session - Leukocytosis w/u as per primary - Agree with antibiotics - Recheck trop - Continue home antihypertensives - Hold antihypertensives on hemodialysis days for systolics less than 160 - Epogen with HD - Continue sensipar - Continue phosphorus binders - ESRD diet with 1.4 g/kg per day protein - Renally dose medication for creatinine clearance less than 15 cc/min Subjective Date of service: 01/20/21 Principal diagnosis: Shortness of breath Interval history: Sitting up in bed. Experiencing substernal pain, tender to touch. On 2.5 L oxygen Objective - Exam Narrative Exam: General: No acute distress HEENT: Oral mucosa moist Neck: Supple, no JVD Chest: Decreased bibasilar breath sounds Heart: RRR, S1 and S2, no pericardial rub Abdomen: Soft, nontender, no renal bruit Extremity: No peripheral cyanosis, b/l LE trace edema Neurological: Alert, awake, no asterixis Dermatology: No skin rash Psych: No agitation Musculoskeletal: No joint effusion - Vital Signs Vital signs: Vital Signs - 12hr 01/20/21 01/20/21 01/20/21 03:18 08:12 12:14 Temperature 98.2 F 98.8 F 97.3 F L Pulse Rate 126 H 111 H 60 Respiratory 18 18 18 Rate Blood Pressure 94/62 78/55 108/60 O2 Sat by Pulse 97 100 100 Oximetry - Lab 01/20/21 06:59 01/20/21 06:59 Most recent lab results Calcium 7.6 mg/dL (8.4-10.2) L 01/20/21 06:59 Magnesium 2.20 mg/dL (1.7-2.3) 01/18/21 04:58 Medications & Allergies - Medications Allergies/Adverse Reactions: Allergies No Known Allergies Allergy (Verified 01/18/21 04:31) Home Medications: Home Medications Medication Instructions Recorded Confirmed Last Taken Type rifAMPin [Rifadin] 300 mg PO BID 11/02/19 01/19/21 11/01/19 History levoFLOXacin [Levaquin TAB] 750 mg PO QDAY #3 tablet 04/24/20 01/19/21 Unknown Rx oxyCODONE /ACETAMINOPHEN [Percocet 1 tab PO Q8HR PRN #15 tablet 04/24/20 01/19/21 Unknown Rx 5/325 mg] Apixaban [Eliquis] 2.5 mg PO BID #60 tablet 11/16/20 01/19/21 Unknown Rx Cinacalcet HCl [Sensipar] 30 mg PO QDAY #60 11/16/20 01/19/21 Unknown Rx Isosorbide Dinitrate [Isordil] 20 mg PO BID #60 11/16/20 01/19/21 Unknown Rx Linaclotide [Linzess] 72 mg PO PRN PRN #10 cap 11/16/20 01/19/21 Unknown Rx Omeprazole 40 mg PO QDAY #30 11/16/20 01/19/21 Unknown Rx Temazepam [Restoril] 15 mg PO QHS #30 cap 11/16/20 01/19/21 Unknown Rx Vit B Complx C/Folic Acid/Zinc 0.8 mg PO QDAY #30 11/16/20 01/19/21 Unknown Rx [Dialyvite 800-Zinc 15 mg Tab] allopurinoL [Zyloprim] 100 mg PO QDAY #30 11/16/20 01/19/21 Unknown Rx carvediloL [Coreg] 25 mg PO BID #60 11/16/20 01/19/21 Unknown Rx cloNIDine [Catapres] 0.3 mg PO TID #90 tablet 11/16/20 01/19/21 Unknown Rx guaiFENesin DM [Guaifenesin Dm 10 ml PO Q4H PRN 10 Days oral.liqd 11/16/20 01/19/21 Unknown Rx Syrup] hydrALAZINE [Apresoline TAB] 100 mg PO TID #90 tab 11/16/20 01/19/21 Unknown Rx Active Medications: Generic Name Dose Route Start Last Admin Trade Name Freq PRN Reason Stop Dose Admin Allopurinol 100 mg 01/19/21 10:00 01/20/21 10:01 Allopurinol 100 Mg Tab PO 100 mg QDAY ELI Administration Apixaban 2.5 mg 01/18/21 22:00 01/20/21 10:02 Apixaban 2.5 Mg Tab PO 2.5 mg BID ELI Administration Azithromycin 500 mg 01/19/21 10:00 01/20/21 10:01 Azithromycin 250 Mg Tab PO 01/22/21 10:01 500 mg QDAY ELI Administration Protocol Carvedilol 25 mg 01/18/21 22:00 01/20/21 10:13 Carvedilol 25 Mg Tab PO Not Given BID ELI Cinacalcet 30 mg 01/19/21 10:00 01/20/21 10:01 Cinacalcet 30 Mg Tab PO 30 mg QDAY ELI Administration Clonidine HCl 0.3 mg 01/18/21 14:00 01/20/21 13:47 Clonidine 0.1 Mg Tab PO Not Given Q8HR ELI Guaifenesin 10 ml 01/19/21 05:17 01/19/21 23:53 Guaifenesin Dm 200/20 Mg Oral Liqd 10 Ml PO 10 ml Q4H PRN Administration Cough Hydralazine HCl 100 mg 01/18/21 14:00 01/20/21 13:47 Hydralazine 100 Mg Tab PO Not Given TID ELI Sodium Chloride 100 mls @ 999 mls/hr 01/18/21 08:00 Nacl 0.9% IV STEVIE PRN Hypotension Ceftriaxone Sodium 1 gm in 50 mls @ 100 mls/hr 01/19/21 10:00 01/20/21 10:03 Rocephin/Ns 1 Gm/50 Ml IV 01/23/21 10:29 100 mls/hr Q24H ELI Administration Protocol Isosorbide Dinitrate 20 mg 01/18/21 22:00 01/20/21 10:13 Isosorbide Dinitrate 20 Mg Tab PO Not Given BID ELI Midodrine 5 mg 01/20/21 09:30 01/20/21 12:33 Midodrine 5 Mg Tab PO 5 mg TID@0800,1200,1600 ELI Administration Morphine Sulfate 2 mg 01/18/21 17:38 01/20/21 12:24 Morphine 2 Mg/1 Ml Inj IV 2 mg Q8H PRN Administration Pain, Moderate (4-6) Oxycodone/Acetaminophen 1 tab 01/18/21 17:27 06/03/21 13:51 Oxycodone /Acetaminophen 5-325mg Tab PO 1 tab Q6H PRN Administration Pain, Moderate (4-6) Rifampin 300 mg 01/18/21 22:00 01/20/21 10:02 Rifampin 300 Mg Cap PO 300 mg BID ELI Administration
[2021-01-20] MEDS: EPOETIN ALFA-EPBX 10,000 UNIT/1 ML VIAL IV PRN (17:00)
--- NOTE | 2021-01-20 17:16 | Event Note ---
Date: 01/20/21 I called patient's daughter Ms. Bean Laura x2 times to discuss about patient's condition and treatment plan And to discuss if they have any questions or concerns regarding the patient care, did not pharmacy picking technician the phone Mailbox is full unable to leave any message. I informed patient's nurse of my attempt to call the family. I will try one more time after half an hour and try to contact the family.
[2021-01-20] MEDS: guaiFENesin DM 200/20 MG ORAL LIQD 10 ML PO PRN (20:30)
[2021-01-20] MEDS: guaiFENesin ER 600 MG TAB PO SCH (22:49)
[2021-01-20] MEDS: ZOLPIDEM 5 MG TAB PO PRN (22:49)
[2021-01-20] MEDS: ONDANSETRON 4 MG/2 ML INJ IV PRN (22:53)
[2021-01-21] MEDS: oxyCODONE /ACETAMINOPHEN 5-325MG TAB PO PRN ×3 (00:19→20:34)
[2021-01-21] MEDS: ISOSORBIDE DINITRATE 20 MG TAB PO SCH ×3 (00:20→22:01)
[2021-01-21] MEDS: cloNIDine 0.1 MG TAB PO SCH ×4 (00:21→22:00)
[2021-01-21] MEDS: guaiFENesin DM 200/20 MG ORAL LIQD 10 ML PO PRN ×3 (05:57→20:33)
[2021-01-21] MEDS: MORPHINE 2 MG/1 ML INJ IV PRN ×2 (05:59→13:29)
[2021-01-21] MEDS: hydrALAZINE 100 MG TAB PO SCH ×3 (08:30→21:59)
[2021-01-21] MEDS: MIDODRINE 5 MG TAB PO SCH ×3 (08:31→16:27)
[2021-01-21] MEDS: carvediloL 25 MG TAB PO SCH ×2 (08:32→22:00)
[2021-01-21] MEDS: CINACALCET 30 MG TAB PO SCH (09:35)
[2021-01-21] MEDS: cefTRIAXone/NS 1 GM/50 ML 1 GM/50 ML BAG IV SCH (09:35)
[2021-01-21] MEDS: guaiFENesin ER 600 MG TAB PO SCH ×2 (09:35→22:03)
[2021-01-21] MEDS: AZITHROMYCIN 250 MG TAB PO SCH (09:35)
[2021-01-21] MEDS: allopurinoL 100 MG TAB PO SCH (09:36)
[2021-01-21] MEDS: APIXABAN 2.5 MG TAB PO SCH ×2 (09:36→22:03)
[2021-01-21] MEDS: rifAMPin 300 MG CAP PO SCH ×2 (10:09→22:04)
--- NOTE | 2021-01-21 12:36 | Progress Note ---
Assessment and Plan Assessment - End-stage renal disease on hemodialysis. Followed by Dr. Klaudia Soler in [place] outpatient on MW schedule - Hypertension - Anemia of ESRD - Hyperparathyroidism - Leukocytosis - Pneumonia - Acute and chronic respiratory failure, on 2 L of oxygen at home - Substernal chest pain, tender to touch. Appears to be muscular in nature Recommendations -Patient had uneventful hemodialysis yesterday. Continue dialysis on [facility] - Monitor labs and volume status daily and assess need for additional dialysis session - Leukocytosis w/u as per primary - Agree with antibiotics - Continue home antihypertensives - Hold antihypertensives on hemodialysis days for systolics less than 160 - Epogen with HD - Continue sensipar - Continue phosphorus binders - ESRD diet with 1.4 g/kg per day protein - Renally dose medication for creatinine clearance less than 15 cc/min Subjective Date of service: 01/21/21 Principal diagnosis: Shortness of breath Interval history: Patient is comfortable today. Shortness of breath is better. She is currently on oxygen supplementation via nasal cannula at 2.5 L. Uneventful hemodialysis yesterday. Objective - Vital Signs Vital signs: Vital Signs - 12hr 01/21/21 01/21/21 01/21/21 02:00 05:57 08:07 Temperature 98.7 F Pulse Rate 87 87 82 Respiratory 18 Rate Blood Pressure 132/77 133/77 O2 Sat by Pulse 100 Oximetry 01/21/21 01/21/21 01/21/21 08:32 09:49 10:00 Temperature Pulse Rate 87 87 Respiratory 14 20 Rate Blood Pressure 133/77 133/77 O2 Sat by Pulse 98 Oximetry - General Appearance General appearance: well-developed, well-nourished, appears stated age EENT: PERRL, mucous membranes moist Neck: no JVD, no thyromegaly, no carotid bruit, supple, other (IJ PermCath in place) Respiratory: Present: Rales (Crackles right base) Cardiology: regular, normal heart rate Gastrointestinal: other (No edema) - Lab 01/20/21 06:59 01/20/21 06:59 Most recent lab results Calcium 7.6 mg/dL (8.4-10.2) L 01/20/21 06:59 Magnesium 2.20 mg/dL (1.7-2.3) 01/18/21 04:58 Medications & Allergies - Medications Allergies/Adverse Reactions: Allergies No Known Allergies Allergy (Verified 01/18/21 04:31) Home Medications: Home Medications Medication Instructions Recorded Confirmed Last Taken Type rifAMPin [Rifadin] 300 mg PO BID 11/02/19 01/19/21 11/01/19 History levoFLOXacin [Levaquin TAB] 750 mg PO QDAY #3 tablet 04/24/20 01/19/21 Unknown Rx oxyCODONE /ACETAMINOPHEN [Percocet 1 tab PO Q8HR PRN #15 tablet 04/24/20 01/19/21 Unknown Rx 5/325 mg] Apixaban [Eliquis] 2.5 mg PO BID #60 tablet 11/16/20 01/19/21 Unknown Rx Cinacalcet HCl [Sensipar] 30 mg PO QDAY #60 11/16/20 01/19/21 Unknown Rx Isosorbide Dinitrate [Isordil] 20 mg PO BID #60 11/16/20 01/19/21 Unknown Rx Linaclotide [Linzess] 72 mg PO PRN PRN #10 cap 11/16/20 01/19/21 Unknown Rx Omeprazole 40 mg PO QDAY #30 11/16/20 01/19/21 Unknown Rx Temazepam [Restoril] 15 mg PO QHS #30 cap 11/16/20 01/19/21 Unknown Rx Vit B Complx C/Folic Acid/Zinc 0.8 mg PO QDAY #30 11/16/20 01/19/21 Unknown Rx [Dialyvite 800-Zinc 15 mg Tab] allopurinoL [Zyloprim] 100 mg PO QDAY #30 11/16/20 01/19/21 Unknown Rx carvediloL [Coreg] 25 mg PO BID #60 11/16/20 01/19/21 Unknown Rx cloNIDine [Catapres] 0.3 mg PO TID #90 tablet 11/16/20 01/19/21 Unknown Rx guaiFENesin DM [Guaifenesin Dm 10 ml PO Q4H PRN 10 Days oral.liqd 11/16/20 01/19/21 Unknown Rx Syrup] hydrALAZINE [Apresoline TAB] 100 mg PO TID #90 tab 11/16/20 01/19/21 Unknown Rx Active Medications: Generic Name Dose Route Start Last Admin Trade Name Freq PRN Reason Stop Dose Admin Allopurinol 100 mg 01/19/21 10:00 01/21/21 09:36 Allopurinol 100 Mg Tab PO 100 mg QDAY ELI Administration Apixaban 2.5 mg 01/18/21 22:00 01/21/21 09:36 Apixaban 2.5 Mg Tab PO 2.5 mg BID ELI Administration Azithromycin 500 mg 01/19/21 10:00 01/21/21 09:35 Azithromycin 250 Mg Tab PO 01/22/21 10:01 500 mg QDAY ELI Administration Protocol Carvedilol 25 mg 01/18/21 22:00 01/21/21 08:32 Carvedilol 25 Mg Tab PO Not Given BID ELI Cinacalcet 30 mg 01/19/21 10:00 01/21/21 09:35 Cinacalcet 30 Mg Tab PO 30 mg QDAY ELI Administration Clonidine HCl 0.3 mg 01/18/21 14:00 01/21/21 05:57 Clonidine 0.1 Mg Tab PO 0.3 mg Q8HR ELI Administration Guaifenesin 10 ml 01/19/21 05:17 01/21/21 09:49 Guaifenesin Dm 200/20 Mg Oral Liqd 10 Ml PO 10 ml Q4H PRN Administration Cough Guaifenesin 600 mg 01/20/21 22:00 01/21/21 09:35 Guaifenesin Er 600 Mg Tab PO 600 mg BID ELI Administration Hydralazine HCl 100 mg 01/18/21 14:00 01/21/21 08:30 Hydralazine 100 Mg Tab PO Not Given TID ELI Sodium Chloride 100 mls @ 999 mls/hr 01/18/21 08:00 Nacl 0.9% IV STEVIE PRN Hypotension Ceftriaxone Sodium 1 gm in 50 mls @ 100 mls/hr 01/19/21 10:00 01/21/21 09:35 Rocephin/Ns 1 Gm/50 Ml IV 01/23/21 10:29 100 mls/hr Q24H ELI Administration Protocol Isosorbide Dinitrate 20 mg 01/18/21 22:00 01/21/21 10:00 Isosorbide Dinitrate 20 Mg Tab PO Not Given BID ELI Midodrine 5 mg 01/20/21 09:30 01/21/21 08:31 Midodrine 5 Mg Tab PO Not Given TID@0800,1200,1600 [facility] Morphine Sulfate 2 mg 01/18/21 17:38 01/21/21 05:59 Morphine 2 Mg/1 Ml Inj IV 2 mg Q8H PRN Administration Pain, Moderate (4-6) Ondansetron HCl 4 mg 01/20/21 22:43 01/20/21 22:53 Ondansetron 4 Mg/2 Ml Inj IV 4 mg Q8H PRN Administration Nausea And Vomiting Oxycodone/Acetaminophen 1 tab 01/18/21 17:27 01/21/21 09:49 Oxycodone /Acetaminophen 5-325mg Tab PO 1 tab Q6H PRN Administration Pain, Moderate (4-6) Rifampin 300 mg 01/18/21 22:00 01/21/21 10:09 Rifampin 300 Mg Cap PO 300 mg BID ELI Administration Zolpidem Tartrate 5 mg 01/20/21 20:21 01/20/21 22:49 Zolpidem 5 Mg Tab PO 5 mg QHS PRN Administration Sleep
--- NOTE | 2021-01-21 13:10 | Progress Note ---
Assessment and Plan ssessment and plan: --Hypertension; patient has been having some low blood pressures this morning With systolic blood pressures 90s diastolic 50 to 60s; unable to give fluid bolus due to ESRD Patient required midodrine over the last night for hypotension. Currently blood pressure stable systolic 1 30-1 35. Will discontinue midodrine and hold blood pressure medicines for now patient to receive hemodialysis again today. --Brief episode of severe nausea vomiting this morning; Resolved with antiemetics and supportive care No nausea vomiting today. Much better with antiemetics. Patient now concerned about pneumonia. --Acute respiratory distress; secondary to fluid overload Due to end-stage renal disease on hemodialysis HD per schedule, fluid restriction, low-sodium diet Patient was told she had pneumonia. Will start patient on nebulizer treatments follow-up chest x-ray to reevaluate pneumonia. --End-stage renal disease on hemodialysis Nephrology evaluated the patient HD per schedule MWF , Procrit during dialysis --Leukocytosis; SIRS --Acute bronchitis/URI Empiric antibiotics Rocephin and Zithromax Follow cultures, cough medicine as needed --Anemia of ESRD; closely monitor H&H Procrit during dialysis, transfuse as needed --DVT prophylaxis; Lovenox Subjective Date of service: 01/21/21 Principal diagnosis: Shortness of breath Interval history: 55-year-old -German female patient with significant past medical history of esophageal cancer s/p resection, with stent placement, hypertension, end-stage renal disease on hemodialysis, chronic pain syndrome presented to the emergency room with worsening shortness of breath cough chest tightness and generalized weakness of 3 to 4 days duration. Patient has had dialysis MWF her last diagnosis was on Sunday 4 days ago Patient missed 1 dialysis, patient pro BNP is 78,000 Patient denies any chest pain or palpitation, complains of shortness of breath and cough productive No history of fever, patient reports that she felt sick and was admitted briefly at [facility]. Denies headache dizziness weakness or numbness Patient has 2 L of nasal cannula home oxygen. Patient denies any history of COVID-19 infection or close contacts with infected people Patient reports that she has finished vaccination series recently Patient missed dialysis because she states she felt sick. More shortness of breath and productive cough. Thought she had pneumonia. Patient states she feels better today via oxygenation. No further nausea vomiting at this time. Feels better but not quite at baseline. Currently on 2 L now and at home. Objective - Constitutional Vitals: Vital Signs - 12hr 01/21/21 01/21/21 01/21/21 02:00 05:57 08:07 Temperature 98.7 F Pulse Rate 87 87 82 Respiratory 18 Rate Blood Pressure 132/77 133/77 O2 Sat by Pulse 100 Oximetry 01/21/21 01/21/21 01/21/21 08:32 09:49 10:00 Temperature Pulse Rate 87 87 Respiratory 14 20 Rate Blood Pressure 133/77 133/77 O2 Sat by Pulse 98 Oximetry 01/21/21 11:45 Temperature 98.7 F Pulse Rate 71 Respiratory 18 Rate Blood Pressure 104/67 O2 Sat by Pulse 99 Oximetry General appearance: Present: no acute distress, cachectic - EENT Eyes: PERRL, EOM intact ENT: hearing intact - Neck Neck: supple, no enlarged thyroid, no masses or JVD - Respiratory Respiratory: bilateral: diminished (Decreased breath sounds bilaterally), negative: wheezing (Wheezing) - Cardiovascular Rhythm: regular Extremities: pulses intact, No edema, normal color, Full ROM - Musculoskeletal Musculoskeletal: generalized weakness - Neurologic Neurologic: moves all extremities - Psychiatric Psychiatric: memory intact, appropriate mood/affect, intact judgment & insight - Labs CBC & Chem 7: 01/20/21 06:59 01/20/21 06:59 Labs: Abnormal lab results 01/20/21 Range/Units 15:08 Troponin T 0.094 H (0.00-0.029) ng/mL HEART Score - HEART Score Troponin: Troponin T 0.094 ng/mL (0.00-0.029) H 01/20/21 15:08
[2021-01-21] MEDS: ALBUTEROL 2.5 MG/3 ML NEBU IH SCH ×2 (14:39→19:48)
--- NOTE | 2021-01-21 14:50 | XRay Report ---
CHEST - 1 VIEW INDICATION: sob COMPARISON: 01/18/2021 FINDINGS: Support devices: Table positioning of the right permacath Heart: Stable moderate cardiomegaly Lungs/pleura: Stable mild pulmonary venous congestion and small right pleural effusion. No pneumotho rax. Additional findings: None. IMPRESSION: No significant interval change in mild CHF. Signer Name: Rashel Fierro Jr, MD Signed: 01/21/2021 2:46 PM Workstation Name: [id number]
[2021-01-21] MEDS: ONDANSETRON 4 MG/2 ML INJ IV PRN (17:27)
[2021-01-21] MEDS: ZOLPIDEM 5 MG TAB PO PRN (22:03)
[2021-01-22] MEDS: ONDANSETRON 4 MG/2 ML INJ IV PRN ×3 (00:51→17:47)
[2021-01-22] MEDS: MORPHINE 2 MG/1 ML INJ IV PRN ×3 (00:57→21:45)
[2021-01-22] MEDS: cloNIDine 0.1 MG TAB PO SCH ×3 (05:15→21:45)
[2021-01-22] MEDS: ALBUTEROL 2.5 MG/3 ML NEBU IH SCH ×3 (07:32→21:37)
[2021-01-22] MEDS: MIDODRINE 5 MG TAB PO SCH ×2 (08:23→13:06)
[2021-01-22] MEDS: oxyCODONE /ACETAMINOPHEN 5-325MG TAB PO PRN ×2 (08:23→17:47)
[2021-01-22] MEDS: CINACALCET 30 MG TAB PO SCH (09:06)
[2021-01-22] MEDS: guaiFENesin DM 200/20 MG ORAL LIQD 10 ML PO PRN (09:06)
[2021-01-22] MEDS: allopurinoL 100 MG TAB PO SCH (09:06)
[2021-01-22] MEDS: AZITHROMYCIN 250 MG TAB PO SCH (09:07)
[2021-01-22] MEDS: cefTRIAXone/NS 1 GM/50 ML 1 GM/50 ML BAG IV SCH (09:07)
[2021-01-22] MEDS: APIXABAN 2.5 MG TAB PO SCH ×2 (09:07→21:42)
[2021-01-22] MEDS: hydrALAZINE 100 MG TAB PO SCH ×2 (11:11→14:00)
[2021-01-22] MEDS: carvediloL 25 MG TAB PO SCH ×3 (11:11→21:44)
[2021-01-22] MEDS: ISOSORBIDE DINITRATE 20 MG TAB PO SCH ×2 (11:12→21:43)
--- NOTE | 2021-01-22 11:19 | Progress Note ---
Assessment and Plan ssessment and plan: --Hypertension; patient has been having some low blood pressures this morning With systolic blood pressures 90s diastolic 50 to 60s; unable to give fluid bolus due to ESRD Patient required midodrine over the last night for hypotension. Currently blood pressure stable systolic 1 30-1 35. Will discontinue midodrine and hold blood pressure medicines for now patient to receive hemodialysis again today. --Brief episode of severe nausea vomiting this morning; Resolved with antiemetics and supportive care No nausea vomiting today. Much better with antiemetics. Patient now concerned about pneumonia. --Acute respiratory distress; secondary to fluid overload Due to end-stage renal disease on hemodialysis HD per schedule, fluid restriction, low-sodium diet Patient was told she had pneumonia. Will start patient on nebulizer treatments follow-up chest x-ray to reevaluate pneumonia. Ruled out for pneumonia with negative chest x-ray. Continue nebulizers has done well with nebulizers stable for transfer discharge a.m. --End-stage renal disease on hemodialysis Nephrology evaluated the patient HD per schedule MWF , Procrit during dialysis --Leukocytosis; SIRS --Acute bronchitis/URI Empiric antibiotics Rocephin and Zithromax Follow cultures, cough medicine as needed --Anemia of ESRD; closely monitor H&H Procrit during dialysis, transfuse as needed --DVT prophylaxis; Lovenox Subjective Date of service: 01/22/21 Principal diagnosis: Shortness of breath Interval history: 55-year-old -[place] female patient with significant past medical history of esophageal cancer s/p resection, with stent placement, hypertension, end-stage renal disease on hemodialysis, chronic pain syndrome presented to the emergency room with worsening shortness of breath cough chest tightness and generalized weakness of 3 to 4 days duration. Patient has had dialysis MWF her last diagnosis was on Sunday 4 days ago Patient missed 1 dialysis, patient pro BNP is 78,000 Patient denies any chest pain or palpitation, complains of shortness of breath and cough productive No history of fever, patient reports that she felt sick and was admitted briefly at [facility]. Denies headache dizziness weakness or numbness Patient has 2 L of nasal cannula home oxygen. Patient denies any history of COVID-19 infection or close contacts with infected people Patient reports that she has finished vaccination series recently Patient missed dialysis because she states she felt sick. More shortness of mikayla ath and productive cough. Thought she had pneumonia. Patient states she feels better today via oxygenation. No further nausea vomiting at this time. Feels better but not quite at baseline. Currently on 2 L now and at home. Patient much less coughing. Breathing better. Should do better with h emodialysis today. Will discharge after hemodialysis. No further nausea vomiting. Patient is currently on home O2 2 L. Objective - Constitutional Vitals: Vital Signs - 12hr 01/22/21 01/22/21 01/22/21 00:02 02:00 04:20 Temperature 98.6 F 98.0 F Pulse Rate 75 76 78 Respiratory 18 18 Rate Blood Pressure 135/74 150/83 O2 Sat by Pulse 98 100 Oximetry 01/22/21 01/22/21 01/22/21 05:15 07:49 09:55 Temperature 97.6 F Pulse Rate 78 76 125 H Respiratory 20 Rate Blood Pressure 150/83 158/84 158/88 O2 Sat by Pulse 98 Oximetry 01/22/21 01/22/21 01/22/21 10:00 10:15 10:30 Temperature Pulse Rate 120 H 119 H 117 H Respiratory Rate Blood Pressure 152/52 127/83 128/81 O2 Sat by Pulse Oximetry 01/22/21 10:34 Temperature 98.8 F Pulse Rate 123 H Respiratory 20 Rate Blood Pressure 165/87 O2 Sat by Pulse Oximetry General appearance: Present: no acute distress, well-nourished - EENT Eyes: PERRL, EOM intact ENT: hearing intact, clear oral mucosa Ears: bilateral: normal - Neck Neck: supple, normal ROM - Respiratory Respiratory effort: normal Respiratory: bilateral: CTA - Breasts Breasts: normal - Cardiovascular Rhythm: regular Heart Sounds: Present: S1 & S2. Absent: gallop, rub Extremities: pulses intact, No edema, normal color, Full ROM - Gastrointestinal General gastrointestinal: Present: soft, non-tender, non-distended, normal bowel sounds - Genitourinary Female genitourinary: normal - Integumentary Integumentary: clear, warm, dry - Musculoskeletal Musculoskeletal: 1, strength equal bilaterally - Neurologic Neurologic: moves all extremities - Psychiatric Psychiatric: memory intact, appropriate mood/affect, intact judgment & insight - Labs CBC & Chem 7: 01/20/21 06:59 01/20/21 06:59 HEART Score - HEART Score Troponin: Troponin T 0.094 ng/mL (0.00-0.029) H 01/20/21 15:08
[2021-01-22] MEDS: EPOETIN ALFA-EPBX 10,000 UNIT/1 ML VIAL IV PRN (11:46)
--- NOTE | 2021-01-22 12:14 | Progress Note ---
Assessment and Plan Assessment - End-stage renal disease on hemodialysis. Followed by Dr. Klaudia Soler in [place] outpatient on MWF schedule - Hypertension - Anemia of ESRD - Hyperparathyroidism - Leukocytosis - Pneumonia - Acute and chronic respiratory failure, on 2 L of oxygen at home - Substernal chest pain, tender to touch. Appears to be muscular in nature Recommendations -Patient is currently undergoing dialysis. -She is however getting tachycardic. Clinically does not appear to be volume overloaded. Ultrafiltration stopped. -She however still has some crackles at the right base. Shall repeat a chest x- ray. - Monitor labs and volume status daily and assess need for additional dialysis session - Leukocytosis w/u as per primary - Agree with antibiotics - Continue home antihypertensives - Hold antihypertensives on hemodialysis days for systolics less than 160 - Epogen with HD - Continue sensipar - Continue phosphorus binders - ESRD diet with 1.4 g/kg per day protein - Renally dose medication for creatinine clearance less than 15 cc/min Subjective Date of service: 01/22/21 Principal diagnosis: Shortness of breath Interval history: Patient is currently undergoing dialysis. Heart rate noted to be elevated. Ultrafiltration being discontinued Objective - Vital Signs Vital signs: Vital Signs - 12hr 01/22/21 01/22/21 01/22/21 02:00 04:20 05:15 Temperature 98.0 F Pulse Rate 76 78 78 Respiratory 18 Rate Blood Pressure 150/83 150/83 O2 Sat by Pulse 100 Oximetry 01/22/21 01/22/21 01/22/21 07:49 09:55 10:00 Temperature 97.6 F Pulse Rate 76 125 H 120 H Respiratory 20 18 Rate Blood Pressure 158/84 158/88 152/52 O2 Sat by Pulse 98 97 Oximetry 01/22/21 01/22/21 01/22/21 10:15 10:30 10:34 Temperature 98.8 F Pulse Rate 119 H 117 H 123 H Respiratory 20 Rate Blood Pressure 127/83 128/81 165/87 O2 Sat by Pulse Oximetry 01/22/21 01/22/21 01/22/21 10:45 11:00 11:15 Temperature Pulse Rate 120 H 118 H 114 H Respiratory Rate Blood Pressure 154/93 153/92 155/87 O2 Sat by Pulse Oximetry 01/22/21 11:30 Temperature Pulse Rate 115 H Respiratory Rate Blood Pressure 128/81 O2 Sat by Pulse Oximetry - General Appearance General appearance: well-developed, well-nourished, appears stated age EENT: PERRL, mucous membranes moist Neck: no JVD, no thyromegaly, no carotid bruit, supple, other (Right IJ PermCath in place) Respiratory: Present: Rales (Crackles right base) Cardiology: regular, normal heart rate Gastrointestinal: normal, normoactive bowel sounds Integumentary: no rash, other (No edema) - Lab 01/20/21 06:59 01/20/21 06:59 Most recent lab results Calcium 7.6 mg/dL (8.4-10.2) L 01/20/21 06:59 Magnesium 2.20 mg/dL (1.7-2.3) 01/18/21 04:58 Medications & Allergies - Medications Allergies/Adverse Reactions: Allergies No Known Allergies Allergy (Verified 01/18/21 04:31) Home Medications: Home Medications Medication Instructions Recorded Confirmed Last Taken Type rifAMPin [Rifadin] 300 mg PO BID 11/02/19 01/19/21 11/01/19 History levoFLOXacin [Levaquin TAB] 750 mg PO QDAY #3 tablet 04/24/20 01/19/21 Unknown Rx oxyCODONE /ACETAMINOPHEN [Percocet 1 tab PO Q8HR PRN #15 tablet 04/24/20 01/19/21 Unknown Rx 5/325 mg] Apixaban [Eliquis] 2.5 mg PO BID #60 tablet 11/16/20 01/19/21 Unknown Rx Cinacalcet HCl [Sensipar] 30 mg PO QDAY #60 11/16/20 01/19/21 Unknown Rx Isosorbide Dinitrate [Isordil] 20 mg PO BID #60 11/16/20 01/19/21 Unknown Rx Linaclotide [Linzess] 72 mg PO PRN PRN #10 cap 11/16/20 01/19/21 Unknown Rx Omeprazole 40 mg PO QDAY #30 11/16/20 01/19/21 Unknown Rx Temazepam [Restoril] 15 mg PO QHS #30 cap 11/16/20 01/19/21 Unknown Rx Vit B Complx C/Folic Acid/Zinc 0.8 mg PO QDAY #30 11/16/20 01/19/21 Unknown Rx [Dialyvite 800-Zinc 15 mg Tab] allopurinoL [Zyloprim] 100 mg PO QDAY #30 11/16/20 01/19/21 Unknown Rx carvediloL [Coreg] 25 mg PO BID #60 11/16/20 01/19/21 Unknown Rx cloNIDine [Catapres] 0.3 mg PO TID #90 tablet 11/16/20 01/19/21 Unknown Rx guaiFENesin DM [Guaifenesin Dm 10 ml PO Q4H PRN 10 Days oral.liqd 11/16/20 01/19/21 Unknown Rx Syrup] hydrALAZINE [Apresoline TAB] 100 mg PO TID #90 tab 11/16/20 01/19/21 Unknown Rx Active Medications: Generic Name Dose Route Start Last Admin Trade Name Freq PRN Reason Stop Dose Admin Albuterol 2.5 mg 01/21/21 14:00 01/22/21 07:32 Albuterol 2.5 Mg/3 Ml Nebu IH 2.5 mg TIDRT ELI Administration Allopurinol 100 mg 01/19/21 10:00 01/22/21 09:06 Allopurinol 100 Mg Tab PO 100 mg QDAY ELI Administration Apixaban 2.5 mg 01/18/21 22:00 01/22/21 09:07 Apixaban 2.5 Mg Tab PO 2.5 mg BID ELI Administration Carvedilol 25 mg 01/18/21 22:00 01/22/21 11:11 Carvedilol 25 Mg Tab PO Not Given BID ELI Cinacalcet 30 mg 01/19/21 10:00 01/22/21 09:06 Cinacalcet 30 Mg Tab PO 30 mg QDAY ELI Administration Clonidine HCl 0.3 mg 01/18/21 14:00 01/22/21 05:15 Clonidine 0.1 Mg Tab PO Not Given Q8HR ELI Guaifenesin 10 ml 01/19/21 05:17 01/22/21 09:06 Guaifenesin Dm 200/20 Mg Oral Liqd 10 Ml PO 10 ml Q4H PRN Administration Cough Guaifenesin 600 mg 01/20/21 22:00 01/21/21 22:03 Guaifenesin Er 600 Mg Tab PO 600 mg BID ELI Administration Hydralazine HCl 100 mg 01/18/21 14:00 01/22/21 11:11 Hydralazine 100 Mg Tab PO Not Given TID ELI Sodium Chloride 100 mls @ 999 mls/hr 01/18/21 08:00 Nacl 0.9% IV STEVIE PRN Hypotension Ceftriaxone Sodium 1 gm in 50 mls @ 100 mls/hr 01/19/21 10:00 01/22/21 09:07 Rocephin/Ns 1 Gm/50 Ml IV 01/23/21 10:29 100 mls/hr Q24H ELI Administration Protocol Isosorbide Dinitrate 20 mg 01/18/21 22:00 01/22/21 11:12 Isosorbide Dinitrate 20 Mg Tab PO Not Given BID ELI Midodrine 5 mg 01/20/21 09:30 01/22/21 08:23 Midodrine 5 Mg Tab PO 5 mg TID@0800,1200,1600 ELI Administration Morphine Sulfate 2 mg 01/18/21 17:38 01/22/21 00:57 Morphine 2 Mg/1 Ml Inj IV 2 mg Q8H PRN Administration Pain, Moderate (4-6) Ondansetron HCl 4 mg 01/20/21 22:43 01/22/21 09:06 Ondansetron 4 Mg/2 Ml Inj IV 4 mg Q8H PRN Administration Nausea And Vomiting Oxycodone/Acetaminophen 1 tab 01/18/21 17:27 01/22/21 08:23 Oxycodone /Acetaminophen 5-325mg Tab PO 1 tab Q6H PRN Administration Pain, Moderate (4-6) Rifampin 300 mg 01/18/21 22:00 01/21/21 22:04 Rifampin 300 Mg Cap PO 300 mg BID ELI Administration Zolpidem Tartrate 5 mg 01/20/21 20:21 01/21/21 22:03 Zolpidem 5 Mg Tab PO 5 mg QHS PRN Administration Sleep
[2021-01-22] MEDS: rifAMPin 300 MG CAP PO SCH ×2 (13:06→21:42)
[2021-01-22] MEDS: guaiFENesin ER 600 MG TAB PO SCH ×2 (13:06→21:43)
--- NOTE | 2021-01-22 14:02 | Consultation ---
History of Present Illness Consult date: 01/22/21 Requesting physician: KILO QUEVEDO Consult reason: tachycardia History of present illness: Pt is a 55-year-old AA female with a hx of ESRD on HD, esophageal CA s/p resection & stent placement, HTN, and recent PE (10/2019, on Eliquis), who presented with complaints of fatigue, SOB with cough productive of clear-white sputum, and intermittent chest tightness x 3-4 days prior to arrival. She was found to be volume overloaded secondary to missing dialysis and was admitted as such. Pt has been progressing well; however, she was unable to tolerate HD today due to severe chest pain. Pt reports substernal chest pressure. She states "it feels like something is sitting on my chest." She also reports pain in her upper chest and throat. She states "it feels like something is stuck in my throat." Cardiology has been consulted for eval and mgmt of tachycardia. Review of telemetry reveals pt has been in SR in the 70s range since admission, but has been in sinus tach in the 120-130s since early this afternoon. Pt denies p alpitations. No dizziness, lightheadedness, or syncope. No additional cardiac complaints. Trop mildly elevated 0.081 -> 0.094. ECG reveals no acute ischemic changes. Echo 10/2019 - EF 50-55%, mod-severe concentric LVH, LA mod dilated, mod MR, mild-mod AR, mild-mod TR, mild pulm HTN w/RVSP 29 mmHg, trivial pericardial effusion. No previous ischemic workup available for review. Past History Past Medical History: arthritis, cancer (esophageal), COPD, dialysis, ESRD, heart failure, hypertension, other (PE (10/2019)) Past Surgical History: denies: valve replacement, CABG, PTCA Social history: alcohol abuse (former). denies: smoking Family history: no significant family history Medications and Allergies Allergies Allergy/AdvReac Type Severity Reaction Status Date / Time No Known Allergies Allergy Verified 01/18/21 04:31 Home Medications Medication Instructions Recorded Confirmed Last Taken Type rifAMPin [Rifadin] 300 mg PO BID 11/02/19 01/19/21 11/01/19 History levoFLOXacin [Levaquin TAB] 750 mg PO QDAY #3 tablet 04/24/20 01/19/21 Unknown Rx oxyCODONE /ACETAMINOPHEN [Percocet 1 tab PO Q8HR PRN #15 tablet 04/24/20 01/19/21 Unknown Rx 5/325 mg] Apixaban [Eliquis] 2.5 mg PO BID #60 tablet 11/16/20 01/19/21 Unknown Rx Cinacalcet HCl [Sensipar] 30 mg PO QDAY #60 11/16/20 01/19/21 Unknown Rx Isosorbide Dinitrate [Isordil] 20 mg PO BID #60 11/16/20 01/19/21 Unknown Rx Linaclotide [Linzess] 72 mg PO PRN PRN #10 cap 11/16/20 01/19/21 Unknown Rx Omeprazole 40 mg PO QDAY #30 11/16/20 01/19/21 Unknown Rx Temazepam [Restoril] 15 mg PO QHS #30 cap 11/16/20 01/19/21 Unknown Rx Vit B Complx C/Folic Acid/Zinc 0.8 mg PO QDAY #30 11/16/20 01/19/21 Unknown Rx [Dialyvite 800-Zinc 15 mg Tab] allopurinoL [Zyloprim] 100 mg PO QDAY #30 11/16/20 01/19/21 Unknown Rx carvediloL [Coreg] 25 mg PO BID #60 11/16/20 01/19/21 Unknown Rx cloNIDine [Catapres] 0.3 mg PO TID #90 tablet 11/16/20 01/19/21 Unknown Rx guaiFENesin DM [Guaifenesin Dm 10 ml PO Q4H PRN 10 Days oral.liqd 11/16/20 01/19/21 Unknown Rx Syrup] hydrALAZINE [Apresoline TAB] 100 mg PO TID #90 tab 11/16/20 01/19/21 Unknown Rx Active Meds: Active Medications Albuterol (Albuterol 2.5 Mg/3 Ml Nebu) 2.5 mg IH TIDRT [facility] Last Admin: 01/22/21 07:32 Dose: 2.5 mg Documented by: Allopurinol (Allopurinol 100 Mg Tab) 100 mg PO QDAY [facility] Last Admin: 01/22/21 09:06 Dose: 100 mg Documented by: Apixaban (Apixaban 2.5 Mg Tab) 2.5 mg PO BID [facility] Last Admin: 01/22/21 09:07 Dose: 2.5 mg Documented by: Carvedilol (Carvedilol 25 Mg Tab) 25 mg PO BID [facility] Last Admin: 01/22/21 13:33 Dose: 25 mg Documented by: Cinacalcet (Cinacalcet 30 Mg Tab) 30 mg PO QDAY [facility] Last Admin: 01/22/21 09:06 Dose: 30 mg Documented by: Clonidine HCl (Clonidine 0.1 Mg Tab) 0.3 mg PO Q8HR [facility] Last Admin: 01/22/21 14:00 Dose: Not Given Documented by: Guaifenesin (Guaifenesin Dm 200/20 Mg Oral Liqd 10 Ml) 10 ml PO Q4H PRN PRN Reason: Cough Last Admin: 01/22/21 09:06 Dose: 10 ml Documented by: Guaifenesin (Guaifenesin Er 600 Mg Tab) 600 mg PO BID [facility] Last Admin: 01/22/21 13:06 Dose: 600 mg Documented by: Hydralazine HCl (Hydralazine 100 Mg Tab) 100 mg PO TID [facility] Last Admin: 01/22/21 14:00 Dose: Not Given Documented by: Sodium Chloride (Nacl 0.9%) 100 mls @ 999 mls/hr IV STEVIE PRN PRN Reason: Hypotension Ceftriaxone Sodium (Rocephin/Ns 1 Gm/50 Ml) 1 gm in 50 mls @ 100 mls/hr IV Q24H [facility]; Protocol Stop: 01/23/21 10:29 Last Admin: 01/22/21 09:07 Dose: 100 mls/hr Documented by: Isosorbide Dinitrate (Isosorbide Dinitrate 20 Mg Tab) 20 mg PO BID [facility] Last Admin: 01/22/21 11:12 Dose: Not Given Documented by: Midodrine (Midodrine 5 Mg Tab) 5 mg PO TID@0800,1200,1600 [facility] Last Admin: 01/22/21 13:06 Dose: Not Given Documented by: Morphine Sulfate (Morphine 2 Mg/1 Ml Inj) 2 mg IV Q8H PRN PRN Reason: Pain, Moderate (4-6) Last Admin: 01/22/21 13:05 Dose: 2 mg Documented by: Ondansetron HCl (Ondansetron 4 Mg/2 Ml Inj) 4 mg IV Q8H PRN PRN Reason: Nausea And Vomiting Last Admin: 01/22/21 09:06 Dose: 4 mg Documented by: Oxycodone/Acetaminophen (Oxycodone /Acetaminophen 5-325mg Tab) 1 tab PO Q6H PRN PRN Reason: Pain, Moderate (4-6) Last Admin: 01/22/21 08:23 Dose: 1 tab Documented by: Rifampin (Rifampin 300 Mg Cap) 300 mg PO BID [facility] Last Admin: 01/22/21 13:06 Dose: 300 mg Documented by: Zolpidem Tartrate (Zolpidem 5 Mg Tab) 5 mg PO QHS PRN PRN Reason: Sleep Last Admin: 01/21/21 22:03 Dose: 5 mg Documented by: Review of Systems Constitutional: fatigue, no fever, no chills, no sweats Ears, nose, mouth and throat: no nasal congestion, no sore throat Cardiovascular: chest pain, orthopnea, shortness of breath, dyspnea on exertion, no palpitations, no rapid/irregular heart beat, no edema, no syncope, no l ightheadedness, no claudication Respiratory: cough with sputum, shortness of breath, dyspnea on exertion Gastrointestinal: no abdominal pain, no nausea, no vomiting, no diarrhea, no constipation Genitourinary Female: no pelvic pain, no flank pain, no dysuria Musculoskeletal: no neck stiffness, no neck pain Integumentary: no rash, no wounds Neurological: no head injury, no paralysis, no weakness, no parathesias, no numbness, no tingling, no seizures, no syncope, no vertigo, no headaches Endocrine: no cold intolerance, no heat intolerance, no polydipsia, no polyuria Hematologic/Lymphatic: no easy bruising, no easy bleeding Allergic/Immunologic: no anaphylaxis Physical Examination Last Vital Signs Temp 98.1 F 01/22/21 15:33 Pulse 130 H 01/22/21 15:41 Resp 20 01/22/21 15:33 BP 122/79 01/22/21 15:41 Pulse Ox 98 01/22/21 15:33 General appearance: mild distress HEENT: Positive: EOMI, Normocephaly Neck: Positive: neck supple, trachea midline. Negative: JVD/HJR Cardiac: Positive: Regular Rhythm, S1/S2, Tachycardia. Negative: Audible Murmur Lungs: Positive: Decreased Breath Sounds (bilaterally) Neuro: Positive: Grossly Intact Abdomen: Positive: Soft. Negative: Tender Skin: Negative: Rash Musculoskeletal: No Pain Extremities: Present: lower extr. pulses. Absent: edema Results 01/20/21 06:59 01/20/21 06:59 - Imaging and Cardiology Echo: pending, report reviewed (10/2019 - EF 50-55%, mod-severe concentric LVH, LA mod dilated, mod MR, mild-mod AR, mild-mod TR, mild pulm HTN w/RVSP 29 mmHg, trivial pericardial effusion) EKG: report reviewed, image reviewed - EKG Interpretation EKG: no acute changes EKG interpretations - Telemetry EKG Rhythm: Sinus Tachycardia - EKG Sinus rhythms and dysrhythmias: sinus rhythm AV and intraventricular conduction: left anterior fascicular Myocardial infarction: poor R wave progression Assessment and Plan Pt has chronically elevated troponins in the setting of ESRD, which are now in similar range as previous admissions. No acute ischemic changes on initial ECG. Obtain repeat ECG. Trend cardiac enzymes. Etiology of sinus tachycardia is unclear at this time, likely exacerbated by anemia. Pt has a previously documented PE 10/2019 and has been on Eliquis since. Continue Eliquis 2.5mg BID. Obtain echo. Will give IV Lopressor 5mg x 1. Discontinue PO Hydralazine. Continue other present antihypertensives as tolerated. Discontinue Midodrine. Pt seen in conjunction with Dr. Chavez, who agrees with the assessment and plan of care. - Patient Problems (1) Acute respiratory failure Current Visit: Yes Status: Acute (2) Bronchitis Current Visit: Yes Status: Acute (3) Acute heart failure with preserved ejection fraction (HFpEF) Current Visit: Yes Status: Acute (4) ESRD needing dialysis Current Visit: Yes Status: Acute (5) Anemia in chronic kidney disease (CKD) Current Visit: Yes Status: Chronic (6) NSTEMI (non-ST elevated myocardial infarction) Current Visit: Yes Status: Acute Plan to address problem: ?Type 2 (7) Pulmonary embolism Current Visit: Yes Status: Chronic Plan to address problem: 10/2019 (8) COPD (chronic obstructive pulmonary disease) Current Visit: Yes Status: Chronic (9) Hypertension Current Visit: Yes Status: Chronic Qualifiers: Hypertension type: essential hypertension Qualified Code(s): I10 - Essential (primary) hypertension (10) Aortic regurgitation Current Visit: Yes Status: Chronic (11) Mitral regurgitation Current Visit: Yes Status: Chronic (12) Esophageal cancer Current Visit: Yes Status: Chronic Plan to address problem: S/p resection & stent (13) GERD (gastroesophageal reflux disease) Current Visit: Yes Status: Chronic Qualifiers: Esophagitis presence: with esophagitis (14) H/O ETOH abuse Current Visit: Yes Status: Chronic
[2021-01-22] MEDS ORDERED: METOPROLOL TARTRATE 5 MG/5 ML INJ IV ONE (14:58)
[2021-01-22] MEDS: ZOLPIDEM 5 MG TAB PO PRN (21:43)
[2021-01-23] MEDS: oxyCODONE /ACETAMINOPHEN 5-325MG TAB PO PRN (03:11)
[2021-01-23] MEDS: ONDANSETRON 4 MG/2 ML INJ IV PRN ×5 (03:12→20:25)
[2021-01-23] MEDS: cloNIDine 0.1 MG TAB PO SCH ×2 (06:04→13:09)
[2021-01-23] MEDS: MORPHINE 2 MG/1 ML INJ IV PRN ×2 (08:06→16:10)
[2021-01-23] MEDS: ALBUTEROL 2.5 MG/3 ML NEBU IH SCH ×3 (08:42→20:43)
[2021-01-23] MEDS: rifAMPin 300 MG CAP PO SCH ×2 (09:33→22:00)
[2021-01-23] MEDS: carvediloL 25 MG TAB PO SCH (09:34)
[2021-01-23] MEDS: CINACALCET 30 MG TAB PO SCH (09:34)
[2021-01-23] MEDS: allopurinoL 100 MG TAB PO SCH (09:34)
[2021-01-23] MEDS: guaiFENesin ER 600 MG TAB PO SCH ×2 (09:35→22:00)
[2021-01-23] MEDS: cefTRIAXone/NS 1 GM/50 ML 1 GM/50 ML BAG IV SCH (09:35)
[2021-01-23] MEDS: guaiFENesin DM 200/20 MG ORAL LIQD 10 ML PO PRN (09:35)
[2021-01-23] MEDS: APIXABAN 2.5 MG TAB PO SCH ×2 (09:35→22:00)
--- NOTE | 2021-01-23 10:17 | Progress Note ---
Assessment and Plan Assessment - End-stage renal disease on hemodialysis. Followed by Dr. Klaudia Soler in [place] outpatient on MWF schedule - Hypertension - Anemia of ESRD - Hyperparathyroidism - Leukocytosis - Pneumonia - Acute and chronic respiratory failure, on 2 L of oxygen at home - Substernal chest pain, tender to touch. Recommendations -Patient had hemodialysis treatment yesterday. However she did develop some tachycardia during dialysis and had chest pain also . Cardiology notes appreciated . -She however still has some crackles at the right base. Shall repeat a chest x- ray. - Monitor labs and volume status daily and assess need for additional dialysis session - Leukocytosis w/u as per primary - Agree with antibiotics - Epogen with HD - Continue sensipar - Continue phosphorus binders - ESRD diet with 1.4 g/kg per day protein - Renally dose medication for creatinine clearance less than 15 cc/min Subjective Date of service: 01/23/21 Principal diagnosis: Shortness of breath Interval history: Patient developed tachycardia and chest pain during dialysis yesterday. Cardiology notes appreciated. She complains of some nausea and vomiting this morning. Denies any shortness of breath. No chest pain this morning Objective - Vital Signs Vital signs: Vital Signs - 12hr 01/23/21 01/23/21 01/23/21 00:00 04:00 06:04 Temperature 98.9 F 98 F Pulse Rate 57 L 97 H 108 H Respiratory 20 16 Rate Blood Pressure 124/73 Blood Pressure 112/71 124/73 [Left] O2 Sat by Pulse 98 100 Oximetry 01/23/21 01/23/21 08:17 09:34 Temperature 99.1 F Pulse Rate 44 L Respiratory 20 Rate Blood Pressure 133/76 133/76 Blood Pressure [Left] O2 Sat by Pulse 99 Oximetry - General Appearance General appearance: well-developed EENT: PERRL, mucous membranes moist Neck: no JVD, no thyromegaly, no carotid bruit, supple, other (Right IJ PermCath in place) Respiratory: Present: Rales (Crackles right base) Cardiology: regular, normal heart rate Gastrointestinal: normal, normoactive bowel sounds Integumentary: other (No edema) - Lab 01/20/21 06:59 01/20/21 06:59 Most recent lab results Calcium 7.6 mg/dL (8.4-10.2) L 01/20/21 06:59 Magnesium 2.20 mg/dL (1.7-2.3) 01/18/21 04:58 Medications & Allergies - Medications Allergies/Adverse Reactions: Allergies No Known Allergies Allergy (Verified 01/18/21 04:31) Home Medications: Home Medications Medication Instructions Recorded Confirmed Last Taken Type rifAMPin [Rifadin] 300 mg PO BID 11/02/19 01/19/21 11/01/19 History levoFLOXacin [Levaquin TAB] 750 mg PO QDAY #3 tablet 04/24/20 01/19/21 Unknown Rx oxyCODONE /ACETAMINOPHEN [Percocet 1 tab PO Q8HR PRN #15 tablet 04/24/20 01/19/21 Unknown Rx 5/325 mg] Apixaban [Eliquis] 2.5 mg PO BID #60 tablet 11/16/20 01/19/21 Unknown Rx Cinacalcet HCl [Sensipar] 30 mg PO QDAY #60 11/16/20 01/19/21 Unknown Rx Isosorbide Dinitrate [Isordil] 20 mg PO BID #60 11/16/20 01/19/21 Unknown Rx Linaclotide [Linzess] 72 mg PO PRN PRN #10 cap 11/16/20 01/19/21 Unknown Rx Omeprazole 40 mg PO QDAY #30 11/16/20 01/19/21 Unknown Rx Temazepam [Restoril] 15 mg PO QHS #30 cap 11/16/20 01/19/21 Unknown Rx Vit B Complx C/Folic Acid/Zinc 0.8 mg PO QDAY #30 11/16/20 01/19/21 Unknown Rx [Dialyvite 800-Zinc 15 mg Tab] allopurinoL [Zyloprim] 100 mg PO QDAY #30 11/16/20 01/19/21 Unknown Rx carvediloL [Coreg] 25 mg PO BID #60 11/16/20 01/19/21 Unknown Rx cloNIDine [Catapres] 0.3 mg PO TID #90 tablet 11/16/20 01/19/21 Unknown Rx guaiFENesin DM [Guaifenesin Dm 10 ml PO Q4H PRN 10 Days oral.liqd 11/16/20 01/19/21 Unknown Rx Syrup] hydrALAZINE [Apresoline TAB] 100 mg PO TID #90 tab 11/16/20 01/19/21 Unknown Rx Active Medications: Generic Name Dose Route Start Last Admin Trade Name Freq PRN Reason Stop Dose Admin Albuterol 2.5 mg 01/21/21 14:00 01/23/21 08:42 Albuterol 2.5 Mg/3 Ml Nebu IH Not Given TIDRT ELI Allopurinol 100 mg 01/19/21 10:00 01/23/21 09:34 Allopurinol 100 Mg Tab PO 100 mg QDAY ELI Administration Apixaban 2.5 mg 01/18/21 22:00 01/23/21 09:35 Apixaban 2.5 Mg Tab PO 2.5 mg BID ELI Administration Carvedilol 25 mg 01/18/21 22:00 01/23/21 09:34 Carvedilol 25 Mg Tab PO 25 mg BID ELI Administration Cinacalcet 30 mg 01/19/21 10:00 01/23/21 09:34 Cinacalcet 30 Mg Tab PO 30 mg QDAY ELI Administration Clonidine HCl 0.3 mg 01/18/21 14:00 01/23/21 06:04 Clonidine 0.1 Mg Tab PO Not Given Q8HR ELI Guaifenesin 10 ml 01/19/21 05:17 01/23/21 09:35 Guaifenesin Dm 200/20 Mg Oral Liqd 10 Ml PO 10 ml Q4H PRN Administration Cough Guaifenesin 600 mg 01/20/21 22:00 01/23/21 09:35 Guaifenesin Er 600 Mg Tab PO 600 mg BID ELI Administration Sodium Chloride 100 mls @ 999 mls/hr 01/18/21 08:00 Nacl 0.9% IV STEVIE PRN Hypotension Ceftriaxone Sodium 1 gm in 50 mls @ 100 mls/hr 01/19/21 10:00 01/23/21 09:35 Rocephin/Ns 1 Gm/50 Ml IV 01/23/21 10:29 100 mls/hr Q24H ELI Administration Protocol Isosorbide Dinitrate 20 mg 01/18/21 22:00 01/22/21 21:43 Isosorbide Dinitrate 20 Mg Tab PO 20 mg BID ELI Administration Morphine Sulfate 2 mg 01/18/21 17:38 01/23/21 08:06 Morphine 2 Mg/1 Ml Inj IV 2 mg Q8H PRN Administration Pain, Moderate (4-6) Ondansetron HCl 4 mg 01/22/21 14:01 01/23/21 03:12 Ondansetron 4 Mg/2 Ml Inj IV 4 mg Q6H PRN Administration nausea/vomitting Oxycodone/Acetaminophen 1 tab 01/18/21 17:27 01/23/21 03:11 Oxycodone /Acetaminophen 5-325mg Tab PO 1 tab Q6H PRN Administration Pain, Moderate (4-6) Rifampin 300 mg 01/18/21 22:00 01/23/21 09:33 Rifampin 300 Mg Cap PO 300 mg BID ELI Administration Zolpidem Tartrate 5 mg 01/20/21 20:21 01/22/21 21:43 Zolpidem 5 Mg Tab PO 5 mg QHS PRN Administration Sleep
--- NOTE | 2021-01-23 11:33 | Progress Note ---
Assessment and Plan ssessment and plan: --Hypertension; patient has been having some low blood pressures this morning With systolic blood pressures 90s diastolic 50 to 60s; unable to give fluid bolus due to ESRD Patient required midodrine over the last night for hypotension. Currently blood pressure stable systolic 110 to 120 . Will discontinue midodrine and hold blood pressure medicines for now patient to receive hemodialysis again today. Hydralazine has been discontinued. Continue Coreg. --Brief episode of severe nausea vomiting this morning; Patient continues to have nausea and vomiting. Possibly secondary to uremia. Will increase Zofran from 4 mg to 8 mg. Continue supportive care follow electrolytes. Follow-up chest x-ray no evidence of pneumonia at this time. --Acute respiratory distress; secondary to fluid overload Due to end-stage renal disease on hemodialysis HD per schedule, fluid restriction, low-sodium diet Patient was told she had pneumonia. Will start patient on nebulizer treatments follow-up chest x-ray to reevaluate pneumonia. Ruled out for pneumonia with negative chest x-ray. Continue nebulizers has done well with nebulizers stable for transfer discharge a.m. --Tachycardia-patient with SVT rate into 120s. Will give beta-caity x1 at this time. Appreciate cardiology recommendations. Etiology could be nausea vomiting with volume contraction --End-stage renal disease on hemodialysis Nephrology evaluated the patient HD per schedule MWF , Procrit during dialysis --Leukocytosis; SIRS --Acute bronchitis/URI Empiric antibiotics Rocephin and Zithromax Continue present management. Follow cultures, cough medicine as needed --Anemia of ESRD; closely monitor H&H Procrit during dialysis, transfuse as needed --DVT prophylaxis; Lovenox Subjective Date of service: 01/23/21 Principal diagnosis: Shortness of breath Interval history: 55-year-old -[place]ong[place] female patient with significant past medical history of esophageal cancer s/p resection, with stent placement, hypertension, end-stage renal disease on hemodialysis, chronic pain syndrome presented to the emergency room with worsening shortness of breath cough chest tightness and generalized weakness of 3 to 4 days duration. Patient has had dialysis MWF her last diagnosis was on Sunday 4 days ago Patient missed 1 dialysis, patient pro BNP is 78,000 Patient denies any chest pain or palpitation, complains of shortness of breath and cough productive No history of fever, patient reports that she felt sick and was admitted briefly at [facility]. Denies headache dizziness weakness or numbness Patient has 2 L of nasal cannula home oxygen. Patient denies any history of COVID-19 infection or close contacts with infected people Patient reports that she has finished vaccination series recently Patient missed dialysis because she states she felt sick. More shortness of breath and productive cough. Thought she had pneumonia. Patient states she feels better today via oxygenation. No further nausea vomiting at this time. Feels better but not quite at baseline. Currently on 2 L now and at home. Patient much less coughing. Breathing better. Should do better with hemodialysis today. Will discharge after hemodialysis. No further nausea vomiting. Patient is currently on home O2 2 L. 01/23/2021 : Patient hospital course complicated by persistent nausea. Also complicated by tachycardia as high as 123 today. Denies chest pain at this time. Mostly nausea vomiting. Moderate improvement with Zofran. Objective - Constitutional Vitals: Vital Signs - 12hr 01/23/21 01/23/21 01/23/21 00:00 04:00 06:04 Temperature 98.9 F 98 F Pulse Rate 57 L 97 H 108 H Respiratory 20 16 Rate Blood Pressure 124/73 Blood Pressure 112/71 124/73 [Left] O2 Sat by Pulse 98 100 Oximetry 01/23/21 01/23/21 01/23/21 08:17 09:34 11:06 Temperature 99.1 F Pulse Rate 44 L Respiratory 20 20 Rate Blood Pressure 133/76 133/76 Blood Pressure [Left] O2 Sat by Pulse 99 96 Oximetry General appearance: Present: no acute distress, well-nourished - EENT Eyes: PERRL, EOM intact ENT: hearing intact, clear oral mucosa Ears: bilateral: normal - Neck Neck: supple, normal ROM - Respiratory Respiratory effort: normal Respiratory: bilateral: CTA - Breasts Breasts: normal - Cardiovascular Rhythm: regular Heart Sounds: Present: S1 & S2. Absent: gallop, rub Extremities: pulses intact, No edema, normal color, Full ROM - Gastrointestinal General gastrointestinal: Present: soft, non-tender, non-distended, normal bowel sounds - Genitourinary Female genitourinary: normal - Integumentary Integumentary: clear, warm, dry - Musculoskeletal Musculoskeletal: 1, strength equal bilaterally - Neurologic Neurologic: moves all extremities - Psychiatric Psychiatric: memory intact, appropriate mood/affect, intact judgment & insight - Labs CBC & Chem 7: 01/20/21 06:59 01/20/21 06:59 Labs: Abnormal lab results 01/22/21 01/23/21 Range/Units 18:38 00:34 Troponin T 0.148 H* D 0.152 H* (0.00-0.029) ng/mL HEART Score - HEART Score Troponin: Troponin T 0.152 ng/mL (0.00-0.029) H* 01/23/21 00:34
[2021-01-23] MEDS ORDERED: METOPROLOL TARTRATE 5 MG/5 ML INJ IV ONE (11:34)
[2021-01-23] MEDS: ISOSORBIDE DINITRATE 20 MG TAB PO SCH (12:23)
--- NOTE | 2021-01-23 18:33 | Progress Note ---
Assessment and Plan Pt has chronically elevated troponins in the setting of ESRD, though noted to be climbing. No acute ischemic changes on initial ECG. Obtain repeat ECG. Pt has a previously documented PE 10/2019 and has been on Eliquis since. Continue Eliquis 2.5mg BID for now. If hemoptysis persists or worsens, may need to hold Eliquis. Echo pending. Will switch Coreg to PO Lopressor 25mg BID and increase as BP permits. Start weaning down Clonidine. Hold Isordil for now. May utilize Amiodarone if unable to tolerate BB as above. Pt seen in conjunction with Dr. Chavez, who agrees with the assessment and plan of care. - Patient Problems (1) Acute respiratory failure Current Visit: Yes Status: Acute (2) Bronchitis Current Visit: Yes Status: Acute (3) Acute heart failure with preserved ejection fraction (HFpEF) Current Visit: Yes Status: Acute (4) ESRD needing dialysis Current Visit: Yes Status: Acute (5) Anemia in chronic kidney disease (CKD) Current Visit: Yes Status: Chronic (6) New onset atrial flutter Current Visit: Yes Status: Acute (7) NSTEMI (non-ST elevated myocardial infarction) Current Visit: Yes Status: Acute Plan to address problem: ?Type 2 (8) Pulmonary embolism Current Visit: Yes Status: Chronic Plan to address problem: 10/2019 (9) COPD (chronic obstructive pulmonary disease) Current Visit: Yes Status: Chronic (10) Hypertension Current Visit: Yes Status: Chronic Qualifiers: Hypertension type: essential hypertension Qualified Code(s): I10 - Essential (primary) hypertension (11) Aortic regurgitation Current Visit: Yes Status: Chronic (12) Mitral regurgitation Current Visit: Yes Status: Chronic (13) Esophageal cancer Current Visit: Yes Status: Chronic Plan to address problem: S/p resection & stent (14) GERD (gastroesophageal reflux disease) Current Visit: Yes Status: Chronic Qualifiers: Esophagitis presence: with esophagitis (15) H/O ETOH abuse Current Visit: Yes Status: Chronic Subjective Date of service: 01/23/21 Principal diagnosis: Atrial Flutter Interval history: Review of telemetry today reveals new onset AFlutter with rate in the 120s range. Pt still with complaints of intermittent chest discomfort as previously described, along with SOB. She also now reports hemoptysis that started today. Objective Last Vital Signs Temp 97.9 F 01/23/21 18:17 Pulse 110 H 01/23/21 18:27 Resp 20 01/23/21 17:12 BP 108/70 01/23/21 17:12 Pulse Ox 98 01/23/21 17:12 - Physical Examination General: No Apparent Distress HEENT: Positive: EOMI, Normocephaly Neck: Positive: neck supple, trachea midline. Negative: JVD/HJR Cardiac: Positive: irregularly irregular, S1/S2 Lungs: Positive: Decreased Breath Sounds (bases) Neuro: Positive: Grossly Intact Abdomen: Positive: Soft. Negative: Tender Skin: Negative: Rash Musculoskeletal: No Pain Extremities: Present: lower extr. pulses. Absent: edema - Imaging and Cardiology EKG: report reviewed, image reviewed Echo: pending, report reviewed (10/2019 - EF 50-55%, mod-severe concentric LVH, LA mod dilated, mod MR, mild-mod AR, mild-mod TR, mild pulm HTN w/RVSP 29 mmHg, trivial pericardial effusion) - Telemetry EKG Rhythm: Atrial Flutter - EKG Sinus rhythms and dysrhythmias: sinus rhythm AV and intraventricular conduction: left anterior fascicular Myocardial infarction: poor R wave progression
[2021-01-23] MEDS: METOPROLOL TARTRATE 25 MG TAB PO SCH ×2 (18:48→21:59)
[2021-01-23] MEDS: cloNIDine 0.2 MG TAB PO SCH (21:58)
[2021-01-23] MEDS ORDERED: cloNIDine 0.1 MG TAB PO SCH (22:00)
[2021-01-23] MEDS: ZOLPIDEM 5 MG TAB PO PRN (22:28)
[2021-01-23] MEDS: ACETAMINOPHEN 325 MG TAB PO PRN (23:06)
[2021-01-24] MEDS: MORPHINE 2 MG/1 ML INJ IV PRN ×2 (00:53→09:40)
[2021-01-24] MEDS: ONDANSETRON 4 MG/2 ML INJ IV PRN ×3 (06:29→22:03)
[2021-01-24] MEDS: cloNIDine 0.2 MG TAB PO SCH ×3 (06:29→21:57)
[2021-01-24] MEDS: ALBUTEROL 2.5 MG/3 ML NEBU IH SCH ×3 (09:09→22:53)
[2021-01-24] MEDS: CINACALCET 30 MG TAB PO SCH (09:38)
[2021-01-24] MEDS: guaiFENesin ER 600 MG TAB PO SCH ×2 (09:38→21:58)
[2021-01-24] MEDS: METOPROLOL TARTRATE 25 MG TAB PO SCH ×2 (09:38→21:57)
[2021-01-24] MEDS: allopurinoL 100 MG TAB PO SCH (09:39)
[2021-01-24] MEDS: ACETAMINOPHEN 325 MG TAB PO PRN (09:39)
[2021-01-24] MEDS: rifAMPin 300 MG CAP PO SCH ×2 (09:39→21:57)
[2021-01-24] MEDS: APIXABAN 2.5 MG TAB PO SCH ×2 (09:39→21:57)
--- NOTE | 2021-01-24 09:45 | Progress Note ---
Assessment and Plan Assessment - End-stage renal disease on hemodialysis. Followed by Dr. Brandy Soler in [place] outpatient on MWF schedule - Hypertension - Anemia of ESRD - Hyperparathyroidism - Leukocytosis - Pneumonia - Acute and chronic respiratory failure, on 2 L of oxygen at home - Substernal chest pain, tender to touch. Recommendations - had HD / with episodes of chest pain, tachycardia - note ongoing respiratory issues but do not feel solely due to volume, hold HD today, plan to continue //, due tomorrow' - tachycardia management per cardiology appreciated - Monitor labs and volume status daily and assess need for additional dialysis session - Leukocytosis w/u as per primary - Agree with antibiotics - Epogen with HD - Continue sensipar - Continue phosphorus binders - ESRD diet with 1.4 g/kg per day protein - Renally dose medication for creatinine clearance less than 15 cc/min Subjective Date of service: 01/24/21 Principal diagnosis: Atrial Flutter Interval history: No acute changes noted, patient does note feeling generally poor. Objective - Exam Narrative Exam: General appearance: well-developed EENT: PERRL, mucous membranes moist Neck: no JVD, supple, other (Right IJ PermCath in place) Respiratory: not on NC this AM, sitting up; normal respiratory effort Cardiology: regular, normal heart rate Gastrointestinal: normal, normoactive bowel sounds Integumentary: other (No edema) - Vital Signs Vital signs: Vital Signs - 12hr 01/23/21 01/23/21 01/24/21 21:58 21:59 00:00 Temperature 98.7 F Pulse Rate 95 H 93 H 95 H Pulse Rate [ Anterior Bilateral Throughout] Respiratory 18 Rate Respiratory Rate [Anterior Bilateral Throughout] Blood Pressure 111/66 116/66 Blood Pressure 113/67 [Left] O2 Sat by Pulse 100 Oximetry 01/24/21 01/24/21 01/24/21 04:20 06:00 06:29 Temperature 98.0 F Pulse Rate 47 L 103 H 103 H Pulse Rate [ Anterior Bilateral Throughout] Respiratory 18 Rate Respiratory Rate [Anterior Bilateral Throughout] Blood Pressure 116/57 120/68 Blood Pressure [Left] O2 Sat by Pulse 98 Oximetry 01/24/21 01/24/21 01/24/21 08:09 09:11 09:25 Temperature 98.4 F Pulse Rate 65 Pulse Rate [ 60 Anterior Bilateral Throughout] Respiratory 18 Rate Respiratory 18 Rate [Anterior Bilateral Throughout] Blood Pressure 131/68 Blood Pressure [Left] O2 Sat by Pulse 96 96 Oximetry - Lab 01/20/21 06:59 01/20/21 06:59 Most recent lab results Calcium 7.6 mg/dL (8.4-10.2) L 01/20/21 06:59 Magnesium 2.20 mg/dL (1.7-2.3) 01/18/21 04:58 Medications & Allergies - Medications Allergies/Adverse Reactions: Allergies No Known Allergies Allergy (Verified 01/18/21 04:31) Home Medications: Home Medications Medication Instructions Recorded Confirmed Last Taken Type rifAMPin [Rifadin] 300 mg PO BID 11/02/19 01/19/21 11/01/19 History levoFLOXacin [Levaquin TAB] 750 mg PO QDAY #3 tablet 04/24/20 01/19/21 Unknown Rx oxyCODONE /ACETAMINOPHEN [Percocet 1 tab PO Q8HR PRN #15 tablet 04/24/20 01/19/21 Unknown Rx 5/325 mg] Apixaban [Eliquis] 2.5 mg PO BID #60 tablet 11/16/20 01/19/21 Unknown Rx Cinacalcet HCl [Sensipar] 30 mg PO QDAY #60 11/16/20 01/19/21 Unknown Rx Isosorbide Dinitrate [Isordil] 20 mg PO BID #60 11/16/20 01/19/21 Unknown Rx Linaclotide [Linzess] 72 mg PO PRN PRN #10 cap 11/16/20 01/19/21 Unknown Rx Omeprazole 40 mg PO QDAY #30 11/16/20 01/19/21 Unknown Rx Temazepam [Restoril] 15 mg PO QHS #30 cap 11/16/20 01/19/21 Unknown Rx Vit B Complx C/Folic Acid/Zinc 0.8 mg PO QDAY #30 11/16/20 01/19/21 Unknown Rx [Dialyvite 800-Zinc 15 mg Tab] allopurinoL [Zyloprim] 100 mg PO QDAY #30 11/16/20 01/19/21 Unknown Rx carvediloL [Coreg] 25 mg PO BID #60 11/16/20 01/19/21 Unknown Rx cloNIDine [Catapres] 0.3 mg PO TID #90 tablet 11/16/20 01/19/21 Unknown Rx guaiFENesin DM [Guaifenesin Dm 10 ml PO Q4H PRN 10 Days oral.liqd 11/16/20 01/19/21 Unknown Rx Syrup] hydrALAZINE [Apresoline TAB] 100 mg PO TID #90 tab 11/16/20 01/19/21 Unknown Rx Active Medications: Generic Name Dose Route Start Last Admin Trade Name Freq PRN Reason Stop Dose Admin Acetaminophen 650 mg 01/23/21 22:39 01/24/21 09:39 Acetaminophen 325 Mg Tab PO 650 mg Q6HR PRN Administration Pain, Mild (1-3) Albuterol 2.5 mg 01/21/21 14:00 01/24/21 09:09 Albuterol 2.5 Mg/3 Ml Nebu IH 2.5 mg TIDRT ELI Administration Allopurinol 100 mg 01/19/21 10:00 01/24/21 09:39 Allopurinol 100 Mg Tab PO 100 mg QDAY ELI Administration Apixaban 2.5 mg 01/18/21 22:00 01/24/21 09:39 Apixaban 2.5 Mg Tab PO 2.5 mg BID ELI Administration Cinacalcet 30 mg 01/19/21 10:00 01/24/21 09:38 Cinacalcet 30 Mg Tab PO 30 mg QDAY ELI Administration Clonidine HCl 0.2 mg 01/23/21 22:00 01/24/21 06:29 Clonidine 0.2 Mg Tab PO 0.2 mg Q8HR ELI Administration Guaifenesin 10 ml 01/19/21 05:17 01/23/21 09:35 Guaifenesin Dm 200/20 Mg Oral Liqd 10 Ml PO 10 ml Q4H PRN Administration Cough Guaifenesin 600 mg 01/20/21 22:00 01/24/21 09:38 Guaifenesin Er 600 Mg Tab PO 600 mg BID ELI Administration Sodium Chloride 100 mls @ 999 mls/hr 01/18/21 08:00 Nacl 0.9% IV STEVIE PRN Hypotension Metoprolol Tartrate 25 mg 01/23/21 18:36 01/24/21 09:38 Metoprolol Tartrate 25 Mg Tab PO 25 mg BID ELI Administration Morphine Sulfate 2 mg 01/18/21 17:38 01/24/21 09:40 Morphine 2 Mg/1 Ml Inj IV 2 mg Q8H PRN Administration Pain, Moderate (4-6) Ondansetron HCl 8 mg 01/23/21 11:34 01/24/21 06:29 Ondansetron 4 Mg/2 Ml Inj IV 8 mg Q6H PRN Administration nausea/vomitting Oxycodone/Acetaminophen 1 tab 01/18/21 17:27 01/23/21 03:11 Oxycodone /Acetaminophen 5-325mg Tab PO 1 tab Q6H PRN Administration Pain, Moderate (4-6) Rifampin 300 mg 01/18/21 22:00 01/24/21 09:39 Rifampin 300 Mg Cap PO 300 mg BID ELI Administration Zolpidem Tartrate 5 mg 01/20/21 20:21 01/23/21 22:28 Zolpidem 5 Mg Tab PO 5 mg QHS PRN Administration Sleep
[2021-01-24] MEDS: oxyCODONE /ACETAMINOPHEN 5-325MG TAB PO PRN ×2 (13:09→21:58)
--- NOTE | 2021-01-24 13:23 | Progress Note ---
Assessment and Plan Patient resting comfortably in bed. She reports some shortness of breath and episodes of chest pain overnight #New onset atrial fibrillation/flutter * Currently chronically anticoagulated on Eliquis 2.5 since PTE in October 2019. * Currently rate controlled on metoprolol 25 mg twice daily #Acute heart failure with preserved ejection fraction * Echocardiogram reviewed (01/22/2021): LVEF is 45 to 50%. LV SF is mildly decreased. Severe LVH. RV SF is normal. Moderate TR. Moderate right pleural effusion noted #Acute respiratory failure in setting of bronchitis * Patient continues to report mild shortness of breath overnight. She is currently on supplemental oxygen via nasal cannula at 3 L/min. #NSTEMI suspect type II in setting of ESRD * Troponins are elevated and trending upward * Will plan for stress test ischemic evaluation once patient is euvolemic #Hypertension * Currently normotensive. Continue to optimize antihypertensive regimen with goal of weaning off clonidine. Reduce clonidine to 0.1 mg 3 times daily #Severe anemia in chronic renal disease * Continue to monitor labs. May need to discontinue anticoagulation anemia worsens * Nephrology is following. Patient is scheduled for dialysis //SUN #DVT prophylaxis * On Eliquis We will follow Patient seen in conjunction with Dr Ilana Jackson who agrees with this assessment and plan of care - Patient Problems (1) Acute respiratory failure Current Visit: Yes Status: Acute (2) Bronchitis Current Visit: Yes Status: Acute (3) Acute heart failure with preserved ejection fraction (HFpEF) Current Visit: Yes Status: Acute (4) ESRD needing dialysis Current Visit: Yes Status: Acute (5) Anemia in chronic kidney disease (CKD) Current Visit: Yes Status: Chronic (6) New onset atrial flutter Current Visit: Yes Status: Acute (7) NSTEMI (non-ST elevated myocardial infarction) Current Visit: Yes Status: Acute Plan to address problem: ?Type 2 (8) Pulmonary embolism Current Visit: Yes Status: Chronic Plan to address problem: 10/2019 (9) COPD (chronic obstructive pulmonary disease) Current Visit: Yes Status: Chronic (10) Hypertension Current Visit: Yes Status: Chronic Qualifiers: Hypertension type: essential hypertension Qualified Code(s): I10 - Essential (primary) hypertension (11) Aortic regurgitation Current Visit: Yes Status: Chronic (12) Mitral regurgitation Current Visit: Yes Status: Chronic (13) Esophageal cancer Current Visit: Yes Status: Chronic Plan to address problem: S/p resection & stent (14) GERD (gastroesophageal reflux disease) Current Visit: Yes Status: Chronic Qualifiers: Esophagitis presence: with esophagitis (15) H/O ETOH abuse Current Visit: Yes Status: Chronic Subjective Date of service: 01/24/21 Principal diagnosis: Atrial Flutter Interval history: Patient resting comfortably in bed. She reports some shortness of breath and episodes of chest pain overnight Telemetry reviewed: Atrial fibrillation/flutter in 90s. No events Objective Last Vital Signs Temp 98.4 F 01/24/21 08:09 Pulse 60 01/24/21 09:11 Resp 18 01/24/21 09:11 BP 131/68 01/24/21 08:09 Pulse Ox 96 01/24/21 09:25 - Physical Examination General: No Apparent Distress HEENT: Positive: EOMI, Normocephaly Neck: Positive: neck supple, trachea midline. Negative: JVD/HJR Cardiac: Positive: Reg Rate and Rhythm, S1/S2 ( ) Lungs: Positive: Normal Exam, Normal Breath Sounds, Oxygen Neuro: Positive: Grossly Intact Abdomen: Positive: Soft. Negative: Tender Skin: Negative: Rash Musculoskeletal: No Pain Extremities: Present: lower extr. pulses. Absent: edema - Imaging and Cardiology EKG: report reviewed, image reviewed Echo: report reviewed (Echocardiogram reviewed (01/22/2021): LVEF is 45 to 50%. LV SF is mildly decreased. Severe LVH. RV SF is normal. Moderate TR. Moderate right pleural effusion noted) - Telemetry EKG Rhythm: Sinus Rhythm - EKG Sinus rhythms and dysrhythmias: sinus rhythm AV and intraventricular conduction: left anterior fascicular Myocardial infarction: poor R wave progression
--- NOTE | 2021-01-24 13:56 | Progress Note ---
Assessment and Plan Assessment and plan: 55-year-old -[place] female patient with significant past medical history of esophageal cancer s/p resection, with stent placement, hypertension, end-stage renal disease on hemodialysis, chronic pain syndrome presented to the emergency room with worsening shortness of breath cough chest tightness and generalized weakness of 3 to 4 days duration. Patient has had dialysis MWF her last diagnosis was on Sunday 4 days ago Patient missed 1 dialysis, patient pro BNP is 78,000 Patient denies any chest pain or palpitation, complains of shortness of breath and cough productive No history of fever, patient reports that she felt sick and was admitted briefly at [facility], [place]. Denies headache dizziness weakness or numbness Patient has 2 L of nasal cannula home oxygen. Patient denies any history of COVID-19 infection or close contacts with infected people Patient reports that she has finished vaccination series recently Patient missed dialysis because she states she felt sick. More shortness of breath and productive cough. Thought she had pneumonia. Patient states she feels better today via oxygenation. No further nausea vomiting at this time. Feels better but not quite at baseline. Currently on 2 L now and at home. Patient much less coughing. Breathing better. Should do better with hemodialysis today. Will discharge after hemodialysis. No further nausea vomi ting. Patient is currently on home O2 2 L. 01/23/2021 : Patient hospital course complicated by persistent nausea. Also complicated by tachycardia as high as 123 today. Denies chest pain at this julia e. Mostly nausea vomiting. Moderate improvement with Zofran. 01/24- Check Free T4. Pts TSH is elevated. Continue Eliquis and BB. BP better controlled. Antiemetics, --New onset atrial fibrillation/flutter --Acute heart failure with preserved ejection fraction --Hypertension; patient has been having some low blood pressures this morning With systolic blood pressures 90s diastolic 50 to 60s; unable to give fluid bolus due to ESRD Patient required midodrine over the last night for hypotension. Currently blood pressure stable systolic 110 to 120 . Will discontinue midodrine and hold blood pressure medicines for now patient to receive hemodialysis again today. Hydralazine has been discontinued. Continue Coreg. --Brief episode of severe nausea vomiting this morning; Patient continues to have nausea and vomiting. Possibly secondary to uremia. Will increase Zofran from 4 mg to 8 mg. Continue supportive care follow electrolytes. Follow-up chest x-ray no evidence of pneumonia at this time. --Acute respiratory distress; secondary to fluid overload Due to end-stage renal disease on hemodialysis HD per schedule, fluid restriction, low-sodium diet Patient was told she had pneumonia. Will start patient on nebulizer treatments follow-up chest x-ray to reevaluate pneumonia. Ruled out for pneumonia with negative chest x-ray. Continue nebulizers has done well with nebulizers stable for transfer discharge a.m. --Tachycardia-patient with SVT rate into 120s. Will give beta-caity x1 at this time. Appreciate cardiology recommendations. Etiology could be nausea vomiting with volume contraction --End-stage renal disease on hemodialysis Nephrology evaluated the patient HD per schedule MWF , Procrit during dialysis --Leukocytosis; SIRS --NSTEMI suspect type II in setting of ESRD --Acute bronchitis/URI Empiric antibiotics Rocephin and Zithromax Continue present management. Follow cultures, cough medicine as needed --Anemia of ESRD; closely monitor H&H Procrit during dialysis, transfuse as needed --DVT prophylaxis; Lovenox (1) Acute respiratory failure Current Visit: Yes Status: Acute (2) Bronchitis Current Visit: Yes Status: Acute (3) Acute heart failure with preserved ejection fraction (HFpEF) Current Visit: Yes Status: Acute (4) ESRD needing dialysis Current Visit: Yes Status: Acute (5) Anemia in chronic kidney disease (CKD) Current Visit: Yes Status: Chronic (6) New onset atrial flutter Current Visit: Yes Status: Acute (7) NSTEMI (non-ST elevated myocardial infarction) Current Visit: Yes Status: Acute Plan to address problem: ?Type 2 (8) Pulmonary embolism Current Visit: Yes Status: Chronic Plan to address problem: 10/2019 (9) COPD (chronic obstructive pulmonary disease) Current Visit: Yes Status: Chronic (10) Hypertension Current Visit: Yes Status: Chronic Qualifiers: Hypertension type: essential hypertension Qualified Code(s): I10 - Essential (primary) hypertension (11) Aortic regurgitation Current Visit: Yes Status: Chronic (12) Mitral regurgitation Current Visit: Yes Status: Chronic (13) Esophageal cancer Current Visit: Yes Status: Chronic Plan to address problem: S/p resection & stent (14) GERD (gastroesophageal reflux disease) Current Visit: Yes Status: Chronic Qualifiers: Esophagitis presence: with esophagitis (15) H/O ETOH abuse Current Visit: Yes Status: Chronic History Interval history: Patient seen and examined, reports nausea, vomiting. Hospitalist Physical - Physical exam Narrative exam: General appearance: Present: no acute distress, well-nourished, chronically ill appearing - EENT Eyes: PERRL, EOM intact ENT: hearing intact, clear oral mucosa Ears: bilateral: normal - Neck Neck: supple, normal ROM - Respiratory Respiratory effort: normal Respiratory: bilateral: CTA - Breasts Breasts: normal - Cardiovascular Rhythm: irregular irregular still elevated Heart Sounds: Present: S1 & S2. Absent: gallop, rub Extremities: pulses intact, No edema, normal color, Full ROM - Gastrointestinal General gastrointestinal: Present: soft, non-tender, non-distended, normal bowel sounds - Genitourinary Female genitourinary: normal - Integumentary Integumentary: clear, warm, dry, AV FISTULA - Musculoskeletal Musculoskeletal: 1, strength equal bilaterally - Neurologic Neurologic: moves all extremities - Psychiatric Psychiatric: memory intact, appropriate mood/affect, intact judgment & insight - Constitutional Vitals: Temp Pulse Resp BP Pulse Ox 98.4 F 60 18 131/68 96 01/24/21 08:09 01/24/21 09:11 01/24/21 09:11 01/24/21 08:09 01/24/21 09:25 General appearance: Present: no acute distress, well-nourished HEART Score - HEART Score Troponin: Troponin T 0.152 ng/mL (0.00-0.029) H* 01/23/21 00:34 Results - Labs CBC & Chem 7: 01/20/21 06:59 01/20/21 06:59 Labs: Laboratory Last Values WBC 9.0 K/mm3 (4.5-11.0) 01/20/21 06:59 RBC 2.38 M/mm3 (3.65-5.03) L 01/20/21 06:59 Hgb 7.4 gm/dl (10.1-14.3) L 01/20/21 06:59 Hct 22.9 % (30.3-42.9) L 01/20/21 06:59 MCV 96 fl (79-97) 01/20/21 06:59 MCH 31 pg (28-32) 01/20/21 06:59 MCHC 33 % (30-34) 01/20/21 06:59 RDW 17.6 % (13.2-15.2) H 01/20/21 06:59 Plt Count 323 K/mm3 (140-440) 01/20/21 06:59 Lymph % (Auto) 8.2 % (13.4-35.0) L 01/20/21 06:59 [place] % (Auto) 9.4 % (0.0-7.3) H 01/20/21 06:59 Eos % (Auto) 1.2 % (0.0-4.3) 01/20/21 06:59 Baso % (Auto) 0.5 % (0.0-1.8) 01/20/21 06:59 Lymph # (Auto) 0.7 K/mm3 (1.2-5.4) L 01/20/21 06:59 [place] # (Auto) 0.8 K/mm3 (0.0-0.8) 01/20/21 06:59 Eos # (Auto) 0.1 K/mm3 (0.0-0.4) 01/20/21 06:59 Baso # (Auto) 0.0 K/mm3 (0.0-0.1) 01/20/21 06:59 Seg Neutrophils % 80.7 % (40.0-70.0) H 01/20/21 06:59 Seg Neutrophils # 7.3 K/mm3 (1.8-7.7) 01/20/21 06:59 PT 15.8 Sec. (12.2-14.9) H 01/18/21 04:58 INR 1.26 (0.87-1.13) H 01/18/21 04:58 Sodium 140 mmol/L (137-145) 01/20/21 06:59 Potassium 4.2 mmol/L (3.6-5.0) 01/20/21 06:59 Chloride 98.8 mmol/L (98-107) 01/20/21 06:59 Carbon Dioxide 26 mmol/L (22-30) 01/20/21 06:59 Anion Gap 19 mmol/L 01/20/21 06:59 BUN 45 mg/dL (7-17) H 01/20/21 06:59 Creatinine 7.2 mg/dL (0.6-1.2) H 01/20/21 06:59 Estimated GFR 7 ml/min 01/20/21 06:59 BUN/Creatinine Ratio 6 % 01/20/21 06:59 Glucose 96 mg/dL (65-100) 01/20/21 06:59 POC Glucose 99 mg/dL (70-105) 01/22/21 20:34 Lactic Acid 1.00 mmol/L (0.7-2.0) 01/18/21 04:58 Calcium 7.6 mg/dL (8.4-10.2) L 01/20/21 06:59 Magnesium 2.20 mg/dL (1.7-2.3) 01/18/21 04:58 Total Bilirubin 0.30 mg/dL (0.1-1.2) 01/18/21 04:58 AST 12 units/L (5-40) 01/18/21 04:58 ALT 6 units/L (7-56) L 01/18/21 04:58 Alkaline Phosphatase 132 units/L (35-129) H 01/18/21 04:58 Total Creatine Kinase 42 units/L (30-135) 01/18/21 04:58 Troponin T 0.152 ng/mL (0.00-0.029) H* 01/23/21 00:34 NT-Pro-B Natriuret Pep 16579 pg/mL (0-900) H 01/18/21 04:58 Total Protein 7.7 g/dL (6.3-8.2) 01/18/21 04:58 Albumin 3.2 g/dL (3.9-5) L 01/18/21 04:58 Albumin/Globulin Ratio 0.7 % 01/18/21 04:58 Triglycerides 57 mg/dL (2-149) 01/18/21 04:58 Cholesterol 149 mg/dL (50-199) 01/18/21 04:58 LDL Cholesterol Direct 53 mg/dL (50-130) 01/18/21 04:58 HDL Cholesterol 90 mg/dL (40-59) H 01/18/21 04:58 Cholesterol/HDL Ratio 1.65 % 01/18/21 04:58 TSH 7.610 mlU/mL (0.270-4.200) H 01/23/21 20:44 Nasal Screen MRSA (PCR) Negative (Negative) 01/18/21 Unknown Hepatitis A IgM Ab Non-reactive (NonReactive) 01/18/21 09:27 Hep Bs Antigen Non-reactive (Negative) 01/18/21 09:27 Hep B Core IgM Ab Non-reactive (NonReactive) 01/18/21 09:27 Hepatitis C Antibody Non-reactive (NonReactive) 01/18/21 09:27 [place]/IV: Voiding Method Bedpan Active Medications - Current Medications Current Medications: Generic Name Dose Route Start Last Admin Trade Name Freq PRN Reason Stop Dose Admin Acetaminophen 650 mg 01/23/21 22:39 01/24/21 09:39 Acetaminophen 325 Mg Tab PO 650 mg Q6HR PRN Administration Pain, Mild (1-3) Albuterol 2.5 mg 01/21/21 14:00 01/24/21 09:09 Albuterol 2.5 Mg/3 Ml Nebu IH 2.5 mg TIDRT ELI Administration Allopurinol 100 mg 01/19/21 10:00 01/24/21 09:39 Allopurinol 100 Mg Tab PO 100 mg QDAY ELI Administration Apixaban 2.5 mg 01/18/21 22:00 01/24/21 09:39 Apixaban 2.5 Mg Tab PO 2.5 mg BID ELI Administration Cinacalcet 30 mg 01/19/21 10:00 01/24/21 09:38 Cinacalcet 30 Mg Tab PO 30 mg QDAY ELI Administration Clonidine HCl 0.2 mg 01/23/21 22:00 01/24/21 13:09 Clonidine 0.2 Mg Tab PO 0.2 mg Q8HR ELI Administration Guaifenesin 10 ml 01/19/21 05:17 01/23/21 09:35 Guaifenesin Dm 200/20 Mg Oral Liqd 10 Ml PO 10 ml Q4H PRN Administration Cough Guaifenesin 600 mg 01/20/21 22:00 01/24/21 09:38 Guaifenesin Er 600 Mg Tab PO 600 mg BID ELI Administration Sodium Chloride 100 mls @ 999 mls/hr 01/18/21 08:00 Nacl 0.9% IV STEVIE PRN Hypotension Metoprolol Tartrate 25 mg 01/23/21 18:36 01/24/21 09:38 Metoprolol Tartrate 25 Mg Tab PO 25 mg BID ELI Administration Morphine Sulfate 2 mg 01/18/21 17:38 01/24/21 09:40 Morphine 2 Mg/1 Ml Inj IV 2 mg Q8H PRN Administration Pain, Moderate (4-6) Ondansetron HCl 8 mg 01/23/21 11:34 01/24/21 13:09 Ondansetron 4 Mg/2 Ml Inj IV 8 mg Q6H PRN Administration nausea/vomitting Oxycodone/Acetaminophen 1 tab 01/18/21 17:27 01/24/21 13:09 Oxycodone /Acetaminophen 5-325mg Tab PO 1 tab Q6H PRN Administration Pain, Moderate (4-6) Rifampin 300 mg 01/18/21 22:00 01/24/21 09:39 Rifampin 300 Mg Cap PO 300 mg BID ELI Administration Zolpidem Tartrate 5 mg 01/20/21 20:21 01/23/21 22:28 Zolpidem 5 Mg Tab PO 5 mg QHS PRN Administration Sleep
[2021-01-24] MEDS: ZOLPIDEM 5 MG TAB PO PRN (23:14)
[2021-01-25] MEDS: MORPHINE 2 MG/1 ML INJ IV PRN ×3 (02:08→21:44)
[2021-01-25] MEDS: cloNIDine 0.2 MG TAB PO SCH (05:06)
[2021-01-25 06:34] LABS: Hematocrit 23.8 % (30.3-42.9); Hemoglobin 7.7 gm/dl (10.1-14.3); Mean Corpuscular HGB Conc 32 % (30-34); Mean Corpuscular Volume 98 fl (79-97); Platelet Count 346 K/mm3 (140-440); Red Blood Count 2.43 M/mm3 (3.65-5.03); Red Cell Distribution Width 17.6 % (13.2-15.2)
[2021-01-25 06:43] LABS: INR 1.49 (0.87-1.13)
[2021-01-25 06:46] LABS: Calcium 8.1 mg/dL (8.4-10.2)
[2021-01-25] MEDS: ALBUTEROL 2.5 MG/3 ML NEBU IH SCH ×3 (08:07→21:09)
[2021-01-25] MEDS: oxyCODONE /ACETAMINOPHEN 5-325MG TAB PO PRN ×2 (08:20→18:26)
[2021-01-25] MEDS: guaiFENesin ER 600 MG TAB PO SCH ×2 (09:03→21:38)
[2021-01-25] MEDS: guaiFENesin DM 200/20 MG ORAL LIQD 10 ML PO PRN ×2 (09:03→14:11)
[2021-01-25] MEDS: rifAMPin 300 MG CAP PO SCH ×2 (09:03→21:38)
[2021-01-25] MEDS: allopurinoL 100 MG TAB PO SCH (09:03)
[2021-01-25] MEDS: METOPROLOL TARTRATE 25 MG TAB PO SCH ×4 (09:03→21:41)
[2021-01-25] MEDS: APIXABAN 2.5 MG TAB PO SCH ×2 (09:03→21:39)
[2021-01-25] MEDS: CINACALCET 30 MG TAB PO SCH (09:03)
--- NOTE | 2021-01-25 09:26 | Progress Note ---
Assessment and Plan Assessment - End-stage renal disease on hemodialysis. Followed by Dr. Brandy Soler in [place] outpatient on MWF schedule - Hypertension - Anemia of ESRD - Hyperparathyroidism - Leukocytosis - Pneumonia - Acute and chronic respiratory failure, on 2 L of oxygen at home - Substernal chest pain, tender to touch. Recommendations - had HD 6/5 with episodes of chest pain, tachycardia - plan for HD today as tolerated for electrolyte and volume management - tachycardia management per cardiology appreciated - Monitor labs and volume status daily and assess need for additional dialysis session - Leukocytosis w/u as per primary - Agree with antibiotics - Epogen with HD - Continue sensipar - Continue phosphorus binders - ESRD diet with 1.4 g/kg per day protein - Renally dose medication for creatinine clearance less than 15 cc/min Subjective Date of service: 01/25/21 Principal diagnosis: Atrial Flutter Interval history: No acute changes noted, patient does note feeling generally poor. "Ok" this AM, does not want HD longer than 3.5 hours Objective - Exam Narrative Exam: General appearance: well-developed EENT: PERRL, mucous membranes moist Neck: no JVD, supple, other (Right IJ PermCath in place) Respiratory: on NC this AM, sitting up; normal respiratory effort Cardiology: regular, normal heart rate Gastrointestinal: normal, normoactive bowel sounds Integumentary: other (No edema) - Vital Signs Vital signs: Vital Signs - 12hr 01/24/21 01/24/21 01/24/21 21:57 21:58 22:53 Temperature Pulse Rate 101 H Pulse Rate [ 60 Anterior Bilateral Throughout] Respiratory 18 Rate Respiratory 14 Rate [Anterior Bilateral Throughout] Blood Pressure O2 Sat by Pulse Oximetry 01/24/21 01/24/21 01/25/21 22:58 23:34 02:08 Temperature 98.4 F Pulse Rate 54 L Pulse Rate [ Anterior Bilateral Throughout] Respiratory 20 18 Rate Respiratory Rate [Anterior Bilateral Throughout] Blood Pressure 110/61 O2 Sat by Pulse 99 96 Oximetry 01/25/21 01/25/21 01/25/21 04:25 05:06 08:00 Temperature 98.1 F Pulse Rate 47 L 47 L Pulse Rate [ 98 H Anterior Bilateral Throughout] Respiratory 18 Rate Respiratory 53 H Rate [Anterior Bilateral Throughout] Blood Pressure 103/57 O2 Sat by Pulse 100 Oximetry 01/25/21 01/25/21 08:08 09:03 Temperature Pulse Rate 99 H Pulse Rate [ Anterior Bilateral Throughout] Respiratory Rate Respiratory Rate [Anterior Bilateral Throughout] Blood Pressure 119/78 O2 Sat by Pulse 98 Oximetry - Lab 01/25/21 05:56 01/25/21 05:56 Most recent lab results Calcium 8.1 mg/dL (8.4-10.2) L 01/25/21 05:56 Magnesium 2.20 mg/dL (1.7-2.3) 01/18/21 04:58 Medications & Allergies - Medications Allergies/Adverse Reactions: Allergies No Known Allergies Allergy (Verified 01/18/21 04:31) Home Medications: Home Medications Medication Instructions Recorded Confirmed Last Taken Type rifAMPin [Rifadin] 300 mg PO BID 11/02/19 01/19/21 11/01/19 History levoFLOXacin [Levaquin TAB] 750 mg PO QDAY #3 tablet 04/24/20 01/19/21 Unknown Rx oxyCODONE /ACETAMINOPHEN [Percocet 1 tab PO Q8HR PRN #15 tablet 04/24/20 01/19/21 Unknown Rx 5/325 mg] Apixaban [Eliquis] 2.5 mg PO BID #60 tablet 11/16/20 01/19/21 Unknown Rx Cinacalcet HCl [Sensipar] 30 mg PO QDAY #60 11/16/20 01/19/21 Unknown Rx Isosorbide Dinitrate [Isordil] 20 mg PO BID #60 11/16/20 01/19/21 Unknown Rx Linaclotide [Linzess] 72 mg PO PRN PRN #10 cap 11/16/20 01/19/21 Unknown Rx Omeprazole 40 mg PO QDAY #30 11/16/20 01/19/21 Unknown Rx Temazepam [Restoril] 15 mg PO QHS #30 cap 11/16/20 01/19/21 Unknown Rx Vit B Complx C/Folic Acid/Zinc 0.8 mg PO QDAY #30 11/16/20 01/19/21 Unknown Rx [Dialyvite 800-Zinc 15 mg Tab] allopurinoL [Zyloprim] 100 mg PO QDAY #30 11/16/20 01/19/21 Unknown Rx carvediloL [Coreg] 25 mg PO BID #60 11/16/20 01/19/21 Unknown Rx cloNIDine [Catapres] 0.3 mg PO TID #90 tablet 11/16/20 01/19/21 Unknown Rx guaiFENesin DM [Guaifenesin Dm 10 ml PO Q4H PRN 10 Days oral.liqd 11/16/20 01/19/21 Unknown Rx Syrup] hydrALAZINE [Apresoline TAB] 100 mg PO TID #90 tab 11/16/20 01/19/21 Unknown Rx Active Medications: Generic Name Dose Route Start Last Admin Trade Name Freq PRN Reason Stop Dose Admin Acetaminophen 650 mg 01/23/21 22:39 01/24/21 09:39 Acetaminophen 325 Mg Tab PO 650 mg Q6HR PRN Administration Pain, Mild (1-3) Albuterol 2.5 mg 01/21/21 14:00 01/25/21 08:07 Albuterol 2.5 Mg/3 Ml Nebu IH 2.5 mg TIDRT ELI Administration Allopurinol 100 mg 01/19/21 10:00 01/25/21 09:03 Allopurinol 100 Mg Tab PO 100 mg QDAY ELI Administration Apixaban 2.5 mg 01/18/21 22:00 01/25/21 09:03 Apixaban 2.5 Mg Tab PO 2.5 mg BID ELI Administration Cinacalcet 30 mg 01/19/21 10:00 01/25/21 09:03 Cinacalcet 30 Mg Tab PO 30 mg QDAY ELI Administration Clonidine HCl 0.2 mg 01/23/21 22:00 01/25/21 05:06 Clonidine 0.2 Mg Tab PO Not Given Q8HR ELI Guaifenesin 10 ml 01/19/21 05:17 01/25/21 09:03 Guaifenesin Dm 200/20 Mg Oral Liqd 10 Ml PO 10 ml Q4H PRN Administration Cough Guaifenesin 600 mg 01/20/21 22:00 01/25/21 09:03 Guaifenesin Er 600 Mg Tab PO 600 mg BID ELI Administration Sodium Chloride 100 mls @ 999 mls/hr 01/18/21 08:00 Nacl 0.9% IV STEVIE PRN Hypotension Metoprolol Tartrate 25 mg 01/23/21 18:36 01/25/21 09:03 Metoprolol Tartrate 25 Mg Tab PO 25 mg BID ELI Administration Morphine Sulfate 2 mg 01/18/21 17:38 01/25/21 02:08 Morphine 2 Mg/1 Ml Inj IV 2 mg Q8H PRN Administration Pain, Moderate (4-6) Ondansetron HCl 8 mg 01/23/21 11:34 01/24/21 22:03 Ondansetron 4 Mg/2 Ml Inj IV 8 mg Q6H PRN Administration nausea/vomitting Oxycodone/Acetaminophen 1 tab 01/18/21 17:27 01/25/21 08:20 Oxycodone /Acetaminophen 5-325mg Tab PO 1 tab Q6H PRN Administration Pain, Moderate (4-6) Rifampin 300 mg 01/18/21 22:00 01/25/21 09:03 Rifampin 300 Mg Cap PO 300 mg BID ELI Administration Zolpidem Tartrate 5 mg 01/20/21 20:21 01/24/21 23:14 Zolpidem 5 Mg Tab PO 5 mg QHS PRN Administration Sleep
--- NOTE | 2021-01-25 11:06 | Progress Note ---
Assessment and Plan Patient resting comfortably in bed. She reports some shortness of breath and episodes of chest pain overnight #New onset atrial fibrillation/flutter * Currently chronically anticoagulated on Eliquis 2.5 since PTE in October 2019. * Optimize antihypertensive and rate control regimen: Increase metoprolol to 25 mg p.o. 3 times daily, reduce clonidine to 0.1 mg 3 times daily. Preferentially withhold clonidine for borderline blood pressures to maintain rate control. #Elevated D-dimer * CTA chest pending, to be completed tomorrow due to hemodialysis #Acute heart failure with preserved ejection fraction * Echocardiogram reviewed (01/22/2021): LVEF is 45 to 50%. LV SF is mildly decreased. Severe LVH. RVSF is normal. Moderate TR. Moderate right pleural effusion noted #Acute respiratory failure in setting of bronchitis * Currently reports no distress. #NSTEMI suspect type II in setting of ESRD * Troponins are elevated and trending upward. Continue to trend CE's * Will plan for Lexiscan stress test once CTA chest is complete. If troponins are stable and patient remains asymptomatic this may be completed in outpatient setting. #Severe anemia in chronic renal disease * Continue to monitor labs. May need to discontinue anticoagulation anemia worsens * Nephrology is following. Patient is scheduled for dialysis //SUN * Volume optimization per nephrology #Hx of esophageal CA with recent resection * Mgmt per primary team #DVT prophylaxis * On Eliquis we will follow. I discussed pt care plan with daughter by phone extensively. She states they are previously scheduled to establish care with Dr Ellis Santos with [facility] and would like to have f/u with him. Patient seen in conjunction with Dr Ilana Jackson who agrees with this assessment and plan of care - Patient Problems (1) Acute respiratory failure Current Visit: Yes Status: Acute (2) Bronchitis Current Visit: Yes Status: Acute (3) Acute heart failure with preserved ejection fraction (HFpEF) Current Visit: Yes Status: Acute (4) ESRD needing dialysis Current Visit: Yes Status: Acute (5) Anemia in chronic kidney disease (CKD) Current Visit: Yes Status: Chronic (6) New onset atrial flutter Current Visit: Yes Status: Acute (7) NSTEMI (non-ST elevated myocardial infarction) Current Visit: Yes Status: Acute Plan to address problem: ?Type 2 (8) Pulmonary embolism Current Visit: Yes Status: Chronic Plan to address problem: 10/2019 (9) COPD (chronic obstructive pulmonary disease) Current Visit: Yes Status: Chronic (10) Hypertension Current Visit: Yes Status: Chronic Qualifiers: Hypertension type: essential hypertension Qualified Code(s): I10 - Essential (primary) hypertension (11) Aortic regurgitation Current Visit: Yes Status: Chronic (12) Mitral regurgitation Current Visit: Yes Status: Chronic (13) Esophageal cancer Current Visit: Yes Status: Chronic Plan to address problem: S/p resection & stent (14) GERD (gastroesophageal reflux disease) Current Visit: Yes Status: Chronic Qualifiers: Esophagitis presence: with esophagitis (15) H/O ETOH abuse Current Visit: Yes Status: Chronic Subjective Date of service: 01/25/21 Principal diagnosis: Atrial Flutter Interval history: Patient resting comfortably in bed. No chest pain or shortness of breath overnight. Pt is c/o throat pain. Telemetry reviewed: Atrial fibrillation/flutter in 110s. No events Objective Last Vital Signs Temp 98.4 F 01/25/21 08:00 Pulse 99 H 01/25/21 10:00 Resp 24 01/25/21 10:00 BP 119/78 01/25/21 09:03 Pulse Ox 98 01/25/21 08:08 - Physical Examination General: No Apparent Distress HEENT: Positive: EOMI, Normocephaly Neck: Positive: neck supple, trachea midline. Negative: JVD/HJR Cardiac: Positive: irregularly irregular, S1/S2 Lungs: Positive: Normal Exam, Normal Breath Sounds Neuro: Positive: Grossly Intact Abdomen: Positive: Soft. Negative: Tender Skin: Negative: Rash Musculoskeletal: No Pain Extremities: Present: lower extr. pulses. Absent: edema - Labs and Meds Coagulation 01/25/21 Range/Units 05:56 PT 18.5 H (12.2-14.9) Sec. INR 1.49 H (0.87-1.13) CBC 01/25/21 Range/Units 05:56 WBC 8.8 (4.5-11.0) K/mm3 RBC 2.43 L (3.65-5.03) M/mm3 Hgb 7.7 L (10.1-14.3) gm/dl Hct 23.8 L (30.3-42.9) % Plt Count 346 (140-440) K/mm3 Comprehensive Metabolic Panel 01/25/21 Range/Units 05:56 Sodium 136 L (137-145) mmol/L Potassium 4.3 (3.6-5.0) mmol/L Chloride 95.8 L (98-107) mmol/L Carbon Dioxide 28 (22-30) mmol/L BUN 41 H (7-17) mg/dL Creatinine 7.7 H (0.6-1.2) mg/dL Glucose 91 (65-100) mg/dL Calcium 8.1 L (8.4-10.2) mg/dL - Imaging and Cardiology EKG: report reviewed, image reviewed Nuclear stress test: pending Echo: report reviewed (Echocardiogram reviewed (01/22/2021): LVEF is 45 to 50%. LV SF is mildly decreased. Severe LVH. RV SF is normal. Moderate TR. Moderate right pleural effusion noted) - Telemetry EKG Rhythm: Atrial Fibrillation - EKG Sinus rhythms and dysrhythmias: sinus rhythm AV and intraventricular conduction: left anterior fascicular Myocardial infarction: poor R wave progression
[2021-01-25] MEDS: EPOETIN ALFA-EPBX 10,000 UNIT/1 ML VIAL IV PRN (12:01)
[2021-01-25] MEDS: cloNIDine 0.1 MG TAB PO SCH ×2 (12:39→21:40)
--- NOTE | 2021-01-25 13:26 | Progress Note ---
Assessment and Plan Assessment and plan: 55-year-old -[place] female patient with significant past medical history of esophageal cancer s/p resection, with stent placement, hypertension, end-stage renal disease on hemodialysis, chronic pain syndrome presented to the emergency room with worsening shortness of breath cough chest tightness and generalized weakness of 3 to 4 days duration. Patient has had dialysis MWF her last diagnosis was on Sunday 4 days ago Patient missed 1 dialysis, patient pro BNP is 78,000 Patient denies any chest pain or palpitation, complains of shortness of breath and cough productive No history of fever, patient reports that she felt sick and was admitted briefly at [facility]. Denies headache dizziness weakness or numbness Patient has 2 L of nasal cannula home oxygen. Patient denies any history of COVID-19 infection or close contacts with infected people Patient reports that she has finished vaccination series recently Patient missed dialysis because she states she felt sick. More shortness of breath and productive cough. Thought she had pneumonia. Patient states she feels better today via oxygenation. No further nausea vomiting at this time. Feels better but not quite at baseline. Currently on 2 L now and at home. Patient much less coughing. Breathing better. Should do better with hemodialysis today. Will discharge after hemodialysis. No further nausea vomi ting. Patient is currently on home O2 2 L. 01/23/2021 : Patient hospital course complicated by persistent nausea. Also complicated by tachycardia as high as 123 today. Denies chest pain at this julia e. Mostly nausea vomiting. Moderate improvement with Zofran. 01/24- Check Free T4. Pts TSH is elevated. Continue Eliquis and BB. BP better controlled. Antiemetics, 01/25: Results consistent with Hypothyrodisim, will start on synthroid, will also obtain CTA chest to rule out PE. Plan discussed with the patient and Cardiology. Patient noted to have some clinical improvement in symptoms. --New onset atrial fibrillation/flutter --Acute heart failure with preserved ejection fraction --Hypertension; patient has been having some low blood pressures this morning With systolic blood pressures 90s diastolic 50 to 60s; unable to give fluid bolus due to ESRD Patient required midodrine over the last night for hypotension. Currently blood pressure stable systolic 110 to 120 . Will discontinue midodrine and hold blood pressure medicines for now patient to receive hemodialysis again today. Hydra lazine has been discontinued. Continue Coreg. --Brief episode of severe nausea vomiting this morning; Patient continues to have nausea and vomiting. Possibly secondary to uremia. Will increase Zofran from 4 mg to 8 mg. Continue supportive care follow electrolytes. Follow-up chest x-ray no evidence of pneumonia at this time. --Acute respiratory distress; secondary to fluid overload Due to end-stage renal disease on hemodialysis HD per schedule, fluid restriction, low-sodium diet Patient was told she had pneumonia. Will start patient on nebulizer treatments follow-up chest x-ray to reevaluate pneumonia. Ruled out for pneumonia with negative chest x-ray. Continue nebulizers has done well with nebulizers stable for transfer discharge a.m. --Tachycardia-patient with SVT rate into 120s. Will give beta-caity x1 at this time. Appreciate cardiology recommendations. Etiology could be nausea vomiting with volume contraction --End-stage renal disease on hemodialysis Nephrology evaluated the patient HD per schedule MWF , Procrit during dialysis --Leukocytosis; SIRS --NSTEMI suspect type II in setting of ESRD --Acute bronchitis/URI Empiric antibiotics Rocephin and Zithromax Continue present management. Follow cultures, cough medicine as needed --Anemia of ESRD; closely monitor H&H Procrit during dialysis, transfuse as needed --DVT prophylaxis; Lovenox (1) Acute respiratory failure Current Visit: Yes Status: Acute (2) Bronchitis Current Visit: Yes Status: Acute (3) Acute heart failure with preserved ejection fraction (HFpEF) Current Visit: Yes Status: Acute (4) ESRD needing dialysis Current Visit: Yes Status: Acute (5) Anemia in chronic kidney disease (CKD) Current Visit: Yes Status: Chronic (6) New onset atrial flutter Current Visit: Yes Status: Acute (7) NSTEMI (non-ST elevated myocardial infarction) Current Visit: Yes Status: Acute Plan to address problem: ?Type 2 (8) Pulmonary embolism Current Visit: Yes Status: Chronic Plan to address problem: 10/2019 (9) COPD (chronic obstructive pulmonary disease) Current Visit: Yes Status: Chronic (10) Hypertension Current Visit: Yes Status: Chronic Qualifiers: Hypertension type: essential hypertension Qualified Code(s): I10 - Essential (primary) hypertension (11) Aortic regurgitation Current Visit: Yes Status: Chronic (12) Mitral regurgitation Current Visit: Yes Status: Chronic (13) Esophageal cancer Current Visit: Yes Status: Chronic Plan to address problem: S/p resection & stent (14) GERD (gastroesophageal reflux disease) Current Visit: Yes Status: Chronic Qualifiers: Esophagitis presence: with esophagitis (15) H/O ETOH abuse Current Visit: Yes Status: Chronic History Interval history: Patient seen and examined, undergoing HD today no report of nausea, vomiting today. Hospitalist Physical - Physical exam Narrative exam: General appearance: Present: no acute distress, chronically ill appearing - EENT Eyes: PERRL, EOM intact ENT: hearing intact, clear oral mucosa Ears: bilateral: normal - Neck Neck: supple, normal ROM - Respiratory Respiratory effort: normal Respiratory: bilateral: CTA - Breasts Breasts: normal - Cardiovascular Rhythm: irregular irregular still elevated Heart Sounds: Present: S1 & S2. Absent: gallop, rub Extremities: pulses intact, No edema, normal color, Full ROM - Gastrointestinal General gastrointestinal: Present: soft, non-tender, non-distended, normal bowel sounds - Genitourinary Female genitourinary: normal - Integumentary Integumentary: clear, warm, dry, AV FISTULA - Musculoskeletal Musculoskeletal: 1, strength equal bilaterally - Neurologic Neurologic: moves all extremities - Psychiatric Psychiatric: memory intact, appropriate mood/affect, intact judgment & insight - Constitutional Vitals: Temp Pulse Resp BP Pulse Ox 98.9 F 92 H 24 120/54 98 01/25/21 09:55 01/25/21 11:30 01/25/21 10:00 01/25/21 11:30 01/25/21 09:55 General appearance: Present: no acute distress, well-nourished HEART Score - HEART Score Troponin: Troponin T 0.162 ng/mL (0.00-0.029) H* 01/25/21 05:56 Results - Labs CBC & Chem 7: 01/25/21 05:56 01/25/21 05:56 Labs: Laboratory Last Values WBC 8.8 K/mm3 (4.5-11.0) 01/25/21 05:56 RBC 2.43 M/mm3 (3.65-5.03) L 01/25/21 05:56 Hgb 7.7 gm/dl (10.1-14.3) L 01/25/21 05:56 Hct 23.8 % (30.3-42.9) L 01/25/21 05:56 MCV 98 fl (79-97) H 01/25/21 05:56 MCH 32 pg (28-32) 01/25/21 05:56 MCHC 32 % (30-34) 01/25/21 05:56 RDW 17.6 % (13.2-15.2) H 01/25/21 05:56 Plt Count 346 K/mm3 (140-440) 01/25/21 05:56 Lymph % (Auto) 8.2 % (13.4-35.0) L 01/20/21 06:59 [place] % (Auto) 9.4 % (0.0-7.3) H 01/20/21 06:59 Eos % (Auto) 1.2 % (0.0-4.3) 01/20/21 06:59 Baso % (Auto) 0.5 % (0.0-1.8) 01/20/21 06:59 Lymph # (Auto) 0.7 K/mm3 (1.2-5.4) L 01/20/21 06:59 [place] # (Auto) 0.8 K/mm3 (0.0-0.8) 01/20/21 06:59 Eos # (Auto) 0.1 K/mm3 (0.0-0.4) 01/20/21 06:59 Baso # (Auto) 0.0 K/mm3 (0.0-0.1) 01/20/21 06:59 Seg Neutrophils % 80.7 % (40.0-70.0) H 01/20/21 06:59 Seg Neutrophils # 7.3 K/mm3 (1.8-7.7) 01/20/21 06:59 PT 18.5 Sec. (12.2-14.9) H 01/25/21 05:56 INR 1.49 (0.87-1.13) H 01/25/21 05:56 D-Dimer 3897.19 ng/mlDDU (0-234) H 01/25/21 05:56 Sodium 136 mmol/L (137-145) L 01/25/21 05:56 Potassium 4.3 mmol/L (3.6-5.0) 01/25/21 05:56 Chloride 95.8 mmol/L (98-107) L 01/25/21 05:56 Carbon Dioxide 28 mmol/L (22-30) 01/25/21 05:56 Anion Gap 17 mmol/L 01/25/21 05:56 BUN 41 mg/dL (7-17) H 01/25/21 05:56 Creatinine 7.7 mg/dL (0.6-1.2) H 01/25/21 05:56 Estimated GFR 7 ml/min 01/25/21 05:56 BUN/Creatinine Ratio 5 % 01/25/21 05:56 Glucose 91 mg/dL (65-100) 01/25/21 05:56 POC Glucose 99 mg/dL (70-105) 01/22/21 20:34 Lactic Acid 1.00 mmol/L (0.7-2.0) 01/18/21 04:58 Calcium 8.1 mg/dL (8.4-10.2) L 01/25/21 05:56 Magnesium 2.20 mg/dL (1.7-2.3) 01/18/21 04:58 Total Bilirubin 0.30 mg/dL (0.1-1.2) 01/18/21 04:58 AST 12 units/L (5-40) 01/18/21 04:58 ALT 6 units/L (7-56) L 01/18/21 04:58 Alkaline Phosphatase 132 units/L (35-129) H 01/18/21 04:58 Total Creatine Kinase 42 units/L (30-135) 01/18/21 04:58 Troponin T 0.162 ng/mL (0.00-0.029) H* 01/25/21 05:56 NT-Pro-B Natriuret Pep 82272 pg/mL (0-900) H 01/18/21 04:58 Total Protein 7.7 g/dL (6.3-8.2) 01/18/21 04:58 Albumin 3.2 g/dL (3.9-5) L 01/18/21 04:58 Albumin/Globulin Ratio 0.7 % 01/18/21 04:58 Triglycerides 57 mg/dL (2-149) 01/18/21 04:58 Cholesterol 149 mg/dL (50-199) 01/18/21 04:58 LDL Cholesterol Direct 53 mg/dL (50-130) 01/18/21 04:58 HDL Cholesterol 90 mg/dL (40-59) H 01/18/21 04:58 Cholesterol/HDL Ratio 1.65 % 01/18/21 04:58 TSH 7.610 mlU/mL (0.270-4.200) H 01/23/21 20:44 Free T4 0.60 ng/dL (0.76-1.46) L 01/24/21 Unknown Nasal Screen MRSA (PCR) Negative (Negative) 01/18/21 Unknown Hepatitis A IgM Ab Non-reactive (NonReactive) 01/18/21 09:27 Hep Bs Antigen Non-reactive (Negative) 01/18/21 09:27 Hep B Core IgM Ab Non-reactive (NonReactive) 01/18/21 09:27 Hepatitis C Antibody Non-reactive (NonReactive) 01/18/21 09:27 Stanley/IV: Voiding Method Bedpan Active Medications - Current Medications Current Medications: Generic Name Dose Route Start Last Admin Trade Name Freq PRN Reason Stop Dose Admin Acetaminophen 650 mg 01/23/21 22:39 01/24/21 09:39 Acetaminophen 325 Mg Tab PO 650 mg Q6HR PRN Administration Pain, Mild (1-3) Albuterol 2.5 mg 01/21/21 14:00 01/25/21 08:07 Albuterol 2.5 Mg/3 Ml Nebu IH 2.5 mg TIDRT ELI Administration Allopurinol 100 mg 01/19/21 10:00 01/25/21 09:03 Allopurinol 100 Mg Tab PO 100 mg QDAY ELI Administration Cinacalcet 30 mg 01/19/21 10:00 01/25/21 09:03 Cinacalcet 30 Mg Tab PO 30 mg QDAY ELI Administration Clonidine HCl 0.1 mg 01/25/21 12:00 01/25/21 12:39 Clonidine 0.1 Mg Tab PO Not Given Q8HR ELI Guaifenesin 10 ml 01/19/21 05:17 01/25/21 09:03 Guaifenesin Dm 200/20 Mg Oral Liqd 10 Ml PO 10 ml Q4H PRN Administration Cough Guaifenesin 600 mg 01/20/21 22:00 01/25/21 09:03 Guaifenesin Er 600 Mg Tab PO 600 mg BID ELI Administration Sodium Chloride 100 mls @ 999 mls/hr 01/18/21 08:00 Nacl 0.9% IV STEVIE PRN Hypotension Metoprolol Tartrate 25 mg 01/25/21 12:00 01/25/21 12:39 Metoprolol Tartrate 25 Mg Tab PO Not Given TID ELI Morphine Sulfate 2 mg 01/18/21 17:38 01/25/21 02:08 Morphine 2 Mg/1 Ml Inj IV 2 mg Q8H PRN Administration Pain, Moderate (4-6) Ondansetron HCl 8 mg 01/23/21 11:34 01/24/21 22:03 Ondansetron 4 Mg/2 Ml Inj IV 8 mg Q6H PRN Administration nausea/vomitting Oxycodone/Acetaminophen 1 tab 01/18/21 17:27 01/25/21 08:20 Oxycodone /Acetaminophen 5-325mg Tab PO 1 tab Q6H PRN Administration Pain, Moderate (4-6) Rifampin 300 mg 01/18/21 22:00 01/25/21 09:03 Rifampin 300 Mg Cap PO 300 mg BID ELI Administration Zolpidem Tartrate 5 mg 01/20/21 20:21 01/24/21 23:14 Zolpidem 5 Mg Tab PO 5 mg QHS PRN Administration Sleep Nutrition/Malnutrition Assess - Dietary Evaluation Nutrition/Malnutrition Findings: Nutrition Notes Start: 01/25/21 13:22 Freq: Status: Active Protocol: Document 01/25/21 13:22 (Rec: 01/25/21 13:23 [id number]) Nutrition Notes Need for Assessment generated from: LOS Initial or Follow up Brief Note Current Diagnosis CKD (stage V CKD),Hypertension ,Respiratory Failure Other Pertinent Diagnosis on HD Current Diet Renal Subjective/Other Information Screen for LOS. Pt pankaj Boone yesterday. Nutrition Intervention Follow-Up By: 01/26/21 Additional Comments FU for intakes
[2021-01-25] MEDS: ONDANSETRON 4 MG/2 ML INJ IV PRN (21:38)
[2021-01-26] MEDS: guaiFENesin DM 200/20 MG ORAL LIQD 10 ML PO PRN ×3 (03:10→22:27)
[2021-01-26] MEDS: ZOLPIDEM 5 MG TAB PO PRN (03:11)
[2021-01-26] MEDS: oxyCODONE /ACETAMINOPHEN 5-325MG TAB PO PRN ×3 (03:11→21:37)
[2021-01-26] MEDS: LEVOTHYROXINE 50 MCG TAB PO SCH (06:05)
[2021-01-26] MEDS: cloNIDine 0.1 MG TAB PO SCH ×3 (06:06→21:33)
[2021-01-26] MEDS: ALBUTEROL 2.5 MG/3 ML NEBU IH SCH ×3 (08:10→21:53)
[2021-01-26] MEDS: MORPHINE 2 MG/1 ML INJ IV PRN ×2 (08:32→16:40)
--- NOTE | 2021-01-26 09:28 | Cat Scan Report ---
CTA CHEST WITH CONTRAST INDICATION / CLINICAL INFORMATION: pulmonary embolism RICCO 350 100 ML. TECHNIQUE: Axial CT images were obtained through the chest after injection of IV contrast. 3 plane MIP and/or 3D reconstructions were produced. All CT scans at this location are performed using CT dose reduction f or ALARA by means of automated exposure control. COMPARISON: Prior chest radiograph 01/21/2021. Prior CTA chest 11/02/2019 FINDINGS: PULMONARY ARTERIES: No pulmonary emboli. The previously noted small left lower lobe pulmonary embolus has resolved. THORACIC AORTA: Mild atherosclerotic calcification without acute abnormality. HEART: No significant abnormality. CORONARY ARTERIES: Mild coronary artery calcifications. MEDIASTINUM / AL: No significant abnormality. PLEURA: Moderate bilateral pleural effusions, left greater than right. No pneumothorax. LUNGS: Compressive atelectasis in the bibasilar region, left greater than right. Significant linear a telectasis also noted in the right lower lobe. ADDITIONAL FINDINGS: Right IJ catheter with its tip terminating at the superior atrial caval junction . UPPER ABDOMEN: No acute findings. Postsurgical findings likely represent prior esophageal pull-throug h. SKELETAL STRUCTURES: Mild multilevel degenerative changes are noted of the spine. No aggressive osseo us lesions. IMPRESSION: 1. No CT evidence for pulmonary embolism. 2. Moderate bilateral pleural effusions with associated compressive atelectasis, left greater than ri ght. Signer Name: Bean Patel MD Signed: 01/26/2021 9:23 AM Workstation Name: [id number]
--- NOTE | 2021-01-26 10:43 | Progress Note ---
Assessment and Plan Assessment - End-stage renal disease on hemodialysis. Followed by Dr. Brandy Soler in [place] outpatient on MWF schedule - Hypertension - Anemia of ESRD - Hyperparathyroidism - Leukocytosis - Pneumonia - Acute and chronic respiratory failure, on 2 L of oxygen at home - Substernal chest pain, tender to touch. Recommendations - s/p HD yesterday, no major issues noted; plan to continue HD //, due tomorrow - no specific indication for HD today post-contrast use in ESRD patient - tachycardia management per cardiology appreciated - Monitor labs and volume status daily and assess need for additional dialysis session - Leukocytosis w/u as per primary - Agree with antibiotics - Epogen with HD - Continue sensipar - Continue phosphorus binders - ESRD diet with 1.4 g/kg per day protein - Renally dose medication for creatinine clearance less than 15 cc/min Subjective Date of service: 01/26/21 Principal diagnosis: Atrial Flutter Interval history: Resting in AM, just had CT angio Objective - Exam Narrative Exam: General appearance: well-developed EENT: PERRL, mucous membranes moist Neck: no JVD, supple, other (Right IJ PermCath in place) Respiratory: on NC this AM, sitting up; normal respiratory effort Cardiology: regular, normal heart rate Gastrointestinal: normal, normoactive bowel sounds Integumentary: other (No edema) - Vital Signs Vital signs: Vital Signs - 12hr 01/25/21 01/26/21 01/26/21 23:03 03:11 03:40 Temperature 98.3 F 98.4 F Pulse Rate 44 L 60 Respiratory 16 20 16 Rate Blood Pressure 133/76 127/62 O2 Sat by Pulse 98 100 Oximetry 01/26/21 07:16 Temperature 98.3 F Pulse Rate 49 L Respiratory 18 Rate Blood Pressure 132/71 O2 Sat by Pulse 96 Oximetry - Lab 01/25/21 05:56 01/25/21 05:56 Most recent lab results Calcium 8.1 mg/dL (8.4-10.2) L 01/25/21 05:56 Magnesium 2.20 mg/dL (1.7-2.3) 01/18/21 04:58 Medications & Allergies - Medications Allergies/Adverse Reactions: Allergies No Known Allergies Allergy (Verified 01/18/21 04:31) Home Medications: Home Medications Medication Instructions Recorded Confirmed Last Taken Type rifAMPin [Rifadin] 300 mg PO BID 11/02/19 01/19/21 11/01/19 History levoFLOXacin [Levaquin TAB] 750 mg PO QDAY #3 tablet 04/24/20 01/19/21 Unknown Rx oxyCODONE /ACETAMINOPHEN [Percocet 1 tab PO Q8HR PRN #15 tablet 04/24/20 01/19/21 Unknown Rx 5/325 mg] Apixaban [Eliquis] 2.5 mg PO BID #60 tablet 11/16/20 01/19/21 Unknown Rx Cinacalcet HCl [Sensipar] 30 mg PO QDAY #60 11/16/20 01/19/21 Unknown Rx Isosorbide Dinitrate [Isordil] 20 mg PO BID #60 11/16/20 01/19/21 Unknown Rx Linaclotide [Linzess] 72 mg PO PRN PRN #10 cap 11/16/20 01/19/21 Unknown Rx Omeprazole 40 mg PO QDAY #30 11/16/20 01/19/21 Unknown Rx Temazepam [Restoril] 15 mg PO QHS #30 cap 11/16/20 01/19/21 Unknown Rx Vit B Complx C/Folic Acid/Zinc 0.8 mg PO QDAY #30 11/16/20 01/19/21 Unknown Rx [Dialyvite 800-Zinc 15 mg Tab] allopurinoL [Zyloprim] 100 mg PO QDAY #30 11/16/20 01/19/21 Unknown Rx carvediloL [Coreg] 25 mg PO BID #60 11/16/20 01/19/21 Unknown Rx cloNIDine [Catapres] 0.3 mg PO TID #90 tablet 11/16/20 01/19/21 Unknown Rx guaiFENesin DM [Guaifenesin Dm 10 ml PO Q4H PRN 10 Days oral.liqd 11/16/20 01/19/21 Unknown Rx Syrup] hydrALAZINE [Apresoline TAB] 100 mg PO TID #90 tab 11/16/20 01/19/21 Unknown Rx Active Medications: Generic Name Dose Route Start Last Admin Trade Name Freq PRN Reason Stop Dose Admin Acetaminophen 650 mg 01/23/21 22:39 01/24/21 09:39 Acetaminophen 325 Mg Tab PO 650 mg Q6HR PRN Administration Pain, Mild (1-3) Albuterol 2.5 mg 01/21/21 14:00 01/26/21 08:10 Albuterol 2.5 Mg/3 Ml Nebu IH 2.5 mg TIDRT ELI Administration Allopurinol 100 mg 01/19/21 10:00 01/25/21 09:03 Allopurinol 100 Mg Tab PO 100 mg QDAY ELI Administration Apixaban 2.5 mg 01/25/21 22:00 01/25/21 21:39 Apixaban 2.5 Mg Tab PO 2.5 mg BID ELI Administration Cinacalcet 30 mg 01/19/21 10:00 01/25/21 09:03 Cinacalcet 30 Mg Tab PO 30 mg QDAY ELI Administration Clonidine HCl 0.1 mg 01/25/21 12:00 01/26/21 06:06 Clonidine 0.1 Mg Tab PO 0.1 mg Q8HR ELI Administration Guaifenesin 10 ml 01/19/21 05:17 01/26/21 03:10 Guaifenesin Dm 200/20 Mg Oral Liqd 10 Ml PO 10 ml Q4H PRN Administration Cough Guaifenesin 600 mg 01/20/21 22:00 01/25/21 21:38 Guaifenesin Er 600 Mg Tab PO 600 mg BID ELI Administration Sodium Chloride 100 mls @ 999 mls/hr 01/18/21 08:00 Nacl 0.9% IV STEVIE PRN Hypotension Levothyroxine Sodium 50 mcg 01/26/21 06:00 01/26/21 06:05 Levothyroxine 50 Mcg Tab PO 50 mcg DAILY@0600 ELI Administration Metoprolol Tartrate 25 mg 01/25/21 12:00 01/25/21 21:41 Metoprolol Tartrate 25 Mg Tab PO 25 mg TID ELI Administration Morphine Sulfate 2 mg 01/18/21 17:38 01/26/21 08:32 Morphine 2 Mg/1 Ml Inj IV 2 mg Q8H PRN Administration Pain, Moderate (4-6) Ondansetron HCl 8 mg 01/23/21 11:34 01/25/21 21:38 Ondansetron 4 Mg/2 Ml Inj IV 8 mg Q6H PRN Administration nausea/vomitting Oxycodone/Acetaminophen 1 tab 01/18/21 17:27 01/26/21 03:11 Oxycodone /Acetaminophen 5-325mg Tab PO 1 tab Q6H PRN Administration Pain, Moderate (4-6) Rifampin 300 mg 01/18/21 22:00 01/25/21 21:38 Rifampin 300 Mg Cap PO 300 mg BID ELI Administration Zolpidem Tartrate 5 mg 01/20/21 20:21 01/24/21 23:14 Zolpidem 5 Mg Tab PO 5 mg QHS PRN Administration Sleep
[2021-01-26] MEDS: APIXABAN 2.5 MG TAB PO SCH ×2 (10:44→21:33)
[2021-01-26] MEDS: guaiFENesin ER 600 MG TAB PO SCH ×2 (10:44→21:33)
[2021-01-26] MEDS: CINACALCET 30 MG TAB PO SCH (10:44)
[2021-01-26] MEDS: allopurinoL 100 MG TAB PO SCH (10:44)
[2021-01-26] MEDS: METOPROLOL TARTRATE 25 MG TAB PO SCH ×3 (10:46→20:50)
[2021-01-26] MEDS: rifAMPin 300 MG CAP PO SCH ×2 (10:47→21:36)
[2021-01-26 11:23] LABS: Hematocrit 27.5 % (30.3-42.9); Hemoglobin 8.7 gm/dl (10.1-14.3); Mean Corpuscular HGB Conc 32 % (30-34); Mean Corpuscular Volume 100 fl (79-97); Platelet Count 341 K/mm3 (140-440); Red Blood Count 2.77 M/mm3 (3.65-5.03); Red Cell Distribution Width 18.1 % (13.2-15.2)
[2021-01-26 11:36] LABS: Calcium 8.5 mg/dL (8.4-10.2)
--- NOTE | 2021-01-26 12:01 | Progress Note ---
Assessment and Plan Assessment and plan: 55-year-old -[place] female patient with significant past medical history of esophageal cancer s/p resection, with stent placement, hypertension, end-stage renal disease on hemodialysis, chronic pain syndrome presented to the emergency room with worsening shortness of breath cough chest tightness and generalized weakness of 3 to 4 days duration. Patient has had dialysis MWF her last diagnosis was on Sunday 4 days ago Patient missed 1 dialysis, patient pro BNP is 78,000 Patient denies any chest pain or palpitation, complains of shortness of breath and cough productive No history of fever, patient reports that she felt sick and was admitted briefly at [facility]. Denies headache dizziness weakness or numbness Patient has 2 L of nasal cannula home oxygen. Patient denies any history of COVID-19 infection or close contacts with infected people Patient reports that she has finished vaccination series recently Patient missed dialysis because she states she felt sick. More shortness of breath and productive cough. Thought she had pneumonia. Patient states she feels better today via oxygenation. No further nausea vomiting at this time. Feels better but not quite at baseline. Currently on 2 L now and at home. Patient much less coughing. Breathing better. Should do better with hemodialysis today. Will discharge after hemodialysis. No further nausea vomi ting. Patient is currently on home O2 2 L. 01/23/2021 : Patient hospital course complicated by persistent nausea. Also complicated by tachycardia as high as 123 today. Denies chest pain at this julia e. Mostly nausea vomiting. Moderate improvement with Zofran. 01/24- Check Free T4. Pts TSH is elevated. Continue Eliquis and BB. BP better controlled. Antiemetics, 01/25: Results consistent with Hypothyrodisim, will start on synthroid, will also obtain CTA chest to rule out PE. Plan discussed with the patient and Cardiology. Patient noted to have some clinical improvement in symptoms. 01/26: Continue current management we will also sick for CT-guided left thoracentesis for symptomatic healing. Will of course do fluid analysis. Patient is anticipated to have a stress test in a.m. There is no evidence of pulmonary embolism and imaging study obtained. Plan discussed with the patient and she verbalized understanding --New onset atrial fibrillation/flutter --Acute heart failure with preserved ejection fraction --Bilateral pleural effusion with compressive atelectasis --Hypertension; patient has been having some low blood pressures this morning With systolic blood pressures 90s diastolic 50 to 60s; unable to give fluid bolus due to ESRD Patient required midodrine over the last night for hypotension. Currently blood pressure stable systolic 110 to 120 . Will discontinue midodrine and hold blood pressure medicines for now patient to receive hemodialysis again today. Hydralazine has been discontinued. Continue Coreg. --Brief episode of severe nausea vomiting this morning; Patient continues to have nausea and vomiting. Possibly secondary to uremia. Will increase Zofran from 4 mg to 8 mg. Continue supportive care follow electrolytes. Follow-up chest x-ray no evidence of pneumonia at this time. --Acute respiratory distress; secondary to fluid overload Due to end-stage renal disease on hemodialysis HD per schedule, fluid restriction, low-sodium diet Patient was told she had pneumonia. Will start patient on nebulizer treatments follow-up chest x-ray to reevaluate pneumonia. Ruled out for pneumonia with negative chest x-ray. Continue nebulizers has done well with nebulizers stable for transfer discharge a.m. --Tachycardia-patient with SVT rate into 120s. Will give beta-caity x1 at this time. Appreciate cardiology recommendations. Etiology could be nausea vomiting with volume contraction --End-stage renal disease on hemodialysis Nephrology evaluated the patient HD per schedule MWF , Procrit during dialysis --Leukocytosis; SIRS --NSTEMI suspect type II in setting of ESRD --Acute bronchitis/URI Empiric antibiotics Rocephin and Zithromax Continue present management. Follow cultures, cough medicine as needed --Anemia of ESRD; closely monitor H&H Procrit during dialysis, transfuse as needed --DVT prophylaxis; Lovenox (1) Acute respiratory failure Current Visit: Yes Status: Acute (2) Bronchitis Current Visit: Yes Status: Acute (3) Acute heart failure with preserved ejection fraction (HFpEF) Current Visit: Yes Status: Acute (4) ESRD needing dialysis Current Visit: Yes Status: Acute (5) Anemia in chronic kidney disease (CKD) Current Visit: Yes Status: Chronic (6) New onset atrial flutter Current Visit: Yes Status: Acute (7) NSTEMI (non-ST elevated myocardial infarction) Current Visit: Yes Status: Acute Plan to address problem: ?Type 2 (8) Pulmonary embolism Current Visit: Yes Status: Chronic Plan to address problem: 10/2019 (9) COPD (chronic obstructive pulmonary disease) Current Visit: Yes Status: Chronic (10) Hypertension Current Visit: Yes Status: Chronic Qualifiers: Hypertension type: essential hypertension Qualified Code(s): I10 - Essential (primary) hypertension (11) Aortic regurgitation Current Visit: Yes Status: Chronic (12) Mitral regurgitation Current Visit: Yes Status: Chronic (13) Esophageal cancer Current Visit: Yes Status: Chronic Plan to address problem: S/p resection & stent (14) GERD (gastroesophageal reflux disease) Current Visit: Yes Status: Chronic Qualifiers: Esophagitis presence: with esophagitis (15) H/O ETOH abuse Current Visit: Yes Status: Chronic History Interval history: Patient seen and examined, undergoing HD today no report of nausea, vomiting today still with shortness of breath and intermittent chest pain. Hospitalist Physical - Physical exam Narrative exam: General appearance: Present: no acute distress, chronically ill appearing - EENT Eyes: PERRL, EOM intact ENT: hearing intact, clear oral mucosa Ears: bilateral: normal - Neck Neck: supple, normal ROM - Respiratory Respiratory effort: normal Respiratory: bilateral: CTA - Breasts Breasts: normal - Cardiovascular Rhythm: irregular irregular still elevated Heart Sounds: Present: S1 & S2. Absent: gallop, rub Extremities: pulses intact, No edema, normal color, Full ROM - Gastrointestinal General gastrointestinal: Present: soft, non-tender, non-distended, normal bowel sounds - Genitourinary Female genitourinary: normal - Integumentary Integumentary: clear, warm, dry, AV FISTULA - Musculoskeletal Musculoskeletal: 1, strength equal bilaterally - Neurologic Neurologic: moves all extremities - Psychiatric Psychiatric: memory intact, appropriate mood/affect, intact judgment & insight - Constitutional Vitals: Temp Pulse Resp BP Pulse Ox 97.6 F 54 L 18 153/91 94 01/26/21 10:40 01/26/21 10:40 01/26/21 10:40 01/26/21 10:40 01/26/21 10:40 General appearance: Present: no acute distress, well-nourished HEART Score - HEART Score Troponin: Troponin T 0.162 ng/mL (0.00-0.029) H* 01/25/21 05:56 Results - Labs CBC & Chem 7: 01/26/21 10:32 01/26/21 10:32 Labs: Laboratory Last Values WBC 9.0 K/mm3 (4.5-11.0) 01/26/21 10:32 RBC 2.77 M/mm3 (3.65-5.03) L 01/26/21 10:32 Hgb 8.7 gm/dl (10.1-14.3) L 01/26/21 10:32 Hct 27.5 % (30.3-42.9) L 01/26/21 10:32 MCV 100 fl (79-97) H 01/26/21 10:32 MCH 32 pg (28-32) 01/26/21 10:32 MCHC 32 % (30-34) 01/26/21 10:32 RDW 18.1 % (13.2-15.2) H 01/26/21 10:32 Plt Count 341 K/mm3 (140-440) 01/26/21 10:32 Lymph % (Auto) 8.2 % (13.4-35.0) L 01/20/21 06:59 [place] % (Auto) 9.4 % (0.0-7.3) H 01/20/21 06:59 Eos % (Auto) 1.2 % (0.0-4.3) 01/20/21 06:59 Baso % (Auto) 0.5 % (0.0-1.8) 01/20/21 06:59 Lymph # (Auto) 0.7 K/mm3 (1.2-5.4) L 01/20/21 06:59 [place] # (Auto) 0.8 K/mm3 (0.0-0.8) 01/20/21 06:59 Eos # (Auto) 0.1 K/mm3 (0.0-0.4) 01/20/21 06:59 Baso # (Auto) 0.0 K/mm3 (0.0-0.1) 01/20/21 06:59 Seg Neutrophils % 80.7 % (40.0-70.0) H 01/20/21 06:59 Seg Neutrophils # 7.3 K/mm3 (1.8-7.7) 01/20/21 06:59 PT 18.5 Sec. (12.2-14.9) H 01/25/21 05:56 INR 1.49 (0.87-1.13) H 01/25/21 05:56 D-Dimer 3897.19 ng/mlDDU (0-234) H 01/25/21 05:56 Sodium 138 mmol/L (137-145) 01/26/21 10:32 Potassium 4.1 mmol/L (3.6-5.0) 01/26/21 10:32 Chloride 96.3 mmol/L (98-107) L 01/26/21 10:32 Carbon Dioxide 28 mmol/L (22-30) 01/26/21 10:32 Anion Gap 18 mmol/L 01/26/21 10:32 BUN 22 mg/dL (7-17) H 01/26/21 10:32 Creatinine 5.3 mg/dL (0.6-1.2) H 01/26/21 10:32 Estimated GFR 10 ml/min 01/26/21 10:32 BUN/Creatinine Ratio 4 % 01/26/21 10:32 Glucose 88 mg/dL (65-100) 01/26/21 10:32 POC Glucose 99 mg/dL (70-105) 01/22/21 20:34 Lactic Acid 1.00 mmol/L (0.7-2.0) 01/18/21 04:58 Calcium 8.5 mg/dL (8.4-10.2) 01/26/21 10:32 Magnesium 2.20 mg/dL (1.7-2.3) 01/18/21 04:58 Total Bilirubin 0.30 mg/dL (0.1-1.2) 01/18/21 04:58 AST 12 units/L (5-40) 01/18/21 04:58 ALT 6 units/L (7-56) L 01/18/21 04:58 Alkaline Phosphatase 132 units/L (35-129) H 01/18/21 04:58 Total Creatine Kinase 42 units/L (30-135) 01/18/21 04:58 Troponin T 0.162 ng/mL (0.00-0.029) H* 01/25/21 05:56 NT-Pro-B Natriuret Pep 23642 pg/mL (0-900) H 01/18/21 04:58 Total Protein 7.7 g/dL (6.3-8.2) 01/18/21 04:58 Albumin 3.2 g/dL (3.9-5) L 01/18/21 04:58 Albumin/Globulin Ratio 0.7 % 01/18/21 04:58 Triglycerides 57 mg/dL (2-149) 01/18/21 04:58 Cholesterol 149 mg/dL (50-199) 01/18/21 04:58 LDL Cholesterol Direct 53 mg/dL (50-130) 01/18/21 04:58 HDL Cholesterol 90 mg/dL (40-59) H 01/18/21 04:58 Cholesterol/HDL Ratio 1.65 % 01/18/21 04:58 TSH 7.610 mlU/mL (0.270-4.200) H 01/23/21 20:44 Free T4 0.60 ng/dL (0.76-1.46) L 01/24/21 Unknown Nasal Screen MRSA (PCR) Negative (Negative) 01/18/21 Unknown Hepatitis A IgM Ab Non-reactive (NonReactive) 01/18/21 09:27 Hep Bs Antigen Non-reactive (Negative) 01/18/21 09:27 Hep B Core IgM Ab Non-reactive (NonReactive) 01/18/21 09:27 Hepatitis C Antibody Non-reactive (NonReactive) 01/18/21 09:27 [place]/IV: Voiding Method Bedpan Active Medications - Current Medications Current Medications: Generic Name Dose Route Start Last Admin Trade Name Freq PRN Reason Stop Dose Admin Acetaminophen 650 mg 01/23/21 22:39 01/24/21 09:39 Acetaminophen 325 Mg Tab PO 650 mg Q6HR PRN Administration Pain, Mild (1-3) Albuterol 2.5 mg 01/21/21 14:00 01/26/21 08:10 Albuterol 2.5 Mg/3 Ml Nebu IH 2.5 mg TIDRT ELI Administration Allopurinol 100 mg 01/19/21 10:00 01/26/21 10:44 Allopurinol 100 Mg Tab PO 100 mg QDAY EIL Administration Apixaban 2.5 mg 01/25/21 22:00 01/26/21 10:44 Apixaban 2.5 Mg Tab PO 2.5 mg BID ELI Administration Cinacalcet 30 mg 01/19/21 10:00 01/26/21 10:44 Cinacalcet 30 Mg Tab PO 30 mg QDAY ELI Administration Clonidine HCl 0.1 mg 01/25/21 12:00 01/26/21 06:06 Clonidine 0.1 Mg Tab PO 0.1 mg Q8HR ELI Administration Guaifenesin 10 ml 01/19/21 05:17 01/26/21 03:10 Guaifenesin Dm 200/20 Mg Oral Liqd 10 Ml PO 10 ml Q4H PRN Administration Cough Guaifenesin 600 mg 01/20/21 22:00 01/26/21 10:44 Guaifenesin Er 600 Mg Tab PO 600 mg BID ELI Administration Sodium Chloride 100 mls @ 999 mls/hr 01/18/21 08:00 Nacl 0.9% IV STEVIE PRN Hypotension Levothyroxine Sodium 50 mcg 01/26/21 06:00 01/26/21 06:05 Levothyroxine 50 Mcg Tab PO 50 mcg DAILY@0600 ELI Administration Metoprolol Tartrate 25 mg 01/25/21 12:00 01/26/21 10:46 Metoprolol Tartrate 25 Mg Tab PO 25 mg TID ELI Administration Morphine Sulfate 2 mg 01/18/21 17:38 01/26/21 08:32 Morphine 2 Mg/1 Ml Inj IV 2 mg Q8H PRN Administration Pain, Moderate (4-6) Ondansetron HCl 8 mg 01/23/21 11:34 01/25/21 21:38 Ondansetron 4 Mg/2 Ml Inj IV 8 mg Q6H PRN Administration nausea/vomitting Oxycodone/Acetaminophen 1 tab 01/18/21 17:27 01/26/21 10:47 Oxycodone /Acetaminophen 5-325mg Tab PO 1 tab Q6H PRN Administration Pain, Moderate (4-6) Rifampin 300 mg 01/18/21 22:00 01/26/21 10:47 Rifampin 300 Mg Cap PO 300 mg BID ELI Administration Zolpidem Tartrate 5 mg 01/20/21 20:21 01/24/21 23:14 Zolpidem 5 Mg Tab PO 5 mg QHS PRN Administration Sleep Nutrition/Malnutrition Assess - Dietary Evaluation Nutrition/Malnutrition Findings: Nutrition Notes Start: 01/25/21 13:22 Freq: Status: Active Protocol: Document 01/25/21 13:22 LETY (Rec: 01/25/21 13:23 LETY [email or web address]) Nutrition Notes Need for Assessment generated from: LOS Initial or Follow up Brief Note Current Diagnosis CKD (stage V CKD),Hypertension ,Respiratory Failure Other Pertinent Diagnosis on HD Current Diet Renal Subjective/Other Information Screen for LOS. Pt got Zofran yesterday. Unable to speak with pt. Nutrition Intervention Follow-Up By: 01/26/21 Additional Comments FU for intakes
[2021-01-26] MEDS: ONDANSETRON 4 MG/2 ML INJ IV PRN ×2 (12:05→22:27)
--- NOTE | 2021-01-26 12:38 | Progress Note ---
Assessment and Plan Patient resting comfortably in bed. She reports some shortness of breath and episodes of chest pain overnight #New onset atrial fibrillation/flutter * Currently chronically anticoagulated on Eliquis 2.5 since PTE in October 2019. * Continue current antihypertensive regimen. Preferentially withhold clonidine for borderline blood pressures to maintain rate control. #Acute heart failure with preserved ejection fraction * Echocardiogram reviewed (01/22/2021): LVEF is 45 to 50%. LV SF is mildly decreased. Severe LVH. RVSF is normal. Moderate TR. Moderate right pleural effusion noted #Acute respiratory failure in setting of bronchitis and Bilateral pleural effusion * CTA chest is negative for PTE, revealing moderate pleural effusion, left greater than right. Management per primary team #NSTEMI suspect type II in setting of ESRD * Troponins are elevated and stable, now trending downwards. Continue to trend CE's * Will plan for Lexiscan stress test in a.m. N.p.o. after midnight #Severe anemia in chronic renal disease * Hemoglobin is improving. Continue to monitor. * Nephrology is following. Patient is scheduled for dialysis //SUN * Volume optimization per nephrology #Hx of esophageal CA with recent resection * Mgmt per primary team #DVT prophylaxis * On Eliquis we will follow. Patient seen in conjunction with Dr Ilana Jackson who agrees with this assessment and plan of care - Patient Problems (1) Acute respiratory failure Current Visit: Yes Status: Acute (2) Bronchitis Current Visit: Yes Status: Acute (3) Acute heart failure with preserved ejection fraction (HFpEF) Current Visit: Yes Status: Acute (4) ESRD needing dialysis Current Visit: Yes Status: Acute (5) Anemia in chronic kidney disease (CKD) Current Visit: Yes Status: Chronic (6) New onset atrial flutter Current Visit: Yes Status: Acute (7) NSTEMI (non-ST elevated myocardial infarction) Current Visit: Yes Status: Acute Plan to address problem: ?Type 2 (8) Pulmonary embolism Current Visit: Yes Status: Chronic Plan to address problem: 10/2019 (9) COPD (chronic obstructive pulmonary disease) Current Visit: Yes Status: Chronic (10) Hypertension Current Visit: Yes Status: Chronic Qualifiers: Hypertension type: essential hypertension Qualified Code(s): I10 - Essential (primary) hypertension (11) Aortic regurgitation Current Visit: Yes Status: Chronic (12) Mitral regurgitation Current Visit: Yes Status: Chronic (13) Esophageal cancer Current Visit: Yes Status: Chronic Plan to address problem: S/p resection & stent (14) GERD (gastroesophageal reflux disease) Current Visit: Yes Status: Chronic Qualifiers: Esophagitis presence: with esophagitis (15) H/O ETOH abuse Current Visit: Yes Status: Chronic Subjective Date of service: 01/26/21 Principal diagnosis: Atrial Flutter Interval history: Patient resting comfortably in bed. Mild shortness of breath overnight no chest pain. Patient is having throat pain. She is s/p esophageal resection for esophageal cancer Telemetry reviewed: Atrial fibrillation/flutter in 90s to 100s. No events Objective Last Vital Signs Temp 97.6 F 01/26/21 10:40 Pulse 54 L 01/26/21 10:40 Resp 18 01/26/21 10:40 BP 153/91 01/26/21 10:40 Pulse Ox 94 01/26/21 10:40 - Physical Examination General: No Apparent Distress HEENT: Positive: EOMI, Normocephaly Neck: Positive: neck supple, trachea midline. Negative: JVD/HJR Cardiac: Positive: irregularly irregular, S1/S2 Lungs: Positive: Decreased Breath Sounds Neuro: Positive: Grossly Intact Abdomen: Positive: Soft. Negative: Tender Skin: Negative: Rash Musculoskeletal: No Pain Extremities: Present: lower extr. pulses. Absent: edema - Labs and Meds CBC 01/26/21 Range/Units 10:32 WBC 9.0 (4.5-11.0) K/mm3 RBC 2.77 L (3.65-5.03) M/mm3 Hgb 8.7 L (10.1-14.3) gm/dl Hct 27.5 L (30.3-42.9) % Plt Count 341 (140-440) K/mm3 Comprehensive Metabolic Panel 01/26/21 Range/Units 10:32 Sodium 138 (137-145) mmol/L Potassium 4.1 (3.6-5.0) mmol/L Chloride 96.3 L (98-107) mmol/L Carbon Dioxide 28 (22-30) mmol/L BUN 22 H (7-17) mg/dL Creatinine 5.3 H (0.6-1.2) mg/dL Glucose 88 (65-100) mg/dL Calcium 8.5 (8.4-10.2) mg/dL - Imaging and Cardiology EKG: report reviewed, image reviewed Echo: report reviewed (Echocardiogram reviewed (01/22/2021): LVEF is 45 to 50%. LV SF is mildly decreased. Severe LVH. RV SF is normal. Moderate TR. Moderate right pleural effusion noted) - EKG Sinus rhythms and dysrhythmias: sinus rhythm AV and intraventricular conduction: left anterior fascicular Myocardial infarction: poor R wave progression
[2021-01-27] MEDS: MORPHINE 2 MG/1 ML INJ IV PRN ×3 (01:17→22:17)
[2021-01-27] MEDS: ONDANSETRON 4 MG/2 ML INJ IV PRN ×3 (04:50→21:42)
[2021-01-27] MEDS: LEVOTHYROXINE 50 MCG TAB PO SCH (05:10)
[2021-01-27] MEDS: cloNIDine 0.1 MG TAB PO SCH ×3 (05:10→21:42)
[2021-01-27] MEDS: oxyCODONE /ACETAMINOPHEN 5-325MG TAB PO PRN ×2 (05:10→17:30)
[2021-01-27] MEDS ORDERED: REGADENOSON 0.4 MG/5 ML INJ IV ONE (06:56)
[2021-01-27 07:18] LABS: Hematocrit 25.1 % (30.3-42.9); Hemoglobin 7.9 gm/dl (10.1-14.3); Mean Corpuscular HGB Conc 32 % (30-34); Mean Corpuscular Volume 98 fl (79-97); Platelet Count 317 K/mm3 (140-440); Red Blood Count 2.56 M/mm3 (3.65-5.03); Red Cell Distribution Width 17.4 % (13.2-15.2)
[2021-01-27 07:40] LABS: Calcium 8.6 mg/dL (8.4-10.2)
[2021-01-27] MEDS: ALBUTEROL 2.5 MG/3 ML NEBU IH SCH ×3 (09:57→20:29)
--- NOTE | 2021-01-27 11:08 | Progress Note ---
Assessment and Plan Assessment - End-stage renal disease on hemodialysis. Followed by Dr. Brandy Soler in [place] outpatient on MWF schedule - Hypertension - Anemia of ESRD - Hyperparathyroidism - Leukocytosis - Pneumonia - Acute and chronic respiratory failure, on 2 L of oxygen at home - Substernal chest pain, tender to touch. Recommendations - patient out for testing today, will hold HD for today given stable labs, will plan for HD later today if needed based on respiratory status or tomorrow in AM - tachycardia management per cardiology appreciated, stress test today - Monitor labs and volume status daily and assess need for additional dialysis session - Leukocytosis w/u as per primary - Agree with antibiotics - Epogen with HD - Continue sensipar - Continue phosphorus binders - ESRD diet with 1.4 g/kg per day protein - Renally dose medication for creatinine clearance less than 15 cc/min Subjective Date of service: 01/27/21 Principal diagnosis: Atrial Flutter Interval history: Patient out for testing at time of evaluation Objective - Vital Signs Vital signs: Vital Signs - 12hr 01/27/21 01/27/21 01/27/21 03:51 05:10 07:26 Temperature 98.7 F 99.2 F Pulse Rate 102 H 103 H 76 Respiratory 18 18 Rate Blood Pressure 133/89 133/89 131/87 O2 Sat by Pulse 94 91 Oximetry - Lab 01/27/21 07:09 01/27/21 07:10 Most recent lab results Calcium 8.6 mg/dL (8.4-10.2) 01/27/21 07:10 Magnesium 2.20 mg/dL (1.7-2.3) 01/18/21 04:58 Medications & Allergies - Medications Allergies/Adverse Reactions: Allergies No Known Allergies Allergy (Verified 01/18/21 04:31) Home Medications: Home Medications Medication Instructions Recorded Confirmed Last Taken Type rifAMPin [Rifadin] 300 mg PO BID 11/02/19 01/19/21 11/01/19 History levoFLOXacin [Levaquin TAB] 750 mg PO QDAY #3 tablet 04/24/20 01/19/21 Unknown Rx oxyCODONE /ACETAMINOPHEN [Percocet 1 tab PO Q8HR PRN #15 tablet 04/24/20 01/19/21 Unknown Rx 5/325 mg] Apixaban [Eliquis] 2.5 mg PO BID #60 tablet 11/16/20 01/19/21 Unknown Rx Cinacalcet HCl [Sensipar] 30 mg PO QDAY #60 11/16/20 01/19/21 Unknown Rx Isosorbide Dinitrate [Isordil] 20 mg PO BID #60 11/16/20 01/19/21 Unknown Rx Linaclotide [Linzess] 72 mg PO PRN PRN #10 cap 11/16/20 01/19/21 Unknown Rx Omeprazole 40 mg PO QDAY #30 11/16/20 01/19/21 Unknown Rx Temazepam [Restoril] 15 mg PO QHS #30 cap 11/16/20 01/19/21 Unknown Rx Vit B Complx C/Folic Acid/Zinc 0.8 mg PO QDAY #30 11/16/20 01/19/21 Unknown Rx [Dialyvite 800-Zinc 15 mg Tab] allopurinoL [Zyloprim] 100 mg PO QDAY #30 11/16/20 01/19/21 Unknown Rx carvediloL [Coreg] 25 mg PO BID #60 11/16/20 01/19/21 Unknown Rx cloNIDine [Catapres] 0.3 mg PO TID #90 tablet 11/16/20 01/19/21 Unknown Rx guaiFENesin DM [Guaifenesin Dm 10 ml PO Q4H PRN 10 Days oral.liqd 11/16/20 01/19/21 Unknown Rx Syrup] hydrALAZINE [Apresoline TAB] 100 mg PO TID #90 tab 11/16/20 01/19/21 Unknown Rx Active Medications: Generic Name Dose Route Start Last Admin Trade Name Freq PRN Reason Stop Dose Admin Acetaminophen 650 mg 01/23/21 22:39 01/24/21 09:39 Acetaminophen 325 Mg Tab PO 650 mg Q6HR PRN Administration Pain, Mild (1-3) Albuterol 2.5 mg 01/21/21 14:00 01/27/21 09:57 Albuterol 2.5 Mg/3 Ml Nebu IH Not Given TIDRT ELI Allopurinol 100 mg 01/19/21 10:00 01/26/21 10:44 Allopurinol 100 Mg Tab PO 100 mg QDAY ELI Administration Apixaban 2.5 mg 01/25/21 22:00 01/26/21 21:33 Apixaban 2.5 Mg Tab PO 2.5 mg BID ELI Administration Cinacalcet 30 mg 01/19/21 10:00 01/26/21 10:44 Cinacalcet 30 Mg Tab PO 30 mg QDAY ELI Administration Clonidine HCl 0.1 mg 01/25/21 12:00 01/27/21 05:10 Clonidine 0.1 Mg Tab PO 0.1 mg Q8HR ELI Administration Guaifenesin 10 ml 01/19/21 05:17 01/26/21 22:27 Guaifenesin Dm 200/20 Mg Oral Liqd 10 Ml PO 10 ml Q4H PRN Administration Cough Guaifenesin 600 mg 01/20/21 22:00 01/26/21 21:33 Guaifenesin Er 600 Mg Tab PO 600 mg BID ELI Administration Sodium Chloride 100 mls @ 999 mls/hr 01/18/21 08:00 Nacl 0.9% IV STEVIE PRN Hypotension Levothyroxine Sodium 50 mcg 01/26/21 06:00 01/27/21 05:10 Levothyroxine 50 Mcg Tab PO 50 mcg DAILY@0600 ELI Administration Metoprolol Tartrate 25 mg 01/25/21 12:00 01/26/21 20:50 Metoprolol Tartrate 25 Mg Tab PO 25 mg TID ELI Administration Morphine Sulfate 2 mg 01/18/21 17:38 01/27/21 01:17 Morphine 2 Mg/1 Ml Inj IV 2 mg Q8H PRN Administration Pain, Moderate (4-6) Ondansetron HCl 8 mg 01/23/21 11:34 01/27/21 04:50 Ondansetron 4 Mg/2 Ml Inj IV 8 mg Q6H PRN Administration nausea/vomitting Oxycodone/Acetaminophen 1 tab 01/18/21 17:27 01/27/21 05:10 Oxycodone /Acetaminophen 5-325mg Tab PO 1 tab Q6H PRN Administration Pain, Moderate (4-6) Rifampin 300 mg 01/18/21 22:00 01/26/21 21:36 Rifampin 300 Mg Cap PO 300 mg BID ELI Administration Zolpidem Tartrate 5 mg 01/20/21 20:21 01/24/21 23:14 Zolpidem 5 Mg Tab PO 5 mg QHS PRN Administration Sleep
--- NOTE | 2021-01-27 12:29 | Progress Note ---
Assessment and Plan Pt has chronically elevated troponins in the setting of ESRD. Lexiscan stress MPI this AM revealed no significant ischemia. Pt seen in conjunction with Dr. Ilana Jackson, who agrees with the assessment and plan of care. - Patient Problems (1) Acute respiratory failure Current Visit: Yes Status: Acute (2) Bronchitis Current Visit: Yes Status: Acute (3) Pleural effusion Current Visit: Yes Status: Acute (4) Acute heart failure with preserved ejection fraction (HFpEF) Current Visit: Yes Status: Acute (5) ESRD needing dialysis Current Visit: Yes Status: Acute (6) Anemia in chronic kidney disease (CKD) Current Visit: Yes Status: Chronic (7) New onset atrial flutter Current Visit: Yes Status: Acute (8) Hypothyroidism Current Visit: Yes Status: Acute (9) NSTEMI (non-ST elevated myocardial infarction) Current Visit: Yes Status: Acute Plan to address problem: Type 2 (10) Pulmonary embolism Current Visit: Yes Status: Chronic Plan to address problem: 10/2019 (11) COPD (chronic obstructive pulmonary disease) Current Visit: Yes Status: Chronic (12) Hypertension Current Visit: Yes Status: Chronic Qualifiers: Hypertension type: essential hypertension Qualified Code(s): I10 - Essential (primary) hypertension (13) Aortic regurgitation Current Visit: Yes Status: Chronic (14) Mitral regurgitation Current Visit: Yes Status: Chronic (15) Esophageal cancer Current Visit: Yes Status: Chronic Plan to address problem: S/p resection & stent (16) GERD (gastroesophageal reflux disease) Current Visit: Yes Status: Chronic Qualifiers: Esophagitis presence: with esophagitis (17) H/O ETOH abuse Current Visit: Yes Status: Chronic Subjective Date of service: 01/27/21 Principal diagnosis: Atrial Flutter Interval history: Seen in stress lab this AM. Still with complaints of SOB and nausea. No chest pain or additional cardiac complaints. Tele reviewed - AF 100-110s this AM, down to 70s this afternoon. Objective Last Vital Signs Temp 97.8 F 01/27/21 12:52 Pulse 64 01/27/21 13:00 Resp 17 01/27/21 13:00 BP 135/91 01/27/21 13:00 Pulse Ox 97 01/27/21 12:52 - Physical Examination General: No Apparent Distress HEENT: Positive: EOMI, Normocephaly Neck: Positive: neck supple, trachea midline. Negative: JVD/HJR Cardiac: Positive: Irregularly Regular, S1/S2 Lungs: Positive: Decreased Breath Sounds Neuro: Positive: Grossly Intact Abdomen: Positive: Soft. Negative: Tender Skin: Negative: Rash Musculoskeletal: No Pain Extremities: Present: lower extr. pulses. Absent: edema - Labs and Meds CBC 01/27/21 Range/Units 07:09 WBC 10.3 (4.5-11.0) K/mm3 RBC 2.56 L (3.65-5.03) M/mm3 Hgb 7.9 L (10.1-14.3) gm/dl Hct 25.1 L (30.3-42.9) % Plt Count 317 (140-440) K/mm3 Comprehensive Metabolic Panel 01/27/21 Range/Units 07:10 Sodium 136 L (137-145) mmol/L Potassium 4.3 (3.6-5.0) mmol/L Chloride 96.1 L (98-107) mmol/L Carbon Dioxide 25 (22-30) mmol/L BUN 30 H (7-17) mg/dL Creatinine 6.5 H (0.6-1.2) mg/dL Glucose 93 (65-100) mg/dL Calcium 8.6 (8.4-10.2) mg/dL - Imaging and Cardiology EKG: report reviewed, image reviewed Pharmacologic stress test: report reviewed (01/27/2021 - no evidence of significant ischemia) Echo: report reviewed (01/22/2021 - EF is 45-50%, severe LVH, LA severely dilated, mild-mod AR, mod R pleural effusion), other (10/2019 - EF 50-55%, mod-severe concentric LVH, LA mod dilated, mod MR, mild-mod AR, mild-mod TR, mild pulm HTN w/RVSP 29 mmHg, trivial pericardial effusion) - Telemetry EKG Rhythm: Atrial Flutter - EKG Sinus rhythms and dysrhythmias: sinus rhythm AV and intraventricular conduction: left anterior fascicular Myocardial infarction: poor R wave progression
--- NOTE | 2021-01-27 12:32 | Progress Note ---
Assessment and Plan Assessment and plan: 55-year-old -[place] female patient with significant past medical history of esophageal cancer s/p resection, with stent placement, hypertension, end-stage renal disease on hemodialysis, chronic pain syndrome presented to the emergency room with worsening shortness of breath cough chest tightness and generalized weakness of 3 to 4 days duration. Patient has had dialysis MWF her last diagnosis was on Sunday 4 days ago Patient missed 1 dialysis, patient pro BNP is 78,000 Patient denies any chest pain or palpitation, complains of shortness of breath and cough productive No history of fever, patient reports that she felt sick and was admitted briefly at [facility]. Denies headache dizziness weakness or numbness Patient has 2 L of nasal cannula home oxygen. Patient denies any history of COVID-19 infection or close contacts with infected people Patient reports that she has finished vaccination series recently Patient missed dialysis because she states she felt sick. More shortness of breath and productive cough. Thought she had pneumonia. Patient states she feels better today via oxygenation. No further nausea vomiting at this time. Feels better but not quite at baseline. Currently on 2 L now and at home. Patient much less coughing. Breathing better. Should do better with hemodialysis today. Will discharge after hemodialysis. No further nausea vomi ting. Patient is currently on home O2 2 L. 01/23/2021 : Patient hospital course complicated by persistent nausea. Also complicated by tachycardia as high as 123 today. Denies chest pain at this julia e. Mostly nausea vomiting. Moderate improvement with Zofran. 01/24- Check Free T4. Pts TSH is elevated. Continue Eliquis and BB. BP better controlled. Antiemetics, 01/25: Results consistent with Hypothyrodisim, will start on synthroid, will also obtain CTA chest to rule out PE. Plan discussed with the patient and Cardiology. Patient noted to have some clinical improvement in symptoms. 01/26: Continue current management we will also sick for CT-guided left thoracentesis for symptomatic healing. Will of course do fluid analysis. Patient is anticipated to have a stress test in a.m. There is no evidence of pulmonary embolism and imaging study obtained. Plan discussed with the patient and she verbalized understanding 01/27: Stress test shows no ischemia. Patient undergoing thoracentesis today. I discussed extensively with family about her clinical condition. Anticipate discharge in 24 to 48 hours if remains stable follow PT/OT. Discussed in detail with family --New onset atrial fibrillation/flutter --Acute heart failure with preserved ejection fraction --Bilateral pleural effusion with compressive atelectasis --Hypertension; patient has been having some low blood pressures this morning With systolic blood pressures 90s diastolic 50 to 60s; unable to give fluid bolus due to ESRD Patient required midodrine over the last night for hypotension. Currently blood pressure stable systolic 110 to 120 . Will discontinue midodrine and hold blood pressure medicines for now patient to receive hemodialysis again today. Hydralazine has been discontinued. Continue Coreg. --Brief episode of severe nausea vomiting this morning; Patient continues to have nausea and vomiting. Possibly secondary to uremia. Will increase Zofran from 4 mg to 8 mg. Continue supportive care follow electrolytes. Follow-up chest x-ray no evidence of pneumonia at this time. --Acute respiratory distress; secondary to fluid overload Due to end-stage renal disease on hemodialysis HD per schedule, fluid restriction, low-sodium diet Patient was told she had pneumonia. Will start patient on nebulizer treatments follow-up chest x-ray to reevaluate pneumonia. Ruled out for pneumonia with negative chest x-ray. Continue nebulizers has done well with nebulizers stable for transfer discharge a.m. --Tachycardia-patient with SVT rate into 120s. Will give beta-caity x1 at this time. Appreciate cardiology recommendations. Etiology could be nausea vomiting with volume contraction --End-stage renal disease on hemodialysis Nephrology evaluated the patient HD per schedule MWF , Procrit during dialysis --Leukocytosis; SIRS --NSTEMI suspect type II in setting of ESRD --Acute bronchitis/URI Empiric antibiotics Rocephin and Zithromax Continue present management. Follow cultures, cough medicine as needed --Anemia of ESRD; closely monitor H&H Procrit during dialysis, transfuse as needed --DVT prophylaxis; Lovenox (1) Acute respiratory failure Current Visit: Yes Status: Acute (2) Bronchitis Current Visit: Yes Status: Acute (3) Acute heart failure with preserved ejection fraction (HFpEF) Current Visit: Yes Status: Acute (4) ESRD needing dialysis Current Visit: Yes Status: Acute (5) Anemia in chronic kidney disease (CKD) Current Visit: Yes Status: Chronic (6) New onset atrial flutter Current Visit: Yes Status: Acute (7) NSTEMI (non-ST elevated myocardial infarction) Current Visit: Yes Status: Acute Plan to address problem: ?Type 2 (8) Pulmonary embolism Current Visit: Yes Status: Chronic Plan to address problem: 10/2019 (9) COPD (chronic obstructive pulmonary disease) Current Visit: Yes Status: Chronic (10) Hypertension Current Visit: Yes Status: Chronic Qualifiers: Hypertension type: essential hypertension Qualified Code(s): I10 - Essential (primary) hypertension (11) Aortic regurgitation Current Visit: Yes Status: Chronic (12) Mitral regurgitation Current Visit: Yes Status: Chronic (13) Esophageal cancer Current Visit: Yes Status: Chronic Plan to address problem: S/p resection & stent (14) GERD (gastroesophageal reflux disease) Current Visit: Yes Status: Chronic Qualifiers: Esophagitis presence: with esophagitis (15) H/O ETOH abuse Current Visit: Yes Status: Chronic History Interval history: Patient seen and examined, underwent stress test Hospitalist Physical - Physical exam Narrative exam: General appearance: Present: no acute distress, chronically ill appearing - EENT Eyes: PERRL, EOM intact ENT: hearing intact, clear oral mucosa Ears: bilateral: normal - Neck Neck: supple, normal ROM - Respiratory Respiratory effort: normal Respiratory: bilateral: CTA - Breasts Breasts: normal - Cardiovascular Rhythm: irregular irregular still elevated Heart Sounds: Present: S1 & S2. Absent: gallop, rub Extremities: pulses intact, No edema, normal color, Full ROM - Gastrointestinal General gastrointestinal: Present: soft, non-tender, non-distended, normal bowel sounds - Genitourinary Female genitourinary: normal - Integumentary Integumentary: clear, warm, dry, AV FISTULA - Musculoskeletal Musculoskeletal: 1, strength equal bilaterally - Neurologic Neurologic: moves all extremities - Psychiatric Psychiatric: memory intact, appropriate mood/affect, intact judgment & insight - Constitutional Vitals: Temp Pulse Resp BP Pulse Ox 99.2 F 87 17 131/87 97 01/27/21 07:26 01/27/21 10:00 01/27/21 10:00 01/27/21 07:26 01/27/21 10:00 General appearance: Present: no acute distress, well-nourished HEART Score - HEART Score Troponin: Troponin T 0.131 ng/mL (0.00-0.029) H* 01/27/21 07:10 Results - Labs CBC & Chem 7: 01/27/21 07:09 01/27/21 07:10 Labs: Laboratory Last Values WBC 10.3 K/mm3 (4.5-11.0) 01/27/21 07:09 RBC 2.56 M/mm3 (3.65-5.03) L 01/27/21 07:09 Hgb 7.9 gm/dl (10.1-14.3) L 01/27/21 07:09 Hct 25.1 % (30.3-42.9) L 01/27/21 07:09 MCV 98 fl (79-97) H 01/27/21 07:09 MCH 31 pg (28-32) 01/27/21 07:09 MCHC 32 % (30-34) 01/27/21 07:09 RDW 17.4 % (13.2-15.2) H 01/27/21 07:09 Plt Count 317 K/mm3 (140-440) 01/27/21 07:09 Lymph % (Auto) 8.2 % (13.4-35.0) L 01/20/21 06:59 [place] % (Auto) 9.4 % (0.0-7.3) H 01/20/21 06:59 Eos % (Auto) 1.2 % (0.0-4.3) 01/20/21 06:59 Baso % (Auto) 0.5 % (0.0-1.8) 01/20/21 06:59 Lymph # (Auto) 0.7 K/mm3 (1.2-5.4) L 01/20/21 06:59 [place] # (Auto) 0.8 K/mm3 (0.0-0.8) 01/20/21 06:59 Eos # (Auto) 0.1 K/mm3 (0.0-0.4) 01/20/21 06:59 Baso # (Auto) 0.0 K/mm3 (0.0-0.1) 01/20/21 06:59 Seg Neutrophils % 80.7 % (40.0-70.0) H 01/20/21 06:59 Seg Neutrophils # 7.3 K/mm3 (1.8-7.7) 01/20/21 06:59 PT 18.5 Sec. (12.2-14.9) H 01/25/21 05:56 INR 1.49 (0.87-1.13) H 01/25/21 05:56 D-Dimer 3897.19 ng/mlDDU (0-234) H 01/25/21 05:56 Sodium 136 mmol/L (137-145) L 01/27/21 07:10 Potassium 4.3 mmol/L (3.6-5.0) 01/27/21 07:10 Chloride 96.1 mmol/L (98-107) L 01/27/21 07:10 Carbon Dioxide 25 mmol/L (22-30) 01/27/21 07:10 Anion Gap 19 mmol/L 01/27/21 07:10 BUN 30 mg/dL (7-17) H 01/27/21 07:10 Creatinine 6.5 mg/dL (0.6-1.2) H 01/27/21 07:10 Estimated GFR 8 ml/min 01/27/21 07:10 BUN/Creatinine Ratio 5 % 01/27/21 07:10 Glucose 93 mg/dL (65-100) 01/27/21 07:10 POC Glucose 102 mg/dL (70-105) 01/27/21 07:30 Lactic Acid 1.00 mmol/L (0.7-2.0) 01/18/21 04:58 Calcium 8.6 mg/dL (8.4-10.2) 01/27/21 07:10 Magnesium 2.20 mg/dL (1.7-2.3) 01/18/21 04:58 Total Bilirubin 0.30 mg/dL (0.1-1.2) 01/18/21 04:58 AST 12 units/L (5-40) 01/18/21 04:58 ALT 6 units/L (7-56) L 01/18/21 04:58 Alkaline Phosphatase 132 units/L (35-129) H 01/18/21 04:58 Total Creatine Kinase 42 units/L (30-135) 01/18/21 04:58 Troponin T 0.131 ng/mL (0.00-0.029) H* 01/27/21 07:10 NT-Pro-B Natriuret Pep 05169 pg/mL (0-900) H 01/18/21 04:58 Total Protein 7.7 g/dL (6.3-8.2) 01/18/21 04:58 Albumin 3.2 g/dL (3.9-5) L 01/18/21 04:58 Albumin/Globulin Ratio 0.7 % 01/18/21 04:58 Triglycerides 57 mg/dL (2-149) 01/18/21 04:58 Cholesterol 149 mg/dL (50-199) 01/18/21 04:58 LDL Cholesterol Direct 53 mg/dL (50-130) 01/18/21 04:58 HDL Cholesterol 90 mg/dL (40-59) H 01/18/21 04:58 Cholesterol/HDL Ratio 1.65 % 01/18/21 04:58 TSH 7.610 mlU/mL (0.270-4.200) H 01/23/21 20:44 Free T4 0.60 ng/dL (0.76-1.46) L 01/24/21 Unknown Nasal Screen MRSA (PCR) Negative (Negative) 01/18/21 Unknown Hepatitis A IgM Ab Non-reactive (NonReactive) 01/18/21 09:27 Hep Bs Antigen Non-reactive (Negative) 01/18/21 09:27 Hep B Core IgM Ab Non-reactive (NonReactive) 01/18/21 09:27 Hepatitis C Antibody Non-reactive (NonReactive) 01/18/21 09:27 Stanley/IV: Voiding Method Bedpan Active Medications - Current Medications Current Medications: Generic Name Dose Route Start Last Admin Trade Name Freq PRN Reason Stop Dose Admin Acetaminophen 650 mg 01/23/21 22:39 01/24/21 09:39 Acetaminophen 325 Mg Tab PO 650 mg Q6HR PRN Administration Pain, Mild (1-3) Albuterol 2.5 mg 01/21/21 14:00 01/27/21 09:57 Albuterol 2.5 Mg/3 Ml Nebu IH Not Given TIDRT ELI Allopurinol 100 mg 01/19/21 10:00 01/26/21 10:44 Allopurinol 100 Mg Tab PO 100 mg QDAY ELI Administration Apixaban 2.5 mg 01/25/21 22:00 01/26/21 21:33 Apixaban 2.5 Mg Tab PO 2.5 mg BID ELI Administration Cinacalcet 30 mg 01/19/21 10:00 01/26/21 10:44 Cinacalcet 30 Mg Tab PO 30 mg QDAY ELI Administration Clonidine HCl 0.1 mg 01/25/21 12:00 01/27/21 05:10 Clonidine 0.1 Mg Tab PO 0.1 mg Q8HR ELI Administration Guaifenesin 10 ml 01/19/21 05:17 01/26/21 22:27 Guaifenesin Dm 200/20 Mg Oral Liqd 10 Ml PO 10 ml Q4H PRN Administration Cough Guaifenesin 600 mg 01/20/21 22:00 01/26/21 21:33 Guaifenesin Er 600 Mg Tab PO 600 mg BID ELI Administration Sodium Chloride 100 mls @ 999 mls/hr 01/18/21 08:00 Nacl 0.9% IV STEVIE PRN Hypotension Levothyroxine Sodium 50 mcg 01/26/21 06:00 01/27/21 05:10 Levothyroxine 50 Mcg Tab PO 50 mcg DAILY@0600 ELI Administration Metoprolol Tartrate 25 mg 01/25/21 12:00 01/26/21 20:50 Metoprolol Tartrate 25 Mg Tab PO 25 mg TID ELI Administration Morphine Sulfate 2 mg 01/18/21 17:38 01/27/21 01:17 Morphine 2 Mg/1 Ml Inj IV 2 mg Q8H PRN Administration Pain, Moderate (4-6) Ondansetron HCl 8 mg 01/23/21 11:34 01/27/21 04:50 Ondansetron 4 Mg/2 Ml Inj IV 8 mg Q6H PRN Administration nausea/vomitting Oxycodone/Acetaminophen 1 tab 01/18/21 17:27 01/27/21 05:10 Oxycodone /Acetaminophen 5-325mg Tab PO 1 tab Q6H PRN Administration Pain, Moderate (4-6) Rifampin 300 mg 01/18/21 22:00 01/26/21 21:36 Rifampin 300 Mg Cap PO 300 mg BID ELI Administration Zolpidem Tartrate 5 mg 01/20/21 20:21 01/24/21 23:14 Zolpidem 5 Mg Tab PO 5 mg QHS PRN Administration Sleep Nutrition/Malnutrition Assess - Dietary Evaluation Nutrition/Malnutrition Findings: Nutrition Notes Start: 01/25/21 13:22 Freq: Status: Active Protocol: Document 01/26/21 12:32 (Rec: 01/26/21 12:39 [email or web address]) Nutrition Notes Initial or Follow up Assessment Current Diagnosis CKD (stage V CKD),COPD, Hypertension,Respiratory Failure Other Pertinent Diagnosis on HD, esophageal cancer, NSTEMI, acute respiratory failure Current Diet Renal Labs/Tests Reviewed Pertinent Medications Zofran Height 5 ft 8.4 in Weight 70 kg Usual Body Weight 77 kg Wilson Body Weight (kg) 64.54 BMI 23.1 Weight change and time frame 9% wt loss in 1 week Weight Status Appropriate Subjective/Other Information FU for intakes. Pt reports eating <50% of meals due to food prefrences. Willing to try Nepro daily Burn Absent Trauma Absent GI Symptoms Nausea Current % PO Poor (25-49%) Minimum of two criteria Yes Energy Intake (non-severe) <75% Estimated Energy Requirement >7 days Interpretation of Weight Loss (severe) >2% in 1 week #1 Nutrition Diagnosis Malnutrition Etiology N/V As Evidenced by Signs and Symptoms <75% of EER in >7 days, >2% wt loss in 1 week Is patient on ventilator? No Is Patient Ambulatory and/or Out of Bed Yes REE-([place]. or-ambulatory/OOB) [ 1761.344 [id number]] Calculation Used for Recommendations [place] or Additional Notes Protein: (1.2-1.5g/kg) 84-105g Fluid: 1 ml/kcal or per Nutrition Intervention Change Diet Order: Continue, honor food prefrences Add Supplement/Snack (indicate name/kcal Nepro daily /protein ) Provides kCal: 425 Provides Protein (gm) 19 Goal #1 Meet at least 75% of protein and energy needs via PO and ONS intakes Anticipated Discharge Needs: Renal with ONS PRN Follow-Up By: 01/28/21 Additional Comments FU for intakes and ONS tolerance
[2021-01-27] MEDS: METOPROLOL TARTRATE 25 MG TAB PO SCH ×3 (12:54→21:43)
[2021-01-27] MEDS ORDERED: ACETYLCYSTEINE 20% 200 MG/1 ML *FOR INHALATION USE INHALATION PRN (12:55)
[2021-01-27] MEDS: guaiFENesin ER 600 MG TAB PO SCH ×2 (12:57→21:42)
[2021-01-27] MEDS: allopurinoL 100 MG TAB PO SCH (12:57)
[2021-01-27] MEDS: CINACALCET 30 MG TAB PO SCH (12:57)
[2021-01-27] MEDS: rifAMPin 300 MG CAP PO SCH ×2 (12:57→21:42)
[2021-01-27] MEDS: APIXABAN 2.5 MG TAB PO SCH ×2 (13:00→21:42)
--- NOTE | 2021-01-27 13:49 | Progress Note ---
Assessment and Plan - Patient Problems (1) Acute respiratory failure Current Visit: Yes Status: Acute (2) Bronchitis Current Visit: Yes Status: Acute (3) Acute heart failure with preserved ejection fraction (HFpEF) Current Visit: Yes Status: Acute (4) ESRD needing dialysis Current Visit: Yes Status: Acute (5) Anemia in chronic kidney disease (CKD) Current Visit: Yes Status: Chronic (6) New onset atrial flutter Current Visit: Yes Status: Acute (7) NSTEMI (non-ST elevated myocardial infarction) Current Visit: Yes Status: Acute (8) Pulmonary embolism Current Visit: Yes Status: Chronic (9) COPD (chronic obstructive pulmonary disease) Current Visit: Yes Status: Chronic (10) Hypertension Current Visit: Yes Status: Chronic Qualifiers: Hypertension type: essential hypertension Qualified Code(s): I10 - Essential (primary) hypertension (11) Aortic regurgitation Current Visit: Yes Status: Chronic (12) Mitral regurgitation Current Visit: Yes Status: Chronic (13) Esophageal cancer Current Visit: Yes Status: Chronic (14) GERD (gastroesophageal reflux disease) Current Visit: Yes Status: Chronic Qualifiers: Esophagitis presence: with esophagitis (15) H/O ETOH abuse Current Visit: Yes Status: Chronic Subjective Date of service: 01/27/21 Principal diagnosis: Atrial Flutter Interval history: Seen in stress lab this AM. Still with complaints of SOB and nausea. No chest pain or additional cardiac complaints. Tele reviewed - AF 100-110s. Objective Vital Signs Temp Pulse Pulse Pulse Pulse Resp Resp 01/27/21 13:00 64 17 01/27/21 12:52 97.8 F 64 17 01/27/21 10:00 87 17 01/27/21 07:26 99.2 F 76 18 01/27/21 05:10 103 H 01/27/21 03:51 98.7 F 102 H 18 01/26/21 23:00 97.8 F 46 L 18 01/26/21 22:00 46 L 01/26/21 21:54 01/26/21 21:33 103 H 01/26/21 20:50 103 H 01/26/21 20:34 96 H 18 01/26/21 20:00 96 H 96 H 18 01/26/21 19:20 99.3 F 55 L 18 01/26/21 16:00 98.3 F 50 L 18 01/26/21 14:10 74 82 18 Resp BP BP Pulse Ox 01/27/21 13:00 135/91 01/27/21 12:52 135/91 97 01/27/21 10:00 97 01/27/21 07:26 131/87 91 01/27/21 05:10 133/89 01/27/21 03:51 133/89 94 01/26/21 23:00 116/80 95 01/26/21 22:00 01/26/21 21:54 95 01/26/21 21:33 133/71 01/26/21 20:50 133/71 01/26/21 20:34 01/26/21 20:00 18 01/26/21 19:20 133/71 91 01/26/21 16:00 123/81 96 01/26/21 14:10 18 - Physical Examination General: No Apparent Distress HEENT: Positive: EOMI, Normocephaly Neck: Positive: neck supple, trachea midline. Negative: JVD/HJR Neuro: Positive: Grossly Intact Abdomen: Positive: Soft. Negative: Tender Skin: Negative: Rash Musculoskeletal: No Pain Extremities: Present: lower extr. pulses. Absent: edema - Labs and Meds CBC 01/27/21 Range/Units 07:09 WBC 10.3 (4.5-11.0) K/mm3 RBC 2.56 L (3.65-5.03) M/mm3 Hgb 7.9 L (10.1-14.3) gm/dl Hct 25.1 L (30.3-42.9) % Plt Count 317 (140-440) K/mm3 Comprehensive Metabolic Panel 01/27/21 Range/Units 07:10 Sodium 136 L (137-145) mmol/L Potassium 4.3 (3.6-5.0) mmol/L Chloride 96.1 L (98-107) mmol/L Carbon Dioxide 25 (22-30) mmol/L BUN 30 H (7-17) mg/dL Creatinine 6.5 H (0.6-1.2) mg/dL Glucose 93 (65-100) mg/dL Calcium 8.6 (8.4-10.2) mg/dL - Imaging and Cardiology EKG: report reviewed, image reviewed Echo: report reviewed (Echocardiogram reviewed (01/22/2021): LVEF is 45 to 50%. LV SF is mildly decreased. Severe LVH. RV SF is normal. Moderate TR. Moderate right pleural effusion noted) - EKG Sinus rhythms and dysrhythmias: sinus rhythm AV and intraventricular conduction: left anterior fascicular Myocardial infarction: poor R wave progression
--- NOTE | 2021-01-27 13:55 | Ultrasound Report ---
ULTRASOUND-GUIDED THORACENTESIS INDICATION: LEFT PLEURAL EFFUSION. COMPARISON: None available. PROCEDURE: The risks (including but not limited to bleeding, infection, and pneumothorax) and benefits were expl ained to the patient and informed consent was obtained. A time out procedure was performed. Ultrasound was used to evaluate the left pleural effusion and locate the optimal site for needle entr y. Once the skin was marked, the procedure site was prepped and draped in the usual sterile fashion and lidocaine was used for local anesthesia. A skin carito was made and a 6-Honduran thoracentesis [place] [address] was placed. The patient was monitored closely throughout the procedure, and a total of 820 mL of straw-colored fluid was aspirated. Samples were sent to the lab for further evaluation per the prim elijah clinicians orders. The patient tolerated the procedure well with no complications. A post-procedure chest x-ray was imm ediately ordered. IMPRESSION: 1. Successful ultrasound-guided thoracentesis as above with a total of 820 mL of straw-colored fluid aspirated. Signer Name: Nikos Deluna MD Signed: 01/27/2021 1:51 PM Workstation Name: [id number]
[2021-01-27] MEDS: DICYCLOMINE 10 MG/5 ML ORAL LIQD PO SCH ×3 (14:16→21:43)
--- NOTE | 2021-01-27 21:19 | Treadmill Report ---
DATE OF SERVICE: 01/27/2021 NUCLEAR STRESS TEST REFERRING PHYSICIAN: Hospitalist service. PROTOCOL: The patient was brought to the stress lab in a postabsorptive state, given 10 mCi of technetium at rest. The patient had rest imaging. The patient underwent Lexiscan stress test per standard protocol. At peak stress, the patient was given 26 mCi technetium 99m shortly after the patient had stress imaging. Technically difficult due to GI artifact, but grossly no evidence of significant fixed or reversible perfusion defect suggestive of prior infarction or ischemia. Gated wall motion reveals normal systolic thickening, calculated ejection fraction 54%. No TID. CONCLUSIONS: 1. Technically difficult study due to GI artifact, but grossly probably normal without evidence of significant degree of ischemia or prior infarction. 2. Normal left ventricular systolic performance without evidence of transient ischemic dilatation or stress induced segmental wall motion abnormalities. TID: [id number] RECEIPT: [id number] LIANNE/CHAY
[2021-01-28] MEDS: oxyCODONE /ACETAMINOPHEN 5-325MG TAB PO PRN ×3 (01:23→17:08)
[2021-01-28] MEDS: cloNIDine 0.1 MG TAB PO SCH ×3 (05:37→21:31)
[2021-01-28] MEDS: LEVOTHYROXINE 50 MCG TAB PO SCH (05:39)
[2021-01-28] MEDS: MORPHINE 2 MG/1 ML INJ IV PRN ×3 (06:13→22:27)
[2021-01-28] MEDS: ONDANSETRON 4 MG/2 ML INJ IV PRN ×3 (06:14→22:31)
[2021-01-28] MEDS: ALBUTEROL 2.5 MG/3 ML NEBU IH SCH ×3 (07:54→21:31)
[2021-01-28] MEDS: METOPROLOL TARTRATE 25 MG TAB PO SCH ×3 (08:21→21:31)
[2021-01-28] MEDS: rifAMPin 300 MG CAP PO SCH ×2 (09:00→21:36)
[2021-01-28] MEDS: guaiFENesin ER 600 MG TAB PO SCH ×2 (09:00→21:30)
[2021-01-28] MEDS: allopurinoL 100 MG TAB PO SCH (09:01)
[2021-01-28] MEDS: DICYCLOMINE 10 MG/5 ML ORAL LIQD PO SCH ×4 (09:01→21:36)
[2021-01-28] MEDS: APIXABAN 2.5 MG TAB PO SCH ×2 (09:01→21:31)
[2021-01-28] MEDS: CINACALCET 30 MG TAB PO SCH (09:01)
--- NOTE | 2021-01-28 10:15 | Consultation ---
History of Present Illness - Reason for Consult Consult date: 01/28/21 Reason for consult: MHE Requesting physician: HAROLDO REES - Chief Complaint Chief complaint: Worsening shortness of breath/fluid overload - History of Present Psychiatric Illness Per ED Provider: This is a 55-year-old female. This patient has a past medical history of esophageal cancer, status post resection, with stent placement, hypertension, with end-stage renal disease. She was recently admitted to this hospital for shortness of breath with hypoxemia. While in the hospital, it was felt that her shortness of breath was secondary to fluid overload. As she is on home oxygen, at 2 L. She presents today via EMS, with a complaint of cough, chest wall tightness, shortness of breath, mucus production, fatigue. No loss of taste or smell. Has completed her COVID-19 vaccination series. Patient missed her last hemodialysis session; she was last dialyzed on Sunday, it is currently Sunday morning. PSYCH HPI Patient is a 55 year old female who single and disabled with no significant past psychiatric history bt has past medical history of Esophageal cancer, CAD and CKD who was admitted to hospital for medical management with subsequent psych consult placed for mental health evaluation due to concern for depression. Patient endorses being depressed, says its mostly due to her medical health, as she has been in and out of hospital and being treated for one thing to another. She denies Suicidal ideation, says her mood is mostly good but she wish she is healthier and able to do things and regain strenght. She denies being excessively nervous. Patient eats and sleeps well. Patient denies panic attacks, recurrent nightmares or flashbacks. Patient denies symptoms suggestive of OCD or PTSD. Patient denies hallucinations, paranoia, thought interference and no features suggestive of hypomania or conchis. Patiently completely denies suicidal or homicidal thoughts. PAST PSYCHIATRIC HISTORY Diagnoses: depression Suicide attempts or Self-harm behavior: none reported Prior psychiatric hospitalizations: none reported Substance Abuse history: none reported Previous psychiatric medications tried: none reported Outpatient treatment: none reported PAST MEDICAL HISTORY: esophageal cancer, status post resection, with stent placement, hypertension, with end-stage renal disease. Family Psychiatric History: None reported or documented SOCIAL HISTORY Marital Status: single Living Arrangements: with family Employment Status: disabled Access to guns/weapons: none reported Education: na History of Abuse: none reported Legal History: none reported REVIEW OF SYSTEMS Constitutional: Negative for weight loss ENT: Negative for stridor Respiratory: Negative for cough or hemoptysis All other systems reviewed and are negative MENTAL STATUS EXAMINATION General Appearance and Behavior: Age appropriate, good hygiene, wearing appropriate clothes, good eye contact, cooperative polite with questioning. Cooperation: Participating/engaged Psychomotor Behavior: unremarkable and within normal limits Mood: sad sometimes Affect and affective range: congruent with mood Thought Process: Fluent/Logical, Thought Content: Within reality, Speech: Normal volume, Regular rate and rhythm, Intellectual Functioning: Average Suicidal Ideation: Denies SI Homicidal Ideation: Denies HI Impulse Control: Unimpaired Insight and Judgment: Normal insight and judgment, Memory: Normal, Attention: Normal, Orientation: Alert, oriented, Diagnoses: Assessment and Plan - Psychiatric problem (1) Mental health-related complaint Current Visit: Yes Status: Acute Treatment Plan MEDICATIONS: Risks, benefits and alternatives of medications discussed with the patient, questions answered and consent obtained from patient. PSYCHOTHERAPY: Supportive psychotherapy provided MEDICAL: Per primary team DELIRIUM PRECAUTIONS: Please re-orient patient frequently, keep lights on during the day, and minimize benzodiazepines and opiates as these medications could worsen patient's confusion. 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 Case discussed with Dr. Padron who agrees with current disposition LEGAL STATUS: Voluntary FOLLOW-UP: Will sign off Thank you for the consult. Please contact with any questions and/or concerns. Medications and Allergies Allergies Allergy/AdvReac Type Severity Reaction Status Date / Time No Known Allergies Allergy Verified 01/18/21 04:31 Home Medications Medication Instructions Recorded Confirmed Last Taken Type rifAMPin [Rifadin] 300 mg PO BID 11/02/19 01/19/21 11/01/19 History Apixaban [Eliquis] 2.5 mg PO BID #60 tablet 11/16/20 01/19/21 Unknown Rx Cinacalcet HCl [Sensipar] 30 mg PO QDAY #60 11/16/20 01/19/21 Unknown Rx Isosorbide Dinitrate [Isordil] 20 mg PO BID #60 11/16/20 01/19/21 Unknown Rx Linaclotide [Linzess] 72 mg PO PRN PRN #10 cap 11/16/20 01/19/21 Unknown Rx Omeprazole 40 mg PO QDAY #30 11/16/20 01/19/21 Unknown Rx Temazepam [Restoril] 15 mg PO QHS #30 cap 11/16/20 01/19/21 Unknown Rx Vit B Complx C/Folic Acid/Zinc 0.8 mg PO QDAY #30 11/16/20 01/19/21 Unknown Rx [Dialyvite 800-Zinc 15 mg Tab] allopurinoL [Zyloprim] 100 mg PO QDAY #30 11/16/20 01/19/21 Unknown Rx hydrALAZINE [Apresoline TAB] 100 mg PO TID #90 tab 11/16/20 01/19/21 Unknown Rx ALBUTEROL NEB's [Proventil 0.083% 2.5 mg IH TIDRT #90 nebu 01/28/21 Unknown Rx NEBS] Dicyclomine [Bentyl] 10 mg PO QID #20 oral.liqd 01/28/21 Unknown Rx Levothyroxine [Synthroid] 50 mcg PO DAILY@0600 #30 tablet 01/28/21 Unknown Rx Metoprolol [Lopressor TAB] 25 mg PO TID #60 tablet 01/28/21 Unknown Rx cloNIDine [Catapres] 0.1 mg PO Q8HR #90 tablet 01/28/21 Unknown Rx guaiFENesin ER [Mucinex ER] 600 mg PO BID #30 tablet 01/28/21 Unknown Rx oxyCODONE /ACETAMINOPHEN [Percocet 1 tab PO Q8HR PRN #15 tablet 01/28/21 Unknown Rx 5/325 mg] Active Meds: Active Medications Acetaminophen (Acetaminophen 325 Mg Tab) 650 mg PO Q6HR PRN PRN Reason: Pain, Mild (1-3) Last Admin: 01/24/21 09:39 Dose: 650 mg Documented by: Acetylcysteine (Acetylcysteine 20% 200 Mg/1 Ml *For Inhalation Use*) 200 mg INHALATION Q8HRT PRN PRN Reason: Shortness Of Breath Albuterol (Albuterol 2.5 Mg/3 Ml Nebu) 2.5 mg IH TIDRT COUNT INCLUDES THE [facility] Last Admin: 01/28/21 07:54 Dose: 2.5 mg Documented by: Allopurinol (Allopurinol 100 Mg Tab) 100 mg PO QDAY COUNT INCLUDES THE [facility] Last Admin: 01/28/21 09:01 Dose: 100 mg Documented by: Apixaban (Apixaban 2.5 Mg Tab) 2.5 mg PO BID COUNT INCLUDES THE [facility] Last Admin: 01/28/21 09:01 Dose: 2.5 mg Documented by: Cinacalcet (Cinacalcet 30 Mg Tab) 30 mg PO QDAY COUNT INCLUDES THE [facility] Last Admin: 01/28/21 09:01 Dose: 30 mg Documented by: Clonidine HCl (Clonidine 0.1 Mg Tab) 0.1 mg PO Q8HR COUNT INCLUDES THE [facility] Last Admin: 01/28/21 05:37 Dose: 0.1 mg Documented by: Dicyclomine HCl (Dicyclomine 10 Mg/5 Ml Oral Liqd) 10 mg PO QID COUNT INCLUDES THE [facility] Last Admin: 01/28/21 09:01 Dose: 10 mg Documented by: Guaifenesin (Guaifenesin Dm 200/20 Mg Oral Liqd 10 Ml) 10 ml PO Q4H PRN PRN Reason: Cough Last Admin: 01/26/21 22:27 Dose: 10 ml Documented by: Guaifenesin (Guaifenesin Er 600 Mg Tab) 600 mg PO BID COUNT INCLUDES THE [facility] Last Admin: 01/28/21 09:00 Dose: 600 mg Documented by: Sodium Chloride (Nacl 0.9%) 100 mls @ 999 mls/hr IV STEVIE PRN PRN Reason: Hypotension Levothyroxine Sodium (Levothyroxine 50 Mcg Tab) 50 mcg PO DAILY@0600 COUNT INCLUDES THE [facility] Last Admin: 01/28/21 05:39 Dose: 50 mcg Documented by: Metoprolol Tartrate (Metoprolol Tartrate 25 Mg Tab) 25 mg PO TID COUNT INCLUDES THE [facility] Last Admin: 01/28/21 08:21 Dose: 25 mg Documented by: Morphine Sulfate (Morphine 2 Mg/1 Ml Inj) 2 mg IV Q8H PRN PRN Reason: Pain, Moderate (4-6) Last Admin: 01/28/21 06:13 Dose: 2 mg Documented by: Ondansetron HCl (Ondansetron 4 Mg/2 Ml Inj) 8 mg IV Q6H PRN PRN Reason: nausea/vomitting Last Admin: 01/28/21 06:14 Dose: 8 mg Documented by: Oxycodone/Acetaminophen (Oxycodone /Acetaminophen 5-325mg Tab) 1 tab PO Q6H PRN PRN Reason: Pain, Moderate (4-6) Last Admin: 01/28/21 01:23 Dose: 1 tab Documented by: Rifampin (Rifampin 300 Mg Cap) 300 mg PO BID ELI Last Admin: 01/28/21 09:00 Dose: 300 mg Documented by: Zolpidem Tartrate (Zolpidem 5 Mg Tab) 5 mg PO QHS PRN PRN Reason: Sleep Last Admin: 01/24/21 23:14 Dose: 5 mg Documented by: Mental Status Exam - Vital signs Last Vital Signs Temp 98.2 F 01/28/21 08:50 Pulse 54 L 01/28/21 08:50 Resp 18 01/28/21 08:50 BP 114/79 01/28/21 08:50 Pulse Ox 97 01/28/21 08:50 Results Result Diagrams: 01/27/21 07:09 01/27/21 07:10 All other labs normal. Assessment and Plan - Psychiatric problem (1) Mental health-related complaint Current Visit: Yes Status: Acute
--- NOTE | 2021-01-28 15:33 | Discharge Summary ---
Providers - Providers Date of Admission: 01/18/21 07:29 Attending physician: HAROLDO REES MD 01/18/21 04:27 Consult to Physician [CONS] Urgent Comment: Consulting Provider: HERNESTO WINN Physician Instructions: Reason For Exam: esrd 01/22/21 13:50 Consult to Cardiology [CONS] Urgent Consulting Provider: RASHAAD ALLEN Reason For Exam: tachycardia 01/27/21 14:59 Consult to Physician [CONS] Routine Comment: Consulting Provider: ZOE VERNON Physician Instructions: Reason For Exam: depression Occupational Therapy Evaluate and Treat [CONS] Routine Comment: Reason For Exam: debility Physical Therapy Evaluation and Treat [CONS] Routine Comment: Reason For Exam: debility Primary care physician: ELECTRO MECHANICAL SOLAR TECHNICIAN Hospitalization Reason for admission: ESRD Condition: Good Hospital course: 55-year-old -[place] female patient with significant past medical history of esophageal cancer s/p resection, with stent placement, hypertension, end-stage renal disease on hemodialysis, chronic pain syndrome presented to the emergency room with worsening shortness of breath cough chest tightness and generalized weakness of 3 to 4 days duration. Patient has had dialysis MWF her last diagnosis was on Sunday 4 days ago Patient missed 1 dialysis, patient pro BNP is 78,000 Patient denies any chest pain or palpitation, complains of shortness of breath and cough productive No history of fever, patient reports that she felt sick and was admitted briefly at [facility]. Denies headache dizziness weakness or numbness Patient has 2 L of nasal cannula home oxygen. Patient denies any history of COVID-19 infection or close contacts with infected people Patient reports that she has finished vaccination series recently Patient missed dialysis because she states she felt sick. More shortness of breath and productive cough. Thought she had pneumonia. Patient states she feels better today via oxygenation. No further nausea vomiting at this time. Feels better but not quite at baseline. Currently on 2 L now and at home. Patient much less coughing. Breathing better. Should do better with hemodialysis today. Will discharge after hemodialysis. No further nausea vomiting. Patient is currently on home O2 2 L. 01/23/2021 : Patient hospital course complicated by persistent nausea. Also complicated by tachycardia as high as 123 today. Denies chest pain at this time. Mostly nausea vomiting. Moderate improvement with Zofran. 01/24- Check Free T4. Pts TSH is elevated. Continue Eliquis and BB. BP better controlled. Antiemetics, 01/25: Results consistent with Hypothyrodisim, will start on synthroid, will also obtain CTA chest to rule out PE. Plan discussed with the patient and Cardiology. Patient noted to have some clinical improvement in symptoms. 01/26: Continue current management we will also sick for CT-guided left thoracentesis for symptomatic healing. Will of course do fluid analysis. Patient is anticipated to have a stress test in a.m. There is no evidence of pulmonary embolism and imaging study obtained. Plan discussed with the patient and she verbalized understanding 01/27: Stress test shows no ischemia. Patient undergoing thoracentesis today. I discussed extensively with family about her clinical condition. Anticipate discharge in 24 to 48 hours if remains stable follow PT/OT. Discussed in detail with family 01/28: Patient lethargic this morning but no new complaints. she lacks motivation and often refuses therapy. she will benefit from outpatient psych management and home health with physical therapy. overall poor prognosis due to her compliance and also overall medical condition. (1) Acute respiratory failure Current Visit: Yes Status: Acute (2) Bronchitis Current Visit: Yes Status: Acute (3) Acute heart failure with preserved ejection fraction (HFpEF) Current Visit: Yes Status: Acute (4) ESRD needing dialysis Current Visit: Yes Status: Acute (5) Anemia in chronic kidney disease (CKD) Current Visit: Yes Status: Chronic (6) New onset atrial flutter Current Visit: Yes Status: Acute (7) NSTEMI (non-ST elevated myocardial infarction) Current Visit: Yes Status: Acute Plan to address problem: Type 2 (8) Pulmonary embolism Current Visit: Yes Status: Chronic Plan to address problem: 10/2019 (9) COPD (chronic obstructive pulmonary disease) Current Visit: Yes Status: Chronic (10) Hypertension Current Visit: Yes Status: Chronic Qualifiers: Hypertension type: essential hypertension Qualified Code(s): I10 - Essential (primary) hypertension (11) Aortic regurgitation Current Visit: Yes Status: Chronic (12) Mitral regurgitation Current Visit: Yes Status: Chronic (13) Esophageal cancer Current Visit: Yes Status: Chronic Plan to address problem: S/p resection & stent (14) GERD (gastroesophageal reflux disease) Current Visit: Yes Status: Chronic Qualifiers: Esophagitis presence: with esophagitis (15) H/O ETOH abuse Current Visit: Yes Status: Chronic (16) Bilateral pleural effusion with compressive atelectasis Disposition: [id number] HOME UNDER HOME HLTH Final Discharge Diagnosis (Prints w/discharge instructions): acute hypoxic respiratory failure Time spent for discharge: 35 mins Core Measure Documentation - Palliative Care Palliative Care/ Comfort Measures: Not Applicable - Core Measures Any of the following diagnoses?: none Exam - Physical Exam Narrative exam: General appearance: Present: no acute distress, chronically ill appearing- AT Baseline - EENT Eyes: PERRL, EOM intact ENT: hearing intact, clear oral mucosa Ears: bilateral: normal - Neck Neck: supple, normal ROM - Respiratory Respiratory effort: normal Respiratory: bilateral: CTA - Breasts Breasts: normal - Cardiovascular Rhythm: irregular irregular still elevated Heart Sounds: Present: S1 & S2. Absent: gallop, rub Extremities: pulses intact, No edema, normal color, Full ROM - Gastrointestinal General gastrointestinal: Present: soft, non-tender, non-distended, normal bowel sounds - Genitourinary Female genitourinary: normal - Integumentary Integumentary: clear, warm, dry, AV FISTULA - Musculoskeletal Musculoskeletal: 1, strength equal bilaterally - Neurologic Neurologic: moves all extremities - Psychiatric Psychiatric: memory intact, appropriate mood/affect, intact judgment & insight - Constitutional Vitals: Temp Pulse Resp BP Pulse Ox 97.8 F 78 18 114/69 99 01/28/21 12:24 01/28/21 14:48 01/28/21 14:48 01/28/21 13:02 01/28/21 12:15 Plan Activity: advance as tolerated, fall precautions Diet: renal Special Instructions: record daily weights, record daily BP diary, physical therapy, occupational therapy Follow up with: PRIMARY CARE, [Primary Care Provider] - 3-5 Days NARINDER AKBAR MD [Staff Physician] - 7 Days YVETTE PELLETIER MD [Staff Physician] - 7 Days Prescriptions: Dicyclomine [Bentyl] 10 mg PO QID #20 oral.liqd cloNIDine [Catapres] 0.1 mg PO Q8HR #90 tablet Metoprolol [Lopressor TAB] 25 mg PO TID #60 tablet guaiFENesin ER [Mucinex ER] 600 mg PO BID #30 tablet oxyCODONE /ACETAMINOPHEN [Percocet 5/325 mg] 1 tab PO Q8HR PRN #15 tablet PRN Reason: Pain Levothyroxine [Synthroid] 50 mcg PO DAILY@0600 #30 tablet ALBUTEROL NEB's [Proventil 0.083% NEBS] 2.5 mg IH TIDRT #90 nebu
--- NOTE | 2021-01-28 17:07 | Progress Note ---
Assessment and Plan S/p L thoracentesis yesterday with 820mL straw-colored fluid removed. Continue volume optimization via HD. Mgmt of bronchitis as per Primary. From a cardiac standpoint, pt has chronically elevated troponins in the setting of ESRD. Lexiscan stress MPI 01/28/2021 revealed no significant ischemia. Given underlying respiratory issues, would like to switch BB to Cardizem and titrate up as tolerated for AF/Flutter rate control; however, pt has discharge orders pending. Med optimizations may thus be completed as an outpatient. Recommend follow-up with Dr. Chavez in 1-2 weeks ([phone]). Pt seen in conjunction with Dr. Ilana Jackson, who agrees with the assessment and plan of care. - Patient Problems (1) Acute respiratory failure Current Visit: Yes Status: Acute (2) Bronchitis Current Visit: Yes Status: Acute (3) Pleural effusion Current Visit: Yes Status: Acute (4) Acute heart failure with preserved ejection fraction (HFpEF) Current Visit: Yes Status: Acute (5) ESRD needing dialysis Current Visit: Yes Status: Acute (6) Anemia in chronic kidney disease (CKD) Current Visit: Yes Status: Chronic (7) New onset atrial flutter Current Visit: Yes Status: Acute (8) Hypothyroidism Current Visit: Yes Status: Acute (9) NSTEMI (non-ST elevated myocardial infarction) Current Visit: Yes Status: Acute Plan to address problem: Type 2 (10) Pulmonary embolism Current Visit: Yes Status: Chronic Plan to address problem: 10/2019 (11) COPD (chronic obstructive pulmonary disease) Current Visit: Yes Status: Chronic (12) Hypertension Current Visit: Yes Status: Chronic Qualifiers: Hypertension type: essential hypertension Qualified Code(s): I10 - Essential (primary) hypertension (13) Aortic regurgitation Current Visit: Yes Status: Chronic (14) Mitral regurgitation Current Visit: Yes Status: Chronic (15) Esophageal cancer Current Visit: Yes Status: Chronic Plan to address problem: S/p resection & stent (16) GERD (gastroesophageal reflux disease) Current Visit: Yes Status: Chronic Qualifiers: Esophagitis presence: with esophagitis (17) H/O ETOH abuse Current Visit: Yes Status: Chronic Subjective Date of service: 01/28/21 Principal diagnosis: Atrial Flutter Interval history: Resting comfortably. Feeling better but still complaining of cough. States "phlegm is stuck in my throat." No chest pain or additional cardiac complaints. Tele reviewed - AFlutter 80-90s, no events overnight. Objective Last Vital Signs Temp 98.0 F 01/28/21 15:40 Pulse 73 01/28/21 15:40 Resp 16 01/28/21 15:40 BP 102/61 01/28/21 15:40 Pulse Ox 99 01/28/21 15:40 - Physical Examination General: No Apparent Distress HEENT: Positive: EOMI, Normocephaly Neck: Positive: neck supple, trachea midline. Negative: JVD/HJR Cardiac: Positive: irregularly irregular, S1/S2, Systolic Murmur (/6) Lungs: Positive: Decreased Breath Sounds (bilaterally) Neuro: Positive: Grossly Intact Abdomen: Positive: Soft. Negative: Tender Skin: Negative: Rash Musculoskeletal: No Pain Extremities: Present: lower extr. pulses. Absent: edema - Imaging and Cardiology EKG: report reviewed, image reviewed Pharmacologic stress test: report reviewed (01/27/2021 - negative for ischemia) Echo: report reviewed (01/22/2021 - EF is 45-50%, severe LVH, LA severely dilated, mild-mod AR, mod R pleural effusion), other (10/2019 - EF 50-55%, mod-severe concentric LVH, LA mod dilated, mod MR, mild-mod AR, mild-mod TR, mild pulm HTN w/RVSP 29 mmHg, trivial pericardial effusion) - Telemetry EKG Rhythm: Atrial Flutter - EKG Sinus rhythms and dysrhythmias: sinus rhythm AV and intraventricular conduction: left anterior fascicular Myocardial infarction: poor R wave progression
[2021-01-28] MEDS: guaiFENesin DM 200/20 MG ORAL LIQD 10 ML PO PRN ×2 (18:23→22:31)
--- NOTE | 2021-01-28 18:41 | Progress Note ---
Assessment and Plan Assessment - End-stage renal disease on hemodialysis. Followed by Dr. Brandy Soler in [place] outpatient on MWF schedule - Hypertension - Anemia of ESRD - Hyperparathyroidism - Leukocytosis - Pneumonia - Acute and chronic respiratory failure, on 2 L of oxygen at home - Substernal chest pain, tender to touch. Recommendations - patient not amenable to HD today. No acute indication for HD luckily. Plan for HD tomorrow - tachycardia management per cardiology appreciated, stress test noted - Monitor labs and volume status daily and assess need for additional dialysis session - Leukocytosis w/u as per primary - Agree with antibiotics - Epogen with HD - Continue sensipar - Continue phosphorus binders - ESRD diet with 1.4 g/kg per day protein - Renally dose medication for creatinine clearance less than 15 cc/min Subjective Date of service: 01/28/21 Principal diagnosis: Atrial Flutter Interval history: Patient states that she is not feeling well today, refusing HD Objective - Exam Narrative Exam: General appearance: well-developed EENT: PERRL, mucous membranes moist Neck: no JVD, supple, other (Right IJ PermCath in place) Respiratory: on NC this AM, sitting up; normal respiratory effort Cardiology: regular, normal heart rate Gastrointestinal: normal, normoactive bowel sounds Integumentary: other (No edema) - Vital Signs Vital signs: Vital Signs - 12hr 01/28/21 01/28/21 01/28/21 08:00 08:18 08:21 Temperature 98.2 F Pulse Rate 100 H 100 H Pulse Rate [ Anterior Bilateral Throughout] Pulse Rate [ Apical] Pulse Rate [ 55 L Posterior Bilateral Throughout] Respiratory 18 Rate Respiratory Rate [Anterior Bilateral Throughout] Respiratory 18 Rate [Posterior Bilateral Throughout] Blood Pressure 116/79 Blood Pressure [Left] O2 Sat by Pulse 94 Oximetry 01/28/21 01/28/21 01/28/21 08:23 08:25 08:50 Temperature 98.2 F Pulse Rate 100 H 54 L Pulse Rate [ Anterior Bilateral Throughout] Pulse Rate [ 100 H Apical] Pulse Rate [ Posterior Bilateral Throughout] Respiratory 14 18 Rate Respiratory Rate [Anterior Bilateral Throughout] Respiratory Rate [Posterior Bilateral Throughout] Blood Pressure Blood Pressure 114/79 [Left] O2 Sat by Pulse 99 97 Oximetry 01/28/21 01/28/21 01/28/21 10:00 12:15 12:24 Temperature 97.8 F Pulse Rate 90 Pulse Rate [ Anterior Bilateral Throughout] Pulse Rate [ Apical] Pulse Rate [ Posterior Bilateral Throughout] Respiratory Rate Respiratory Rate [Anterior Bilateral Throughout] Respiratory Rate [Posterior Bilateral Throughout] Blood Pressure Blood Pressure 114/69 [Left] O2 Sat by Pulse 98 99 Oximetry 01/28/21 01/28/21 01/28/21 13:02 14:48 15:40 Temperature 98.0 F Pulse Rate 94 H 73 Pulse Rate [ 78 Anterior Bilateral Throughout] Pulse Rate [ Apical] Pulse Rate [ 73 Posterior Bilateral Throughout] Respiratory 16 Rate Respiratory 18 Rate [Anterior Bilateral Throughout] Respiratory 20 Rate [Posterior Bilateral Throughout] Blood Pressure 114/69 102/61 Blood Pressure [Left] O2 Sat by Pulse 99 Oximetry - Lab 01/27/21 07:09 01/27/21 07:10 Most recent lab results Calcium 8.6 mg/dL (8.4-10.2) 01/27/21 07:10 Magnesium 2.20 mg/dL (1.7-2.3) 01/18/21 04:58 Medications & Allergies - Medications Allergies/Adverse Reactions: Allergies No Known Allergies Allergy (Verified 01/18/21 04:31) Home Medications: Home Medications Medication Instructions Recorded Confirmed Last Taken Type rifAMPin [Rifadin] 300 mg PO BID 11/02/19 01/19/21 11/01/19 History Apixaban [Eliquis] 2.5 mg PO BID #60 tablet 11/16/20 01/19/21 Unknown Rx Cinacalcet HCl [Sensipar] 30 mg PO QDAY #60 11/16/20 01/19/21 Unknown Rx Isosorbide Dinitrate [Isordil] 20 mg PO BID #60 11/16/20 01/19/21 Unknown Rx Linaclotide [Linzess] 72 mg PO PRN PRN #10 cap 11/16/20 01/19/21 Unknown Rx Omeprazole 40 mg PO QDAY #30 11/16/20 01/19/21 Unknown Rx Temazepam [Restoril] 15 mg PO QHS #30 cap 11/16/20 01/19/21 Unknown Rx Vit B Complx C/Folic Acid/Zinc 0.8 mg PO QDAY #30 11/16/20 01/19/21 Unknown Rx [Dialyvite 800-Zinc 15 mg Tab] allopurinoL [Zyloprim] 100 mg PO QDAY #30 11/16/20 01/19/21 Unknown Rx hydrALAZINE [Apresoline TAB] 100 mg PO TID #90 tab 11/16/20 01/19/21 Unknown Rx ALBUTEROL NEB's [Proventil 0.083% 2.5 mg IH TIDRT #90 nebu 01/28/21 Unknown Rx NEBS] Dicyclomine [Bentyl] 10 mg PO QID #20 oral.liqd 01/28/21 Unknown Rx Levothyroxine [Synthroid] 50 mcg PO DAILY@0600 #30 tablet 01/28/21 Unknown Rx Metoprolol [Lopressor TAB] 25 mg PO TID #60 tablet 01/28/21 Unknown Rx cloNIDine [Catapres] 0.1 mg PO Q8HR #90 tablet 01/28/21 Unknown Rx guaiFENesin ER [Mucinex ER] 600 mg PO BID #30 tablet 01/28/21 Unknown Rx oxyCODONE /ACETAMINOPHEN [Percocet 1 tab PO Q8HR PRN #15 tablet 01/28/21 Unknown Rx 5/325 mg] Active Medications: Generic Name Dose Route Start Last Admin Trade Name Freq PRN Reason Stop Dose Admin Acetaminophen 650 mg 01/23/21 22:39 01/24/21 09:39 Acetaminophen 325 Mg Tab PO 650 mg Q6HR PRN Administration Pain, Mild (1-3) Acetylcysteine 200 mg 01/27/21 12:55 Acetylcysteine 20% 200 Mg/1 Ml *For Inhalation Use* INHALATION Q8HRT PRN Shortness Of Breath Albuterol 2.5 mg 01/21/21 14:00 01/28/21 14:47 Albuterol 2.5 Mg/3 Ml Nebu IH 2.5 mg TIDRT ELI Administration Allopurinol 100 mg 01/19/21 10:00 01/28/21 09:01 Allopurinol 100 Mg Tab PO 100 mg QDAY ELI Administration Apixaban 2.5 mg 01/25/21 22:00 01/28/21 09:01 Apixaban 2.5 Mg Tab PO 2.5 mg BID ELI Administration Cinacalcet 30 mg 01/19/21 10:00 01/28/21 09:01 Cinacalcet 30 Mg Tab PO 30 mg QDAY ELI Administration Clonidine HCl 0.1 mg 01/25/21 12:00 01/28/21 13:02 Clonidine 0.1 Mg Tab PO 0.1 mg Q8HR ELI Administration Dicyclomine HCl 10 mg 01/27/21 14:00 01/28/21 17:03 Dicyclomine 10 Mg/5 Ml Oral Liqd PO 10 mg QID ELI Administration Guaifenesin 10 ml 01/19/21 05:17 01/28/21 18:23 Guaifenesin Dm 200/20 Mg Oral Liqd 10 Ml PO 10 ml Q4H PRN Administration Cough Guaifenesin 600 mg 01/20/21 22:00 01/28/21 09:00 Guaifenesin Er 600 Mg Tab PO 600 mg BID ELI Administration Sodium Chloride 100 mls @ 999 mls/hr 01/18/21 08:00 Nacl 0.9% IV STEVIE PRN Hypotension Levothyroxine Sodium 50 mcg 01/26/21 06:00 01/28/21 05:39 Levothyroxine 50 Mcg Tab PO 50 mcg DAILY@0600 ELI Administration Metoprolol Tartrate 25 mg 01/25/21 12:00 01/28/21 13:02 Metoprolol Tartrate 25 Mg Tab PO 25 mg TID ELI Administration Morphine Sulfate 2 mg 01/18/21 17:38 01/28/21 13:01 Morphine 2 Mg/1 Ml Inj IV 2 mg Q8H PRN Administration Pain, Moderate (4-6) Ondansetron HCl 8 mg 01/23/21 11:34 01/28/21 13:27 Ondansetron 4 Mg/2 Ml Inj IV 8 mg Q6H PRN Administration nausea/vomitting Oxycodone/Acetaminophen 1 tab 01/18/21 17:27 01/28/21 17:08 Oxycodone /Acetaminophen 5-325mg Tab PO 1 tab Q6H PRN Administration Pain, Moderate (4-6) Rifampin 300 mg 01/18/21 22:00 01/28/21 09:00 Rifampin 300 Mg Cap PO 300 mg BID ELI Administration Zolpidem Tartrate 5 mg 01/20/21 20:21 01/24/21 23:14 Zolpidem 5 Mg Tab PO 5 mg QHS PRN Administration Sleep
[2021-01-28] MEDS: ZOLPIDEM 5 MG TAB PO PRN (22:39)
[2021-01-29] MEDS: cloNIDine 0.1 MG TAB PO SCH (05:36)
[2021-01-29] MEDS: LEVOTHYROXINE 50 MCG TAB PO SCH (05:36)
--- NOTE | 2021-01-29 09:12 | Progress Note ---
Assessment and Plan Assessment - End-stage renal disease on hemodialysis. Followed by Dr. Brandy Soler in [place] outpatient on MWF schedule - Hypertension - Anemia of ESRD - Hyperparathyroidism - Leukocytosis - Pneumonia - Acute and chronic respiratory failure, on 2 L of oxygen at home - Substernal chest pain, tender to touch. Recommendations - needs HD today for volume/electrolyte management as last treatment was on 01/25 - tachycardia management per cardiology appreciated, stress test noted - Monitor labs and volume status daily and assess need for additional dialysis session - Leukocytosis w/u as per primary - Agree with antibiotics - Epogen with HD - Continue sensipar - Continue phosphorus binders - ESRD diet with 1.4 g/kg per day protein - Renally dose medication for creatinine clearance less than 15 cc/min Subjective Date of service: 01/29/21 Principal diagnosis: Atrial Flutter Interval history: Patient again states that she is not feeling well today, no specific complaints Objective - Exam Narrative Exam: General appearance: well-developed EENT: PERRL, mucous membranes moist Neck: no JVD, supple, other (Right IJ PermCath in place) Respiratory: on NC this AM, sitting up; normal respiratory effort Cardiology: regular, normal heart rate Gastrointestinal: normal, normoactive bowel sounds Integumentary: other (No edema) - Vital Signs Vital signs: Vital Signs - 12hr 01/28/21 01/28/21 01/28/21 21:31 21:37 22:00 Temperature Pulse Rate 88 Pulse Rate [ 67 Posterior Bilateral Throughout] Respiratory Rate Respiratory 13 Rate [Posterior Bilateral Throughout] Blood Pressure O2 Sat by Pulse 97 Oximetry 01/28/21 01/29/21 01/29/21 23:16 03:43 05:36 Temperature 97.8 F 98.4 F Pulse Rate 81 64 64 Pulse Rate [ Posterior Bilateral Throughout] Respiratory 20 18 Rate Respiratory Rate [Posterior Bilateral Throughout] Blood Pressure 112/67 123/74 123/74 O2 Sat by Pulse 95 97 Oximetry - Lab 01/27/21 07:09 01/27/21 07:10 Most recent lab results Calcium 8.6 mg/dL (8.4-10.2) 01/27/21 07:10 Magnesium 2.20 mg/dL (1.7-2.3) 01/18/21 04:58 Medications & Allergies - Medications Allergies/Adverse Reactions: Allergies No Known Allergies Allergy (Verified 01/18/21 04:31) Home Medications: Home Medications Medication Instructions Recorded Confirmed Last Taken Type rifAMPin [Rifadin] 300 mg PO BID 11/02/19 01/19/21 11/01/19 History Apixaban [Eliquis] 2.5 mg PO BID #60 tablet 11/16/20 01/19/21 Unknown Rx Cinacalcet HCl [Sensipar] 30 mg PO QDAY #60 11/16/20 01/19/21 Unknown Rx Isosorbide Dinitrate [Isordil] 20 mg PO BID #60 11/16/20 01/19/21 Unknown Rx Linaclotide [Linzess] 72 mg PO PRN PRN #10 cap 11/16/20 01/19/21 Unknown Rx Omeprazole 40 mg PO QDAY #30 11/16/20 01/19/21 Unknown Rx Temazepam [Restoril] 15 mg PO QHS #30 cap 11/16/20 01/19/21 Unknown Rx Vit B Complx C/Folic Acid/Zinc 0.8 mg PO QDAY #30 11/16/20 01/19/21 Unknown Rx [Dialyvite 800-Zinc 15 mg Tab] allopurinoL [Zyloprim] 100 mg PO QDAY #30 11/16/20 01/19/21 Unknown Rx hydrALAZINE [Apresoline TAB] 100 mg PO TID #90 tab 11/16/20 01/19/21 Unknown Rx ALBUTEROL NEB's [Proventil 0.083% 2.5 mg IH TIDRT #90 nebu 01/28/21 Unknown Rx NEBS] Dicyclomine [Bentyl] 10 mg PO QID #20 oral.liqd 01/28/21 Unknown Rx Levothyroxine [Synthroid] 50 mcg PO DAILY@0600 #30 tablet 01/28/21 Unknown Rx Metoprolol [Lopressor TAB] 25 mg PO TID #60 tablet 01/28/21 Unknown Rx cloNIDine [Catapres] 0.1 mg PO Q8HR #90 tablet 01/28/21 Unknown Rx guaiFENesin ER [Mucinex ER] 600 mg PO BID #30 tablet 01/28/21 Unknown Rx oxyCODONE /ACETAMINOPHEN [Percocet 1 tab PO Q8HR PRN #15 tablet 01/28/21 Unknown Rx 5/325 mg] Active Medications: Generic Name Dose Route Start Last Admin Trade Name Freq PRN Reason Stop Dose Admin Acetaminophen 650 mg 01/23/21 22:39 01/24/21 09:39 Acetaminophen 325 Mg Tab PO 650 mg Q6HR PRN Administration Pain, Mild (1-3) Acetylcysteine 200 mg 01/27/21 12:55 Acetylcysteine 20% 200 Mg/1 Ml *For Inhalation Use* INHALATION Q8HRT PRN Shortness Of Breath Albuterol 2.5 mg 01/21/21 14:00 01/28/21 21:31 Albuterol 2.5 Mg/3 Ml Nebu IH 2.5 mg TIDRT ELI Administration Allopurinol 100 mg 01/19/21 10:00 01/28/21 09:01 Allopurinol 100 Mg Tab PO 100 mg QDAY ELI Administration Apixaban 2.5 mg 01/25/21 22:00 01/28/21 21:31 Apixaban 2.5 Mg Tab PO 2.5 mg BID ELI Administration Cinacalcet 30 mg 01/19/21 10:00 01/28/21 09:01 Cinacalcet 30 Mg Tab PO 30 mg QDAY ELI Administration Clonidine HCl 0.1 mg 01/25/21 12:00 01/29/21 05:36 Clonidine 0.1 Mg Tab PO 0.1 mg Q8HR ELI Administration Dicyclomine HCl 10 mg 01/27/21 14:00 01/28/21 21:36 Dicyclomine 10 Mg/5 Ml Oral Liqd PO 10 mg QID ELI Administration Guaifenesin 10 ml 01/19/21 05:17 01/28/21 22:31 Guaifenesin Dm 200/20 Mg Oral Liqd 10 Ml PO 10 ml Q4H PRN Administration Cough Guaifenesin 600 mg 01/20/21 22:00 01/28/21 21:30 Guaifenesin Er 600 Mg Tab PO 600 mg BID ELI Administration Sodium Chloride 100 mls @ 999 mls/hr 01/18/21 08:00 Nacl 0.9% IV STEVIE PRN Hypotension Levothyroxine Sodium 50 mcg 01/26/21 06:00 01/29/21 05:36 Levothyroxine 50 Mcg Tab PO 50 mcg DAILY@0600 ELI Administration Metoprolol Tartrate 25 mg 01/25/21 12:00 01/28/21 21:31 Metoprolol Tartrate 25 Mg Tab PO 25 mg TID ELI Administration Morphine Sulfate 2 mg 01/18/21 17:38 01/28/21 22:27 Morphine 2 Mg/1 Ml Inj IV 2 mg Q8H PRN Administration Pain, Moderate (4-6) Ondansetron HCl 8 mg 01/23/21 11:34 01/28/21 22:31 Ondansetron 4 Mg/2 Ml Inj IV 8 mg Q6H PRN Administration nausea/vomitting Oxycodone/Acetaminophen 1 tab 01/18/21 17:27 01/28/21 17:08 Oxycodone /Acetaminophen 5-325mg Tab PO 1 tab Q6H PRN Administration Pain, Moderate (4-6) Rifampin 300 mg 01/18/21 22:00 01/28/21 21:36 Rifampin 300 Mg Cap PO 300 mg BID ELI Administration Zolpidem Tartrate 5 mg 01/20/21 20:21 01/28/21 22:39 Zolpidem 5 Mg Tab PO 5 mg QHS PRN Administration Sleep
[2021-01-29] MEDS: ALBUTEROL 2.5 MG/3 ML NEBU IH SCH ×2 (09:34→13:49)
[2021-01-29] MEDS: APIXABAN 2.5 MG TAB PO SCH (09:41)
[2021-01-29] MEDS: allopurinoL 100 MG TAB PO SCH (09:41)
[2021-01-29] MEDS: guaiFENesin ER 600 MG TAB PO SCH (09:41)
[2021-01-29] MEDS: rifAMPin 300 MG CAP PO SCH (09:41)
[2021-01-29] MEDS: CINACALCET 30 MG TAB PO SCH (09:41)
[2021-01-29] MEDS: DICYCLOMINE 10 MG/5 ML ORAL LIQD PO SCH ×2 (09:41→15:04)
[2021-01-29] MEDS: METOPROLOL TARTRATE 25 MG TAB PO SCH (09:42)
[2021-01-29] MEDS: ONDANSETRON 4 MG/2 ML INJ IV PRN (10:46)
[2021-01-29] MEDS: MORPHINE 2 MG/1 ML INJ IV PRN (10:47)
--- NOTE | 2021-01-29 11:24 | Progress Note ---
Assessment and Plan Assessment and plan: 55-year-old -[place] female patient with significant past medical history of esophageal cancer s/p resection, with stent placement, hypertension, end-stage renal disease on hemodialysis, chronic pain syndrome presented to the emergency room with worsening shortness of breath cough chest tightness and generalized weakness of 3 to 4 days duration. Patient has had dialysis MWF her last diagnosis was on Sunday 4 days ago Patient missed 1 dialysis, patient pro BNP is 78,000 Patient denies any chest pain or palpitation, complains of shortness of breath and cough productive No history of fever, patient reports that she felt sick and was admitted briefly at [facility]. Denies headache dizziness weakness or numbness Patient has 2 L of nasal cannula home oxygen. Patient denies any history of COVID-19 infection or close contacts with infected people Patient reports that she has finished vaccination series recently Patient missed dialysis because she states she felt sick. More shortness of breath and productive cough. Thought she had pneumonia. Patient states she feels better today via oxygenation. No further nausea vomiting at this time. Feels better but not quite at baseline. Currently on 2 L now and at home. Patient much less coughing. Breathing better. Should do better with hemodialysis today. Will discharge after hemodialysis. No further nausea vomi ting. Patient is currently on home O2 2 L. 01/23/2021 : Patient hospital course complicated by persistent nausea. Also complicated by tachycardia as high as 123 today. Denies chest pain at this julia e. Mostly nausea vomiting. Moderate improvement with Zofran. 01/24- Check Free T4. Pts TSH is elevated. Continue Eliquis and BB. BP better controlled. Antiemetics, 01/25: Results consistent with Hypothyrodisim, will start on synthroid, will also obtain CTA chest to rule out PE. Plan discussed with the patient and Cardiology. Patient noted to have some clinical improvement in symptoms. 01/26: Continue current management we will also sick for CT-guided left thoracentesis for symptomatic healing. Will of course do fluid analysis. Patient is anticipated to have a stress test in a.m. There is no evidence of pulmonary embolism and imaging study obtained. Plan discussed with the patient and she verbalized understanding 01/27: Stress test shows no ischemia. Patient undergoing thoracentesis today. I discussed extensively with family about her clinical condition. Anticipate discharge in 24 to 48 hours if remains stable follow PT/OT. Discussed in detail with family 01/28: Patient was discharged but did not leave 01/29: Patient for dialysis today will be discharged after dialysis have tried to call the sister and the daughter left a message for the sister daughter's form did not allow me to leave a message. Patient's medical condition is complicated by the hypothyroidism and this may be leading to her melancholic feeling although is does not play with a picture of the atrial fibrillation. Nothing has grown from the cultures and there was still need to follow-up outpatient for be cytology testing from the pleural fluid. 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 --New onset atrial fibrillation/flutter --Acute heart failure with preserved ejection fraction --Bilateral pleural effusion with compressive atelectasis --Hypertension; patient has been having some low blood pressures this morning With systolic blood pressures 90s diastolic 50 to 60s; unable to give fluid bolus due to ESRD Patient required midodrine over the last night for hypotension. Currently blood pressure stable systolic 110 to 120 . Will discontinue midodrine and hold blood pressure medicines for now patient to receive hemodialysis again today. Hydralazine has been discontinued. Continue Coreg. --Brief episode of severe nausea vomiting this morning; Patient continues to have nausea and vomiting. Possibly secondary to uremia. Will increase Zofran from 4 mg to 8 mg. Continue supportive care follow electrolytes. Follow-up chest x-ray no evidence of pneumonia at this time. --Acute respiratory distress; secondary to fluid overload Due to end-stage renal disease on hemodialysis HD per schedule, fluid restriction, low-sodium diet Patient was told she had pneumonia. Will start patient on nebulizer treatments follow-up chest x-ray to reevaluate pneumonia. Ruled out for pneumonia with negative chest x-ray. Continue nebulizers has done well with nebulizers stable for transfer discharge a.m. --Tachycardia-patient with SVT rate into 120s. Will give beta-caity x1 at this time. Appreciate cardiology recommendations. Etiology could be nausea vomiting with volume contraction --End-stage renal disease on hemodialysis Nephrology evaluated the patient HD per schedule MWF , Procrit during dialysis --Leukocytosis; SIRS --NSTEMI suspect type II in setting of ESRD --Acute bronchitis/URI Empiric antibiotics Rocephin and Zithromax Continue present management. Follow cultures, cough medicine as needed --Anemia of ESRD; closely monitor H&H Procrit during dialysis, transfuse as needed --DVT prophylaxis; Lovenox (1) Acute respiratory failure Current Visit: Yes Status: Acute (2) Bronchitis Current Visit: Yes Status: Acute (3) Acute heart failure with preserved ejection fraction (HFpEF) Current Visit: Yes Status: Acute (4) ESRD needing dialysis Current Visit: Yes Status: Acute (5) Anemia in chronic kidney disease (CKD) Current Visit: Yes Status: Chronic (6) New onset atrial flutter Current Visit: Yes Status: Acute (7) NSTEMI (non-ST elevated myocardial infarction) Current Visit: Yes Status: Acute Plan to address problem: ?Type 2 (8) Pulmonary embolism Current Visit: Yes Status: Chronic Plan to address problem: 10/2019 (9) COPD (chronic obstructive pulmonary disease) Current Visit: Yes Status: Chronic (10) Hypertension Current Visit: Yes Status: Chronic Qualifiers: Hypertension type: essential hypertension Qualified Code(s): I10 - Essential (primary) hypertension (11) Aortic regurgitation Current Visit: Yes Status: Chronic (12) Mitral regurgitation Current Visit: Yes Status: Chronic (13) Esophageal cancer Current Visit: Yes Status: Chronic Plan to address problem: S/p resection & stent (14) GERD (gastroesophageal reflux disease) Current Visit: Yes Status: Chronic Qualifiers: Esophagitis presence: with esophagitis (15) H/O ETOH abuse Current Visit: Yes Status: Chronic History Interval history: Patient seen and examined, no new complaints has generalized melancholy feeling. She is for dialysis today she was discharged yesterday but wanted to wait for dialysis today before she leaves. Hospitalist Physical - Physical exam Narrative exam: General appearance: Present: no acute distress, chronically ill appearing- AT Baseline - EENT Eyes: PERRL, EOM intact ENT: hearing intact, clear oral mucosa Ears: bilateral: normal - Neck Neck: supple, normal ROM - Respiratory Respiratory effort: normal Respiratory: bilateral: CTA - Breasts Breasts: normal - Cardiovascular Rhythm: irregular irregular controlled Heart Sounds: Present: S1 & S2. Absent: gallop, rub Extremities: pulses intact, No edema, normal color, Full ROM - Gastrointestinal General gastrointestinal: Present: soft, non-tender, non-distended, normal bowel sounds - Genitourinary Female genitourinary: normal - Integumentary Integumentary: clear, warm, dry, AV FISTULA - Musculoskeletal Musculoskeletal: 1, strength equal bilaterally - Neurologic Neurologic: moves all extremities - Psychiatric Psychiatric: memory intact, appropriate mood/affect, intact judgment & insight - Constitutional Vitals: Temp Pulse Resp BP Pulse Ox 98.4 F 89 18 131/71 96 01/29/21 03:43 01/29/21 09:42 01/29/21 10:00 01/29/21 09:42 01/29/21 09:34 General appearance: Present: no acute distress, well-nourished HEART Score - HEART Score Troponin: Troponin T 0.131 ng/mL (0.00-0.029) H* 01/27/21 07:10 Results - Labs CBC & Chem 7: 01/27/21 07:09 01/27/21 07:10 Labs: Laboratory Last Values WBC 10.3 K/mm3 (4.5-11.0) 01/27/21 07:09 RBC 2.56 M/mm3 (3.65-5.03) L 01/27/21 07:09 Hgb 7.9 gm/dl (10.1-14.3) L 01/27/21 07:09 Hct 25.1 % (30.3-42.9) L 01/27/21 07:09 MCV 98 fl (79-97) H 01/27/21 07:09 MCH 31 pg (28-32) 01/27/21 07:09 MCHC 32 % (30-34) 01/27/21 07:09 RDW 17.4 % (13.2-15.2) H 01/27/21 07:09 Plt Count 317 K/mm3 (140-440) 01/27/21 07:09 Lymph % (Auto) 8.2 % (13.4-35.0) L 01/20/21 06:59 [place] % (Auto) 9.4 % (0.0-7.3) H 01/20/21 06:59 Eos % (Auto) 1.2 % (0.0-4.3) 01/20/21 06:59 Baso % (Auto) 0.5 % (0.0-1.8) 01/20/21 06:59 Lymph # (Auto) 0.7 K/mm3 (1.2-5.4) L 01/20/21 06:59 [place] # (Auto) 0.8 K/mm3 (0.0-0.8) 01/20/21 06:59 Eos # (Auto) 0.1 K/mm3 (0.0-0.4) 01/20/21 06:59 Baso # (Auto) 0.0 K/mm3 (0.0-0.1) 01/20/21 06:59 Seg Neutrophils % 80.7 % (40.0-70.0) H 01/20/21 06:59 Seg Neutrophils # 7.3 K/mm3 (1.8-7.7) 01/20/21 06:59 PT 18.5 Sec. (12.2-14.9) H 01/25/21 05:56 INR 1.49 (0.87-1.13) H 01/25/21 05:56 D-Dimer 3897.19 ng/mlDDU (0-234) H 01/25/21 05:56 Sodium 136 mmol/L (137-145) L 01/27/21 07:10 Potassium 4.3 mmol/L (3.6-5.0) 01/27/21 07:10 Chloride 96.1 mmol/L (98-107) L 01/27/21 07:10 Carbon Dioxide 25 mmol/L (22-30) 01/27/21 07:10 Anion Gap 19 mmol/L 01/27/21 07:10 BUN 30 mg/dL (7-17) H 01/27/21 07:10 Creatinine 6.5 mg/dL (0.6-1.2) H 01/27/21 07:10 Estimated GFR 8 ml/min 01/27/21 07:10 BUN/Creatinine Ratio 5 % 01/27/21 07:10 Glucose 93 mg/dL (65-100) 01/27/21 07:10 POC Glucose 102 mg/dL (70-105) 01/27/21 07:30 Lactic Acid 1.00 mmol/L (0.7-2.0) 01/18/21 04:58 Calcium 8.6 mg/dL (8.4-10.2) 01/27/21 07:10 Magnesium 2.20 mg/dL (1.7-2.3) 01/18/21 04:58 Total Bilirubin 0.30 mg/dL (0.1-1.2) 01/18/21 04:58 AST 12 units/L (5-40) 01/18/21 04:58 ALT 6 units/L (7-56) L 01/18/21 04:58 Alkaline Phosphatase 132 units/L (35-129) H 01/18/21 04:58 Total Creatine Kinase 42 units/L (30-135) 01/18/21 04:58 Troponin T 0.131 ng/mL (0.00-0.029) H* 01/27/21 07:10 NT-Pro-B Natriuret Pep 80901 pg/mL (0-900) H 01/18/21 04:58 Total Protein 7.7 g/dL (6.3-8.2) 01/18/21 04:58 Albumin 3.2 g/dL (3.9-5) L 01/18/21 04:58 Albumin/Globulin Ratio 0.7 % 01/18/21 04:58 Triglycerides 57 mg/dL (2-149) 01/18/21 04:58 Cholesterol 149 mg/dL (50-199) 01/18/21 04:58 LDL Cholesterol Direct 53 mg/dL (50-130) 01/18/21 04:58 HDL Cholesterol 90 mg/dL (40-59) H 01/18/21 04:58 Cholesterol/HDL Ratio 1.65 % 01/18/21 04:58 TSH 7.610 mlU/mL (0.270-4.200) H 01/23/21 20:44 Free T4 0.60 ng/dL (0.76-1.46) L 01/24/21 Unknown Nasal Screen MRSA (PCR) Negative (Negative) 01/18/21 Unknown Hepatitis A IgM Ab Non-reactive (NonReactive) 01/18/21 09:27 Hep Bs Antigen Non-reactive (Negative) 01/18/21 09:27 Hep B Core IgM Ab Non-reactive (NonReactive) 01/18/21 09:27 Hepatitis C Antibody Non-reactive (NonReactive) 01/18/21 09:27 Stanley/IV: Voiding Method Bedside Commode Active Medications - Current Medications Current Medications: Generic Name Dose Route Start Last Admin Trade Name Freq PRN Reason Stop Dose Admin Acetaminophen 650 mg 01/23/21 22:39 01/24/21 09:39 Acetaminophen 325 Mg Tab PO 650 mg Q6HR PRN Administration Pain, Mild (1-3) Acetylcysteine 200 mg 01/27/21 12:55 Acetylcysteine 20% 200 Mg/1 Ml *For Inhalation Use* INHALATION Q8HRT PRN Shortness Of Breath Albuterol 2.5 mg 01/21/21 14:00 01/29/21 09:34 Albuterol 2.5 Mg/3 Ml Nebu IH 2.5 mg TIDRT ELI Administration Allopurinol 100 mg 01/19/21 10:00 01/29/21 09:41 Allopurinol 100 Mg Tab PO 100 mg QDAY ELI Administration Apixaban 2.5 mg 01/25/21 22:00 01/29/21 09:41 Apixaban 2.5 Mg Tab PO 2.5 mg BID ELI Administration Cinacalcet 30 mg 01/19/21 10:00 01/29/21 09:41 Cinacalcet 30 Mg Tab PO 30 mg QDAY ELI Administration Clonidine HCl 0.1 mg 01/25/21 12:00 01/29/21 05:36 Clonidine 0.1 Mg Tab PO 0.1 mg Q8HR ELI Administration Dicyclomine HCl 10 mg 01/27/21 14:00 01/29/21 09:41 Dicyclomine 10 Mg/5 Ml Oral Liqd PO 10 mg QID ELI Administration Guaifenesin 10 ml 01/19/21 05:17 01/28/21 22:31 Guaifenesin Dm 200/20 Mg Oral Liqd 10 Ml PO 10 ml Q4H PRN Administration Cough Guaifenesin 600 mg 01/20/21 22:00 01/29/21 09:41 Guaifenesin Er 600 Mg Tab PO 600 mg BID ELI Administration Sodium Chloride 100 mls @ 999 mls/hr 01/18/21 08:00 Nacl 0.9% IV STEVIE PRN Hypotension Levothyroxine Sodium 100 mcg 01/29/21 12:17 Levothyroxine 100 Mcg Tab PO DAILY@0600 ELI Metoprolol Tartrate 25 mg 01/25/21 12:00 01/29/21 09:42 Metoprolol Tartrate 25 Mg Tab PO 25 mg TID ELI Administration Morphine Sulfate 2 mg 01/18/21 17:38 01/29/21 10:47 Morphine 2 Mg/1 Ml Inj IV 2 mg Q8H PRN Administration Pain, Moderate (4-6) Ondansetron HCl 8 mg 01/23/21 11:34 01/29/21 10:46 Ondansetron 4 Mg/2 Ml Inj IV 8 mg Q6H PRN Administration nausea/vomitting Oxycodone/Acetaminophen 1 tab 01/18/21 17:27 01/28/21 17:08 Oxycodone /Acetaminophen 5-325mg Tab PO 1 tab Q6H PRN Administration Pain, Moderate (4-6) Rifampin 300 mg 01/18/21 22:00 01/29/21 09:41 Rifampin 300 Mg Cap PO 300 mg BID ELI Administration Zolpidem Tartrate 5 mg 01/20/21 20:21 01/28/21 22:39 Zolpidem 5 Mg Tab PO 5 mg QHS PRN Administration Sleep Nutrition/Malnutrition Assess - Dietary Evaluation Nutrition/Malnutrition Findings: Nutrition Notes Start: 01/25/21 13:22 Freq: Status: Active Protocol: Document 01/28/21 13:19 LM (Rec: 01/28/21 13:22 LM [id number]) Nutrition Notes Initial or Follow up Reassessment Current Diagnosis CKD (stage V CKD),COPD, Hypertension,Respiratory Failure Other Pertinent Diagnosis on HD, esophageal cancer, NSTEMI, acute respiratory failure Current Diet Renal Labs/Tests Reviewed Pertinent Medications Reviewed Height 5 ft 8.4 in Weight 77.1 kg [place] Body Weight (kg) 64.54 BMI 25.5 Weight Status Overweight Subjective/Other Information Pt stated she did not eat breakfast because it got cold and does not like the food. Pt stated she never received Nepro. Brought Nepro to pt. Percent of energy/protein needs met: 0%/0% Burn Absent Trauma Absent Current % PO Poor (25-49%) Minimum of two criteria Yes Interpretation of Weight Loss (severe) >2% in 1 week #1 Nutrition Diagnosis Malnutrition Diagnosis Progress(for reassessment Continues documentation) Is patient on ventilator? No Is Patient Ambulatory and/or Out of Bed Yes REE-([place]-. Jeor-ambulatory/OOB) [ 1853.644 [id number]] Calculation [facility]ations [facility] Additional Notes Protein: (1.2-1.5g/kg) 84-105g Fluid: 1 ml/kcal or per MD Nutrition Intervention Change Diet Order: Continue, honor food prefrences Add Supplement/Snack (indicate name/kcal Nepro daily /protein ) Provides kCal: 425 Provides Protein (gm) 19 Goal #1 Meet at least 75% of protein and energy needs via PO and ONS intakes Anticipated Discharge Needs: Renal with ONS PRN Follow-Up By: 02/01/21 Additional Comments F/U for PO/ONS intakes
--- NOTE | 2021-01-29 12:01 | Progress Note ---
Assessment and Plan S/p L thoracentesis 01/27/21 with 820mL straw-colored fluid removed. Continue volume optimization via HD. Mgmt of bronchitis as per Primary. From a cardiac standpoint, pt has chronically elevated troponins in the setting of ESRD. Lexiscan stress MPI 01/28/2021 revealed no significant ischemia. Given underlying respiratory disease, will switch BB to Cardizem for AF/Flutter rate control. Otherwise stable cardiac status. Pt seen in conjunction with Dr. Watts, who agrees with the assessment and plan of care. - Patient Problems (1) Acute respiratory failure Current Visit: Yes Status: Acute (2) Bronchitis Current Visit: Yes Status: Acute (3) Pleural effusion Current Visit: Yes Status: Acute (4) Acute heart failure with preserved ejection fraction (HFpEF) Current Visit: Yes Status: Acute (5) ESRD needing dialysis Current Visit: Yes Status: Acute (6) Anemia in chronic kidney disease (CKD) Current Visit: Yes Status: Chronic (7) New onset atrial flutter Current Visit: Yes Status: Acute (8) Wandering atrial pacemaker Current Visit: Yes Status: Suspected (9) Hypothyroidism Current Visit: Yes Status: Acute (10) NSTEMI (non-ST elevated myocardial infarction) Current Visit: Yes Status: Acute (11) Pulmonary embolism Current Visit: Yes Status: Chronic (12) COPD (chronic obstructive pulmonary disease) Current Visit: Yes Status: Chronic (13) Hypertension Current Visit: Yes Status: Chronic Qualifiers: Hypertension type: essential hypertension Qualified Code(s): I10 - Essential (primary) hypertension (14) Aortic regurgitation Current Visit: Yes Status: Chronic (15) Mitral regurgitation Current Visit: Yes Status: Chronic (16) Esophageal cancer Current Visit: Yes Status: Chronic (17) GERD (gastroesophageal reflux disease) Current Visit: Yes Status: Chronic Qualifiers: Esophagitis presence: with esophagitis (18) H/O ETOH abuse Current Visit: Yes Status: Chronic Subjective Date of service: 01/29/21 Principal diagnosis: Atrial Flutter Interval history: Pt has no new complaints this AM. Awaiting HD prior to discharge. Tele reviewed - AF/?WAP 80-90s (occasionally up to low 100s), no events overnight. Objective Last Vital Signs Temp 98.4 F 01/29/21 03:43 Pulse 89 01/29/21 09:42 Resp 18 01/29/21 10:00 BP 131/71 01/29/21 09:42 Pulse Ox 96 01/29/21 09:34 - Physical Examination General: No Apparent Distress HEENT: Positive: EOMI, Normocephaly Neck: Positive: neck supple, trachea midline. Negative: JVD/HJR Cardiac: Positive: irregularly irregular, S1/S2 Lungs: Positive: Decreased Breath Sounds (bases) Neuro: Positive: Grossly Intact Abdomen: Positive: Soft. Negative: Tender Skin: Negative: Rash Musculoskeletal: No Pain Extremities: Present: lower extr. pulses. Absent: edema - Imaging and Cardiology EKG: report reviewed, image reviewed Echo: report reviewed (01/22/2021 - EF is 45-50%, severe LVH, LA severely dilated, mild-mod AR, mod R pleural effusion), other (10/2019 - EF 50-55%, mod-severe concentric LVH, LA mod dilated, mod MR, mild-mod AR, mild-mod TR, mild pulm HTN w/RVSP 29 mmHg, trivial pericardial effusion) - Telemetry EKG Rhythm: Atrial Fibrillation - EKG Sinus rhythms and dysrhythmias: sinus rhythm AV and intraventricular conduction: left anterior fascicular Myocardial infarction: poor R wave progression
[2021-01-29] MEDS ORDERED: LEVOTHYROXINE 100 MCG TAB PO SCH (12:17)
--- NOTE | 2021-01-29 12:42 | XRay Report ---
CHEST 1 VIEW INDICATION / CLINICAL INFORMATION: plerual effusion. COMPARISON: Chest radiograph 01/21/2021 FINDINGS: SUPPORT DEVICES: Stable position of a right tunneled central venous catheter. HEART / MEDIASTINUM: Stable. LUNGS / PLEURA: Small to moderate bibasilar pleural-parenchymal opacities appear similar to slightly increased compared with prior examination. No pneumothorax. ADDITIONAL FINDINGS: No significant additional findings. IMPRESSION: 1. Small to moderate bibasilar pleural-parenchymal opacities are similar to slightly increased from p rior examination. Signer Name: Deneen Bynum MD Signed: 01/29/2021 12:38 PM Workstation Name: [id number]
[2021-01-29] MEDS ORDERED: cloNIDine 0.1 MG TAB PO SCH (14:00)
[2021-01-29] MEDS: EPOETIN ALFA-EPBX 10,000 UNIT/1 ML VIAL IV PRN (14:26)
[2021-01-29 15:05] VITALS: BP 107/73
[2021-01-29] MEDS: oxyCODONE /ACETAMINOPHEN 5-325MG TAB PO PRN (15:09)
[2021-01-29] MEDS ORDERED: dilTIAZem 30 MG TAB PO SCH (18:00)
[2021-01-31 13:19] LABS: Total Cells Counted 100 /mm3
--- NOTE | 2021-02-03 10:55 | Electrocardiograph Report ---
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
[2021-02-04 08:24] LABS: Total Protein,Body Fluid 3.7 (15.0-45.0); pH, Body Fluid 7.6
== END 2021-01-29 17:22 | disposition home health service (06) | DRG 280 ==
LOC: ED 04:07 → 4A 07:29
PROVIDERS: ADMIT Internal Medicine; ATTEND Internal Medicine
PROC: 5A1D70Z Performance of Urinary Filtration, Intermittent, Less than 6 Hours Per Day (ICD-10-PCS; 2021-01-18)
PROC: 5A1D70Z Performance of Urinary Filtration, Intermittent, Less than 6 Hours Per Day (ICD-10-PCS; 2021-01-20)
PROC: 5A1D70Z Performance of Urinary Filtration, Intermittent, Less than 6 Hours Per Day (ICD-10-PCS; 2021-01-22)
PROC: 5A1D70Z Performance of Urinary Filtration, Intermittent, Less than 6 Hours Per Day (ICD-10-PCS; 2021-01-25)
PROC: 0W9B3ZZ Drainage of Left Pleural Cavity, Percutaneous Approach (ICD-10-PCS; principal; 2021-01-27)
PROC: BB4BZZZ Ultrasonography of Pleura (ICD-10-PCS; 2021-01-27)
PROC: 5A1D70Z Performance of Urinary Filtration, Intermittent, Less than 6 Hours Per Day (ICD-10-PCS; 2021-01-29)
DX: I13.2 Hypertensive heart and chronic kidney disease with heart failure and with stage 5 chronic kidney disease, or end stage renal disease (principal); J96.00 Acute respiratory failure, unspecified whether with hypoxia or hypercapnia; I21.A1 Myocardial infarction type 2; N18.6 End stage renal disease; I50.31 Acute diastolic (congestive) heart failure; I26.99 Other pulmonary embolism without acute cor pulmonale; J18.9 Pneumonia, unspecified organism; R65.10 Systemic inflammatory response syndrome (SIRS) of non-infectious origin without acute organ dysfunction; J90 Pleural effusion, not elsewhere classified; I48.92 Unspecified atrial flutter; J98.11 Atelectasis; J20.9 Acute bronchitis, unspecified; I48.91 Unspecified atrial fibrillation; I25.10 Atherosclerotic heart disease of native coronary artery without angina pectoris; M19.90 Unspecified osteoarthritis, unspecified site; J44.9 Chronic obstructive pulmonary disease, unspecified; F10.10 Alcohol abuse, uncomplicated; D63.1 Anemia in chronic kidney disease; K21.9 Gastro-esophageal reflux disease without esophagitis; E21.3 Hyperparathyroidism, unspecified; D72.829 Elevated white blood cell count, unspecified; G89.4 Chronic pain syndrome; I34.0 Nonrheumatic mitral (valve) insufficiency; Z85.01 Personal history of malignant neoplasm of esophagus; Z79.899 Other long term (current) drug therapy; Z99.2 Dependence on renal dialysis
CPT/HCPCS: 32555; 36415; 71045; 71275; 78452; 80048; 80053; 80061; 80074; 82140; 82550; 82947; 82962; 83735; 83880; 84160; 84439; 84443; 84484; 85025; 85027; 85379; 85610; 87040; 87116; 87641; 88112; 88305; 88341; 88342; 89051; 93005; 93017; 93306; 94640; 94644; 96365; 96375; G0378; A9502; J0360; J0456; J0696; J0885; J2270; J2405; J2785; J3010; Q9967